=== PATIENT | male | born 1960 | race Caucasian/White ===

== ENCOUNTER → 2018-12-19 06:24 | Outpatient (CLI) | payer BC, SELFPAY ==
--- NOTE | 2018-12-19 12:56 | STRESSREP ---
Stress Test Report Date: 12-19-18 Procedure: Pharmacologic stress nuclear imaging study Indications: Chest pain Consent: Per the patient Procedure: The patient underwent pharmacologic (Regadenoson) evaluation with a peak heart rate of 84 beats per minute (52 %predicted maximal heart rate) and a peak blood pressure of 120/84 mmHg. The baseline ECG demonstrated dermal sinus rhythm. The peak pharmacologic ECG demonstrated no obvious ECG changes. There were no cardiac dysrhythmias pretest, during pharmacologic infusion, or recovery. There was no complaint of chest discomfort during pharmacologic infusion or recovery. The examination was discontinued secondary to completion of protocol. Impression: 1. Pharmacologic (Regadenoson) evaluation 2. Peak pharmacologic ECG with no obvious ECG changes. 3. There were no cardiac dysrhythmias pretest, during pharmacologic infusion, or recovery. 4. Nuclear images pending Myocardial perfusion imaging study: Technique: The patient was injected with 15.0 millicuries of technetium 99m Cardiolite and subsequently rest SPECT Cardiolite nuclear imaging was obtained in the horizontal long, vertical long, and short axis views. The patient underwent pharmacologic (Regadenoson) evaluation with a peak heart rate of 84 beats per minute (52 % percent predicted maximal heart rate) and a peak blood pressure of 120/84 mmHg. The patient was injected with 45 millicuries of technetium 99m Cardiolite and subsequently stress SPECT Cardiolite nuclear imaging was obtained in the horizontal long, vertical long, and short axis views. A gated Cardiolite study at peak stress was obtained. Interpretation: Rest and stress SPECT Cardiolite nuclear imaging status post realignment and normalization (attenuation correction not performed) demonstrate relative uniform tracer uptake and myocardial perfusion appearing within normal limits. There is end systolic thickening and brightening. The gated Cardiolite study demonstrates myocardial thickening and inward wall motion. The reported LVEF is 68 %. Impression: 1. Rest and stress SPECT Cardiolite nuclear imaging demonstrate relative uniform tracer uptake and myocardial perfusion appearing within normal limits. 2. The gated Cardiolite study reports an LVEF of 68 %. This note was generated with [employer] software. It may contain incorrect words, spelling, and punctuation that were not noted in checking the note before signing.
== END ==
PROVIDERS: Family Provider Family Medicine; PCP Family Medicine; Referring Provider Family Medicine; Visit Provider Family Medicine
DX: R07.9 Chest pain, unspecified (principal)
CPT/HCPCS: 78452; 93017; A9500; A4216; J2785

== ENCOUNTER 2019-06-17 15:59 | Emergency (ER) | payer BC, SELFPAY ==
[2019-06-17 16:00] VITALS: BP 130/84; PULSE 83; RESP 16; TEMP 37.2; O2SAT 97; BMI 32.5
--- NOTE | 2019-06-17 17:42 | ED.VISSUMM ---
- ER Visit Summary Date of Service: 06/17/19 Chief Complaint: Nosebleed History of Present Illness: The patient is a 59 M on Coumadin for DVT. Also has a history of hypertension and a prior aortic stent. Said had spontaneous nosebleed since . He was seen at [facility]. They were unable to get the bleeding stopped a sending that [facility]. And is basically been bleeding since that time. He denies feel lightheaded or dizzy. He has had nosebleeds before. He denies any trauma. Physical Examination: Middle-aged male no acute distress vital signs are stable afebrile. H EENT exam blood both sides of his nose. Mild active bleeding. Posterior pharynx there is blood but no active bleeding. Neck nontender. Lungs clear to auscultation. Heart regular rhythm no murmur. Abdomen is soft and nontender. Patient is moving all 4 extremities. No edema. Neurologically is awake and alert. Test Results: PT INR equals 23 and 2.1 CBC equals normal. White count of 6. Hemoglobin 13. Emergency Department Course and Treatment: Patient is on Coumadin so we will check a PT/INR. He is also states his been bleeding for 3 days and want his blood count checked. Afrin-soaked cotton balls are being placed in both sides of his nose to decrease the bleeding and he will be packed. Repeat exam patient is doing well. A rapid Rhino was placed in the right side of his nose. There is no bleeding. Left is not bleeding and does not need to be packed. Leave the packing in for 3 days. He will be on amoxicillin 3 times daily for that period time. No follow-up with ENT as needed. Treatment Plan: Follow-up with ENT. Amoxicillin 3 times daily until the packing is removed. Disposition: Discharge Impression: Right anterior nosebleed Anterior nasal pack by ER Anticoagulated on Coumadin This note was generated with [employer] dictation software. It may contain incorrect words, spelling, and punctuation that were not noted in review of the chart prior to signing ED Disposition - Plan for ED Patient: Referrals: Marco Dunn MD [Primary Care Provider] -
[2019-06-17 18:27] LABS: Hematocrit 42.8 % (40-54); Hemoglobin 13.4 g/dL (13.0-16.5); Mean Corp Hgb Conc 31.3 g/dL (32-36); Mean Corpuscular Hgb 28.8 pg (27.0-32.0); Mean Platelet Vol. 10.6 fl (6.2-12.0); Platelet Count 196 K/mm3 (150-450); RBC Distribution Width CV 13.3 % (11.6-14.6); RBC Distribution Width SD 45.5 fl (35.1-43.9); Red Blood Count 4.65 M/mm3 (4.6-6.2); White Blood Count 6.7 K/mm3 (4.4-11.0)
[2019-06-17 18:37] LABS: International Normalized Ratio 2.1; Prothrombin Time (Protime)PT. 23.7 SECONDS (11.7-14.9)
--- NOTE | 2019-06-17 19:02 | ED.DEP ---
ED Disposition - Plan for ED Patient: Disposition: Home or Assisted Living Instructions: Nosebleed Prescriptions: Amoxicillin 250 mg PO Q8 #9 cap Prescription Printed Referrals: Jd Segura MD [STAFF PHYSICIAN] - As soon as possible Additional Instructions: If rebleeds unable to stop return. If rebleeds hold direct pressure and ice if you are unable to stop return. Continue your current medications. Amoxicillin 1 pill 3 times a day until the packing is removed in 3 days. Packing can be removed either Wednesday or Wednesday. Follow-up with ear nose and throat Dr. Jd Lowery as needed.
[2019-06-17] MEDS: Oxymetazoline 0.05% 1 SPRAY SPRAY.BTL 2 SPRAY NASAL (19:17)
== END 2019-06-17 19:18 | disposition home or self-care (01) ==
PROVIDERS: Emergency Provider Emergency Medicine; PCP Family Medicine
DX: R04.0 Epistaxis (principal); I10 Essential (primary) hypertension; Z79.01 Long term (current) use of anticoagulants; Z86.718 Personal history of other venous thrombosis and embolism; Z72.0 Tobacco use
CPT/HCPCS: 30901; 36415; 85027; 85610; 99282

== ENCOUNTER 2019-06-17 22:51 | Emergency (ER) | payer BC, SELFPAY ==
[2019-06-17 16:00] VITALS: BMI 32.5
[2019-06-17 22:52] VITALS: BP 118/72; PULSE 90; RESP 16; TEMP 36.1; O2SAT 98; BMI 32.5
[2019-06-17] MEDS: Oxymetazoline 0.05% 1 SPRAY SPRAY.BTL 2 SPRAY NASAL (23:27)
--- NOTE | 2019-06-18 00:01 | ED.VISSUMM ---
- ER Visit Summary Date of Service: 06/18/19 Chief Complaint: Return with recurrent nosebleed History of Present Illness: The patient is a 59 M on Coumadin for history of DVT also history of hypertension. Patient was seen several hours ago has had a nosebleed intermittently for 3 days. Earlier tonight we checked a CBC which was normal and his Coumadin level was therapeutic at 2.1. We placed a anterior nasal pack in his right knee was completely stopped bleeding he was doing well. He went home said he was up and around doing things in his house and the bleeding restarted. And now is bleeding out the left side also. Physical Examination: Middle-aged male no acute distress vital signs are stable afebrile. Initial blood pressure is 138/84. H EENT exam pack in the right. There is bleeding mildly on the left in his posterior pharynx. The right packing soaked with blood. Lungs are clear heart regular rhythm. Otherwise exam unremarkable. I removed the pack. Test Results: Reviewed earlier labs. Emergency Department Course and Treatment: Removed the right nasal pack. Had the patient blow his nose clear another clots. Placed cotton ball soaked with nasal spray. After 20 to 30 minutes the bleeding completely resolved. I placed 1 anterior pack in each naris. Inflated both about 3 cc of air. Bleeding is completely resolved. The mid posterior pharynx is clean. He ambulated up and down the hallways and the bleeding did not restart. Treatment Plan: Follow-up with ENT on Wednesday. Return if bleeding recurs and unable to start. Disposition: dc Impression: Bilateral anterior nosebleeds Anticoagulated on Coumadin therapeutic Bilateral anterior rapid Rhino Rocket's placed by ER physician. Please only bill this patient for 1 ER physician rah ardon. This note was generated with [employer] dictation software. It may contain incorrect words, spelling, and punctuation that were not noted in review of the chart prior to signing ED Disposition - Plan for ED Patient: Referrals: Marco Dunn MD [Primary Care Provider] -
--- NOTE | 2019-06-18 00:05 | ED.DEP ---
ED Disposition - Plan for ED Patient: Disposition: Home or Assisted Living Instructions: Nosebleed Referrals: Jd Segura MD [STAFF PHYSICIAN] - 2 Days Additional Instructions: Follow-up with ENT either on Wednesday or Wednesday.
[2019-06-18 00:25] VITALS: RESP 16
== END 2019-06-18 00:26 | disposition home or self-care (01) ==
PROVIDERS: Emergency Provider Emergency Medicine; PCP Family Medicine
DX: R04.0 Epistaxis (principal); Z79.01 Long term (current) use of anticoagulants; Z86.718 Personal history of other venous thrombosis and embolism; I10 Essential (primary) hypertension
CPT/HCPCS: 30901; 36415; 85027; 85610; 99282

== ENCOUNTER 2021-03-15 12:29 | Emergency (ER) | payer OTHER, SELFPAY ==
[2021-03-15 12:30] VITALS: BP 117/79; PULSE 92; RESP 18; TEMP 36.4; O2SAT 100; BMI 35.2
--- NOTE | 2021-03-15 12:59 | EX.ED.GUMALE ---
HPI History of Present Illness Chief Complaint: Corral C/O Informant: patient and spouse/S.O. Pain Onset: Today Maximum Severity: Mild Narrative Narrative: 60-year-old male status post recent robotic prostatectomy on Wednesday at [facility]. Patient has an indwelling 20 [place] Corral catheter. Today it stopped draining. Of note he has a history of DVTs and is currently on Coumadin. He has noticed gross hematuria prior to the catheter stopped draining. Prior similar symptoms: No Recent Illness/Hospitalization: Yes PFSH PFSH Medical History History of abdominal aortic aneurysm History of DVT (deep vein thrombosis) History of prostate cancer HLD (hyperlipidemia) HTN (hypertension) Home Medications aspirin 81 mg PO DAILY@0800 05/11/15 [History Last Taken Unknown] metoprolol tartrate 50 mg PO BID 05/11/15 [History Last Taken Unknown] lisinopril 20 mg PO DAILY 06/17/19 [History Last Taken Unknown] paroxetine HCl 20 mg PO DAILY 06/17/19 [History Last Taken Unknown] warfarin 5 mg PO DAILY 06/17/19 [History Last Taken Unknown] olmesartan 03/15/21 [History Last Taken Unknown] Allergy/AdvReac Type Severity Reaction Status Date / Time ciprofloxacin [From Cipro] Allergy Rash Verified 03/15/21 12:31 ciprofloxacin HCl Allergy Rash Verified 03/15/21 12:31 [From Cipro] Surgical History H/O prostatectomy History of abdominal aortic aneurysm (AAA) repair History of cholecystectomy History of knee surgery Social History Smoking Status: Current every day smoker tobacco type: cigarettes ROS ROS ED ROS Narrative Denies recent illness. Review of Systems ROS Unobtainable: Denies due to encephalopathy Constitutional Constitutional ED: Denies fever(s) Eyes Eyes: Denies change in vision ENT ENT ED: Denies ear pain Cardiovascular Cardiovascular: Denies chest pain Respiratory/Chest Respiratory/Chest: Denies dyspnea Gastrointestinal Gastrointestinal: Denies abdominal pain Genitourinary Genitourinary ED: Denies dysuria Musculoskeletal Musculoskeletal: Denies myalgias Integumentary Denies rash Neurologic Neurologic: Denies headache(s) Psychiatric Psychiatric: Denies depression Endocrine Endocrinology: Denies polyuria Hematologic/Lymphatic Hematologic/Lymphatic: Reports easy bruising Allergic/Immunologic Allergic/Immunologic ED: Denies urticaria EXAM Physical Exam Narrative Exam Narrative: 60-year-old male vital signs stable afebrile. HEENT exam unremarkable. Lungs are clear. Heart regular rate and rhythm. Abdomen soft. He has mildly distended. Tender over the suprapubic region. Is well healed laparoscopic incisions. Is got bruising from being on Lovenox and Coumadin. External exam unremarkable. 20 [place] Citizen Corral catheter in place. Not actively draining. Nurse was able to irrigate with saline but had trouble drawing it back out. And we did it was gross hematuria and often clots. We could never get it open and spontaneously drained. Moving all 4 extremities. No edema. Const Vital Signs: 03/15/21 12:30 Temperature 97.6 F L Temperature Source Temporal Pulse Rate 92 Respiratory Rate 18 Blood Pressure 117/79 Blood Pressure Mean 91 Pulse Ox 100 Oxygen Delivery Method Room Air Positive well nourished and well developed General Appearance ED: well developed and NAD; Negative for pallor HEENT Reports moist mucous membranes normocephalic and atraumatic Eyes PERRL and EOMs intact bilaterally Neck no lymphadenopathy, supple and no JVD General: Negative for tenderness Resp normal respiratory effort and clear to auscultation bilaterally Auscultation: Negative for rales, rhonchi or wheezes Cardio regular rate, regular rhythm, S1 normal heart sound, S2 normal heart sound and no murmurs GI non-distended and no masses GI Narrative: Suprapubic tenderness. Auscultation: normoactive bowel sounds; Negative for hyperactive bowel sounds Palpation: soft Rectal Exam: tenderness Back/Spine no CVA tenderness General Back: Negative for CVA tenderness Extremity normal to inspection General Extremety ED: Negative for edema or tenderness General Extremity: Negative for edema Neuro oriented x3 Sensorium / Orientation: alert, oriented to person, oriented to place and oriented to time; Negative for orientation impaired, confused, lethargic or stuporous Psych mental status grossly normal Skin General Skin Exam: Negative for jaundice or pallor Lesions: no lesions Rashes: no rashes MDM MDM MDM Narrative Medical decision making narrative: Middle-age male obstructed catheter. Vital signs stable afebrile. We attempted to irrigate the catheter got clots but could not get the catheter to flush well at all. I spoke to the urologist carbon coater machine operator for [facility]. They want him to be transferred because they may need to change the Corral catheter and/or admit him for irrigation. They did not want us to attempt to change the catheter due to the recent surgery. [facility] except the patient in transfer. His wants to drive him there and not use an ambulance. They will be discharged and she will take him directly to [facility]. Discharge Plan Triage Chief Complaint: Corral C/O ED Provider: Jonas Avilez Dx/Rx/DC Orders Clinical Impression: Obstructed Corral catheter, Acute urinary retention, History of prostatectomy, Medication induced coagulopathy Prescriptions: No Action metoprolol tartrate 50 MG tablet 50 mg PO BID RF: 0 aspirin 81 MG tablet 81 mg PO DAILY@0800 RF: 0 lisinopril 20 MG tablet 20 mg PO DAILY RF: 0 paroxetine HCl 20 MG tablet 20 mg PO DAILY RF: 0 warfarin 5 MG tablet 5 mg PO DAILY RF: 0 olmesartan 20 mg tablet RF: 0 Primary Care Provider: Marco Dunn Referrals: Marco Dunn MD [Primary Care Provider] - Disposition Disposition: Acute Care Hospital
--- NOTE | 2021-03-15 13:01 | NURSING ---
UROLOGY PAGED THROUGH [facility] DR VILLANUEVA FOR DR DELUCA
--- NOTE | 2021-03-15 13:05 | ED.RN ---
Scanned multiple times and areas with zero results. Physician aware.
--- NOTE | 2021-03-15 14:09 | NURSING ---
[facility] BED [id number] NURSE TO NURSE [phone]
== END 2021-03-15 14:36 | disposition short-term general hospital (02) ==
PROVIDERS: Emergency Provider Emergency Medicine; PCP Family Medicine
DX: R33.9 Retention of urine, unspecified (principal); R31.0 Gross hematuria; T83.091A Other mechanical complication of indwelling urethral catheter, initial encounter; D68.8 Other specified coagulation defects; E78.5 Hyperlipidemia, unspecified; I10 Essential (primary) hypertension; F17.210 Nicotine dependence, cigarettes, uncomplicated; Z79.01 Long term (current) use of anticoagulants; Z79.82 Long term (current) use of aspirin; Z85.46 Personal history of malignant neoplasm of prostate; Z86.718 Personal history of other venous thrombosis and embolism; Z90.79 Acquired absence of other genital organ(s)
CPT/HCPCS: 99281; 99285

== ENCOUNTER 2021-06-10 11:21 | Emergency (ER) | payer OTHER, SELFPAY ==
[2021-06-10 11:22] VITALS: BP 149/106; PULSE 87; RESP 16; TEMP 36.2; O2SAT 100; BMI 35.3
--- NOTE | 2021-06-10 11:35 | CT_ITS ---
STUDY: CT ABDOMEN AND PELVIS WITH CONTRAST REASON FOR EXAM: Male, 60 years old. Right-sided discomfort for 2 weeks. Tender to touch. RADIATION DOSAGE (If Supplied By Facility): CTDIvol = ( 13.79 ) mGy, DLP = ( 1057.84 ) mGycm TECHNIQUE: Transaxial images were obtained from the dome of the diaphragm to the symphysis pubis without oral contrast. IV 100mL Isovue-300 was administered. Sagittal and coronal images were reconstructed. Individualized dose optimization techniques were used for this CT. COMPARISON: Comparison is made with prior study dated 05/11/2015. FINDINGS: Mild increased markings at the lung bases. This is unchanged and most likely represents mild degree of the scarring. Coronary artery calcification There is decreased attenuation of the liver consistent with steatosis. The patient is status post cholecystectomy. Normal spleen. Normal pancreas. Normal bilateral adrenal glands. There is a 2.7 cm cyst in the lower pole of the right kidney. Normal left kidney. There is a small hiatal hernia. Normal small intestine. Normal colon. The appendix is visualized and appears normal. The patient is status post endoluminal stent graft in the abdominal aorta. Normal inferior vena cava. Normal retroperitoneum. Normal urinary bladder. The patient is status post prostatectomy. There is a small umbilical hernia containing fat. There are mild degenerative changes of the visualized lumbar spine. CT/Abdomen/Pelvis W IV Cont ONLY IMPRESSION: 2.7 cm right renal cyst. Status post endoluminal stent grafting of the abdominal aorta. Small hiatal hernia. Electronically Signed: García Kothari MD at 13:11 EST ,
--- NOTE | 2021-06-10 11:36 | EDS_ITS ---
HPI History of Present Illness Chief Complaint: Abd Pain Informant: patient Narrative Narrative: Patient states that he has had discomfort on the right side of his abdomen for about 2 weeks. It never really goes away. He has no injury or lifting or straining. There is nothing that he can think of that really makes it better or worse other than pressing in the right mid quadrant area. He has been eating and drinking normally. He is not having nausea vomiting. He has no diarrhea. No constipation. No blood in the stool. No back pain or flank pain. He has had some dark urine but he has had changes in his urine ever since he had a prostatectomy back in January for prostate cancer. He has had repeat PSAs that are below 1. He has not followed up yet with Dr. Lane who did the surgery at [facility]. Patient also has a history of aortobifem stenting about 6 7 years ago. He has had prior cholecystectomy. He does not know if he has ever had diverticular disease. He has not had appendectomy. [facility] Medical History History of abdominal aortic aneurysm History of DVT (deep vein thrombosis) History of prostate cancer HLD (hyperlipidemia) HTN (hypertension) Home Medications aspirin 81 mg PO DAILY@0800 05/11/15 [History Last Taken Unknown] metoprolol tartrate 50 mg PO BID 05/11/15 [History Last Taken Unknown] lisinopril 20 mg PO DAILY 06/17/19 [History Last Taken Unknown] paroxetine HCl 20 mg PO DAILY 06/17/19 [History Last Taken Unknown] warfarin 5 mg PO DAILY 06/17/19 [History Last Taken Unknown] olmesartan 03/15/21 [History Last Taken Unknown] oxycodone-acetaminophen [Percocet] 1 tab PO Q6H PRN 3 Days #12 tab 06/10/21 [Rx Last Taken Unknown] Allergy/AdvReac Type Severity Reaction Status Date / Time ciprofloxacin [From Cipro] Allergy Rash Verified 06/10/21 11:21 ciprofloxacin HCl Allergy Rash Verified 06/10/21 11:21 [From Cipro] Surgical History H/O prostatectomy History of abdominal aortic aneurysm (AAA) repair History of cholecystectomy History of knee surgery Social History Smoking Status: Current every day smoker tobacco type: cigarettes ROS ROS ED Constitutional Constitutional ED: Denies chills, fever(s) or subjective ENT ENT ED: Denies rhinorrhea or sore throat Cardiovascular Cardiovascular: Denies chest pain or palpitations Respiratory/Chest Respiratory/Chest: Denies cough, dyspnea or dyspnea on exertion Gastrointestinal Gastrointestinal: Reports abdominal pain; Denies constipation, diarrhea, melena, nausea or vomiting Genitourinary Genitourinary ED: Reports other Details: Varied urination. He states he does not control it too well. It tends to be darker than normal. He just had this checked by nurse practitioner in the last week. ; Denies hematuria Musculoskeletal Musculoskeletal: Denies back pain, myalgias or neck pain Integumentary Denies abscess or rash Neurologic Neurologic: Denies headache(s) Endocrine Endocrinology: Denies polydipsia or polyuria Allergic/Immunologic Allergic/Immunologic ED: Denies mouth swelling or urticaria EXAM Physical Exam Const Vital Signs: 06/10/21 11:22 06/10/21 14:35 Temperature 97.2 F L Temperature Source Temporal Pulse Rate 87 93 Respiratory Rate 16 14 Blood Pressure 149/106 H 161/96 H Blood Pressure Mean 120 117 Pulse Ox 100 96 Oxygen Delivery Method Room Air Room Air Positive well nourished and well developed General Appearance ED: well developed and NAD; Negative for cyanotic or diaphoretic HEENT Reports moist mucous membranes Eyes EOMs intact bilaterally Eyes Narrative: I am suspicious there is some mild scleral icterus. Neck supple Chest Wall inspection of chest normal and palpation of chest normal Resp normal respiratory effort and clear to auscultation bilaterally Effort and Inspection: Negative for pain with movement Auscultation: Negative for rales, rhonchi or wheezes Cardio regular rate and regular rhythm GI normal to inspection, nondistended, normoactive bowel sounds GI Narrative: Patient does have some tenderness down the right side of abdomen. Most of it is mid or upper. Although he has some obesity, I am suspicious his liver is a little bit firm and may be enlarged on exam. Palpation: soft Back/Spine no CVA tenderness Neuro oriented x3 Sensorium / Orientation: alert Psych mental status grossly normal Skin no rashes or lesions noted General Skin Exam: Negative for jaundice MDM MDM MDM Narrative Medical decision making narrative: Patient CBC including hemoglobin is normal. Electrolytes and liver function test are normal. Lipase is normal. INR is slightly high at 3.[address] markedly so. CT scan was read as normal. However, I looked at this and was concerned about rectus sheath hematoma. So we contacted the radiologist again. Patient's been having pain for 2 weeks. His hemoglobin is stable. We will have hold Coumadin for about 3 days. He will then start off at half dose and then go back to full dose. He will not work for the next week to let this heal. We discussed multiple reasons that would bring him back to and including pain, lightheadedness, swelling, fevers or any other concerns. Any radiation of the pain is also concerning. Lab Data Attestation: I reviewed the patient's lab results. Labs: Laboratory Results - last 24 hr 06/10/21 06/10/21 06/10/21 11:43 11:43 11:43 WBC 8.0 RBC 5.13 Hgb 14.2 Hct 44.0 MCV 85.8 MCH 27.7 MCHC 32.3 RDW Std Deviation 43.2 RDW Coeff of Nena 13.8 Plt Count 254 MPV 9.8 Immature Gran % (Auto) 1.400 H Neut % (Auto) 66.9 Lymph % (Auto) 17.0 L Lucas % (Auto) 9.8 Eos % (Auto) 4.0 Baso % (Auto) 0.9 Absolute Neuts (auto) 5.4 Absolute Lymphs (auto) 1.37 Nucleated RBC % 0 PT Cancelled INR Cancelled Sodium 137 Potassium 4.0 Chloride 103 Carbon Dioxide 30.0 Anion Gap 4 L BUN 14 Creatinine 1.13 Estim Creat Clear Calc 75.35 Est GFR (MDRD) Af Amer 85 Est GFR (MDRD) Non-Af 70 BUN/Creatinine Ratio 12.4 Glucose 81 Calcium 8.9 Total Bilirubin 0.30 AST 16 ALT 22 Alkaline Phosphatase 91 Total Protein 7.4 Albumin 3.5 Globulin 3.9 Albumin/Globulin Ratio 0.9 Lipase 126 Urine Color Urine Clarity Urine pH Ur Specific [place] Urine Protein Urine Glucose (UA) Urine Ketones Urine Occult Blood Urine Nitrite Urine Bilirubin Urine Urobilinogen Ur Leukocyte Esterase Urine RBC Urine WBC Ur Squamous Epith Cells Urine Bacteria Urine Mucus 06/10/21 06/10/21 11:58 13:30 WBC RBC Hgb Hct MCV MCH MCHC RDW Std Deviation RDW Coeff of Nena Plt Count MPV Immature Gran % (Auto) Neut % (Auto) Lymph % (Auto) Lucas % (Auto) Eos % (Auto) Baso % (Auto) Absolute Neuts (auto) Absolute Lymphs (auto) Nucleated RBC % PT 30.9 H INR 3.1 Sodium Potassium Chloride Carbon Dioxide Anion Gap BUN Creatinine Estim Creat Clear Calc Est GFR (MDRD) Af Amer Est GFR (MDRD) Non-Af BUN/Creatinine Ratio Glucose Calcium Total Bilirubin AST ALT Alkaline Phosphatase Total Protein Albumin Globulin Albumin/Globulin Ratio Lipase Urine Color Yellow Urine Clarity Clear Urine pH 6.5 Ur Specific [place] 1.010 Urine Protein Negative Urine Glucose (UA) Normal Urine Ketones Negative Urine Occult Blood Negative Urine Nitrite Negative Urine Bilirubin Negative Urine Urobilinogen Normal Ur Leukocyte Esterase Negative Urine RBC 0 SEEN Urine WBC 0 SEEN Ur Squamous Epith Cells 0 SEEN Urine Bacteria 0 SEEN Urine Mucus 0 SEEN Radiography Diagnostic Testing: Clinical Impression(s) from Imaging Studies Abdomen/Pelvis CT 06/10/21 11:35 IMPRESSION: 2.7 cm right renal cyst. Status post endoluminal stent grafting of the abdominal aorta. Small hiatal hernia. Electronically Signed: García Kothari MD at 13:11 EST , ADDENDUM: 06/10/21 1405 Discharge Plan Triage Chief Complaint: Abd Pain ED Provider: Shin Atkins Dx/Rx/DC Orders Clinical Impression: Hematoma of rectus sheath, Warfarin-induced coagulopathy Instructions: ED Hematoma Prescriptions: New oxycodone-acetaminophen [Percocet] 5-325 mg tablet 1 tab PO Q6H PRN (Reason: pain) 3 Days Qty: 12 RF: 0 No Action metoprolol tartrate 50 MG tablet 50 mg PO BID RF: 0 aspirin 81 MG tablet 81 mg PO DAILY@0800 RF: 0 lisinopril 20 MG tablet 20 mg PO DAILY RF: 0 paroxetine HCl 20 MG tablet 20 mg PO DAILY RF: 0 warfarin 5 MG tablet 5 mg PO DAILY RF: 0 olmesartan 20 mg tablet RF: 0 Stand Alone Forms: Work Status Form Primary Care Provider: Marco Dunn Referrals: Marco Dunn MD [Primary Care Provider] - Disposition Disposition: Home, Self Care
[2021-06-10 11:55] LABS: Absolute Lymphocyte Count 1.37 X10^3/uL (0.83-4.51); Absolute Neutrophil Count 5.4 X10^3/uL (2.0-7.7); Basophil# 0.07 X10^3/uL; Basophil% 0.9 % (0-1); Eosinophil# 0.32 X10^3/uL; Hemoglobin 14.2 g/dL (13.0-16.5); Lymphocyte # 1.37 X10^3/ul (0.83-4.51); Mean Corp Hgb Conc 32.3 g/dL (32-36); Mean Corpuscular Hgb 27.7 pg (27.0-32.0); Mean Corpuscular Volume 85.8 fL (80-94); Mean Platelet Vol. 9.8 fl (6.2-12.0); Monocyte# 0.79 X10^3/uL; Monocyte% 9.8 % (0-10); NRBC Flagged by Analyzer 0 % (0-5); Neutrophil # 5.38 X10^3/uL (2.7-7.7); Neutrophil % 66.9 % (47-70); Platelet Count 254 K/mm3 (150-450); RBC Distribution Width CV 13.8 % (11.6-14.6); RBC Distribution Width SD 43.2 fl (35.1-43.9); Red Blood Count 5.13 M/mm3 (4.6-6.2)
[2021-06-10 12:10] LABS: ALB/GLOB Ratio 0.9 RATIO (0.9-2.4); AST(SGOT) 16 U/L (15-37); Alanine Aminotransfer ALT/SGPT 22 U/L (16-61); Albumin, Serum 3.5 g/dL (3.2-5.0); Alkaline Phosphatase 91 U/L (45-117); Anion Gap 4 (5-15); BUN 14 mg/dL (7-18); BUN/Creat Ratio 12.4 RATIO (10-20); Calcium,Total 8.9 mg/dL (8.5-10.1); Chloride 103 mmol/L (98-107); Creatinine, Serum 1.13 mg/dL (0.70-1.30); EST Glomerular Filtration Rate 70 mL/min (>60); Est Glom Filt Rate - Afr Amer 85 mL/min (>60); Estimated Creatinine Clearance 75.35 ml/min; Globulin 3.9 g/dL (2.2-4.2); Glucose 81 mg/dL (74-106); Lipase 126 U/L (73-393); Protein, Total 7.4 g/dL (6.4-8.2); Sodium Level 137 mmol/L (136-145)
[2021-06-10 12:18] LABS: International Normalized Ratio 3.1; Prothrombin Time (Protime)PT. 30.9 SECONDS (11.7-14.9)
[2021-06-10] MEDS: Morphine 4 MG/ML Syringe IV (13:14)
[2021-06-10 13:38] LABS: Bacteria 0 SEEN /hpf (None Seen); Mucous, Urine 0 SEEN /hpf (<or=2+); Red Blood Cells-Urine 0 SEEN /hpf (0-5); Squamous Epithelial Cells - UA 0 SEEN /hpf (0-5); White Blood Cells 0 SEEN /hpf (0-5)
[2021-06-10 13:39] LABS: Color, Urine Yellow (Yellow); Glucose, Dipstick Normal (Normal); Ketone-Dipstick Negative (Negative); Leukocyte Esterase-Dipstick Negative /ul (Negative); Nitrite-Dipstick Negative (Negative); Occult Blood-Urine Negative /ul (Negative); Protein-Dipstick Negative (Negative); Urine Bilirubin Dipstick Negative (Negative); Urine Clarity Clear (Clear); Urine Urobilinogen Normal (Normal); Urine pH 6.5 (5.0 - 8.0)
[2021-06-10 14:35] VITALS: BP 161/96; PULSE 93; RESP 14; O2SAT 96
[2021-06-10 15:17] VITALS: BP 162/75; PULSE 81; RESP 18; O2SAT 98
== END 2021-06-10 15:21 | disposition home or self-care (01) ==
PROVIDERS: Emergency Provider Emergency Medicine; PCP Family Medicine; Visit Provider Emergency Medicine
DX: M79.81 Nontraumatic hematoma of soft tissue (principal); I71.4 Abdominal aortic aneurysm, without rupture; D68.32 Hemorrhagic disorder due to extrinsic circulating anticoagulants; Z86.718 Personal history of other venous thrombosis and embolism; Z85.46 Personal history of malignant neoplasm of prostate; E78.5 Hyperlipidemia, unspecified; I10 Essential (primary) hypertension; Z79.82 Long term (current) use of aspirin; Z79.899 Other long term (current) drug therapy; Z79.01 Long term (current) use of anticoagulants; Z90.49 Acquired absence of other specified parts of digestive tract; F17.210 Nicotine dependence, cigarettes, uncomplicated
CPT/HCPCS: 74177; 80053; 81001; 83690; 85025; 85610; 96361; 96374; 99283; J7030; Q9967; A4216

== ENCOUNTER 2021-06-11 17:09 | Emergency (ER) | payer OTHER, SELFPAY ==
[2021-06-11 17:10] VITALS: BP 131/102; PULSE 118; RESP 16; TEMP 36.4; O2SAT 100; BMI 35.2
--- NOTE | 2021-06-11 17:23 | EKG12_ITS ---
Test Reason : ABD PAIN Blood Pressure : / mmHG Vent. Rate : 101 BPM Atrial Rate : 101 BPM P-R Int : 146 ms QRS Dur : 076 ms QT Int : 328 ms P-R-T Axes : 040 026 016 degrees QTc Int : 425 ms Sinus tachycardia with occasional Premature ventricular complexes Otherwise normal ECG Confirmed by JAME MANLEY, ROZ ([id number]), scientific publications editor PATRICIA STRINGER ([id number]) on 06/13/2021 1:09:44 PM Referred By: SANDY Confirmed By:VERONICA KILGORE MD
--- NOTE | 2021-06-11 17:23 | CT_ITS ---
We are attempting to reach an attending provider to discuss findings. An addendum with communication details will be sent when the communication is complete. INDICATION: Generalized peritonitis -- History of prostate cancer, aortic aneurysm with s EXAMINATION: CT Abdomen And Pelvis W/ Contrast Injection TECHNIQUE: Helically acquired images were obtained of the abdomen and pelvis after IV contrast. A radiation dose optimization technique was used for this scan. IV Contrast dosage and agent: IV 100mL Isovue-300 Oral contrast: None. COMPARISON: 06/10/2021. FINDINGS: Visualized lung bases: Unremarkable Liver: Diffusely hypodense consistent with fatty liver. Gallbladder: Unremarkable Spleen: Unremarkable Pancreas: Unremarkable Adrenal Glands: Unremarkable Kidneys: Stable 2.7 cm cyst in the lower pole of the right kidney. Vasculature: Stable abdominal aortic aneurysm status post endoluminal stent graft. GI Tract: Small hiatal hernia. Lymphadenopathy: None Peritoneum: No ascites. Bladder: Unremarkable Reproductive organs: Status post prostatectomy. Bones/Soft tissues: Mild scattered degenerative changes of the visualized spine. Small umbilical fat-containing hernia. Large rectus abdominous/rectus sheath hematoma on the right measuring approximately 23.3 x 5 cm. Hemorrhage crosses the midline and dissects along the transversalis fascial plane. It also involves the prevesical space of Retzius. There are 2 punctate hyperdense foci within the inferior aspect of the hematoma anterior to the right inferior epigastric artery (images 103 and 99, series 2). CT/Abdomen/Pelvis W IV Cont ONLY IMPRESSION: Large 23 cm type III right sided rectus sheath hematoma which crosses the midline, dissects along the transversalis fascia and involves the prevesical space of Retzius. Two punctate hyperdense foci within the inferior aspect of the hematoma anterior to the right inferior epigastric artery could represent active extravasation versus pseudoaneurysms. No other changes. Electronically Signed: Stepan Vann MD at 19:13 EST ,
--- NOTE | 2021-06-11 18:02 | ED.VIS.GI ---
HPI HPI - GI History of Present Illness Chief Complaint: Abd Pain Detail of Chief Complaint: Abdominal pain with nausea started 3 days ago Informant: patient Abdominal Pain/Flank Pain Onset: Days (3 days ago) Context: Sudden Onset Timing: Continuous Quality: Aching Location: - (Worse right side) Current Severity: Mild Maximum Severity: Severe Worsened by: Car ride, Movement and - (Coughing) Relieved by: Nothing Nausea/Vomiting/Emesis GI Symptom: Positive for Nausea; Negative for Vomiting Diarrhea/Melena/Hematochezia GI Symptom: Negative for Diarrhea, Melena and Hematochezia Associated Symptoms Associated Symptoms: Negative for Dysuria, Frequency and Hematuria Narrative Narrative: Patient 60-year-old male with history of prostate cancer, hypertension who apparently is on warfarin based on home meds. We will add a PT/INR. Patient had surgery at [facility] for his prostate cancer by Dr. Ricky Stockton. He denies fever, chills night sweats. He reports weight gain not weight loss. He denies headache, visual, ocular auditory symptoms. He denies any upper respiratory symptoms. He denies intolerance to greasy or fried foods. He states his last bowel movement was yesterday. He is still passing gas. He has nausea without vomiting. He denies prior history of bowel obstruction. He denies change in color of his urine or stool. He denies blood or mucus in his stool. Prior similar symptoms: No Recent Illness/Hospitalization: Yes [facility] Medical History History of abdominal aortic aneurysm History of DVT (deep vein thrombosis) History of prostate cancer HLD (hyperlipidemia) HTN (hypertension) Home Medications aspirin 81 mg PO DAILY@0800 05/11/15 [History Last Taken Unknown] metoprolol tartrate 50 mg PO BID 05/11/15 [History Last Taken Unknown] lisinopril 20 mg PO DAILY 06/17/19 [History Last Taken Unknown] paroxetine HCl 20 mg PO DAILY 06/17/19 [History Last Taken Unknown] warfarin 5 mg PO DAILY 06/17/19 [History Last Taken Unknown] olmesartan 03/15/21 [History Last Taken Unknown] oxycodone-acetaminophen [Percocet] 1 tab PO Q6H PRN 3 Days #12 tab 06/10/21 [Rx Last Taken Unknown] Allergy/AdvReac Type Severity Reaction Status Date / Time ciprofloxacin [From Cipro] Allergy Rash Verified 06/10/21 11:21 ciprofloxacin HCl Allergy Rash Verified 06/10/21 11:21 [From Cipro] Surgical History H/O prostatectomy History of abdominal aortic aneurysm (AAA) repair History of cholecystectomy History of knee surgery Social History (Updated 06/11/21 @ 18:[address] Ochoa Pritchett MD) household members: spouse Smoking Status: Current every day smoker tobacco type: cigarettes substance use type: does not use ROS ROS ED Constitutional Constitutional ED: Denies chills, fever(s), subjective, sweats or weight loss ENT ENT ED: Denies ear pain, rhinorrhea or sore throat Cardiovascular Cardiovascular: Denies chest pain, orthopnea, palpitations or racing heartbeat Respiratory/Chest Respiratory/Chest: Denies cough, dyspnea, dyspnea on exertion or orthopnea Gastrointestinal Gastrointestinal: Denies abdominal pain, diarrhea, nausea or vomiting Genitourinary Genitourinary ED: Denies dysuria, hematuria or urinary frequency Musculoskeletal Musculoskeletal: Denies arthralgias, back pain, myalgias or neck pain Integumentary Denies rash Neurologic Neurologic: Denies headache(s) or weakness Psychiatric Psychiatric: Denies anxiety or depression Endocrine Endocrinology: Denies polydipsia, polyphagia or polyuria Hematologic/Lymphatic Hematologic/Lymphatic: Denies easy bleeding or easy bruising EXAM Physical Exam Const Vital Signs: 06/11/21 17:10 Temperature 97.6 F L Temperature Source Temporal Pulse Rate 118 H Respiratory Rate 16 Blood Pressure 131/102 H Blood Pressure Mean 111 Pulse Ox 100 Oxygen Delivery Method Room Air Positive well nourished, well developed and obese; Negative for cachectic, contractures or unkempt General Appearance ED: well developed; Negative for unkempt, cachectic, contractures, NAD or pallor Nutritional Appearance: obese; Negative for cachectic HEENT Reports TM's clear and dry mucous membranes normocephalic and atraumatic Tympanic Membrane ED: Yes TM's clear Mouth ED: Yes dry mucous membranes Mouth: dry mucous membranes Eyes PERRL and EOMs intact bilaterally General Eye ED: Yes other Other Details: Clear appears muddy possibly slightly icteric. ; Negative for pale conjunctiva or scleral icterus Neck no lymphadenopathy, supple and no JVD Resp normal respiratory effort and clear to auscultation bilaterally Cardio regular rhythm, S1 normal heart sound, S2 normal heart sound and no murmurs Rate: tachycardic GI no masses; Negative for non-tender or non-distended GI Narrative: Well-healed recent surgical scars noted. There is no inguinal lymphadenopathy or mass noted. Inspection: abdominal distention Auscultation: hypoactive bowel sounds; Negative for normoactive bowel sounds Palpation: soft, tender other (Diffuse right greater than left), guarding LLQ, RLQ and RUQ and rebound tenderness present; Negative for hepatomegaly, splenomegaly or mass Back/Spine no CVA tenderness Cervical Spine: Negative for cervical spine tenderness Thoracic Spine / Upper Back: Negative for thoracic spinal tenderness Lumbar Spine / Lower Back: Negative for lumbar spinal tenderness Extremity full ROM General Extremety ED: Negative for edema or tenderness General Extremity: Negative for edema Neuro CN's II-XII intact bilaterally and moves all extremities Sensorium / Orientation: alert, oriented to person, oriented to place and oriented to time Psych mental status grossly normal and thought process normal Appearance: Negative for unkempt Skin no wounds General Skin Exam: Negative for jaundice or pallor Lesions: no lesions Rashes: no rashes MDM MDM MDM Narrative Medical decision making narrative: Patient has generalized peritonitis. Since he has no allergy to penicillin 4.5 g of Zosyn was ordered. His only sirs criteria is a pulse of 118. Appropriate blood work was ordered. Blood cultures were not because they may not be indicated. In my opinion delay of antibiotics may cause more harm. CBC was obtained to assess white count as well as H&H. Comprehensive metabolic panel to assess liver function, total bili, renal function and electrolytes. GFR yesterday was 70. crime scene technician was instructed to perform CAT scan. Lab Data Attestation: I reviewed the patient's lab results. Lab results narrative: There is a 2 g drop in hemoglobin. Lactate is normal. White count is normal. Renal function is normal. Patient has a expanding hematoma. Suspect is tachycardia is due to blood loss from expanding hematoma. PT/INR is pending. He was typed and screened. Spoke with Dr. Shashi Winters on for general surgery. Because of the nationwide blood shortage and patient's complicated history and need for IR recommended transfer. Spoke with Jinny the transfer nurse. She is made aware of patient's history, physical past history. She spoke with Dr. Campoverde who is on for vascular surgery. She recommended ER to ER transfer. Spoke with Dr. Beltrán the ER physician. She was informed that the images will be sent electronically prior to patient's transport. She requested that the PT/INR be called to her. Labs: Laboratory Results - last 24 hr 06/11/21 06/11/21 06/11/21 18:00 18:00 18:00 WBC 9.1 RBC 4.53 L Hgb 12.4 L Hct 40.1 MCV 88.5 MCH 27.4 MCHC 30.9 L RDW Std Deviation 45.2 H RDW Coeff of Nena 14.1 Plt Count 260 MPV 10.1 Immature Gran % (Auto) 0.500 Neut % (Auto) 79.1 H Lymph % (Auto) 8.5 L [place] % (Auto) 10.2 H Eos % (Auto) 1.0 Baso % (Auto) 0.7 Absolute Neuts (auto) 7.2 Absolute Lymphs (auto) 0.78 L Nucleated RBC % 0 Sodium 135 L Potassium 4.1 Chloride 101 Carbon Dioxide 27.0 Anion Gap 7 BUN 14 Creatinine 1.15 Estim Creat Clear Calc 74.04 Est GFR (MDRD) Af Amer 83 Est GFR (MDRD) Non-Af 69 BUN/Creatinine Ratio 12.2 Glucose 89 Lactic Acid 1.5 Calcium 8.4 L Total Bilirubin 0.40 Direct Bilirubin 0.13 AST 22 ALT 21 Alkaline Phosphatase 82 Total Protein 7.2 Albumin 3.6 Globulin 3.6 Lipase 73 Critical Care Time Critical Care Time: Yes Critical care time (excluding procedures): 30-74 minutes (37 minutes), Including time spent: (History, physical, documentation, interpretation laboratory results and CT image to facilitate transfer), Discussing w/Patient &/or Family/Glass Fitter, Discussing w/Consultants (Discussion with nurse [facility] transfer center, emergency physician) and Arranging Admission or Transfer Discharge Plan Triage Chief Complaint: Abd Pain ED Provider: Ochoa Pritchett Dx/Rx/DC Orders Clinical Impression: Nontraumatic rectus hematoma, Anticoagulant long-term use, Sinus tachycardia, Active bleeding Prescriptions: No Action metoprolol tartrate 50 MG tablet 50 mg PO BID RF: 0 aspirin 81 MG tablet 81 mg PO DAILY@0800 RF: 0 lisinopril 20 MG tablet 20 mg PO DAILY RF: 0 paroxetine HCl 20 MG tablet 20 mg PO DAILY RF: 0 warfarin 5 MG tablet 5 mg PO DAILY RF: 0 olmesartan 20 mg tablet RF: 0 oxycodone-acetaminophen [Percocet] 5-325 mg tablet 1 tab PO Q6H PRN (Reason: pain) 3 Days Qty: 12 RF: 0 Primary Care Provider: Marco Dunn Referrals: Marco Dunn MD [Primary Care Provider] - Disposition Disposition: Acute Care Hospital
[2021-06-11 18:11] LABS: Absolute Lymphocyte Count 0.78 X10^3/uL (0.83-4.51); Absolute Neutrophil Count 7.2 X10^3/uL (2.0-7.7); Basophil# 0.06 X10^3/uL; Basophil% 0.7 % (0-1); Eosinophil# 0.09 X10^3/uL; Hematocrit 40.1 % (40-54); Hemoglobin 12.4 g/dL (13.0-16.5); Lymphocyte # 0.78 X10^3/ul (0.83-4.51); Lymphocyte % 8.5 % (19-41); Mean Corp Hgb Conc 30.9 g/dL (32-36); Mean Corpuscular Hgb 27.4 pg (27.0-32.0); Mean Corpuscular Volume 88.5 fL (80-94); Mean Platelet Vol. 10.1 fl (6.2-12.0); Monocyte# 0.93 X10^3/uL; Monocyte% 10.2 % (0-10); NRBC Flagged by Analyzer 0 % (0-5); Neutrophil # 7.23 X10^3/uL (2.7-7.7); Neutrophil % 79.1 % (47-70); Platelet Count 260 K/mm3 (150-450); RBC Distribution Width CV 14.1 % (11.6-14.6); RBC Distribution Width SD 45.2 fl (35.1-43.9); Red Blood Count 4.53 M/mm3 (4.6-6.2); White Blood Count 9.1 K/mm3 (4.4-11.0)
[2021-06-11 18:28] LABS: AST(SGOT) 22 U/L (15-37); Alanine Aminotransfer ALT/SGPT 21 U/L (16-61); Albumin, Serum 3.6 g/dL (3.2-5.0); Alkaline Phosphatase 82 U/L (45-117); Anion Gap 7 (5-15); BUN 14 mg/dL (7-18); BUN/Creat Ratio 12.2 RATIO (10-20); Bilirubin, Direct 0.13 mg/dL (0.00-0.30); Calcium,Total 8.4 mg/dL (8.5-10.1); Chloride 101 mmol/L (98-107); Creatinine, Serum 1.15 mg/dL (0.70-1.30); EST Glomerular Filtration Rate 69 mL/min (>60); Est Glom Filt Rate - Afr Amer 83 mL/min (>60); Estimated Creatinine Clearance 74.04 ml/min; Globulin 3.6 g/dL (2.2-4.2); Glucose 89 mg/dL (74-106); Lipase 73 U/L (73-393); Potassium 4.1 mmol/L (3.5-5.1); Protein, Total 7.2 g/dL (6.4-8.2); Sodium Level 135 mmol/L (136-145)
[2021-06-11 18:33] LABS: Lactic Acid 1.5 mmol/L (0.4-1.9)
[2021-06-11 19:18] LABS: International Normalized Ratio 2.3; Prothrombin Time (Protime)PT. 24.2 SECONDS (11.7-14.9)
[2021-06-11] MEDS: HYDROmorphone 1 MG/ML Syringe IV ×2 (19:19→20:35)
[2021-06-11] MEDS: Ondansetron 4 MG/2 ML Vial IV (19:19)
[2021-06-11 19:21] VITALS: BP 159/104; PULSE 109; RESP 18; TEMP 37.2; O2SAT 96
[2021-06-11] MEDS: 0.9% Normal Saline 1,000 ML 1000 ML IV (19:21)
[2021-06-11 19:22] VITALS: BP 159/104; PULSE 104; RESP 18; TEMP 37.2; O2SAT 100
[2021-06-11 19:45] VITALS: BP 163/107; PULSE 84; RESP 18; O2SAT 95
[2021-06-11 20:03] VITALS: BP 129/88; PULSE 84; RESP 18; O2SAT 95
[2021-06-11] MEDS: HUMAN PROTHROMBIN COMPLX(PCC) 2,500 UNIT in Viaflex Bag 1 BAG 500 UNIT IV (20:14)
[2021-06-11] MEDS: 0.9% Normal Saline 1,000 ML 125 ML IV (20:30)
[2021-06-11] MEDS: Phytonadione (Vit K1) 5 MG TABLET PO (20:54)
[2021-06-11 20:59] VITALS: BP 124/72; PULSE 102; RESP 20; TEMP 37.2; O2SAT 94
== END 2021-06-11 21:06 | disposition short-term general hospital (02) ==
PROVIDERS: Emergency Provider Emergency Medicine; PCP Family Medicine; Visit Provider Emergency Medicine
DX: M79.81 Nontraumatic hematoma of soft tissue (principal); I71.4 Abdominal aortic aneurysm, without rupture; R00.0 Tachycardia, unspecified; R11.2 Nausea with vomiting, unspecified; Z85.46 Personal history of malignant neoplasm of prostate; I10 Essential (primary) hypertension; F17.210 Nicotine dependence, cigarettes, uncomplicated; Z79.01 Long term (current) use of anticoagulants; E78.5 Hyperlipidemia, unspecified; Z86.718 Personal history of other venous thrombosis and embolism; Z79.82 Long term (current) use of aspirin; Z79.899 Other long term (current) drug therapy; E66.9 Obesity, unspecified; Z87.19 Personal history of other diseases of the digestive system; Z68.35 Body mass index [BMI] 35.0-35.9, adult
CPT/HCPCS: 74177; 80048; 80076; 83605; 83690; 85025; 85610; 87426; 93005; 99285; J7030; J7168; Q9967; A4216; J2405; J3490

== ENCOUNTER 2021-08-11 13:55 | Outpatient (CLI) | payer OTHER, SELFPAY ==
[2021-08-11 14:21] LABS: International Normalized Ratio 1.2; Prothrombin Time (Protime)PT. 14.5 SECONDS (11.7-14.9)
== END 2021-08-11 23:59 | disposition home or self-care (01) ==
LOC: LABSPEC 13:57
PROVIDERS: PCP Family Medicine; Visit Provider Family Medicine
DX: D68.51 Activated protein C resistance (principal)
CPT/HCPCS: 85610

== ENCOUNTER → 2021-11-04 | Outpatient (CLI) | payer OTHER, SELFPAY ==
--- NOTE | 2021-11-04 11:06 | VDLE_ITS ---
Reason For Study: Swelling RIGHT GSV is normal. CFV is compressible, spontaneous, phasic, competent and demonstrates normal augmentation. FV is compressible, spontaneous, phasic, competent and demonstrates normal augmentation. POP V is compressible, spontaneous, phasic, competent and demonstrates normal augmentation. T/P Trunk is compressible. PTV is compressible. RT PerV is compressible. Gastroc vein is compressible with rouleaux flow noted. Procedure This is a venous duplex using B-mode, color flow and spectral Doppler. Exam performed in department. A preliminary report was called and/or faxed to [facility]. VL/Venous Duplex US, Unilateral Interpretation Summary Deep veins of the right lower extremity are patent and compressible segmentally . There is no evidence of right lower extremity deep vein thrombosis. Valvular competence jon ears intact within the proximal deep venous system on the right . The right great saphenous vein a ppears patent and compressible segmentally. Rouleaux flow is noted in the right gastrocnemius vei n. Ordering Physician: Joanne Elizondo Referring Physician: Marco Dunn Performed By: Marjorie Pollard RVT
== END | disposition home or self-care (01) ==
LOC: CVS 10:36
PROVIDERS: PCP Family Medicine; Referring Provider Registered Nurse; Visit Provider Registered Nurse
DX: M79.89 Other specified soft tissue disorders (principal)
CPT/HCPCS: 93971

== ENCOUNTER 2022-09-03 08:51 | Emergency (ER) | payer OTHER, SELFPAY ==
[2022-09-03 08:52] VITALS: BP 113/101; PULSE 106; RESP 16; TEMP 37.7; O2SAT 97; BMI 35.2
--- NOTE | 2022-09-03 09:10 | RAD_ITS ---
STUDY: X-RAY CHEST REASON FOR EXAM: Male, 62 years old. Cough fever TECHNIQUE: PA and lateral views of the chest. COMPARISON: Comparison is made with prior study dated June 21, 2014. FINDINGS: Mild degree of increased markings at the lung bases suggest some mild bibasilar atelectasis. There is no demonstrated pleural abnormality. Normal size heart. Normal mediastinum and reji. Normal visualized pulmonary arteries. There is atherosclerotic tortuosity of the aortic arch and descending thoracic aorta. Normal visualized thoracic spine. Normal visualized ribs, clavicles, and shoulders. There is no demonstrated abnormality of the visualized soft tissue structures of the upper abdomen. RAD/Chest PA and Lateral IMPRESSION: Mild degree of increased markings at the lung bases suggests a mild degree of bilateral basilar atelectasis. Electronically Signed: García Kothari MD at 11:25 EDT ,
--- NOTE | 2022-09-03 09:10 | EKG12_ITS ---
Test Reason : FEVER Blood Pressure : / mmHG Vent. Rate : 094 BPM Atrial Rate : 094 BPM P-R Int : 158 ms QRS Dur : 076 ms QT Int : 348 ms P-R-T Axes : 034 004 039 degrees QTc Int : 435 ms Normal sinus rhythm Normal ECG Confirmed by DINA MANLEY, DREA ([id number]), story editor PATRICIA STRINGER ([id number]) on 09/07/2022 11:42:59 AM Referred By: Shin Atkins Confirmed By:DREA ARROYO MD
--- NOTE | 2022-09-03 09:10 | CT_ITS ---
STUDY: CT ABDOMEN AND PELVIS WITH CONTRAST REASON FOR EXAM: Male, 62 years old. Fever, shortness of breath and weakness. History of abdominal aortic aneurysm repair and prostate cancer. RADIATION DOSAGE (If Supplied By Facility): CTDIvol = ( 15.97 ) mGy, DLP = ( 1123.63 ) mGycm TECHNIQUE: Transaxial images were obtained from the dome of the diaphragm to the symphysis pubis without oral contrast. IV 100mL Isovue-300 was administered. Sagittal and coronal images were reconstructed. Individualized dose optimization techniques were used for this CT. COMPARISON: Comparison is made with prior examination dated 02/09/2022. FINDINGS: The visualized lung bases are unremarkable. Coronary artery calcification. Normal liver. The patient is status post cholecystectomy. Normal spleen. Normal pancreas. Normal bilateral adrenal glands. 3.1 cm cyst in the lower pole of the right kidney. Normal left kidney. There is a small hiatal hernia. Normal small intestine. There are multiple colonic diverticula consistent with diverticulosis. The appendix is visualized and appears normal. The patient is status post endoluminal stent grafting of the infrarenal abdominal aorta. There is no evidence of endoluminal graft leak. The distal limbs are seen in the common iliac arteries bilaterally. Normal inferior vena cava. Normal retroperitoneum. Normal urinary bladder. The patient is status post prostatectomy. The patient is status post anterior abdominal ventral hernia repair with a mesh. The previously seen hematoma in the right rectus sheath as result. Normal osseous structures. CT/Abdomen/Pelvis W IV Cont ONLY IMPRESSION: Prior intraluminal stent grafting of the abdominal aortic aneurysm. Stable right renal cyst. The patient is status post cholecystectomy. Electronically Signed: García Kothari MD at 11:24 EDT ,
--- NOTE | 2022-09-03 09:17 | EX.ED.DYSGE1 ---
HPI History of Present Illness Chief Complaint: Fever Informant: patient and spouse/S.O. Narrative Narrative: Patient presents with fever for about a week. He has had some coughing but just clear sputum. He does have a little bit of dyspnea with exertion. He has myalgias all over. Slight headache but only minimal. Very slight nausea but mostly has no interest in food. No vomiting. No diarrhea. He does complain of some mild soreness in his abdomen that is nonspecific. But his primary complaint is cough dyspnea and fever. I asked him about the confusion. He states sometimes he just feels like his energy is low or he is almost lightheaded. But he is not actually confused. He is actually a very good informant. He has no known sick contacts. No new medications. He was seen by Dr. Dunn this morning who sent him over and was sending over information although I do not yet have that. [facility] Medical History History of abdominal aortic aneurysm History of DVT (deep vein thrombosis) History of prostate cancer HLD (hyperlipidemia) HTN (hypertension) Home Medications aspirin 81 mg tablet,delayed release 81 mg PO DAILY@0800 05/11/15 [History Last Taken Unknown] metoprolol tartrate 50 mg tablet 50 mg PO BID 05/11/15 [History Last Taken Unknown] paroxetine HCl 20 mg tablet 20 mg PO DAILY 06/17/19 [History Last Taken Unknown] warfarin 5 mg tablet 5 mg PO DAILY 06/17/19 [History Last Taken Unknown] olmesartan 20 mg tablet 20 mg PO DAILY 03/15/21 [History Last Taken Unknown] amitriptyline 50 mg tablet 50 mg PO QHS 06/11/21 [History Last Taken Unknown] bisacodyl 5 mg tablet 5 mg PO QHS 06/11/21 [History Last Taken Unknown] calcium 600 mg capsule 600 mg PO BID 06/11/21 [History Last Taken Unknown] cyclobenzaprine 10 mg tablet 10 mg PO TID 06/11/21 [History Last Taken Unknown] famotidine 20 mg tablet 20 mg PO DAILY 06/11/21 [History Last Taken Unknown] ferrous sulfate 325 mg (65 mg iron) tablet 325 mg PO BID 06/11/21 [History Last Taken Unknown] folic acid 1 mg tablet 1 mg PO DAILY 01/26/22 [History Last Taken Unknown] omeprazole 40 mg capsule,delayed release 40 mg PO DAILY 06/11/21 [History Last Taken Unknown] sildenafil 50 mg tablet 50 mg PO DAILY PRN Erectile Dysfunction 06/11/21 [History Last Taken Unknown] albuterol sulfate 90 mcg/actuation aerosol inhaler (Ventolin HFA) 2 puff inhalation Q4H PRN PRN Wheezing ##1 09/03/22 [Rx Last Taken Unknown] Allergy/AdvReac Type Severity Reaction Status Date / Time ciprofloxacin [From Cipro] Allergy Rash Verified 09/03/22 08:54 ciprofloxacin HCl Allergy Rash Verified 09/03/22 08:54 [From Cipro] Surgical History H/O prostatectomy History of abdominal aortic aneurysm (AAA) repair History of cholecystectomy History of knee surgery Social History household members: spouse Smoking Status: Current every day smoker tobacco type: cigarettes substance use type: does not use ROS ROS ED Constitutional Constitutional ED: Reports chills and fever(s); Denies sweats Eyes Eyes: Denies change in vision ENT ENT ED: Denies ear pain, rhinorrhea or sore throat Cardiovascular Cardiovascular: Denies chest pain or palpitations Respiratory/Chest Respiratory/Chest: Reports cough, dyspnea, dyspnea on exertion and sputum Gastrointestinal Gastrointestinal: Reports abdominal pain and nausea; Denies constipation, diarrhea, melena or vomiting Genitourinary Genitourinary ED: Reports other Details: Urine has started to get a little bit darker. But no dysuria. ; Denies dysuria, hematuria or urinary frequency Musculoskeletal Musculoskeletal: Reports myalgias; Denies arthralgias or back pain Integumentary Denies rash Neurologic Neurologic: Reports headache(s); Denies paresthesias or weakness Hematologic/Lymphatic Hematologic/Lymphatic: Reports easy bleeding and easy bruising Allergic/Immunologic Allergic/Immunologic ED: Denies urticaria EXAM Physical Exam Narrative Exam Narrative: Patient is awake and alert. He is actually quite a good informant there is no indication of confusion. He is nontoxic and pleasant. HEENT shows no rashes or sinus tenderness. No nasal discharge. Oropharynx is clean. He does have dentures. Mucous membranes are bit dry. Neck is supple with no meningismus no JVD or stridor Lungs do show just a hint of expiratory wheezing. There may be a few rhonchi toward the right base. Saturations are normal while sitting in bed at about 97% on room air. Heart is regular but is mildly tachycardic likely from dehydration. Abdomen is soft. He felt just a little pressure when I pressed toward the right lower quadrant but it was quite minimal. Rest of the abdomen is benign. No rebound or guarding Back shows no tenderness or pain with motion Extremities show good pulses in all extremities. No sign of poor flow. No rashes. Const Vital Signs: 09/03/22 08:52 09/03/22 09:26 09/03/22 10:04 Temperature 99.9 F H Temperature Source Temporal Pulse Rate 106 H 100 Respiratory Rate 16 18 Respiratory Effort Normal Non-Labored Respiratory Pattern Normal Normal Blood Pressure 113/101 H Blood Pressure Mean 105 Pulse Ox 97 Oxygen Delivery Method Room Air MDM MDM MDM Narrative Medical decision making narrative: My independent interpretation the patient's single view chest x-ray shows possible atelectasis but no sign of acute infiltrative process. Final reading is similar. CT reading shows no acute process but does show his prior surgeries. Patient CBC shows normal white count hemoglobin with minimally low platelets. His white count is normal but towards lower end. This in the low platelets could indicate a slight viral pattern but not definitively. Electrolytes show minimally low sodium. No sign of acute kidney injury. Calcium is normal. Lactate is normal. Nonspecific mild elevation of AST ALT but rest of liver function test are normal. INR is slightly low. states that she did hold the Coumadin a day longer than she was supposed to. He had had an INR of 4 just recently. She will go back to his regular dosing as recommended by her doctor. Patient's urine shows no sign of infection. Patient was walked in the department. His saturations were 95% on room air in the room and with walking. Breathing treatments seem to help. His lungs are clear at this time. I think we can get him home. This may be viral. He has had a week of symptoms. There is no sign of any acute process that would require antibiotics at this time. Blood cultures are pending. We will send him home with an albuterol inhaler. He is a smoker but he has no history of COPD and his lungs cleared with 1 treatment so I do not think we need to start steroids at this point. We did discuss reasons that would prompt him to return. Lab Data Attestation: I reviewed the patient's lab results. Labs: Laboratory Results - last 24 hr 09/03/22 09/03/22 09/03/22 09:30 09:30 09:30 WBC 5.0 RBC 5.23 Hgb 15.9 Hct 50.6 MCV 96.7 H MCH 30.4 MCHC 31.4 L RDW Std Deviation 49.8 H RDW Coeff of Nena 14.1 Plt Count 114 L MPV 10.3 Immature Gran % (Auto) 0.200 Neut % (Auto) 63.6 Lymph % (Auto) 15.4 L [place] % (Auto) 19.4 H Eos % (Auto) 0.8 Baso % (Auto) 0.6 Absolute Neuts (auto) 3.2 Absolute Lymphs (auto) 0.77 L Nucleated RBC % 0 PT INR Sodium 133 L Potassium 4.5 Chloride 105 Carbon Dioxide 25.0 Anion Gap 3 L BUN 16 Creatinine 1.16 Estim Creat Clear Calc 71.54 Est GFR (MDRD) Af Amer 82 Est GFR (MDRD) Non-Af 68 BUN/Creatinine Ratio 13.8 Glucose 112 H Lactic Acid 1.1 Calcium 9.2 Total Bilirubin 1.00 AST 66 H ALT 69 H Alkaline Phosphatase 78 Total Protein 7.0 Albumin 3.7 Globulin 3.3 Albumin/Globulin Ratio 1.1 Urine Color Urine Clarity Urine pH Ur Specific [place] Urine Protein Urine Glucose (UA) Urine Ketones Urine Occult Blood Urine Nitrite Urine Bilirubin Urine Urobilinogen Ur Leukocyte Esterase Urine RBC Urine WBC Ur Squamous Epith Cells Urine Bacteria Urine Mucus 09/03/22 09/03/22 09/03/22 09:30 09:57 11:38 WBC RBC Hgb Hct MCV MCH MCHC RDW Std Deviation RDW Coeff of Nena Plt Count MPV Immature Gran % (Auto) Neut % (Auto) Lymph % (Auto) [place] % (Auto) Eos % (Auto) Baso % (Auto) Absolute Neuts (auto) Absolute Lymphs (auto) Nucleated RBC % PT Cancelled 16.0 H INR Cancelled 1.3 Sodium Potassium Chloride Carbon Dioxide Anion Gap BUN Creatinine Estim Creat Clear Calc Est GFR (MDRD) Af Amer Est GFR (MDRD) Non-Af BUN/Creatinine Ratio Glucose Lactic Acid Calcium Total Bilirubin AST ALT Alkaline Phosphatase Total Protein Albumin Globulin Albumin/Globulin Ratio Urine Color Yellow Urine Clarity Clear Urine pH 5.0 Ur Specific [place] 1.010 Urine Protein 15 H Urine Glucose (UA) Normal Urine Ketones Negative Urine Occult Blood 10 H Urine Nitrite Negative Urine Bilirubin Negative Urine Urobilinogen Normal Ur Leukocyte Esterase Negative Urine RBC 0-5 SEEN Urine WBC 0 SEEN Ur Squamous Epith Cells 0-5 SEEN Urine Bacteria RARE Urine Mucus 0 SEEN Radiography Diagnostic Testing: Clinical Impression(s) from Imaging Studies Abdomen/Pelvis CT 09/03/22 09:10 IMPRESSION: Prior intraluminal stent grafting of the abdominal aortic aneurysm. Stable right renal cyst. The patient is status post cholecystectomy. Electronically Signed: García Kothari MD at 11:24 EDT , Chest X-Ray 09/03/22 09:10 IMPRESSION: Mild degree of increased markings at the lung bases suggests a mild degree of bilateral basilar atelectasis. Electronically Signed: García Kothari MD at 11:25 EDT , Discharge Plan Triage Chief Complaint: Fever ED Provider: Shin Atkins Dx/Rx/DC Orders Clinical Impression: URI, acute, Acute bronchospasm, History of fever Instructions: ED URI, Viral W/ Wheezing (Adult) Prescriptions: New albuterol sulfate [Ventolin HFA] 90 mcg/actuation HFA aerosol inhaler 2 puff inhalation Q4H PRN PRN (Reason: Wheezing) Qty: 1 0RF No Action metoprolol tartrate 50 MG tablet 50 mg PO BID aspirin 81 MG tablet 81 mg PO DAILY@0800 paroxetine HCl 20 MG tablet 20 mg PO DAILY warfarin 5 MG tablet 5 mg PO DAILY olmesartan 20 mg tablet 20 mg PO DAILY cyclobenzaprine 10 mg Tablet 10 mg PO TID calcium 600 mg Capsule 600 mg PO BID sildenafil 50 mg Tablet 50 mg PO DAILY PRN (Reason: Erectile Dysfunction) omeprazole 40 mg Capsule,Delayed Release(Dr/Ec) 40 mg PO DAILY amitriptyline 50 mg Tablet 50 mg PO QHS famotidine 20 mg Tablet 20 mg PO DAILY ferrous sulfate 325 mg (65 mg iron) Tablet 325 mg PO BID folic acid 1 mg Tablet 1 mg PO DAILY bisacodyl 5 mg Tablet 5 mg PO QHS Primary Care Provider: Marco Dunn Referrals: Marco Dunn MD [Primary Care Provider] - 3-5 Days Disposition Disposition: Home, Self Care
[2022-09-03 09:26] VITALS: PULSE 100; RESP 18
[2022-09-03] MEDS: Ipratropium/Albuterol Sulfate 3 ML AMPUL.NEB INHALATION (09:26)
[2022-09-03 09:50] LABS: Absolute Lymphocyte Count 0.77 X10^3/uL (0.83-4.51); Absolute Neutrophil Count 3.2 X10^3/uL (2.0-7.7); Basophil# 0.03 X10^3/uL; Basophil% 0.6 % (0-1); Eosinophil# 0.04 X10^3/uL; Eosinophils% 0.8 % (0-5); Hematocrit 50.6 % (40-54); Hemoglobin 15.9 g/dL (13.0-16.5); Lymphocyte # 0.77 X10^3/ul (0.83-4.51); Lymphocyte % 15.4 % (19-41); Mean Corp Hgb Conc 31.4 g/dL (32-36); Mean Corpuscular Hgb 30.4 pg (27.0-32.0); Mean Corpuscular Volume 96.7 fL (80-94); Mean Platelet Vol. 10.3 fl (6.2-12.0); Monocyte# 0.97 X10^3/uL; Monocyte% 19.4 % (0-10); NRBC Flagged by Analyzer 0 % (0-5); Neutrophil # 3.19 X10^3/uL (2.7-7.7); Neutrophil % 63.6 % (47-70); Platelet Count 114 K/mm3 (150-450); RBC Distribution Width CV 14.1 % (11.6-14.6); RBC Distribution Width SD 49.8 fl (35.1-43.9); Red Blood Count 5.23 M/mm3 (4.6-6.2)
[2022-09-03] MEDS: Ondansetron 4 MG/2 ML Vial IV (10:02)
[2022-09-03] MEDS: Acetaminophen 500 MG Tablet 1000 MG PO (10:02)
[2022-09-03 10:07] LABS: ALB/GLOB Ratio 1.1 RATIO (0.9-2.4); AST(SGOT) 66 U/L (15-37); Alanine Aminotransfer ALT/SGPT 69 U/L (16-61); Albumin, Serum 3.7 g/dL (3.2-5.0); Alkaline Phosphatase 78 U/L (45-117); Anion Gap 3 (5-15); BUN 16 mg/dL (7-18); BUN/Creat Ratio 13.8 RATIO (10-20); Calcium,Total 9.2 mg/dL (8.5-10.1); Chloride 105 mmol/L (98-107); Creatinine, Serum 1.16 mg/dL (0.70-1.30); EST Glomerular Filtration Rate 68 mL/min (>60); Est Glom Filt Rate - Afr Amer 82 mL/min (>60); Estimated Creatinine Clearance 71.54 ml/min; Globulin 3.3 g/dL (2.2-4.2); Glucose 112 mg/dL (74-106); Potassium 4.5 mmol/L (3.5-5.1); Sodium Level 133 mmol/L (136-145)
[2022-09-03 10:09] LABS: Lactic Acid 1.1 mmol/L (0.4-1.9)
[2022-09-03 10:10] LABS: International Normalized Ratio 1.3
[2022-09-03 11:41] LABS: Mucous, Urine 0 SEEN /hpf (<or=2+); White Blood Cells 0 SEEN /hpf (0-5)
[2022-09-03 11:54] LABS: Color, Urine Yellow (Yellow); Glucose, Dipstick Normal (Normal); Ketone-Dipstick Negative (Negative); Leukocyte Esterase-Dipstick Negative /ul (Negative); Nitrite-Dipstick Negative (Negative); Occult Blood-Urine 10 /ul (Negative); Protein-Dipstick 15 mg/dl (Negative); Urine Bilirubin Dipstick Negative (Negative); Urine Clarity Clear (Clear); Urine Urobilinogen Normal (Normal)
[2022-09-03 12:07] LABS: Red Blood Cells-Urine 0-5 SEEN /hpf (0-5); Squamous Epithelial Cells - UA 0-5 SEEN /hpf (0-5)
[2022-09-03 12:08] LABS: Bacteria RARE /hpf (None Seen)
[2022-09-03 12:15] VITALS: O2SAT 95
[2022-09-03 13:11] VITALS: BP 111/73; PULSE 84; RESP 16; O2SAT 98
== END 2022-09-03 13:12 | disposition home or self-care (01) ==
PROVIDERS: Emergency Provider Emergency Medicine; PCP Family Medicine; Referring Provider Emergency Medicine; Visit Provider Emergency Medicine
DX: R50.9 Fever, unspecified (principal); J06.9 Acute upper respiratory infection, unspecified; I10 Essential (primary) hypertension; F17.210 Nicotine dependence, cigarettes, uncomplicated; J98.01 Acute bronchospasm; Z79.82 Long term (current) use of aspirin; Z86.718 Personal history of other venous thrombosis and embolism; Z79.01 Long term (current) use of anticoagulants
CPT/HCPCS: 71046; 74177; 80053; 81001; 83605; 85025; 85610; 87040; 87428; 93005; 94640; 99285; J7030; Q9967; A4216; J2405

== ENCOUNTER 2023-02-21 09:19 | Observation (INO) | payer OTHER, SELFPAY ==
[2023-02-21] VITALS (8 sets, daily range): BP systolic 131–170; BP diastolic 88–137; PULSE 72–89; RESP 16–18; TEMP 36.2–36.9; O2SAT 92–99; BMI 34.9
--- NOTE | 2023-02-21 09:55 | CT_ITS ---
EXAM: CT HEAD WITHOUT INTRAVENOUS CONTRAST CLINICAL INDICATION: loss of hearing, dizziness TECHNIQUE: Multiple axial images were obtained of the head without intravenous contrast. This CT exam was performed using one or more of the following dose reduction techniques: automated exposure control, adjustment of the mA and/or kV according to patient size, and/or use of iterative reconstruction technique. This report was created using [employer] report generation technology. RADIATION DOSE: CTDIvol = 44.99 mGy, DLP = 863.60 mGy-cm COMPARISON: None. FINDINGS: BRAIN AND EXTRA-AXIAL SPACES: Unremarkable. No intra- or extra-axial hemorrhage. No evidence of acute infarct. No intracranial mass or mass effect. There is preservation of the garcia/white matter interface. Posterior fossa structures are unremarkable. Ventricles are appropriate for age. No hydrocephalus. Basal cisterns are patent. BONES/JOINTS: Unremarkable. No discrete lytic or blastic abnormalities. SINUSES: Unremarkable as visualized. Clear. MASTOID AIR CELLS: Unremarkable. Clear. ORBITS: Visualized globes, extraocular muscles, optic nerves and retrobulbar fat appear unremarkable. CT/Brain/Head without Contrast IMPRESSION: Negative head/brain CT without intravenous contrast. Electronically Signed: Austyn Raymond MD at 11:35 EDT ,
--- NOTE | 2023-02-21 09:55 | EKG12_ITS ---
Test Reason : Blood Pressure : / mmHG Vent. Rate : 079 BPM Atrial Rate : 079 BPM P-R Int : 182 ms QRS Dur : 080 ms QT Int : 406 ms P-R-T Axes : 047 -03 031 degrees QTc Int : 465 ms Normal sinus rhythm Increased R/S ratio in V1, consider early transition or posterior infarct Abnormal ECG Confirmed by DINA MANLEY, DREA ([id number]), publishing editor CARLOTA ESPINOZA ([id number]) on 02/23/2023 7:38:12 AM Referred By: Confirmed By:DREA ARROYO MD
--- NOTE | 2023-02-21 09:57 | EDS_ITS ---
HPI History of Present Illness Chief Complaint: Dizziness Narrative Narrative: 62-year-old male past medical history of AAA with repair, previous blood clots, on Coumadin, presents with dizziness and loss of hearing out of his left ear that he has had for the last 24 hours or longer. He states that he awoke yesterday morning with loss of hearing out of his left ear that progressively got worse to the point now where he cannot hear anything out of his left ear. He became dizzy and has had multiple episodes of nausea and vomiting without any blood in his emesis. While he does take Coumadin, he has not had it checked recently. He and his significant other states that he does not really go to the doctor, but they were concerned about Coumadin toxicity and his vertiginous type symptoms. They have gone to urgent care and he was sent to the emergency department for further evaluation. He denies any headache, no neck pain or other symptoms. He states that when he stands up, she gets sick. [facility] Medical History History of abdominal aortic aneurysm History of DVT (deep vein thrombosis) History of prostate cancer HLD (hyperlipidemia) HTN (hypertension) Home Medications aspirin 81 mg tablet,delayed release 81 mg PO DAILY@0800 05/11/15 [History Last Taken Unknown] metoprolol tartrate 50 mg tablet 50 mg PO BID 05/11/15 [History Last Taken Unknown] paroxetine HCl 20 mg tablet 20 mg PO DAILY 06/17/19 [History Last Taken Unknown] warfarin 5 mg tablet 5 mg PO .COMPLEX 06/17/19 [History Last Taken Unknown] olmesartan 20 mg tablet 20 mg PO DAILY 03/15/21 [History Last Taken Unknown] amitriptyline 50 mg tablet 50 mg PO QHS PRN sleep 06/11/21 [History Last Taken Unknown] bisacodyl 5 mg tablet 5 mg PO QHS PRN constipation 06/11/21 [History Last Taken Unknown] cyclobenzaprine 10 mg tablet 10 mg PO QHS PRN muscle spasm 06/11/21 [History Last Taken Unknown] famotidine 20 mg tablet 20 mg PO DAILY 06/11/21 [History Last Taken Unknown] ferrous sulfate 325 mg (65 mg iron) tablet 325 mg PO DAILY 06/11/21 [History Last Taken Unknown] folic acid 1 mg tablet 1 mg PO DAILY 06/11/21 [History Last Taken Unknown] omeprazole 40 mg capsule,delayed release 40 mg PO DAILY 06/11/21 [History Last Taken Unknown] sildenafil 50 mg tablet 50 mg PO DAILY PRN Erectile Dysfunction 06/11/21 [History Last Taken Unknown] albuterol sulfate 90 mcg/actuation aerosol inhaler (Ventolin HFA) 2 puff inhalation Q4H PRN PRN Wheezing ##1 09/03/22 [Rx Last Taken Unknown] warfarin 2.5 mg tablet 2.5 mg PO TU 02/21/23 [History Last Taken Unknown] Allergy/AdvReac Type Severity Reaction Status Date / Time ciprofloxacin [From Cipro] Allergy Rash Verified 09/03/22 08:54 ciprofloxacin HCl Allergy Rash Verified 09/03/22 08:54 [From Cipro] Surgical History H/O prostatectomy History of abdominal aortic aneurysm (AAA) repair History of cholecystectomy History of knee surgery Social History household members: spouse Smoking Status: Current every day smoker tobacco type: cigarettes substance use type: does not use ROS ROS ED ROS Narrative Constitutional: No fever, no chills. HEENT: No sore throat. No neck pain. No loss of vision. No rhinorrhea. Cardiovascular: No chest pain. No palpitations. No pedal edema. Respiratory: No cough, no shortness of breath. Abdominal: No abdominal pain. Multiple episodes of nausea and vomiting for the last 24 hours. Genitourinary: No dysuria. No hematuria. Musculoskeletal: No myalgias. No arthralgias. Neurologic: No headaches. Positive dizziness. No lightheadedness. Loss of hearing out of left ear. Questionable tinnitus prior. Skin: No rash. No change in color. Psychiatric: No depression. No anxiety. EXAM Physical Exam Narrative Exam Narrative: Afebrile. Vital signs noted. HEENT: Normocephalic. Atraumatic. PERRL, EOMI. Neck soft and supple. No point tenderness or step off. TMs clear bilaterally. No cerumen impaction. No mastoid tenderness. Cardiovascular: Regular rate and rhythm. No murmurs, rubs, or gallops appreciated. Respiratory: No tachypnea. Lungs clear to auscultation bilaterally. Gastrointestinal: Abdomen soft, nontender, with normoactive bowel sounds. No rebound or guarding. Neurological: Awake. Alert. Nonfocal, nonlateralizing. Decreased to no hearing out of left ear. Cerebellar functioning normal. NIH stroke scale is 0. Skin: No rash. Normal color. No pallor. Musculoskeletal: No pedal edema. Full range of motion extremities. Const Vital Signs: 02/21/23 09:20 02/21/23 11:37 Temperature 97.2 F L Temperature Source Temporal Pulse Rate 79 72 Respiratory Rate 18 18 Blood Pressure 170/110 H 131/88 H Blood Pressure Mean 130 102 Pulse Ox 99 95 Oxygen Delivery Method Room Air Room Air MDM MDM MDM Narrative Medical decision making narrative: In the differential diagnosis is benign positional vertigo versus cerebellar stroke. Given his NIH stroke scale being 0, and the fact that he is on Coumadin, not making him a candidate for tPA. I do not feel stroke team is indicated because his symptoms have been ongoing for greater than 24 hours. In the differential diagnosis for his nausea and vomiting would be pancreatitis versus gastritis versus vertigo as well. Comprehensive work-up was pursued. In order to help rule out any brain mass or acute hemorrhage, CT of the brain will be obtained. I am unsure as to the cause of his reported hearing loss out of his left ear only. His clinical examination shows no evidence of fluid behind his ear drum or cerumen impaction that would be causing this. EKG was obtained to rule out dysrhythmia and ACS. It demonstrates, on my independent interpretation, normal sinus rhythm at 79 bpm without ectopy or acute ST changes. No STEMI. CT of the brain was obtained and reviewed, on my interpretation of his images there is no acute hemorrhage. I reviewed the radiology report which confirms my independent interpretation. I reviewed his laboratory work from today and he has a normal white count of 10.4, hemoglobin normal at 16.1, hematocrit 48.7, platelet count normal at 196. As he is on Coumadin, INR was checked and he does not have any evidence of Coumadin toxicity and he is therapeutic at 2.4. His electrolyte panel is grossly unremarkable, no evidence of dehydration, normal sodium of 138, potassium normal at 3.6. Glucose is appropriately elevated at 109, but he has a normal anion gap of 6. I do not have any concern for diabetic ketoacidosis. Lipase is normal at 31, helping to rule out acute pancreatitis as a cause of his nausea and vomiting. High- sensitivity troponin is normal at 38. He was administered meclizine for his vertigo. However, he has shown no improvement with continued nausea, and additionally when he ambulated to the bathroom, he had to steady himself and hold onto the haynes. Once again, I am unsure as to the cause of his hearing loss, but given his intractable vertigo, concern would be for cerebellar stroke. I will discuss patient with the [facility] for observation. Patient is in stable condition. History & Record Review Discussion w/independent historian: Patient and Family Additional record(s) reviewed:: Prior ED visit Lab Data Attestation: I reviewed the patient's lab results. Labs: Laboratory Results - last 24 hr 02/21/23 09:40 WBC 10.4 RBC 5.28 Hgb 16.1 Hct 48.7 MCV 92.2 MCH 30.5 MCHC 33.1 RDW Std Deviation 46.3 H RDW Coeff of Nena 13.5 Plt Count 196 MPV 10.3 Immature Gran % (Auto) 0.200 Neut % (Auto) 82.0 H Lymph % (Auto) 10.6 L [place] % (Auto) 6.6 Eos % (Auto) 0.3 Baso % (Auto) 0.3 Absolute Neuts (auto) 8.5 H Absolute Lymphs (auto) 1.10 Nucleated RBC % 0 PT 26.0 H INR 2.4 Sodium 138 Potassium 3.6 Chloride 105 Carbon Dioxide 27.0 Anion Gap 6 BUN 17 Creatinine 1.04 Estim Creat Clear Calc 79.80 Est GFR (MDRD) Af Amer 93 Est GFR (MDRD) Non-Af 77 BUN/Creatinine Ratio 16.3 Glucose 109 H Calcium 8.7 Total Bilirubin 0.60 AST 19 ALT 28 Alkaline Phosphatase 82 Troponin I High Sens 38 Total Protein 7.2 Albumin 3.8 Globulin 3.4 Albumin/Globulin Ratio 1.1 Lipase 31 Radiography Diagnostic Testing: Clinical Impression(s) from Imaging Studies Brain CT 02/21/23 09:55 IMPRESSION: Negative head/brain CT without intravenous contrast. Electronically Signed: Austyn Raymond MD at 11:35 EDT , Management Discussion w/another healthcare provider: Hospitalist (Dr. Medina Munoz) Discharge Plan Triage Chief Complaint: Dizziness Other Complaint: Nausea/Vomiting ED Provider: Austyn Cole Dx/Rx/DC Orders Clinical Impression: Hearing loss in left ear, Dizziness, Nausea and vomiting Prescriptions: No Action metoprolol tartrate 50 MG tablet 50 mg PO BID aspirin 81 MG tablet 81 mg PO DAILY@0800 paroxetine HCl 20 MG tablet 20 mg PO DAILY warfarin 5 MG tablet 5 mg PO .COMPLEX Rx Instructions: 5 mg orally; olmesartan 20 mg tablet 20 mg PO DAILY cyclobenzaprine 10 mg Tablet 10 mg PO QHS PRN (Reason: muscle spasm) sildenafil 50 mg Tablet 50 mg PO DAILY PRN (Reason: Erectile Dysfunction) omeprazole 40 mg Capsule,Delayed Release(Dr/Ec) 40 mg PO DAILY amitriptyline 50 mg Tablet 50 mg PO QHS PRN (Reason: sleep) famotidine 20 mg Tablet 20 mg PO DAILY ferrous sulfate 325 mg (65 mg iron) Tablet 325 mg PO DAILY folic acid 1 mg Tablet 1 mg PO DAILY bisacodyl 5 mg Tablet 5 mg PO QHS PRN (Reason: constipation) albuterol sulfate [Ventolin HFA] 90 mcg/actuation HFA aerosol inhaler 2 puff inhalation Q4H PRN PRN (Reason: Wheezing) Qty: 1 0RF warfarin 2.5 mg tablet 2.5 mg PO Primary Care Provider: Marco Dunn Referrals: Marco Dunn MD [Primary Care Provider] -
[2023-02-21] MEDS: 0.9% Normal Saline (1000mL) 1,000 ML 1000 ML IV (10:10)
[2023-02-21 10:15] LABS: Absolute Neutrophil Count 8.5 X10^3/uL (2.0-7.7); Basophil# 0.03 X10^3/uL; Basophil% 0.3 % (0-1); Eosinophil# 0.03 X10^3/uL; Eosinophils% 0.3 % (0-5); Hematocrit 48.7 % (40-54); Hemoglobin 16.1 g/dL (13.0-16.5); Lymphocyte % 10.6 % (19-41); Mean Corp Hgb Conc 33.1 g/dL (32-36); Mean Corpuscular Hgb 30.5 pg (27.0-32.0); Mean Corpuscular Volume 92.2 fL (80-94); Mean Platelet Vol. 10.3 fl (6.2-12.0); Monocyte# 0.68 X10^3/uL; Monocyte% 6.6 % (0-10); NRBC Flagged by Analyzer 0 % (0-5); Neutrophil # 8.51 X10^3/uL (2.7-7.7); Platelet Count 196 K/mm3 (150-450); RBC Distribution Width CV 13.5 % (11.6-14.6); RBC Distribution Width SD 46.3 fl (35.1-43.9); Red Blood Count 5.28 M/mm3 (4.6-6.2); White Blood Count 10.4 K/mm3 (4.4-11.0)
[2023-02-21 10:19] LABS: International Normalized Ratio 2.4
[2023-02-21 10:29] LABS: ALB/GLOB Ratio 1.1 RATIO (0.9-2.4); AST(SGOT) 19 U/L (15-37); Alanine Aminotransfer ALT/SGPT 28 U/L (16-61); Albumin, Serum 3.8 g/dL (3.2-5.0); Alkaline Phosphatase 82 U/L (45-117); Anion Gap 6 (5-15); BUN 17 mg/dL (7-18); BUN/Creat Ratio 16.3 RATIO (10-20); Calcium,Total 8.7 mg/dL (8.5-10.1); Chloride 105 mmol/L (98-107); Creatinine, Serum 1.04 mg/dL (0.70-1.30); EST Glomerular Filtration Rate 77 mL/min (>60); Est Glom Filt Rate - Afr Amer 93 mL/min (>60); Globulin 3.4 g/dL (2.2-4.2); Glucose 109 mg/dL (74-106); Lipase 31 U/L (13-75); Potassium 3.6 mmol/L (3.5-5.1); Protein, Total 7.2 g/dL (6.4-8.2); Sodium Level 138 mmol/L (136-145); Troponin-I HS 38 pg/mL (3.0-78.0)
[2023-02-21] MEDS: Meclizine HCl 25 MG Tablet PO (12:09)
[2023-02-21] MEDS: Ondansetron 4 MG/2 ML Vial IV (13:06)
--- NOTE | 2023-02-21 13:21 | HP.PCM.HOS_ITS ---
HPI - General General Date of Admission: 02/21/23 Date of Service: 02/21/23 Chief Complaint: decreased L ear hearing and vertigo w/ intractable n/v HPI Narrative YANCY TALLEY, is a 62 M with a history of tobacco use, blood clots on coumadin, and abdominal aneurysm status post stent as well as multiple concussions in the past who presented to [facility] 02/21/2023 with 24 hours of decreased hearing in the left ear and nausea and vomiting and vertigo. In the ED stroke call not done given NIH of 0, patient already on Coumadin and not a TNK candidate and symptoms greater than [address] head with no acute abnormalities, patient in order to ambulate had to hold onto wall and has been very sick in the ED anytime he moves and has intractable nausea, hospitalist contacted for admission for intractable nausea and stroke rule out. Patient seen with family member at bedside. They report that Wednesday he was in his usual health and then Wednesday morning gradually he was having ringing in his left ear and then his hearing decreased throughout the day until it was completely gone by evening and throughout the day he began having dizziness associated with nausea and vomiting and jumping of his eyes when he would sit up. Patient with minimal or no symptoms if he is lying still on his back with head slightly to the right but moving his head to the left or sitting up causes significant vertigo and nausea with vomiting and patient has had poor p.o. intake and has been unable to keep anything down. He denies anything like this happening in the past, has had multiple concussions but none recently. Denies headache, aside from the room spinning and certain directions he does not note any other visual changes and denies any numbness or tingling anywhere. Has a chronic cough that he associates with smoking that has been unchanged but no other symptoms of any viral illness denies any other acute complaints. No chest pain or shortness of breath, no change in bowel or bladder. [facility] Medical History (Updated 02/21/23 @ 13:[address] Medina Munoz MD) History of abdominal aortic aneurysm History of DVT (deep vein thrombosis) History of prostate cancer HLD (hyperlipidemia) HTN (hypertension) Home Medications aspirin 81 mg tablet,delayed release 81 mg PO DAILY@0800 05/11/15 [History Last Taken Unknown] metoprolol tartrate 50 mg tablet 50 mg PO BID 05/11/15 [History Last Taken Unknown] paroxetine HCl 20 mg tablet 20 mg PO DAILY 06/17/19 [History Last Taken Unknown] warfarin 5 mg tablet 5 mg PO .COMPLEX 06/17/19 [History Last Taken Unknown] olmesartan 20 mg tablet 20 mg PO DAILY 03/15/21 [History Last Taken Unknown] amitriptyline 50 mg tablet 50 mg PO QHS PRN sleep 06/11/21 [History Last Taken Unknown] bisacodyl 5 mg tablet 5 mg PO QHS PRN constipation 06/11/21 [History Last Taken Unknown] cyclobenzaprine 10 mg tablet 10 mg PO QHS PRN muscle spasm 06/11/21 [History Last Taken Unknown] famotidine 20 mg tablet 20 mg PO DAILY 06/11/21 [History Last Taken Unknown] ferrous sulfate 325 mg (65 mg iron) tablet 325 mg PO DAILY 06/11/21 [History Last Taken Unknown] folic acid 1 mg tablet 1 mg PO DAILY 06/11/21 [History Last Taken Unknown] omeprazole 40 mg capsule,delayed release 40 mg PO DAILY 06/11/21 [History Last Taken Unknown] sildenafil 50 mg tablet 50 mg PO DAILY PRN Erectile Dysfunction 06/11/21 [History Last Taken Unknown] albuterol sulfate 90 mcg/actuation aerosol inhaler (Ventolin HFA) 2 puff inhalation Q4H PRN PRN Wheezing ##1 09/03/22 [Rx Last Taken Unknown] warfarin 2.5 mg tablet 2.5 mg PO TU 02/21/23 [History Last Taken Unknown] Allergy/AdvReac Type Severity Reaction Status Date / Time ciprofloxacin [From Cipro] Allergy Rash Verified 09/03/22 08:54 ciprofloxacin HCl Allergy Rash Verified 09/03/22 08:54 [From Cipro] Surgical History H/O prostatectomy History of abdominal aortic aneurysm (AAA) repair History of cholecystectomy History of knee surgery Social History household members: spouse Smoking Status: Current every day smoker tobacco type: cigarettes substance use type: does not use ROS ROS Narrative General: Denies fever/chills HENT: Denies headache, decreased hearing in left ear EYES: Sees a room spinning when he moves his head certain directions Resp: Chronic cough unchanged, denies shortness of breath Cardiac: Denies chest pain GI: Denies abdominal pain, denies changes in bowel, denies nausea/vomiting : Denies changes in urination Extremity: Denies swelling MSK: Denies weakness Neuro: Denies any numbness/tingling Heme: Denies any bleeding or bruising Skin: Denies rashes Psychiatric: No complaints voiced Vital Signs Vital Signs Vital Signs: 02/21/23 09:20 02/21/23 11:37 02/21/23 13:01 Temperature 97.2 F L 97.2 F L Temperature Source Temporal Pulse Rate 79 72 72 Respiratory Rate 18 18 18 Blood Pressure 170/110 H 131/88 H 131/88 H Blood Pressure Mean 130 102 102 Pulse Ox 99 95 95 Oxygen Delivery Method Room Air Room Air Weight Weight: 116.7 kg Body Mass Index (BMI) 34.9 Physical Exam Narrative General: Alert, oriented, appears unwell HEENT: Atraumatic, normocephalic, both tympanic membranes and ear canals unremarkable Eyes: Anicteric, normal conjunctiva, extraocular movements intact, pupils equal, patient when he turns his head slightly to the left has spontaneous rotational nystagmus and when turned to the right seems to have several extra beats of nystagmus on far left lateral gaze compared to right Neck: Supple Respiratory: Clear to auscultation bilaterally, normal respiratory effort Cardiovascular: Regular rate and rhythm GI: Soft, nontender, nondistended Extremities: No edema Musculoskeletal: Strength 5 out of 5 in right upper extremity, 5 out of 5 left upper extremity, 5 out of 5 right lower extremity, 5 out of 5 left lower extremity Neuro: No overt focal neurological deficits, cranial nerves II through XII intact, [id number] without significant difficulty bilaterally while head turned slightly to the right and patient not experiencing spinning feeling Skin: No rashes appreciated Psych: Cooperative Results Lab / Micro Data 02/21/23 09:40 02/21/23 09:40 Labs: Laboratory Results - last 24 hr 02/21/23 09:40: WBC 10.4, RBC 5.28, Hgb 16.1, Hct 48.7, MCV 92.2, MCH 30.5, MCHC 33.1, RDW Std Deviation 46.3 H, RDW Coeff of Nena 13.5, Plt Count 196, MPV 10.3, Immature Gran % (Auto) 0.200, Neut % (Auto) 82.0 H, Lymph % (Auto) 10.6 L, [place] % (Auto) 6.6, Eos % (Auto) 0.3, Baso % (Auto) 0.3, Absolute Neuts (auto) 8.5 H, Absolute Lymphs (auto) 1.10, Nucleated RBC % 0, PT 26.0 H, INR 2.4, Sodium 138, Potassium 3.6, Chloride 105, Carbon Dioxide 27.0, Anion Gap 6, BUN 17, Creatinine 1.04, Estim Creat Clear Calc 79.80, Est GFR (MDRD) Af Amer 93, Est GFR (MDRD) Non-Af 77, BUN/Creatinine Ratio 16.3, Glucose 109 H, Calcium 8.7, Total Bilirubin 0.60, AST 19, ALT 28, Alkaline Phosphatase 82, Troponin I High Sens 38, Total Protein 7.2, Albumin 3.8, Globulin 3.4, Albumin/Globulin Ratio 1.1, Lipase [address] 02/21/23 09:55 IMPRESSION: Negative head/brain CT without intravenous contrast. Electronically Signed: Austyn Raymond MD at 11:35 EDT , Assessment & Plan Assessment/Plan (1) Dizziness: (2) Hearing loss in left ear: (3) Nausea and vomiting: (4) History of abdominal aortic aneurysm: (5) History of DVT (deep vein thrombosis): (6) History of prostate cancer: PLAN: Plan #Patient with vertigo and intractable nausea and vomiting with hearing loss on left -Patient specifically with symptoms when he sits up or turns head to the left and when he turns head to the left with eyes open he has spontaneous rotational nystagmus, will need to rule out cerebellar stroke, no symptoms of viral illness and tympanic membrane clear -Admit to tele -CT head w/ no acute process in the ED, will get CTA -MRI -NIH q4hr -asa, statin -Echo w/ bubble study -Lipid panel and A1c -PT/OT/Speech eval -Hold BP medications to allow for permissive hypertension for 24 hours unless SBP greater than 220 or DBP greater than 120 or until stroke is ruled out -Once diagnostic studies obtained we will plan to consult neurology #History of DVT -Reports he is on Coumadin specifically due to insurance not covering newer alternatives -INR 2.4, continue Coumadin at this time #Tobacco use -Advise cessation -Patient agreeable to nicotine replacement #History of abdominal aortic aneurysm -Status post stent with Dr. Vargas in 2014 #History of prostate cancer -In remission, did not require chemo or radiation and had local intervention #DVT ppx: Therapeutic on Coumadin Medina Munoz MD Time spent in the patient's overall evaluation,decision-making process, review of diagnostic data, adjustment of management, discussion with other providers, nursing nursing and ancillary staff involved in patient's care documentation, 60 minutes Charges/Coding Visit Charges Inpatient E&M: 68064 Init Hosp L2
--- NOTE | 2023-02-21 13:27 | ECHOCS_ITS ---
Reason For Study: TIA/CVA Procedure This was a 2D Doppler, Color Flow transthoracic echocardiogram. The study was technically difficult. Contrast injection was performed. Exam performed portable in patient room. Left Ventricle Normal LV size. Left ventricular systolic function is normal. The estimated ejection fraction is 65 %. Stage 1 diastolic dysfunction. No regional wall motion abnormalities noted. Right Ventricle Normal RV size. Normal systolic function. Atria Normal left atrium. Normal right atrium. Bubble contrast study negative for right to left interatrial shunt. Mitral Valve Normal mitral valve. Tricuspid Valve Normal tricuspid valve. Aortic Valve Trisinus/trileaflet aortic valve. Pulmonic Valve Normal pulmonic valve. Great Vessels Normal aortic root. The pulmonary artery is normal size. Normal inferior vena cava. Pericardium/Pleural No pericardial effusion. Medication Diluted definity 2.5ml given slow IV push to enhance endocardial definition. Performed a rapid injection of agitated mix of 9 cc saline and 1cc air to assess for atrial septal defect. MMode/2D Measurements & Calculations LVIDd: 5.4 cm IVSd: 1.0 cm Ao root diam: 4.4 cm LVIDs: 4.1 cm LVPWd: 0.89 cm LA dimension: 4.6 cm RVDd: 3.8 cm FS: 24.4 % LAV(MOD-sp4): 59.7 ml LVAd ap4: 38.2 cm2 SV(MOD-sp4): 85.8 ml LVLd ap4: 8.6 cm EDV(MOD-sp4): 133.0 ml EDV(sp4-el): 143.5 ml LVAs ap4: 20.3 cm2 LVLs ap4: 7.1 cm ESV(MOD-sp4): 47.2 ml ESV(sp4-el): 49.3 ml EF(MOD-sp4): 64.5 % EF(sp4-el): 65.7 % SV(sp4-el): 94.2 ml LA A4 area: 19.7 cm2 RA A4 area: 17.0 cm2 TAPSE: 2.4 cm Time Measurements MV dec time: 0.31 sec Doppler Measurements & Calculations MV E max eric: 49.6 cm/sec Lat Peak E' Eric: 8.8 cm/sec Med Peak E' Eric: 7.3 cm/sec MV A max eric: 83.4 cm/sec E/E' lat: 5.7 E/E' med: 6.8 MV E/A: 0.59 MV V2 max: 81.0 cm/sec MV P1/2t max eric: 56.1 cm/sec Ao V2 max: 115.6 cm/sec MV max P.6 mmHg MV P1/2t: 104.2 msec Ao max P.4 mmHg MV V2 mean: 43.2 cm/sec Ao V2 mean: 82.0 cm/sec MV mean P.87 mmHg MV dec slope: 157.7 cm/sec2 Ao mean P.1 mmHg MV V2 VTI: 18.6 cm MVA(P1/2t): 2.1 cm2 Ao V2 VTI: 21.0 cm AV (velocity ratio): 0.99 LV V1 max: 115.0 cm/sec PA V2 max: 75.5 cm/sec LV V1 max P.3 mmHg LV V1 mean P.2 mmHg LV V1 mean: 84.7 cm/sec LV V1 VTI: 20.8 cm ECHO/Echo Complete W/ Contrast Interpretation Summary Normal LV size. Left ventricular systolic function is normal. The estimated ejection fraction is 65 %. Stage 1 diastolic dysfunction. Bubble contrast study negative for right to left interatrial shunt. Contrast injection was performed. Ordering Physician: Medina Munoz Performed By: Michi Vergara RCS
--- NOTE | 2023-02-21 13:27 | CT_ITS ---
INDICATION: Neuro deficit, acute, stroke suspected. DIZZY EXAMINATION: CTA HEAD - CTA Head and Neck W/ Contrast Injection (and W/O Contrast Images if performed) TECHNIQUE: [place]/head CT angiogram protocol was performed following IV contrast. Routine carotid CT angiogram protocol was performed without and with IV contrast. NASCET criteria using the distal ICAs for comparison were used for evaluation of stenoses. 3D reconstructions were reviewed of the CT angiogram head and neck. RADIATION DOSAGE (If Supplied By Facility): CTDIvol = ( 48.83 ) mGy, DLP = ( 812.85 ) mGycm IV Contrast dosage and agent: 100 mL of Isovue-370. COMPARISON: CT head without contrast 02/21/2023. FINDINGS: --Anterior cerebral circulation: ACAs: No significant stenosis at the visualized segments. ACOM: Present. MCAs: No significant stenosis at the visualized segments. --Posterior cerebral circulation: PCOMs: No visible posterior communicating arteries. transfusion aide: No significant stenosis at the visualized segments. BASILAR ARTERY: No significant stenosis. --Carotid and vertebral circulation: AORTIC ARCH AND BRANCHES: Normal anatomy, patent. RIGHT CCA: No occlusion, significant stenosis or dissection. RIGHT ICA: No occlusion, significant stenosis or dissection. LEFT CCA: No occlusion, significant stenosis or dissection. LEFT ICA: No occlusion, significant stenosis or dissection. RIGHT VERTEBRAL ARTERY: No occlusion, significant stenosis or dissection. LEFT VERTEBRAL ARTERY: No occlusion, significant stenosis or dissection. NECK SOFT TISSUES: Unremarkable. LUNG APICES: Paraseptal cysts in the lung apices. Nonspecific groundglass opacities in the upper lobes. BONES: Moderate degenerative disc space height narrowing at C5-C6 disc space level. Normal remaining cervical disc space heights. Normal vertebral body heights. No lytic or blastic lesions. CT/CTA Head AND Neck W/ Contrast IMPRESSION: 1. Negative CTA Head and CTA Neck 2. Nonspecific groundglass opacities in both upper lobes. Whether they are due to hypersensitivity pneumonitis is uncertain. HRCT chest will be helpful for further evaluation if desired. Electronically Signed: Austyn Raymond MD at 14:29 EDT ,
[2023-02-21] MEDS: Contrast Allergy Safety Check IV (14:56)
--- NOTE | 2023-02-21 21:31 | CPS ---
[employer]IE[employer] OR DEPARTMENT placed patient on NC 2L due to saturations dropping while sleeping
[2023-02-21] MEDS: Metoprolol Tartrate 25 MG Tablet 12.5 MG PO (21:55)
[2023-02-21] MEDS: Acetaminophen 325 MG Tablet 650 MG PO (21:56)
[2023-02-21] MEDS: Atorvastatin Calcium 80 MG Tablet PO (21:56)
[2023-02-22] VITALS (8 sets, daily range): BP systolic 131–157; BP diastolic 72–98; PULSE 76–106; RESP 16; TEMP 36.3–36.7; O2SAT 92–97; BMI 34.9
[2023-02-22 05:32] LABS: Absolute Neutrophil Count 4.5 X10^3/uL (2.0-7.7); Basophil# 0.02 X10^3/uL; Basophil% 0.3 % (0-1); Eosinophil# 0.06 X10^3/uL; Hematocrit 47.3 % (40-54); Hemoglobin 15.2 g/dL (13.0-16.5); Lymphocyte % 14.8 % (19-41); Mean Corp Hgb Conc 32.1 g/dL (32-36); Mean Corpuscular Hgb 30.2 pg (27.0-32.0); Mean Corpuscular Volume 93.8 fL (80-94); Mean Platelet Vol. 10.1 fl (6.2-12.0); Monocyte# 0.57 X10^3/uL; Monocyte% 9.4 % (0-10); NRBC Flagged by Analyzer 0 % (0-5); Neutrophil % 74.2 % (47-70); Platelet Count 174 K/mm3 (150-450); RBC Distribution Width CV 13.6 % (11.6-14.6); RBC Distribution Width SD 46.9 fl (35.1-43.9); Red Blood Count 5.04 M/mm3 (4.6-6.2); White Blood Count 6.1 K/mm3 (4.4-11.0)
[2023-02-22 05:42] LABS: International Normalized Ratio 2.2; Prothrombin Time (Protime)PT. 24.8 SECONDS (11.7-14.9)
[2023-02-22 06:10] LABS: ALB/GLOB Ratio 1.1 RATIO (0.9-2.4); AST(SGOT) 21 U/L (15-37); Alanine Aminotransfer ALT/SGPT 27 U/L (16-61); Albumin, Serum 3.5 g/dL (3.2-5.0); Alkaline Phosphatase 77 U/L (45-117); Anion Gap 3 (5-15); BUN 15 mg/dL (7-18); BUN/Creat Ratio 14.3 RATIO (10-20); Calcium,Total 8.5 mg/dL (8.5-10.1); Chloride 107 mmol/L (98-107); Cholesterol 131 mg/dL (200); Creatinine, Serum 1.05 mg/dL (0.70-1.30); EST Glomerular Filtration Rate 76 mL/min (>60); Est Glom Filt Rate - Afr Amer 92 mL/min (>60); Estimated Creatinine Clearance 79.04 ml/min; Globulin 3.1 g/dL (2.2-4.2); Glucose 90 mg/dL (74-106); High Density Lipoprotein 27 mg/dL; Magnesium 2.4 mg/dL (1.6-2.6); Potassium 3.6 mmol/L (3.5-5.1); Protein, Total 6.6 g/dL (6.4-8.2); Sodium Level 140 mmol/L (136-145); Thyroid Stim Hormone (TSH) 2.53 uIU/mL (0.358-3.74); Triglycerides 194 mg/dL; Very Low Density Lipoprotein 39 mg/dL (5-40)
[2023-02-22] MEDS: LORazepam 0.5 MG Tablet PO ×2 (08:10→17:43)
[2023-02-22] MEDS: 0.9% Saline Lock 10 ML Syringe IV (08:10)
[2023-02-22 08:25] LABS: Hemoglobin A1c 5.4 % (3.8-5.6)
--- NOTE | 2023-02-22 09:00 | MRI_ITS ---
HISTORY: rotational nystagmus, vertigo, ?cerebellar stroke. TECHNIQUE: Multiplanar and multisequence MR images of the brain were obtained without contrast. 303 images. COMPARISON: CT prior day. FINDINGS: BRAIN PARENCHYMA: Mild foci of increased T2 FLAIR signal in the bilateral cerebral white matter. No abnormal focus of restricted diffusion. No acute intracranial hemorrhage identified. CSF SPACES: Generalized volume loss. No significant midline shift or other mass effect.No extra-axial fluid collection. VASCULAR SYSTEM: Major intracranial flow voids are maintained. PARANASAL SINUSES AND MASTOID AIR CELLS: No significant air fluid levels. ORBITS: Symmetric contents. MRI/Brain without Contrast IMPRESSION: No evidence for acute infarct. Mild chronic involutional and white matter changes. Electronically Signed: Eleonora Valdez MD at 11:34 EDT ,
[2023-02-22] MEDS: Paroxetine 20 MG Tablet PO (11:05)
[2023-02-22] MEDS: Pantoprazole Sodium 40 MG Tablet PO (11:05)
[2023-02-22] MEDS: Aspirin 81 MG TAB.CHEW PO (11:05)
[2023-02-22] MEDS: Ferrous Sulfate 325 MG Tablet PO (11:05)
--- NOTE | 2023-02-22 11:16 | PN.HOSP_ITS ---
Reason for Visit Reason for Visit: Diagnoses Unspecified hearing loss, left ear (02/21/23) Nausea with vomiting, unspecified (02/21/23) Dizziness and giddiness (02/21/23) Personal history of malignant neoplasm of prostate (02/21/23) Personal history of other venous thrombosis and embolism (02/21/23) Personal history of other diseases of the circulatory system (02/21/23) Subjective Subjective Patient still having dizziness and is afraid to stand up, still mostly positional, does feel slightly better than yesterday though Objective Data Objective Data Vital Signs: Vital Signs Temp Pulse Resp BP Pulse Ox O2 Del Method O2 Flow Rate 97.6 F L 76 16 131/98 H 97 Room Air 2 02/22/23 07:59 02/22/23 07:59 02/22/23 07:59 02/22/23 07:59 02/22/23 07:59 02/22/23 08:06 02/22/23 07:17 Oxygen Flow Rate (L/min) 2 Oxygen Delivery Method Room Air Weight: 116.9 kg Body Mass Index (BMI) 34.9 Intake & Output: Intake and Output for Last 24 Hours 02/20/23 02/21/23 02/22/23 23:59 23:59 23:59 Intake Total 1000 / 1000 Balance 1000 / 1000 Lab / Micro Data 02/22/23 05:00 02/22/23 05:00 Labs: Laboratory Results - last 24 hr 02/22/23 05:00: WBC 6.1, RBC 5.04, Hgb 15.2, Hct 47.3, MCV 93.8, MCH 30.2, MCHC 32.1, RDW Std Deviation 46.9 H, RDW Coeff of Nena 13.6, Plt Count 174, MPV 10.1, Immature Gran % (Auto) 0.300, Neut % (Auto) 74.2 H, Lymph % (Auto) 14.8 L, [place] % (Auto) 9.4, Eos % (Auto) 1.0, Baso % (Auto) 0.3, Absolute Neuts (auto) 4.5, Absolute Lymphs (auto) 0.90, Nucleated RBC % 0, PT 24.8 H, INR 2.2, Sodium 140, Potassium 3.6, Chloride 107, Carbon Dioxide 30.0, Anion Gap 3 L, BUN 15, Creatinine 1.05, Estim Creat Clear Calc 79.04, Est GFR (MDRD) Af Amer 92, Est GFR (MDRD) Non-Af 76, BUN/Creatinine Ratio 14.3, Glucose 90, Hemoglobin A1c 5.4, Calcium 8.5, Magnesium 2.4, Total Bilirubin 0.70, AST 21, ALT 27, Alkaline [place] sphatase 77, Total Protein 6.6, Albumin 3.5, Globulin 3.1, Albumin/Globulin Ratio 1.1, Triglycerides 194, Cholesterol 131, LDL Cholesterol 65, VLDL Cholesterol 39, HDL Cholesterol 27 L, TSH 2.53 Radiography Diagnostic Testing: Radiology Impression Brain CT 02/21/23 09:55 IMPRESSION: Negative head/brain CT without intravenous contrast. Electronically Signed: Austyn Raymond MD at 11:35 EDT , Head/Neck CTA 02/21/23 13:27 IMPRESSION: 1. Negative CTA Head and CTA Neck 2. Nonspecific groundglass opacities in both upper lobes. Whether they are due to hypersensitivity pneumonitis is uncertain. HRCT chest will be helpful for further evaluation if desired. Electronically Signed: Austyn Raymond MD at 14:29 EDT , Physical Exam Narrative General: Alert, oriented, no apparent distress HEENT: Atraumatic, normocephalic Eyes: Anicteric, normal conjunctiva, extraocular movements grossly intact Neck: Supple Respiratory: Clear to auscultation bilaterally, normal respiratory effort Cardiovascular: Regular rate and rhythm GI: Soft, nontender, nondistended Extremities: No edema Musculoskeletal: Moving all extremities Neuro: No overt focal neurological deficits, patient presently not feeling dizzy Skin: No rashes appreciated Psych: Cooperative Assessment & Plan Assessment/Plan (1) Dizziness: (2) Hearing loss in left ear: (3) Nausea and vomiting: (4) History of abdominal aortic aneurysm: (5) History of DVT (deep vein thrombosis): (6) History of prostate cancer: PLAN: Plan #Patient with vertigo and intractable nausea and vomiting with hearing loss on left -Patient specifically with symptoms when he sits up or turns head to the left and when he turns head to the left with eyes open he has spontaneous rotational nystagmus, will need to rule out cerebellar stroke, no symptoms of viral illness and tympanic membrane clear -Admit to tele -CT head w/ no acute process in the ED, will get CTA -MRI -NIH q4hr -asa, statin -Echo w/ bubble study -Lipid panel and A1c -PT/OT/Speech eval -Hold BP medications to allow for permissive hypertension for 24 hours unless SBP greater than 220 or DBP greater than 120 or until stroke is ruled out -Once diagnostic studies obtained we will plan to consult neurology -02/22: MRI and echo pending, patient still feeling dizzy and will need to work with therapies, will plan on consulting neurology later today after results available, continue present management #History of DVT -Reports he is on Coumadin specifically due to insurance not covering newer alternatives -INR 2.4, continue Coumadin at this time -02/22: INR 2.2, continue present management #Tobacco use -Advise cessation -Patient agreeable to nicotine replacement #History of abdominal aortic aneurysm -Status post stent with Dr. Vargas in 2015 #History of prostate cancer -In remission, did not require chemo or radiation and had local intervention #DVT ppx: Therapeutic on Coumadin Medina Munoz MD Time spent in the patient's overall evaluation,decision-making process, review of diagnostic data, adjustment of management, discussion with other providers, nursing nursing and ancillary staff involved in patient's care documentation, 35 minutes Charges/Coding Visit Charges Inpatient E&M: 10908 Subs Hosp L2
[2023-02-22] MEDS: Metoprolol Tartrate 25 MG Tablet 12.5 MG PO ×2 (13:32→20:01)
[2023-02-22] MEDS: Meclizine 12.5 MG Tablet PO (13:33)
[2023-02-22] MEDS: Acetaminophen 325 MG Tablet 650 MG PO (13:33)
--- NOTE | 2023-02-22 14:04 | CASEMGMT ---
SW completed a PHQ9 with patient as he may have had a TIA. Patient scored a 2 which indicates minimal depression. Patient denied any need for counseling resources. Amirah CHAPA
--- NOTE | 2023-02-22 17:07 | MRI_ITS ---
EXAM: MR HEAD WITHOUT AND WITH INTRAVENOUS CONTRAST, INTERNAL AUDITORY CANAL PROTOCOL CLINICAL INDICATION: MRI INT AUDITORY CANALS W/ W/O CONTRAST PER NEURO -- -- L SUDDEN HEARING LOSS TECHNIQUE: Multiplanar and multisequence MR images of the internal auditory canal were obtained without and with intravenous contrast. CONTRAST: IV 23 CC CLARISCAN COMPARISON: MRI brain without contrast on the same date. CT angiogram head, 02/21/2023. FINDINGS: CRANIAL NERVES: No significant abnormality. No mass. No abnormal enhancement. COCHLEA AND SEMICIRCULAR CANALS: No significant abnormality. CEREBELLOPONTINE ANGLES: No significant abnormality. No mass. BRAIN AND EXTRA-AXIAL SPACES: Minimal periventricular T2 hyperintensity is partially visualized. No intra- or extra-axial hemorrhage. No intracranial mass or mass effect. There is preservation of the garcia/white matter interface. Posterior fossa structures are unremarkable. Ventricles are appropriate for age. No hydrocephalus. Basal cisterns are patent. BONES/JOINTS: No significant abnormality. No discrete lytic or blastic abnormalities. SINUSES: Normal as visualized. Clear. MASTOID AIR CELLS: Normal as visualized. Clear. ORBITS: Normal as visualized. Both globes, extraocular muscles, optic nerves and retrobulbar fat appear unremarkable. MRI/Brain W/WO Contrast IMPRESSION: No evidence of retrocochlear pathology or other findings to explain hearing loss. Electronically Signed: Wei Singletary DO at 19:18 EDT ,
[2023-02-22] MEDS: predniSONE 20 MG Tablet 60 MG PO (17:44)
[2023-02-22] MEDS: Atorvastatin Calcium 80 MG Tablet PO (20:01)
[2023-02-23 01:30] VITALS: BMI 34.9
[2023-02-23 06:55] VITALS: O2SAT 92
[2023-02-23 07:04] LABS: International Normalized Ratio 1.9; Prothrombin Time (Protime)PT. 22.1 SECONDS (11.7-14.9)
[2023-02-23 07:30] VITALS: BP 176/103; PULSE 88; RESP 16; TEMP 36.2; O2SAT 94
[2023-02-23] MEDS: Meclizine 12.5 MG Tablet PO (07:35)
[2023-02-23] MEDS: Aspirin 81 MG TAB.CHEW PO (07:35)
[2023-02-23] MEDS: predniSONE 20 MG Tablet 60 MG PO (07:35)
[2023-02-23 07:36] VITALS: PULSE 88
[2023-02-23] MEDS: Metoprolol Tartrate 25 MG Tablet 12.5 MG PO (07:36)
[2023-02-23] MEDS: Paroxetine 20 MG Tablet PO (07:36)
[2023-02-23] MEDS: Pantoprazole Sodium 40 MG Tablet PO (07:36)
[2023-02-23 09:04] VITALS: BP 151/95
[2023-02-23 09:42] VITALS: BMI 34.9
--- NOTE | 2023-02-23 09:54 | DCINST_ITS ---
Discharge Instructions Diet Discharge Diet: No restrictions Activity Discharge Activity: - (Return to work per primary care physician recommendations) Follow Up Care Test Results: Test results from this visit will be discussed in further detail at your follow- up appointment, if applicable. Discharge Plan Admission Admit Date/Time: 02/21/23 13:21 Primary Reason for Your Visit: Dizziness Attending Provider: Medina Munoz Primary Care Provider: Marco Dunn Instructions Patient Instructions: Vertigo Inner Ear Problems, Vertigo Medicine Tx, Vertigo Balance Problems Tests, Vestibular Rehab Therapy, BPPV, Labyrinthitis Additional Instructions / Restrictions: DISCHARGE INSTRUCTIONS PLEASE READ *Please take this with you to your next doctors appointment* -You will be discharged on 60 mg of prednisone daily for 7 days and this will be decreased by 10 mg daily until completion -Please discuss your need for both Coumadin and aspirin with your vascular surgeon -Please follow-up with ENT (ear nose throat) upon discharge. If you are not already established with an ear nose throat doctor you can follow-up with [facility]. Please call [phone] to schedule an appointment. -Please call your primary care provider's office upon discharge to schedule a hospital follow up within 1 week. -For any concerning signs or symptoms please call 911 or proceed to the nearest emergency department Discharge Orders/Prescriptions Prescriptions: New prednisone 20 mg Tablet See Taper PO BREAKFAST Qty: 29 0RF Taper: Prednisone Taper 60 mg WITH BREAKFAST for 7 Days and 0 Hour 50 mg WITH BREAKFAST for 1 Day and 0 Hour 40 mg WITH BREAKFAST for 1 Day and 0 Hour 30 mg WITH BREAKFAST for 3 Days and 0 Hour 20 mg WITH BREAKFAST for 1 Day and 0 Hour 10 mg WITH BREAKFAST for 1 Day and 0 Hour Rx Instructions: 60 mg daily for 7 days then decrease by 10mg daily until completion meclizine 12.5 mg Tablet 12.5 mg PO TID PRN PRN (Reason: Vertigo) 5 Days Qty: 15 0RF Continued metoprolol tartrate 50 MG tablet 50 mg PO BID aspirin 81 MG tablet 81 mg PO DAILY@0800 paroxetine HCl 20 MG tablet 20 mg PO DAILY warfarin 5 MG tablet 5 mg PO .COMPLEX Rx Instructions: 5 mg orally; olmesartan 20 mg tablet 20 mg PO DAILY cyclobenzaprine 10 mg Tablet 10 mg PO QHS PRN (Reason: muscle spasm) sildenafil 50 mg Tablet 50 mg PO DAILY PRN (Reason: Erectile Dysfunction) omeprazole 40 mg Capsule,Delayed Release(Dr/Ec) 40 mg PO DAILY amitriptyline 50 mg Tablet 50 mg PO QHS PRN (Reason: sleep) famotidine 20 mg Tablet 20 mg PO DAILY ferrous sulfate 325 mg (65 mg iron) Tablet 325 mg PO DAILY folic acid 1 mg Tablet 1 mg PO DAILY bisacodyl 5 mg Tablet 5 mg PO QHS PRN (Reason: constipation) albuterol sulfate [Ventolin HFA] 90 mcg/actuation HFA aerosol inhaler 2 puff inhalation Q4H PRN PRN (Reason: Wheezing) Qty: 1 0RF warfarin 2.5 mg tablet 2.5 mg PO Referrals / Follow Up: Stepan Lopes MD [Med Staff - Active Staff] - ( -Please follow-up with ENT (ear nose throat) upon discharge. If you are not already established with an ear nose throat doctor you can follow-up with [facility]. Please call [phone] to schedule an appointment.) Marco Dunn MD [Primary Care Provider] - Within 1 Week Disposition Disposition (needs filled in before D/C Order can be placed): Home, Self Care
--- NOTE | 2023-02-23 09:58 | DS.PCM_ITS ---
Providers Date of Admission: 02/21/23 Date of Discharge: 02/23/23 Primary Care Physician: Dr. Marco Dunn MD Reason For Visit: VERTIGO, CVA R/O Diagnosis Discharge Diagnosis (1) Dizziness: Status: Acute Code(s): R42 - Dizziness and giddiness (2) Hearing loss in left ear: Status: Acute Code(s): H91.92 - Unspecified hearing loss, left ear (3) Nausea and vomiting: Status: Acute Code(s): R11.2 - Nausea with vomiting, unspecified (4) History of abdominal aortic aneurysm: Status: Acute Code(s): Z86.79 - Personal history of other diseases of the circulatory system (5) History of DVT (deep vein thrombosis): Status: Acute Code(s): Z86.718 - Personal history of other venous thrombosis and embolism (6) History of prostate cancer: Status: Acute Code(s): Z85.46 - Personal history of malignant neoplasm of prostate Plan #Patient with vertigo and intractable nausea and vomiting with hearing loss on left- suspect bppv vs vestibular neuritis #History of DVT #Tobacco use #History of abdominal aortic aneurysm #History of prostate cancer Medications at Discharge Home Medications aspirin 81 mg tablet,delayed release 81 mg PO DAILY@0800 05/11/15 metoprolol tartrate 50 mg tablet 50 mg PO BID 05/11/15 paroxetine HCl 20 mg tablet 20 mg PO DAILY 06/17/19 warfarin 5 mg tablet 5 mg PO .COMPLEX 06/17/19 olmesartan 20 mg tablet 20 mg PO DAILY 03/15/21 amitriptyline 50 mg tablet 50 mg PO QHS PRN sleep 06/11/21 bisacodyl 5 mg tablet 5 mg PO QHS PRN constipation 06/11/21 cyclobenzaprine 10 mg tablet 10 mg PO QHS PRN muscle spasm 06/11/21 famotidine 20 mg tablet 20 mg PO DAILY 06/11/21 ferrous sulfate 325 mg (65 mg iron) tablet 325 mg PO DAILY 06/11/21 folic acid 1 mg tablet 1 mg PO DAILY 06/11/21 omeprazole 40 mg capsule,delayed release 40 mg PO DAILY 06/11/21 sildenafil 50 mg tablet 50 mg PO DAILY PRN Erectile Dysfunction 06/11/21 albuterol sulfate 90 mcg/actuation aerosol inhaler (Ventolin HFA) 2 puff inhalation Q4H PRN PRN Wheezing ##1 09/03/22 warfarin 2.5 mg tablet 2.5 mg PO TU 02/21/23 meclizine 12.5 mg tablet 12.5 mg PO TID PRN PRN Vertigo 5 days #15 tabs 02/23/23 prednisone 20 mg tablet See Taper PO BREAKFAST #29 tabs 02/23/23 Hospital Course Summary of Care Provided Minutes Spent on Discharge: 35 Hospital Course: YANCY TALLEY, is a 62 M with a history of tobacco use, blood clots on coumadin, and abdominal aneurysm status post stent as well as multiple concussions in the past who presented to [facility] 02/21/2023 with 24 hours of decreased hearing in the left ear and nausea and vomiting and vertigo. Admitted for stroke work-up and inability to tolerate p.o. and ambulate. Echo unremarkable, MRI with no stroke or internal ear pathology noted. Neurology evaluated and felt this was BPPV versus vestibular neuritis and recommended prednisone and ENT follow-up. Patient placed on prednisone and worked with physical therapy. Overall did improve though some residual symptoms however patient feels safe/stable to go home. Discharge instructions as followed: DISCHARGE INSTRUCTIONS PLEASE READ *Please take this with you to your next doctors appointment* -You will be discharged on 60 mg of prednisone daily for 7 days and this will be decreased by 10 mg daily until completion -Please discuss your need for both Coumadin and aspirin with your vascular surgeon -Please follow-up with ENT (ear nose throat) upon discharge. If you are not already established with an ear nose throat doctor you can follow-up with [facility]. Please call [phone] to schedule an appointment. -Please call your primary care provider's office upon discharge to schedule a hospital follow up within 1 week. -For any concerning signs or symptoms please call 911 or proceed to the nearest emergency department Physical Exam Narrative General: Alert, oriented, no apparent distress HEENT: Atraumatic, normocephalic Eyes: Anicteric, normal conjunctiva, extraocular movements grossly intact Neck: Supple Respiratory: Clear to auscultation bilaterally, normal respiratory effort Cardiovascular: Regular rate and rhythm GI: Soft, nontender, nondistended Extremities: No edema Musculoskeletal: Moving all extremities Neuro: No overt focal neurological deficits, patient presently not feeling dizzy Skin: No rashes appreciated Psych: Cooperative Weight / BMI Weight Weight: 116.9 kg Body Mass Index (BMI) 34.9 ABG / Lab / Microbiology Data 02/22/23 05:00 02/22/23 05:00 Laboratory: Laboratory Results - last 24 hr 02/23/23 05:28: PT 22.1 H, INR 1.9 Radiography Diagnostic Testing: Radiology Impression Echocardiogram 02/21/23 13:27 Interpretation Summary Normal LV size. Left ventricular systolic function is normal. The estimated ejection fraction is 65 %. Stage 1 diastolic dysfunction. Bubble contrast study negative for right to left interatrial shunt. Contrast injection was performed. Ordering Physician: Medina Munoz Performed By: Michi Vergara RCS Brain MRI 02/22/23 09:00 IMPRESSION: No evidence for acute infarct. Mild chronic involutional and white matter changes. Electronically Signed: Eleonora Valdez MD at 11:34 EDT , Brain MRI 02/22/23 17:07 IMPRESSION: No evidence of retrocochlear pathology or other findings to explain hearing loss. Electronically Signed: Wei Singletary DO at 19:18 EDT , D/C Instructions Discharge Diet: No restrictions Meaningful Use Info Meaningful Use Diagnoses (Choose all that apply): None applicable Discharge Plan Admission Admit Date/Time: 02/21/23 13:21 Primary Reason for Your Visit: Dizziness Attending Provider: Medina Munoz Primary Care Provider: Marco Dunn Instructions Patient Instructions: Vertigo Inner Ear Problems, Vertigo Medicine Tx, Vertigo Balance Problems Tests, Vestibular Rehab Therapy, BPPV, Labyrinthitis Additional Instructions / Restrictions: DISCHARGE INSTRUCTIONS PLEASE READ *Please take this with you to your next doctors appointment* -You will be discharged on 60 mg of prednisone daily for 7 days and this will be decreased by 10 mg daily until completion -Please discuss your need for both Coumadin and aspirin with your vascular s urgeon -Please follow-up with ENT (ear nose throat) upon discharge. If you are not already established with an ear nose throat doctor you can follow-up with [facility]. Please call [phone] to schedule an appointment. -Please call your primary care provider's office upon discharge to schedule a hospital follow up within 1 week. -For any concerning signs or symptoms please call 911 or proceed to the nearest emergency department Discharge Orders/Prescriptions Prescriptions: New prednisone 20 mg Tablet See Taper PO BREAKFAST Qty: 29 0RF Taper: Prednisone Taper 60 mg WITH BREAKFAST for 7 Days and 0 Hour 50 mg WITH BREAKFAST for 1 Day and 0 Hour 40 mg WITH BREAKFAST for 1 Day and 0 Hour 30 mg WITH BREAKFAST for 3 Days and 0 Hour 20 mg WITH BREAKFAST for 1 Day and 0 Hour 10 mg WITH BREAKFAST for 1 Day and 0 Hour Rx Instructions: 60 mg daily for 7 days then decrease by 10mg daily until completion meclizine 12.5 mg Tablet 12.5 mg PO TID PRN PRN (Reason: Vertigo) 5 Days Qty: 15 0RF Continued metoprolol tartrate 50 MG tablet 50 mg PO BID aspirin 81 MG tablet 81 mg PO DAILY@0800 paroxetine HCl 20 MG tablet 20 mg PO DAILY warfarin 5 MG tablet 5 mg PO .COMPLEX Rx Instructions: 5 mg orally; olmesartan 20 mg tablet 20 mg PO DAILY cyclobenzaprine 10 mg Tablet 10 mg PO QHS PRN (Reason: muscle spasm) sildenafil 50 mg Tablet 50 mg PO DAILY PRN (Reason: Erectile Dysfunction) omeprazole 40 mg Capsule,Delayed Release(Dr/Ec) 40 mg PO DAILY amitriptyline 50 mg Tablet 50 mg PO QHS PRN (Reason: sleep) famotidine 20 mg Tablet 20 mg PO DAILY ferrous sulfate 325 mg (65 mg iron) Tablet 325 mg PO DAILY folic acid 1 mg Tablet 1 mg PO DAILY bisacodyl 5 mg Tablet 5 mg PO QHS PRN (Reason: constipation) albuterol sulfate [Ventolin HFA] 90 mcg/actuation HFA aerosol inhaler 2 puff inhalation Q4H PRN PRN (Reason: Wheezing) Qty: 1 0RF warfarin 2.5 mg tablet 2.5 mg PO Referrals / Follow Up: Stepan Lopes MD [Med Staff - Active Staff] - ( -Please follow-up with ENT (ear nose throat) upon discharge. If you are not already established with an ear nose throat doctor you can follow-up with [facility]. Please call [phone] to schedule an appointment.) Marco Dunn MD [Primary Care Provider] - Within 1 Week Disposition Disposition (needs filled in before D/C Order can be placed): Home, Self Care Charges/Coding Visit Charges Inpatient E&M: 42752 Disch Hosp >30min
--- NOTE | 2023-02-23 10:10 | CASEMGMT ---
RN ELIEL notified that patient is discharging today. Neuor recommending outpatient vestibular therapy, script received as well as script for walker. OLIVIA CM in to discuss discharge needs with patient and . Patient would like to schedule vestibular therapy on his own. Patient states he has access to walker at home from parents. Scripts provided to patient with [employer] infomation in discharge packet. Patient had no further questions or concerns at this time.
== END 2023-02-23 09:57 | disposition home or self-care (01) ==
LOC: ED 13:11 → PCU 13:29
PROVIDERS: Admitting Provider Internal Medicine; Emergency Provider Emergency Medicine; PCP Family Medicine; Visit Provider Internal Medicine
DX: R42 Dizziness and giddiness (principal); R11.2 Nausea with vomiting, unspecified; H91.92 Unspecified hearing loss, left ear; Z79.82 Long term (current) use of aspirin; E78.5 Hyperlipidemia, unspecified; H93.12 Tinnitus, left ear; F17.210 Nicotine dependence, cigarettes, uncomplicated; I10 Essential (primary) hypertension; Z86.718 Personal history of other venous thrombosis and embolism; Z79.899 Other long term (current) drug therapy; Z79.01 Long term (current) use of anticoagulants
CPT/HCPCS: 36415; 70450; 70496; 70498; 70551; 70553; 80053; 80061; 83036; 83690; 83735; 84443; 84484; 85025; 85610; 93005; 93306; 94762; 96361; 96374; 97162; 97166; 97802; 99221; 99285; A9581; Q9957; Q9967; A4216; C8929; G0378; J2405

== ENCOUNTER 2023-04-01 10:30 | Outpatient (RCR) | payer OTHER, SELFPAY ==
--- NOTE | 2023-03-02 10:51 | HP.PTEVAL_ITS ---
Patient's Visit Information Visit Information Visit Information: YANCY TALLEY is a 62 year old M referred to Physical Therapy by Dr. Medina Munoz MD with a diagnosis of vertigo. Date of Evaluation: 03/02/23 Physical Therapist: Giuliano Rogers, DPT, OCS, CSCS Visit Plan Frequency: 2x /Week Duration: 4-6 Weeks Plan: 2x/week for 4-6 weeks as needed for 1. balance exercises ec and head movements to tolerance 2. HEP progression of VOR/adaptation and habituation as needed. Currently do VOR x1 H and V seated 60 seconds 6x/day as HEP, will see EG weekly and [facility] weekly. Subjective Subjective: Lost hearing in L ear and lost balance about 10 days ago. Lost hearing on Wednesday night then woke up Wednesday morning dizzy nauseous and lightheaded,. Eyes were noving back and forth. Could not sit up or he would throw up. Laid on couch with out moving all day and vomitted if he moves and spinning. Went to hospital with same symptoms Wednesday through ER, admitted and did Catscans and MRI. Found nothing on those. Stayed hospital for two days and started on steroids and dehydration and meds. Positional tests did not help. got medicine for nausea. feeling a bit better now but balance still off. Has to use cane. Feels Ok if lie down but if he truns head can get dizzy, not getting sick but just ran out of nausea meds. Just ran out of meclizine also. Did not need cane prior but needs it now for balance. Sleep is OK once he is out. 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 Basic ADLs are going ok at home, just some difficulty with balance for pants on, bath and shower are OK hanging on. Spun gently this morning. Hobbies: mullen and fish, unable to right now. Enjoys old cars. Saw Dr. Dunn family physician who sent to ENT who put him on antibiotic. Hearing test, f/u again Wednesday Objective Objective: Walks into PT with a cane slow and hesitant but I. Wide YONATHAN without cane but can ambulate. Trasnfers without UE I. Steps require railing. hard to walk with ec OR head moving. cervical and UE AROM WFL. reflexes 2/3 bi and tri Sensation UE WNL to gross light touch. - B hallpike triny today, - roll test. Oculomotor: no nystagmus with gaze or head shake. - skew eye deviation - ocular tilt Head thrust slight + L no symptoms or problems with pursuit or saccades. Symptomatic with H and V 30 sec VOR from 4/10 to 6/10 for 20 seconds. each. Balance/Special Test Scores Functional Gait Assessment Score: 23 % Disability: 23.3400 CATSIB Score (Max score 120 seconds): 65 Dizziness Score: 92 Goals Goal 1:: Symptom free at rest Goal Time Frame: 2 Weeks Goal 2:: FGA to imprvoe safety with mobility Goal Time Frame: 4-6 Weeks Goal 3:: Pt feel 99% back to normal and ready to return to work Goal Time Frame: 4-6 Weeks Goal 4:: I appropriate HEP to manage symptoms Goal Time Frame: 4-6 Weeks Goal 5:: DHI score 8 or less Goal Time Frame: 4-6 Weeks Rehabilitation Potential Physical Therapy Diagnosis: vertgo effecting balance and QOL, likely unilateral vestibular hypofunction Rehabilitation Potential: Good Anticipated Interventions Patient/Client Instruction: Educate patient on: Condition and Plan of Care For the Purpose of:: To improve nutrient delivery to tissue, To improve muscle performance and motor function and To increase tolerance to activity/condition/position Therapeutic Exercise to Include: Balance training Comment: adapatation and habituation For the Purpose of:: To increase tolerance to activity/condition/position, To improve ability of physical actions for home/community/work/leisure and To improve gait and locomotor functions Text: Thank you for the opportunity to evaluate your patient. For Medicare and Medicare HMO plans, please review the plan of care and approve it. It will need to be FAXED BACK to us at [phone] for Medicare purposes. For Medicare only, by signing this I certify the plan of care. Please let me know if there are questions or concerns regarding this plan of care. Physician Signature: Date:
--- NOTE | 2023-04-01 10:44 | HP.PTDCSUM ---
Discharge Summary D/C summary: It has been my pleasure to treat YANCY TALLEY referred by Dr. Marco Dunn MD, with the diagnosis of vertigo for a total of 9 visit(s). Discharge Date: Please see the following information for a summary of their discharge status. Subjective Subjective: not feeling much better than a month ago overall. sees family doctor at end of month. Using cane to get around. Still feels unsteady. Still gets nauseous now and then daily. Dizzy is all the time. Activities: avoids home maintenance, has to be careful on steps and uses cane. No cane needed prior. Dizzyness is not spinning but sometimes with walking is harder after ambulating alot. Has to hold on with movments but does not increase spinning with head movements. Lying at night is Ok. Doing BD exercises at home but not improving. Will f/u ENT oin june Overall Improvement % Improvement: 0 Objective Objective/Function: Pt needing cane to walk safely, overall appears to be getting used to symtpoms but bot feeling better or scoring much better on balance testing Goals Goal 1:: Symptom free at rest Goal Progress: Not Progressing Goal 2:: FGA to imprvoe safety with mobility Goal Progress: Not Progressing Goal 3:: Pt feel 99% back to normal and ready to return to work Goal Progress: Not Progressing Goal 4:: I appropriate HEP to manage symptoms Goal Progress: Not Progressing Goal 5:: DHI score 8 or less Goal Progress: Not Progressing Plan Plan: Not improving , recommend back to doctor for next medical step as he is not coming along as would expect for vestibular or nerve infection even with appropriate ex. D/C Information d/c sentence: If there are questions or concerns regarding this patient's physical therapy, please feel free to call me at [phone]. Thank you for the referral of this patient. Sincerely, Giuliano Rogers, DPT, OCS, CSCS Balance/Gait/Functional tests Balance/Special Test Scores Functional Gait Assessment Score: 24 % Disability: 20.0000 CATSIB Score (Max score 120 seconds): 82 Dizziness Score: 92 Improvement % Improvement: 0
== END 2023-04-01 19:00 | disposition home or self-care (01) ==
LOC: PT 10:30
PROVIDERS: PCP Family Medicine; Referring Provider Internal Medicine; Visit Provider Family Medicine
DX: R42 Dizziness and giddiness (principal)
CPT/HCPCS: 97110; 97161; 97164; 97530

== ENCOUNTER 2023-05-14 12:08 | Emergency (ER) | payer OTHER, SELFPAY ==
[2023-05-14 12:09] VITALS: BP 149/116; PULSE 87; RESP 14; TEMP 36.8; O2SAT 99; BMI 35.1
--- NOTE | 2023-05-14 13:11 | CT_ITS ---
STUDY: CT BRAIN WITHOUT CONTRAST REASON FOR EXAM: Male, 62 years old. Trauma RADIATION DOSAGE (If Supplied By Facility): CTDIvol = ( 44.99 ) mGy, DLP = ( 914.22 ) mGycm TECHNIQUE: Transaxial CT imaging of the brain was performed without administration of intravenous contrast material. Individualized dose optimization techniques were used for this CT. COMPARISON: 02/22/2023 MRI brain FINDINGS: Normal soft tissue structures. Normal calvarium. There is mild cerebral atrophy with widening of the extra-axial spaces and ventricular dilatation. Normal white matter tracts of the cerebral hemispheres. Normal basal ganglia and thalami. Normal brainstem. Normal cerebellum. There is no intracranial hemorrhage. There are no findings of an acute ischemic infarction. Normal visualized paranasal sinuses. CT/Brain/Head without Contrast IMPRESSION: No evidence of acute intracranial bleed, mass or ischemia. Electronically Signed: Jaret Wetzel DO at 13:53 EST ,
--- NOTE | 2023-05-14 13:11 | CT_ITS ---
STUDY: CT CERVICAL SPINE WITHOUT CONTRAST REASON FOR EXAM: Male, 62 years old. Trauma RADIATION DOSAGE (If Supplied By Facility): CTDIvol = ( 26.26 ) mGy, DLP = ( 637.22 ) mGycm TECHNIQUE: High resolution transaxial imaging was performed without contrast material. Sagittal and coronal images were reconstructed. Individualized dose optimization techniques were used for this CT. COMPARISON: None FINDINGS: Normal craniovertebral junction. There are degenerative changes of the anterior atlantoaxial articulation. Normal odontoid process. Normal cervical lordosis. Normal vertebral bodies and posterior osseous elements. C2-3: Normal endplates. Normal disc height and morphology. Normal central canal and intervertebral neuroforamina. C3-4: Normal endplates. Normal disc height and morphology. Normal central canal and intervertebral neuroforamina. Left facet arthropathy is present. C4-5: Right facet arthropathy and minimal uncovertebral joint arthropathy resulting in mild right foraminal narrowing. No significant spinal canal narrowing. C5-6: Uncovertebral joint arthropathy and disc osteophyte complex resulting in mild bilateral foraminal narrowing. Degenerative disc changes in decreased disc space at this level is present. C6-7: Normal endplates. Normal disc height and morphology. Normal central canal and intervertebral neuroforamina. C7-T1: Normal endplates. Normal disc height and morphology. Normal central canal and intervertebral neuroforamina. Normal visualized soft tissue structures. CT/Spine Cervical without Contras IMPRESSION: 1. No evidence of acute cervical spine fracture. Degenerative changes as above. Electronically Signed: Jaret Wetzel DO at 13:57 EST ,
--- NOTE | 2023-05-14 13:12 | EDS_ITS ---
HPI History of Present Illness Chief Complaint: Headache Informant: patient Narrative Narrative: Patient presents with headache after fall injury and being on Coumadin. Patient was walking on wet ground yesterday. He has vestibular problems and always uses a cane. But he did not bring his cane. He slipped on the mud landed and hit his head. He states he does not think he lost consciousness but he is not completely sure. He evidently went inside the house after this. [place] but he has no recollection of driving. He has had a headache since. But he has ate and drank. No nausea and vomiting. No neurologic symptoms. He is on Coumadin for history of blood clots. He last had it checked about a week ago and he thinks it was 3.0. [facility] Medical History Depression History of abdominal aortic aneurysm History of DVT (deep vein thrombosis) History of prostate cancer HLD (hyperlipidemia) HTN (hypertension) Home Medications aspirin 81 mg tablet,delayed release 81 mg PO DAILY@0800 05/11/15 [History Last Taken Unknown] metoprolol tartrate 50 mg tablet 50 mg PO BID blood pressure 05/11/15 [History Last Taken Unknown] paroxetine HCl 20 mg tablet 20 mg PO DAILY mental health 06/17/19 [History Last Taken Unknown] warfarin 5 mg tablet 5 mg PO .COMPLEX blood thinner 06/17/19 [History Last Taken Unknown] olmesartan 20 mg tablet 20 mg PO DAILY blood pressure 03/15/21 [History Last Taken Unknown] amitriptyline 50 mg tablet 50 mg PO QHS PRN sleep 06/11/21 [History Last Taken Unknown] bisacodyl 5 mg tablet 5 mg PO QHS PRN constipation 06/11/21 [History Last Taken Unknown] cyclobenzaprine 10 mg tablet 10 mg PO QHS PRN muscle spasm 06/11/21 [History Last Taken Unknown] famotidine 20 mg tablet 20 mg PO DAILY reflux 06/11/21 [History Last Taken Unknown] ferrous sulfate 325 mg (65 mg iron) tablet 325 mg PO DAILY supplement 06/11/21 [History Last Taken Unknown] folic acid 1 mg tablet 1 mg PO DAILY supplement 06/11/21 [History Last Taken Unknown] omeprazole 40 mg capsule,delayed release 40 mg PO DAILY reflux 06/11/21 [History Last Taken Unknown] sildenafil 50 mg tablet 50 mg PO DAILY PRN Erectile Dysfunction 06/11/21 [History Last Taken Unknown] albuterol sulfate 90 mcg/actuation aerosol inhaler (Ventolin HFA) 2 puff inhalation Q4H PRN PRN Wheezing ##1 09/03/22 [Rx Last Taken Unknown] warfarin 2.5 mg tablet 2.5 mg PO TU blood thinner 02/21/23 [History Last Taken Unknown] meclizine 12.5 mg tablet 12.5 mg PO TID PRN PRN Vertigo 5 days #15 tabs 02/23/23 [Rx Last Taken Unknown] prednisone 20 mg tablet See Taper PO BREAKFAST #29 tabs 02/23/23 [Rx Last Taken Unknown] Allergy/AdvReac Type Severity Reaction Status Date / Time ciprofloxacin [From Cipro] Allergy Rash Verified 05/14/23 12:09 ciprofloxacin HCl Allergy Rash Verified 05/14/23 12:09 [From Cipro] Surgical History H/O prostatectomy History of abdominal aortic aneurysm (AAA) repair History of cholecystectomy History of knee surgery Social History household members: spouse Smoking Status: Current every day smoker tobacco type: cigarettes substance use type: does not use ROS ROS ED Constitutional Constitutional ED: Denies chills or fever(s) Eyes Eyes: Denies blurry vision, change in vision or diplopia ENT ENT ED: Denies ear pain, rhinorrhea or sore throat Cardiovascular Cardiovascular: Denies chest pain or palpitations Respiratory/Chest Respiratory/Chest: Denies cough or dyspnea Gastrointestinal Gastrointestinal: Denies nausea or vomiting Musculoskeletal Musculoskeletal: Reports neck pain; Denies arthralgias, back pain or myalgias Integumentary Denies Abrasions Neurologic Neurologic: Reports headache(s); Denies paresthesias or weakness Hematologic/Lymphatic Hematologic/Lymphatic: Reports easy bleeding and easy bruising Allergic/Immunologic Allergic/Immunologic ED: Denies urticaria EXAM Physical Exam Narrative Exam Narrative: General: Patient is awake alert appropriate. Despite his poor memory of part of the event the rest of his story is very clear and consistent. HEENT: No sign of visible trauma. Eyes show normal range of motion pupillary function Neck does have some mid soreness but no real focal tenderness or step-off. Range of motion was not performed. Lungs are clear bilaterally. Heart is regular. I hear no murmur. Abdomen is soft. It is mildly obese but not distended. There is no tenderness. He has a history of a repaired aneurysm and is having no symptoms there. Extremities show no contusion trauma or tenderness. Const Vital Signs: 05/14/23 12:09 Temperature 98.2 F Temperature Source Temporal Pulse Rate 87 Respiratory Rate 14 Blood Pressure 149/116 H Blood Pressure Mean 127 Pulse Ox 99 Oxygen Delivery Method Room Air MDM MDM MDM Narrative Medical decision making narrative: My independent interpretation of the patient's CT of the head shows no acute process and final is similar. My independent interpretation of the patient's CT of the cervical spine shows a lot of chain just but no acute or. Final reading is similar. Patient's INR is 2.1. He will come back to his provider regarding any dose adjustment. But as long as he is running between 2 and 3 that is reasonable control. I think he can go home at this time. We did discuss reasons to return that would include worsening headache, vomiting or any neurologic deficits. Lab Data Labs: Laboratory Results - last 24 hr 05/14/23 13:20 PT 24.1 H INR 2.1 Radiography Diagnostic Testing: Clinical Impression(s) from Imaging Studies Brain CT 05/14/23 13:11 IMPRESSION: No evidence of acute intracranial bleed, mass or ischemia. Electronically Signed: Jaret DO Rashard at 13:53 EST , Cervical Spine CT 05/14/23 13:11 IMPRESSION: 1. No evidence of acute cervical spine fracture. Degenerative changes as above. Electronically Signed: Jaret DO Rashard at 13:57 EST , Discharge Plan Triage Chief Complaint: Headache ED Provider: Shin Atkins Dx/Rx/DC Orders Clinical Impression: Cervical strain, Head injury, Warfarin-induced coagulopathy Instructions: ED Head Injury (Adult) Prescriptions: No Action metoprolol tartrate 50 MG tablet 50 mg PO BID aspirin 81 MG tablet 81 mg PO DAILY@0800 paroxetine HCl 20 MG tablet 20 mg PO DAILY warfarin 5 MG tablet 5 mg PO .COMPLEX Rx Instructions: 5 mg orally; olmesartan 20 mg tablet 20 mg PO DAILY cyclobenzaprine 10 mg Tablet 10 mg PO QHS PRN (Reason: muscle spasm) sildenafil 50 mg Tablet 50 mg PO DAILY PRN (Reason: Erectile Dysfunction) omeprazole 40 mg Capsule,Delayed Release(Dr/Ec) 40 mg PO DAILY amitriptyline 50 mg Tablet 50 mg PO QHS PRN (Reason: sleep) famotidine 20 mg Tablet 20 mg PO DAILY ferrous sulfate 325 mg (65 mg iron) Tablet 325 mg PO DAILY folic acid 1 mg Tablet 1 mg PO DAILY bisacodyl 5 mg Tablet 5 mg PO QHS PRN (Reason: constipation) albuterol sulfate [Ventolin HFA] 90 mcg/actuation HFA aerosol inhaler 2 puff inhalation Q4H PRN PRN (Reason: Wheezing) Qty: 1 0RF warfarin 2.5 mg tablet 2.5 mg PO TU prednisone 20 mg Tablet See Taper PO BREAKFAST Qty: 29 0RF Taper: Prednisone Taper 60 mg WITH BREAKFAST for 7 Days and 0 Hour 50 mg WITH BREAKFAST for 1 Day and 0 Hour 40 mg WITH BREAKFAST for 1 Day and 0 Hour 30 mg WITH BREAKFAST for 3 Days and 0 Hour 20 mg WITH BREAKFAST for 1 Day and 0 Hour 10 mg WITH BREAKFAST for 1 Day and 0 Hour Rx Instructions: 60 mg daily for 7 days then decrease by 10mg daily until completion meclizine 12.5 mg Tablet 12.5 mg PO TID PRN PRN (Reason: Vertigo) 5 Days Qty: 15 0RF Primary Care Provider: Marco Dunn Referrals: Marco Dunn MD [Primary Care Provider] - 1 Week if not improving Disposition Disposition: Home, Self Care
--- OUTSIDE RECORDS SUMMARY | 2023-05-14 13:19 | XMS RPT_ITS | CCD ---
Author Name Unknown Address [address] [facility] [id number] [place] [address] Organization [facility] Care Team Providers Care Sports Activities Foul Judge Name Role Phone Tyra MANLEY, Marco Siddiqui Primary Care Provider SHASHI ARCE JR Attending UnavailSHASHI Barnes JR Referring Unavaila ble TYRA, MARCO Siddiqui Primary Care Unavailable SHASHI ARCE JR Attending UnavailREJI Matt Referring Unavailable TYRA, MARCO Siddiqui Primary Care Unavailable SHASHI ARCE JR Attending Unavaila ble MARCO MARY Referring Unavailable MARCO MARY Primary Care Unavailable Tyra Marco MANLEY Primary Care Provider SHASHI ARCE JR Referring Unavaila ble TYRA, MARCO Siddiqui Primary Care Unavailable MARCO MARY Primary Care Unavailable MARCO MARY Referring Unavailable MARCO MARY Referring Unavailable MARCO MARY Primary Care Unavailable MARCO MARY Referring Unavailable MARCO MARY Primary Care Unavailable MARCO MARY Referring Unavailable MARCO MARY Primary Care Unavailable MARCO MARY Referring Unavailable MARCO MARY Primary Care Unavailable MARCO MARY Attending Unavailable MARCO MARY Referring Unavailable MARCO MARY Primary Care Unavailable MARCO MARY Referring Unavailable MARCO MARY Primary Care Unavailable MARCO MARY Referring Unavailable MARCO MARY Primary Care Unavailable MARCO MARY Primary Care Unavailable MARCO MARY Referring Unavailable MARCO MARY Primary Care Unavailable SANTOS VELAZQUEZ Attending Unavailable ZAYDA REINA Referring Unavailable MARCO MARY Referring Unavailable MARCO MARY Primary Care Unavailable MARCO MARY Primary Care Unavailable MARCO MARY Attending Unavailable MARCO MARY Referring Unavailable MARCO MARY Primary Care Unavailable MARCO MARY Referring Unavailable MARCO MARY Primary Care Unavailable TYRA, MARCO Siddiqui Primary Care Unavailable TYRA, MARCO Siddiqui Referring Unavailable TYRA, MARCO Siddiqui Primary Care Unavailable TYRA, MARCO Siddiqui Attending Unavailable TYRA, MARCO Siddiqui Primary Care Unavailable TYRA, MARCO Siddiqui Referring Unavailable TYRA, MARCO Siddiqui Primary Care Unavailable TYRA, MARCO Siddiqui Referring Unavailable TYRA, MARCO Siddiqui Primary Care Unavailable TYRA, MARCO Siddiqui Attending Unavailable TYRA, MARCO Siddiqui Primary Care Unavailable TYRA, MARCO Siddiqui Referring Unavailable PERLITA HUNT Attending Unavailable TYRA, MARCO Siddiqui Referring Unavailable TYRA, MARCO Siddiqui Primary Care Unavailable TYRA, MARCO Siddiqui Primary Care Unavailable TYRA, MARCO Siddiqui Referring Unavailable TYRA, MARCO Siddiqui Referring Unavailable TYRA, MARCO Siddiqui Primary Care Unavailable TYRA, MARCO Siddiqui Referring Unavailable TYRA, MARCO Siddiqui Primary Care Unavailable TYRA, MARCO Siddiqui Referring Unavailable TYRA, MARCO Siddiqui Primary Care Unavailable TYRA, MARCO Siddiqui Referring Unavailable TYRA, MARCO Siddiqui Primary Care Unavailable TYRA, MARCO Siddiqui Primary Care Unavailable TYRA, MARCO Siddiqui Attending Unavailable TYRA, MARCO Siddiqui Referring Unavailable TYRA, MARCO Siddiqui Primary Care Unavailable TYRA, MARCO Siddiqui Referring Unavailable TYRA, MARCO Siddiqui Attending Unavailable TYRA, MARCO Siddiqui Primary Care Unavailable TYRA, MARCO Siddiqui Primary Care Unavailable TYRA, MARCO Siddiqui Referring Unavailable TYRA, MARCO Siddiqui Primary Care Unavailable Allergies Allergy Classification Reported Allergen(s) Allergy Type Date of Onset Reaction(s) Facility (20 sources) Ciprofloxacin; Translations: [CIPROFLOXACIN] Drug Allergy 07-09-2009 Rash, Intolerance, Itching [facility] Medications Current Medications Medication Drug Class(es) Dates Sig (Normalized) Sig (Original) doxycycline monohydrate 100 mg oral tablet (8 sources) Tetracycline-clas s Drug Start: 09-07-2022 End: 09-17-2022 take 1 tablet by mouth twice daily doxycycline monohydrate 100 mg tablet Indications: Cough, unspecified type Take 1 tablet by mouth twice daily for 10 days. 20 tablet 0 09/07/2022 09/17/2022 Active Completed/Discontinued Medications Medication Drug Class(es) Dates Sig (Normalized) Sig (Original) acetaminophen 325 mg oral tablet (20 sources) Start: 01-30-2020 take 2 tablets by mouth every six hours as needed acetaminophen (TYLENOL) 325 mg tablet Take 2 tablets by mouth every 6 hours as needed. 0 01/30/2020 Active Problems Active Problems Problem Classification Problem Date Documented Date Episodic/Chronic Abdominal hernia (1 source) Incisional hernia; Translations: [Incisional hernia without obstruction or gangrene] Episodic Anxiety disorders (20 sources) Mixed anxiety and depressive disorder; Translations: [Anxiety disorder, unspecified] Onset: 11-20-2020 11-20-2020 Chronic Aortic; peripheral; and visceral artery aneurysms (20 sources) Abdominal aortic aneurysm; Translations: [Abdominal aortic aneurysm, without rupture] 05-12-2021 Chronic Cancer of prostate (20 sources) Malignant tumor of prostate; Translations: [Malignant neoplasm of prostate] Onset: 03-17-2021 03-17-2021 Chronic Coagulation and hemorrhagic disorders (20 sources) Factor V Leiden mutation; Translations: [Activated protein C resistance] Onset: 11-20-2020 11-20-2020 Chronic Conditions associated with dizziness or vertigo (9 sources) Vertigo; Translations: [Dizziness and giddiness] Onset: 02-24-2023 02-24-2023 Episodic Disorders of lipid metabolism (20 sources) Mixed hyperlipidemia; Translations: [Mixed hyperlipidemia] Onset: 11-02-2005 07-30-2015 Chronic Esophageal disorders (20 sources) Gastroesophageal reflux disease; Translations: [Gastro-esophageal reflux disease without esophagitis] Onset: 06-24-2017 06-24-2017 Chronic Essential hypertension (20 sources) Essential hypertension; Translations: [Essential (primary) hypertension] Onset: 11-19-2007 07-30-2015 Chronic Genitourinary symptoms and ill-defined conditions (2 sources) Male urinary stress incontinence; Translations: [Stress incontinence (female) (male)] Onset: 08-14-2021 Chronic Genitourinary symptoms and ill-defined conditions (7 sources) Urine looks dark; Translations: [Other abnormal findings in urine] Onset: 09-07-2022 Episodic Headache; including migraine (20 sources) Migraine; Translations: [Migraine, unspecified, not intractable, without status migrainosus] Onset: 11-20-2020 11-20-2020 Chronic Nutritional deficiencies (2 sources) Folic acid deficiency; Translations: [Deficiency of other specified B group vitamins] Episodic Osteoarthritis (1 source) Osteoarthrosis of the carpometacarpal joint of the thumb; Translations: [Unilateral primary osteoarthritis of first carpometacarpal joint, left hand] Chronic Other connective tissue disease (1 source) Swelling of lower limb; Translations: [Other specified soft tissue disorders] Episodic Other connective tissue disease (2 sources) Trigger thumb of left hand; Translations: [Trigger thumb, left thumb] Episodic Other ear and sense organ disorders (2 sources) Hearing loss in left ear; Translations: [Unspecified hearing loss, left ear] 04-14-2023 Chronic Other ear and sense organ disorders (1 source) Unspecified hearing loss, left ear; Translations: [Hearing loss of left ear, unspecified hearing loss type] Onset: 04-14-2023 Chronic Other hereditary and degenerative nervous system conditions (20 sources) Restless legs; Translations: [Restless legs syndrome] Onset: 11-20-2020 11-20-2020 Chronic Other hereditary and degenerative nervous system conditions (1 source) Restless legs syndrome; Translations: [Restless legs] Onset: 02-24-2023 Chronic Other injuries and conditions due to external causes (1 source) Knuckle injury; Translations: [Unspecified injury of left wrist, hand and finger(s), initial encounter] Episodic Other liver diseases (2 sources) Elevated liver enzymes level; Translations: [Abnormal levels of other serum enzymes] Episodic Other lower respiratory disease (2 sources) Cough; Translations: [Cough, unspecified type] Episodic Other nervous system disorders (20 sources) Neuropathy; Translations: [Polyneuropathy, unspecified] Onset: 06-28-2015 05-12-2021 Chronic Other nervous system disorders (20 sources) Lesion of left femoral nerve; Translations: [Lesion of femoral nerve, left lower limb] Onset: 07-03-2015 07-03-2015 Chronic Other nervous system disorders (1 source) Other chronic pain; Translations: [Chronic bilateral low back pain without sciatica] Onset: 02-24-2023 Chronic Other non-traumatic joint disorders (1 source) Pain in right knee; Translations: [Pain in joint, lower leg] Episodic Other nutritional; endocrine; and metabolic disorders (8 sources) Obesity; Translations: [Obesity, unspecified] Onset: 11-19-2007 11-19-2007 Chronic Other nutritional; endocrine; and metabolic disorders (20 sources) Obese class I; Translations: [Obesity, unspecified] Onset: 01-30-2020 01-30-2020 Chronic Other nutritional; endocrine; and metabolic disorders (20 sources) Obese class II; Translations: [Obesity, unspecified] Onset: 03-10-2021 03-10-2021 Chronic Residual codes; unclassified (1 source) Tobacco user; Translations: [Tobacco use] Episodic Residual codes; unclassified (1 source) Tobacco use; Translations: [Tobacco abuse] Onset: 05-11-2023 Episodic Substance-related disorders (20 sources) Tobacco user; Translations: [Nicotine dependence, unspecified, uncomplicated] 06-25-2014 Chronic Unclassified (20 sources) Endoleak; Translations: [Endoleak post endovascular aneurysm repair] Onset: 01-29-2020 01-30-2020 Unclassified (20 sources) Endoleak post endovascular aneurysm repair; Translations: [Endoleak post endovascular aneurysm repair] Onset: 01-29-2020 01-30-2020 Unclassified (1 source) Chronic bilateral low back pain without sciatica; Translations: [Chronic bilateral low back pain without sciatica] Onset: 02-24-2023 Unclassified (1 source) Cough, unspecified type; Translations: [Cough, unspecified type] Onset: 09-07-2022 Past or Other Problems Problem Classification Problem Date Documented Da te Episodic/Chronic Abdominal pain (3 sources) Epigastric pain; Translations: [Epigastric pain] Onset: 09-04-2022 Episodic Complication of device; implant or graft (8 sources) Complication of urinary catheter; Translations: [Unspecified complication of genitourinary prosthetic device, implant and graft, initial encounter] Onset: 03-15-2021 03-15-2021 Episodic Deficiency and other anemia (20 sources) Iron deficiency anemia; Translations: [Iron deficiency anemia, unspecified] Onset: 11-20-2020 11-20-2020 Episodic Fever of unknown origin (4 sources) Fever; Translations: [Fever, unspecified] Onset: 09-07-2022 Episodic Gastrointestinal hemorrhage (8 sources) Rectal hemorrhage; Translations: [Hemorrhage of anus and rectum] Onset: 06-24-2017 11-20-2020 Episodic Nonspecific chest pain (8 sources) Chest wall pain; Translations: [Other chest pain] Onset: 04-06-2018 04-06-2018 Episodic Other liver diseases (1 source) Abnormal levels of other serum enzymes; Translations: [Elevated liver enzymes] Onset: 09-07-2022 Episodic Other screening for suspected conditions (not mental disorders or infectious disease) (3 sources) Raised prostate specific antigen; Translations: [Elevated prostate specific antigen [PSA]] Onset: 09-04-2022 Episodic Peritonitis and intestinal abscess (3 sources) Infectious disease of abdomen; Translations: [Peritonitis, unspecified] Onset: 09-04-2022 Episodic Phlebitis; thrombophlebitis and thromboembolism (20 sources) H/O: Deep vein thrombosis; Translations: [Personal history of other venous thrombosis and embolism] Onset: 01-31-2020 01-31-2020 Episodic Residual codes; unclassified (20 sources) Clouded consciousness; Translations: [Disorientation, unspecified] Onset: 06-29-2018 06-29-2018 Episodic Spondylosis; intervertebral disc disorders; other back problems (20 sources) Neck pain; Translations: [Cervicalgia] Onset: 11-19-2007 11-19-2007 Episodic Superficial injury; contusion (20 sources) Hematoma of rectus sheath; Translations: [Contusion of abdominal wall, initial encounter] Onset: 2021 06-13-2021 Episodic Results Test Name Value Interpretation Reference Range Facil it Vital Signs Date Time Vital Sign Value Performing Clinician Facility 04-14-2023 14:16-0500 Body weight 117.94 kg ePrlita Hunt PA-C Work Phone: [facility] 04-14-2023 14:16-0500 Respiratory rate 18 /min Perlita Hunt PA-C Work Phone: [facility] 04-14-2023 12:57-0500 Body height 182.9 cm Marco Mary MD Work Phone: [facility] 04-14-2023 12:57-0500 Body weight 117.94 kg Marco Mary MD Work Phone: [facility] 04-14-2023 12:57-0500 Diastolic blood pressure 110 mm[Hg] Marco Mary MD Work Phone: [facility] 04-14-2023 12:57-0500 Heart rate 75 /min Marco Mary MD Work Phone: [facility] 04-14-2023 12:57-0500 SaO2% (BldA) [Mass fraction] 96 % Marco Mary MD Work Phone: [facility] 04-14-2023 12:57-0500 Systolic blood pressure 150 mm[Hg] Marco Mary MD Work Phone: [facility] 03-12-2023 16:47-0400 Body weight 117.94 kg Marco Mary MD Work Phone: [facility] 03-12-2023 16:47-0400 Diastolic blood pressure 82 mm[Hg] Marco Mary MD Work Phone: [facility] 03-12-2023 16:47-0400 Heart rate 93 /min Marco Mary MD Work Phone: [facility] 03-12-2023 16:47-0400 SaO2% (BldA) [Mass fraction] 96 % Marco Mary MD Work Phone: [facility] 03-12-2023 16:47-0400 Systolic blood pressure 122 mm[Hg] Marco Mary MD Work Phone: [facility] 02-24-2023 11:47-0400 Diastolic blood pressure 88 mm[Hg] Marco Mary MD Work Phone: [facility] 02-24-2023 11:47-0400 Systolic blood pressure 138 mm[Hg] Marco Mary MD Work Phone: [facility] 02-24-2023 11:21-0400 Body weight 117.94 kg Marco Mary MD Work Phone: [facility] 02-24-2023 11:21-0400 Heart rate 73 /min Marco Mary MD Work Phone: [facility] 02-24-2023 11:21-0400 SaO2% (BldA) [Mass fraction] 97 % Marco Mary MD Work Phone: [facility] 09-14-2022 10:54-0400 Body temperature 97.59 [degF] Marco Mary MD Work Phone: [facility] 09-14-2022 10:54-0400 Body weight 117.48 kg Marco Mary MD Work Phone: [facility] 09-14-2022 10:54-0400 Diastolic blood pressure 82 mm[Hg] Marco Mary MD Work Phone: [facility] 09-14-2022 10:54-0400 Heart rate 76 /min Marco Mary MD Work Phone: [facility] 09-14-2022 10:54-0400 SaO2% (BldA) [Mass fraction] 98 % Marco Mary MD Work Phone: [facility] 09-14-2022 10:54-0400 Systolic blood pressure 122 mm[Hg] Marco Mary MD Work Phone: [facility] 09-07-2022 13:30-0400 Body temperature 100.4 [degF] Marco Mary MD Work Phone: [facility] 09-07-2022 13:30-0400 Body weight 117.48 kg Marco Mary MD Work Phone: [facility] 09-07-2022 13:30-0400 Diastolic blood pressure 62 mm[Hg] Marco Mary MD Work Phone: [facility] 09-07-2022 13:30-0400 Heart rate 83 /min Marco Mary MD Work Phone: [facility] 09-07-2022 13:30-0400 Respiratory rate 20 /min Marco Mary MD Work Phone: [facility] 09-07-2022 13:30-0400 SaO2% (BldA) [Mass fraction] 99 % Marco Mary MD Work Phone: [facility] 09-07-2022 13:30-0400 Systolic blood pressure 112 mm[Hg] Marco Mary MD Work Phone: [facility] 09-03-2022 08:06-0400 Body temperature 100.29 [degF] Marco Mary MD Work Phone: [facility] 09-03-2022 08:06-0400 Body weight 117.94 kg Marco Mary MD Work Phone: [facility] 09-03-2022 08:06-0400 Diastolic blood pressure 72 mm[Hg] Marco Mary MD Work Phone: [facility] 09-03-2022 08:06-0400 Heart rate 105 /min Marco Mary MD Work Phone: [facility] 09-03-2022 08:06-0400 SaO2% (BldA) [Mass fraction] 97 % Marco Mary MD Work Phone: [facility] 09-03-2022 08:06-0400 Systolic blood pressure 122 mm[Hg] Marco Mary MD Work Phone: [facility] 06-17-2022 12:58-0500 Body height 182.9 cm Shashi Arce Jr., MD Work Phone: [facility] 06-17-2022 12:58-0500 Body weight 116.57 kg Shashi Arce Jr., MD Work Phone: [facility] 06-17-2022 12:58-0500 Diastolic blood pressure 94 mm[Hg] Shashi Arce Jr., MD Work Phone: [facility] 06-17-2022 12:58-0500 Systolic blood pressure 146 mm[Hg] Shashi Arce Jr., MD Work Phone: [facility] 12-11-2021 14:27-0400 Body height 182.9 cm Shashi Arce Jr., MD Work Phone: [facility] 12-11-2021 14:27-0400 Body weight 115.21 kg Shashi Arce Jr., MD Work Phone: [facility] 12-11-2021 14:27-0400 Diastolic blood pressure 84 mm[Hg] Shashi Arce Jr., MD Work Phone: [facility] 12-11-2021 14:27-0400 Systolic blood pressure 140 mm[Hg] Shashi Arce Jr., MD Work Phone: [facility] 11-04-2021 07:36-0400 Body weight 115.39 kg Joanne Haagen SPECIAL MACHINE OPERATOR.APPRAISAL COORDINATOR Work Phone: [facility] 11-04-2021 07:36-0400 Diastolic blood pressure 82 mm[Hg] Joanne Haagen SPECIAL MACHINE OPERATOR.APPRAISAL COORDINATOR Work Phone: [facility] 11-04-2021 07:36-0400 Heart rate 93 /min Joanne Haagen SPECIAL MACHINE OPERATOR.APPRAISAL COORDINATOR Work Phone: [facility] 11-04-2021 07:36-0400 Respiratory rate 20 /min Joanne Haagen SPECIAL MACHINE OPERATOR.APPRAISAL COORDINATOR Work Phone: [facility] 11-04-2021 07:36-0400 SaO2% (BldA) [Mass fraction] 96 % Joanne Haagen SPECIAL MACHINE OPERATOR.APPRAISAL COORDINATOR Work Phone: [facility] 11-04-2021 07:36-0400 Systolic blood pressure 128 mm[Hg] Joanne Haagen SPECIAL MACHINE OPERATOR.APPRAISAL COORDINATOR Work Phone: [facility] 09-04-2021 10:18-0400 Body temperature 97.7 [degF] Ivan Fowler MD Work Phone: [facility] 09-04-2021 10:18-0400 Body weight 117.48 kg Ivan Fowler MD Work Phone: [facility] 09-04-2021 10:18-0400 Diastolic blood pressure 88 mm[Hg] Ivan Fowler MD Work Phone: [facility] 09-04-2021 10:18-0400 Heart rate 89 /min Ivan Fowler MD Work Phone: [facility] 09-04-2021 10:18-0400 SaO2% (BldA) [Mass fraction] 95 % Ivan Fowler MD Work Phone: [facility] 09-04-2021 10:18-0400 Systolic blood pressure 132 mm[Hg] Ivan Fowler MD Work Phone: [facility] 08-21-2021 08:55-0400 Body weight 116.57 kg Marco Mary MD Work Phone: [facility] 08-21-2021 08:55-0400 Diastolic blood pressure 84 mm[Hg] Marco Mary MD Work Phone: [facility] 08-21-2021 08:55-0400 Heart rate 72 /min Marco Mary MD Work Phone: [facility] 08-21-2021 08:55-0400 Systolic blood pressure 130 mm[Hg] Marco Mary MD Work Phone: [facility] 08-14-2021 14:24-0400 Body height 182.9 cm Shashi Arce Jr., MD Work Phone: [facility] 08-14-2021 14:24-0400 Body weight 115.21 kg Shashi Arce Jr., MD Work Phone: [facility] 08-14-2021 14:24-0400 Diastolic blood pressure 88 mm[Hg] Shashi Arce Jr., MD Work Phone: [facility] 08-14-2021 14:24-0400 Systolic blood pressure 138 mm[Hg] Shashi Arce Jr., MD Work Phone: [facility] Encounters Encounter Date Encounter Type Care Provider Facility Start: 05-11-2023 End: 05-12-2023 ambulatory MARCO MARY Facility:[facility] Start: 05-11-2023 ambulatory MARCO MARY Facility :[facility] Start: 04-26-2023 Telephone encounter Marco Mary MD Work Phone: [facility] Procedures Date Procedure Procedure Detail Performing Clinician Start: 04-16-2023 Lipid 1996 panel - S ernestina or Plasma Marco Mary MD Work Phone: Start: 09-04-2022 Ct abdomen & pelvis w/contrast material Marco Mary MD Work Phone: Start: 06-17-2022 Urnls dip stick/tabl et rgnt auto w/o microscopy Shashi Arce MD Work Phone: Start: 01-21-2022 Ct upper extremity w /o contrast material Bryan White PA-C Work Phone: Start: 12-11-2021 Urnls dip stick/tabl et rgnt auto w/o microscopy Shashi Arce MD Work Phone: Start: 08-14-2021 Urnls dip stick/tabl et rgnt auto w/o microscopy Shashi Acre MD Work Phone: Start: 08-11-2021 PROTHROMBIN TIME/PT [facility] Provider Start: 08-06-2021 Lipid 1996 panel - S ernestina or Plasma Marco Mary MD Work Phone: Start: 11-25-2020 Colonoscopy Shashi he Jr., MD Work Phone: Plan of Treatment Date Care Activity Detail Author Start: 04-16-2028 Lipid 1996 panel - S ernestina or Plasma Lipid Screening [facility] Start: 11-29-2027 PROSTATE CANCER SCRE ENING DISCUSSION PROSTATE CANCER SCREENING DISCUSSION [facility] Start: 05-19-2027 PROSTATE CANCER SCRE ENING DISCUSSION PROSTATE CANCER SCREENING DISCUSSION [facility] Start: 12-09-2026 PROSTATE CANCER SCRE ENING DISCUSSION PROSTATE CANCER SCREENING DISCUSSION [facility] Start: 09-10-2026 PROSTATE CANCER SCRE ENING DISCUSSION PROSTATE CANCER SCREENING DISCUSSION [facility] Start: 08-06-2026 Lipid 1996 panel - S ernestina or Plasma Lipid Screening [facility] Start: 08-06-2026 LIPID SCREEN LIPID SCREEN [facility] Start: 08-06-2026 PROSTATE CANCER SCRE ENING DISCUSSION PROSTATE CANCER SCREENING DISCUSSION [facility] Start: 04-16-2026 Diabetes Screening [facility] Start: 09-07-2025 DIABETES SCREEN DIABETES SCREEN [facility] Start: 09-07-2025 Diabetes Screening Diabetes Screenin g [facility] Start: 07-15-2024 DIABETES SCREEN DIABETES SCREEN [facility] Start: 04-14-2024 Annual PCP Team Lithograph Operator norris Disease Visit Annual PCP Team Chronic Disease Visit [facility] Start: 04-14-2024 Covid-19 Vaccine (#1) Covid-19 Vacci ne (#1) [facility] Immunizations Immunization Date Immunization Notes Care Provider Fa cility 01-19-2018 influenza virus vacc ine, unspecified formulation Marco Mary MD Work Phone: [facility] 06-26-2014 influenza, seasonal, injectable, preservative free Shashi Arce Jr., MD Work Phone: [facility] 06-25-2014 pneumococcal polysaccharide vaccine, 23 valent Shashi Arce Jr., MD Work Phone: [facility] Work Phone: 07-02-2008 tetanus toxoid, redu isauro diphtheria toxoid, and acellular pertussis vaccine, adsorbed Shashi Arce Jr., MD Work Phone: [facility] Work Phone: Payers Date Payer Category Payer Unknown [employer] PPO [id number] 2020-Present [phone] [address] [place] [address] PPO [id number] 2020 Unknown [id number] 2018 Unknown [id number] Social History Date Type Detail Facility Start: 02-21-2021 End: 01-19-2022 Tobacco smoking status KYIS Smokes tobacco daily [facility] History of tobacco use Cigarette Smoker [facility] Start: 08-01-2021 End: 04-14-2023 Alcohol intake Ex-drinker (finding) [facility] Start: 02-21-2021 History SDOH Alcohol Comment rare occassion [facility] Start: 02-21-2021 End: 01-19-2022 Tobacco Comment 1/2 to 1 pack [facility] Start: 1960 Sex Assigned At Male [facility] Start: 07-19-2021 End: 03-05-2022 Exposure to SARS-CoV-2 (event) Not sure [facility] Start: 04-21-2020 End: 02-21-2021 Cigarettes smoked current (pack per day) - Reported 1 [facility] Start: 02-21-2021 End: 01-19-2022 Tobacco use and exposure Smokeless tobacco non-user [facility] Start: 04-21-2020 End: 09-14-2022 Tobacco use panel [facility] Adult Depression Screening Assessment 0 [facility] Start: 04-23-2021 Gender identity Identifies as male gender (finding) [facility] Start: 04-23-2021 Sexual orientation Heterosexual (aide brewster) [facility] Medical Equipment Procedure Code Equipment Code Equipment Origin al Text Equipment Identifier Dates Matrix Clarix Am niotic Membrane Umbilical Cord 6x3cm Tissue Allograft - [id number] Start: 03-10-2021 Graft [place] Exclu donta 14.5mm 10cm Endovascular Contralateral Leg - [id number] Start: 01-29-2020 Mesh Parietene D s [id number] X1 - [id number] Start: 08-27-2021 Clinical Notes 01-27-2018 to 05-11-2023 Telephone Encounter - Gena Nuñez - 04/26/2023 4:54 PM ESTTelephone Encounter - Bryan White PA-C - 04/26/2023 4:50 PM ESTTelephone Encounter - Gena Nuñez - 04/26/2023 4:43 PM EST Note Date & Type Note Facility 05-11-2023 Note HNO ID: [id number] Author: Santos Velazquez APRN.APPRAISAL COORDINATOR Service: ? Author Type: Nurse Practitioner Type: Progress Notes Filed: 05/11/2023 3:58 PM Note Text: LUNG SCREENING VISIT PRIMARY CARE PHYSICIAN: Marco Mary MD PULMONARY PROVIDER: None Results will be communicated via letter or electronic record if applicable. Visit Delivery: In Person Patient Visit Type: New to Screening Current or Ex-smoker? [Current Exam Type: baseline LDCT Number of Pack Years: 48 Current smoker (=0) REQUESTER: The referring provider advised the patient to have screening. HISTORY OF PRESENT ILLNESS: Bart Talley is a 62 year old Active smoker who presents for lung screening. Respiratory symptoms include: SOB: Yes, walking up stairs, pushing vacuum Chest tightness: Yes, sometimes Coughing: Yes: With mucus Clear Hemoptysis: No Wheezing: Yes Fever/Chills: No Recent Respiratory Infection: No Unintentional weight loss: No Last 6 Encounter Wt Readings: Date: Wt: 05/11/2023 120.8 kg (266 lb 6.4 oz) 04/14/2023 117.9 kg (260 lb) 04/14/2023 117.9 kg (260 lb) 03/12/2023 117.9 kg (260 lb) 02/24/2023 117.9 kg (260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 noted in all muscles tested. Inspection - Normal, no fasciculations or tremors noted. Power: MUSCLES Upper Extremity RIGHT LEFT Deltoid 5/5 5/5 Biceps 5/5 5/5 Triceps 5/5 5/5 Wrist Extension 5/5 5/5 Wrist Flexion 5/5 5/5 Finger Flexion 5/5 5/5 Finger Extension 5/5 5/5 Finger Abd 5/5 5/5 Finger Add 5/5 5/5 MUSCLES Lower Extremity RIGHT LEFT Hip Flexion 5/5 5/5 Hip Extension 5/5 5/5 BiFem (Knee Flex) 5/5 5/5 Quads (Knee Ext) 5/5 5/5 Gastroc (Plantflx) 5/5 5/5 TibAnt (Dorsiflx) 5/5 5/5 FlxHLong (Toe Flex) 5/5 5/5 ExtHLong (Toe Ext) 5/5 5/5 Sensory Examination Sensation is intact to light touch throughout. Reflexes Right Left Bicep 2/4 2/4 Tricep 2/4 2/4 BrRad 2/4 2/4 Knee 2/4 2/4 Ankle 2/4 2/4 Coordination: finger-to- nose-finger intact bilaterally and [id number] intact bilaterally. Gait: Patient's gait is normal DATA REVIEWED Actual films/image/tracing reviewed and summarized as follows: MRI brain, CTA head and neck Old records reviewed and summarized as follows: Admission, primary care Assessment/Plan Assessment & Plan: Bart Talley is a 62 year old right-handed male with a history of prostate cancer, restless legs, neuropathy, migraines, hyperlipidemia, hypertension, AAA, factor V Leiden on Coumadin, DVT, anxiety and depression. His examination demonstrates positive hints exam with head impulse bilaterally. Patient with a month and a half of constant dizziness described as feeling drunk, unsteady, room spinning. Was admitted for this and work-up was unremarkable, felt to have vestibular neuritis. Also experiencing hearing loss in the left ear as well as chronic tinnitus since onset of symptoms. Has completed vestibular therapy and steroids without any significant improvement. Is scheduled to have follow-up with ENT in May, has already had 2 appointments with them. Patient also has history of migraines, but without any significant dizziness. Hints exam is positive, concern for vestibular neuritis. However, due to patient's history of migraines, patient would like further testing. We will order vestibular battery testing to confirm inner ear cause of patient's symptoms. We will have patient follow-up with ENT as planned. Otherwise, neurologic exam is otherwise reassuring. Orthostatics were negative in the office, low suspicion for orthostatic hypotension contributing to patient's symptoms. Low suspicion for vestibular migraine, but should patient's symptoms persist, may consider gabapentin, this may treat both vestibular neuritis as well as migraines. No other red flag signs or symptoms that would warrant additional imaging at this time, MRI of the brain and CTA of the head and neck were unremarkable for etiology. Patient agreeable to treatment plan of care at this time, all questions were answered. Patient to follow-up as needed. Bart was seen today for new patient evaluation. Diagnoses and all orders for this visit: Vertigo - CONSULT TO NEUROLOGY Vestibular neuronitis of left ear - CONSULT TO NEUROLOGY Hearing loss of left ear, unspecified hearing loss type - CONSULT TO NEUROLOGY He should return to see me as needed. I spent a total of 35 minutes on the date of the service which included preparing to see the patient, [id number] patient care, completing clinical documentation, obtaining and/or reviewing separately obtained history, performing a medically appropriate examination, counseling and educating the patient/family/caregiver, and ordering medications, tests, or procedures. Perlita Hunt PA-C [facility] This document has been created with the use of voice recognition technology. It may contain inaccuracies: (e.g. misspellings, inaccurate syntax or word sense) that have escaped review. There is no data to display for this encounter documented in this encounter [facility] 04-14-2023 Nurse Note Patient disability paperwork was faxed. Also a copy of scanned into patient chart. 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 documented in this encounter [facility] 04-14-2023 History of Presen t illness Narrative Patient presents with: Follow Up HPI: Patient presents today for office visit for follow up for vestibular neuronitis of left ear. Currently remains off work. Saw ENT twice. Hearing tests performed. Advised he'd be a good candidate for cochlear implant. 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 Completed therapy with no relief. Still unable to hear. Complaints of being dizzy and off balance still. Ambulates with cane. Has fallen twice since last OV. No injuries. Didn't hit his head. Therapy had felt he had done all he could. Sees ENT after the first of the year again. Has had an mri and saw teleneurology. He is wanting to see if there is anything else he can do. The only other thing I can think of would be a second opinion with an in patient neuro eval. 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 Has to lift, walk on cat walks and maximiliano. He is having issues riding in a car let alone driving and doing repetat alex bending and stooping. I cannot see him returning to work. No new headache. No new numbness or weakness. Finishing acyclovir. Had also had steroids. Inr has been stable. Due again this week. See last OV: Vertigo: Still going to therapy and still doing at home what is ordered. Is still unsteady. Using cane to get around. Finished Prednisone from admission. When riding in a car (bounce or quick movement of head) eyes don't want to focus. Therapy told him that should come back. Hearing loss: ENT advised that hearing will probably never come back and hearing aid will be no help to him. Saw [facility] twice. They are planning on seeing him back in three months. ENT extended the acyclovir. Has been on steroids and meclizine. Has seen neuro. His inr had went up on meds. Now better. Did notice some gross hematuria. No current urinary symptoms. Repeat inr is pending. Cannot hear out of his left ear. 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 No falls. MEDICATIONS: Current Outpatient Medications Medication Sig PARoxetine (PAXIL) 20 mg tablet Take 1 tablet by mouth once daily. olmesartan (BENICAR) 20 mg tablet Take 1 tablet by mouth once daily. warfarin (COUMADIN) 5 mg tablet 2.5 mg all days or as directed acyclovir (ZOVIRAX) 400 mg tablet meclizine (ANTIVERT) 12.5 mg tab Take 12.5 mg by mouth three times a day. cyclobenzaprine (FLEXERIL) 10 mg tablet Take 1 tablet by mouth three times a day as needed for muscle spasm. atorvastatin (LIPITOR) 80 mg tablet Take 1 tablet by mouth daily at bedtime. For cholesterol. metoprolol tartrate, short acting, (LOPRESSOR) 50 mg tablet Take 1 tablet by mouth twice daily. famotidine (PEPCID) 20 mg tablet Take 1 tablet by mouth once daily. ferrous sulfate (IRON) 325 mg (65 mg iron) tablet Take 1 tablet by mouth twice daily. (Patient taking differently: Take 325 mg by mouth once daily.) folic acid 1 mg tablet Take 1 tablet by mouth once daily. amitriptyline (ELAVIL) 50 mg tablet Take 1 tablet by mouth daily at bedtime. (Patient taking differently: Take 50 mg by mouth daily at bedtime. Just PRN) omeprazole (PRILOSEC) 40 mg capsule Take 1 capsule by mouth once daily. calcium carbonate (CALCIUM 600 ORAL) Take by mouth twice daily. aspirin, enteric coated (ADULT LOW DOSE ASPIRIN) 81 mg EC tablet Take 1 tablet by mouth once daily. sildenafil (VIAGRA) 50 mg tablet Use as directed once a day No current facility-administered medications for this visit. ALLERGIES: ALLERGIES Allergen Reactions Cipro [Ciprofloxaci* Rash, Intolerance, Itching PAST MEDICAL HISTORY Diagnosis Date Abdominal aortic aneurysm (HCC) 2013 fusiform infrarenal [facility] [place] aortic aneurysm Colon polyps Depression Esophageal reflux Generalized anxiety disorder GERD (gastroesophageal reflux disease) Hematoma 2021 right side abdomen History of DVT (deep vein thrombosis) age 29's post-op knee right, second on left-is on chronic anticoagulation. both blood clots occurred after surgery Hyperlipidemia Hypertension Iron deficiency anemia Prostate cancer (HCC) Restless leg syndrome Snoring has not had cpap testing. Tobacco use disorder PAST SURGICAL HISTORY Procedure Laterality Date ARTHROSCOPY KNEE DIAGNOSTIC W/WO SYNOVIAL BX SPX age 29's Arthroscopy, right knee per Dr. Stover- blood clots after COLONOSCOPY 04/10/2014 hemorrhiods, diverticulosis COLONOSCOPY FLX DX W/COLLJ SPEC WHEN PFRMD 07/16/2017 Three small polyps ,adenomatous and hyperplastic COLONOSCOPY FLX DX W/COLLJ SPEC WHEN PFRMD 11/25/2020 EGD 04/10/2014 esophagitis, gastritis,Non-severe reflux esophagitis ENDVAS REP ABD AOR MOD PROST 06/28/2014 AAA REPAIR and re repair 2019 ESOPHAGOGASTRODUODENOSCOPY TRANSORAL DIAGNOSTIC 07/16/2017 Gastritis,Small hiatal hernia, ESOPHAGOGASTRODUODENOSCOPY TRANSORAL DIAGNOSTIC 11/25/2020 EXCISION PILONIDAL CYST/SINUS SIMPLE HERNIA REPAIR HX LAPAROSCOPY REPAIR INCISIONAL HERNIA REDUCIBLE 08/27/2021 LAPAROSCOPY SURG CHOLECYSTECTOMY 09/2003 Cholecystectomy, lap TOOTH EXTRACTION 05/2014 all teeth extracted-periodontal disease, abd aneurysm FAMILY HISTORY Problem Relation Age of Onset Hypertension Mother Blood Clots Mother Cancer Father mouth No Known Problems Sister Colon Polyps Sister Diabetes Sister Colon Cancer Sister 49 Cancer Maternal Grandfather Heart Attack Maternal Grandfather other (black lung) Paternal Grandfather No Known Problems Daughter No Known Problems Son Cancer Maternal Aunt melonoma Colon Cancer Maternal Uncle several Social History Tobacco Use Smoking status: Every Day Packs/day: 1.00 Years: 40.00 Additional pack years: 0.00 Total pack years: 40.00 Types: Cigarettes Smokeless tobacco: Never Tobacco comments: 1/2 to 1 pack Vaping Use Vaping Use: Never used Substance Use Topics Alcohol use: Not Currently Comment: rare occassion Drug use: No Comment: mod-large amount coffee per day Reviewed current medications, allergies, past medical history, surgical history, family history and social history today. REVIEW OF SYSTEMS Bp is up and down. With past visits. All other reviewed and negative other than HPI. VITALS: BP 150/110 Pulse 75 Ht 182.9 cm (6') Wt 117.9 kg (260 lb) SpO2 96% BMI 35.26 kg/m Last 4 Encounter Wt Readings: Date: Wt: 04/14/2023 117.9 kg (260 lb) 03/12/2023 117.9 kg (260 lb) 02/24/2023 117.9 kg (260 lb) 02/21/2023 117.5 kg (259 lb) PHYSICAL EXAMINATION: General appearance: Well appearing, alert, in no acute distress, well-hydrated, well nourished. Skin: Skin color, texture, turgor normal, no suspicious rashes or lesions Head: Normocephalic, no masses, lesions, tenderness or abnormalities Eyes: Anicteric sclera. Pupils are equally round and reactive to light. Extraocular movements are intact. , several beats of nystagmus with horizontal gaze Lungs: Lungs clear to auscultation. No wheezing, rhonchi, rales Heart: RRR without murmur, gallop, or rubs. No ectopy Abdomen: Normal abdominal exam, Abdomen soft, non-tender. Bowel sounds normal. No masses, organomegaly Extremities: No deformities, edema, skin discoloration, clubbing or cyanosis. Good capillary refill. Musculoskeletal: No joint swelling, deformity, or tenderness Peripheral pulses: Normal Neuro: currently ambulating with cane. ASSESSMENT/PLAN: 1. Vertigo - ICD9: 780.4, ICD10: R42 (primary diagnosis) - continue meds. Use cane. Off work through 06/14/23 - CONSULT TO NEUROLOGY 2. Essential hypertension - ICD9: 401.9, ICD10: I10 - add losartan. Discussed risks and benefits of new medication with the patient. Advised them to call if any side effects or questions. - CBC + DIFF - COMP METABOLIC PANEL - LIPID PANEL BASIC - LOSARTAN 50 MG TABLET 3. Vestibular neuronitis of left ear - ICD9: 386.12, ICD10: H81.22 - CONSULT TO NEUROLOGY - follow with ent 4. Hearing loss of left ear, unspecified hearing loss type - ICD9: 389.9, ICD10: H91.92 - CONSULT TO NEUROLOGY Marco Mary MD RTO in one month documented in this encounter [facility] 04-09-2023 Miscellaneous Notes Patient notified of results, verbalizes understanding of instructions. Tracker updated. Fany Hanna MA Change to 5 mg M, F. 2.5 mg a day rest of the week. Recheck one week. Current INR: 1.4 04/07/23 Current dose of coumadin is: Increase dose to 5 mg on Wednesdays and 2.5 mg other days of the week, recheck INR in 1 week Dominik Hernandez, Previous INR (date and result): 1.7 03/22/23 Additional Clinical Information or narrative: no documented in this encounter [facility] 04-05-2023 Miscellaneous Notes Spoke with patient and explained that therapy didn't recommend anymore sessions so keep follow up on 04/14/23. Advised to check with ENT regarding medications Dr Mary didn't order them. All of this should be addressed by his ent show is treating. Patient calling he completed his Physical Therapy at [facility] on 04/01 and therapist wanted him to ask PCP if he wanted him to continue more sessions? Patient said he is taking the Acyclovir rx and has seen Dr Emelyn Segura and Dr Magnolia Segura. He has no hearing in the left ear, was told may be candidate for cochlear implant. Patient has 4 week follow up appt with PCP on 04/14 asking if he needs seen sooner? Patient asking if he needs to be taking any more steroid taper? Please advise documented in this encounter [facility] 03-23-2023 Miscellaneous Notes TC to patient who verbalized understanding of providers message/instructions below. No questions at this time. EYAD Dent Increase dose to 5 mg on Wednesdays and 2.5 mg other days of the week, recheck INR in 1 week Dominik Hernandez DO Last INR: INR 1.7 03/22/2023 Current dose of coumadin is: 2.5 mg daily. Previous INR (date and result): 2.4 03/12/23 Additional Clinical Information or narrative: no documented in this encounter [facility] 03-22-2023 Miscellaneous Notes Jonas is asking if his cyclobenzaprine can be increased. Pharmacy verified in [facility] Patient has been identified by name and date of : Yes Patient aware RX will be sent to pharmacy. No need to notify patient. Patient phones for refill(s): Requested Prescriptions Pending Prescriptions Disp Refills PARoxetine (PAXIL) 20 mg tablet 90 tablet 2 Sig: Take 1 tablet by mouth once daily. olmesartan (BENICAR) 20 mg tablet 30 tablet 5 Sig: Take 1 tablet by mouth once daily. warfarin (COUMADIN) 5 mg tablet 90 tablet 3 Si.5 mg all days or as directed Date of last office visit : 03/12/2023 Date of next office visit : 04/14/2023 Last 2 Encounter Wt Readings: Date: Wt: 03/12/2023 117.9 kg (260 lb) 02/24/2023 117.9 kg (260 lb) Not applicable Please advise. Jada Lomeli documented in this encounter [facility] 03-16-2023 Miscellaneous Notes Forms faxed. 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 Patient verbalized understanding. Type of form: Short-term Disability claim form and FMLA Form received via walk in When form is completed, Fax [place] form to [email or web address] , FMLA fax to [phone] Patient would also like it returned to him after copied to chart Form has been forwarded to Physician Desk: Dr. Tyra Sanchez LPN documented in this encounter [facility] 03-12-2023 Note HNO ID: [id number] Author: Marco Mary MD Service: ? Author Type: Physician Type: Progress Notes Filed: 03/12/2023 8:16 PM Note Text: Patient presents with: Follow Up HPI: Patient presents today for office visit for follow up. Vertigo: Still going to therapy and still doing at home what is ordered. Is still unsteady. Using cane to get around. Finished Prednisone from admission. When riding in a car (bounce or quick movement of head) eyes don't want to focus. Therapy told him that should come back. Hearing loss: ENT advised that hearing will probably never come back and hearing aid will be no help to him. Saw [facility] twice. They are planning on seeing him back in three months. ENT extended the acyclovir. Has been on steroids and meclizine. Has seen neuro. His inr had went up on meds. Now better. Did notice some gross hematuria. No current urinary symptoms. Repeat inr is pending. Cannot hear out of his left ear. 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 No falls. MEDICATIONS: Current Outpatient Medications Medication Sig meclizine (ANTIVERT) 12.5 mg tab Take 12.5 mg by mouth three times a day. predniSONE (DELTASONE) 20 mg tablet Take 60mg daily for 7 days then by 10mg daily until gone. cyclobenzaprine (FLEXERIL) 10 mg tablet Take 1 tablet by mouth three times a day as needed for muscle spasm. atorvastatin (LIPITOR) 80 mg tablet Take 1 tablet by mouth daily at bedtime. For cholesterol. metoprolol tartrate, short acting, (LOPRESSOR) 50 mg tablet Take 1 tablet by mouth twice daily. olmesartan (BENICAR) 20 mg tablet Take 1 tablet by mouth once daily. famotidine (PEPCID) 20 mg tablet Take 1 tablet by mouth once daily. PARoxetine (PAXIL) 20 mg tablet Take 1 tablet by mouth once daily. ferrous sulfate (IRON) 325 mg (65 mg iron) tablet Take 1 tablet by mouth twice daily. (Patient taking differently: Take 325 mg by mouth once daily.) folic acid 1 mg tablet Take 1 tablet by mouth once daily. warfarin (COUMADIN) 5 mg tablet 2.5 mg MWF, 5 mg all other days or as directed (Patient taking differently: 2.5 mg on Tu, 5 mg all other days or as directed) amitriptyline (ELAVIL) 50 mg tablet Take 1 tablet by mouth daily at bedtime. (Patient taking differently: Take 50 mg by mouth daily at bedtime. Just PRN) omeprazole (PRILOSEC) 40 mg capsule Take 1 capsule by mouth once daily. calcium carbonate (CALCIUM 600 ORAL) Take by mouth twice daily. aspirin, enteric coated (ADULT LOW DOSE ASPIRIN) 81 mg EC tablet Take 1 tablet by mouth once daily. sildenafil (VIAGRA) 50 mg tablet Use as directed once a day No current facility-administered medications for this visit. ALLERGIES: ALLERGIES Allergen Reactions Cipro [Ciprofloxaci* Rash, Intolerance, Itching PAST MEDICAL HISTORY Diagnosis Date Abdominal aortic aneurysm (HCC) 2013 fusiform infrarenal [place] aortic aneurysm Colon polyps Depression Esophageal reflux Generalized anxiety disorder GERD (gastroesophageal reflux disease) Hematoma 2021 right side abdomen History of DVT (deep vein thrombosis) age 29's post-op knee right, second on left-is on chronic anticoagulation. both blood clots occurred after surgery Hyperlipidemia Hypertension Iron deficiency anemia Prostate cancer (HCC) Restless leg syndrome Snoring has not had cpap testing. Tobacco use disorder PAST SURGICAL HISTORY Procedure Laterality Date ARTHROSCOPY KNEE DIAGNOSTIC W/WO SYNOVIAL BX SPX age 29's Arthroscopy, right knee per Dr. Stover- blood clots after COLONOSCOPY 04/10/2014 hemorrhiods, diverticulosis COLONOSCOPY FLX DX W/COLLJ SPEC WHEN PFRMD 07/16/2017 Three small polyps ,adenomatous and hyperplastic COLONOSCOPY FLX DX W/COLLJ SPEC WHEN PFRMD 11/25/2020 EGD 04/10/2014 esophagitis, gastritis,Non-severe reflux esophagitis ENDVAS REP ABD AOR MOD PROST 06/28/2014 AAA REPAIR and re repair 2019 ESOPHAGOGASTRODUODENOSCOPY TRANSORAL DIAGNOSTIC 07/16/2017 Gastritis,Small hiatal hernia, ESOPHAGOGASTRODUODENOSCOPY TRANSORAL DIAGNOSTIC 11/25/2020 EXCISION PILONIDAL CYST/SINUS SIMPLE HERNIA REPAIR HX LAPAROSCOPY REPAIR INCISIONAL HERNIA REDUCIBLE 08/27/2021 LAPAROSCOPY SURG CHOLECYSTECTOMY 09/2003 Cholecystectomy, lap TOOTH EXTRACTION 05/2014 all teeth extracted-periodontal disease, abd aneurysm FAMILY HISTORY Problem Relation Age of Onset Hypertension Mother Blood Clots Mother Cancer Father mouth No Known Problems Sister Colon Polyps Sister Diabetes Sister Colon Cancer Sister 49 Cancer Maternal Grandfather Heart Attack Maternal Grandfather other (black lung) Paternal Grandfather No Known Problems Daughter No Known Problems Son Cancer Maternal Aunt melonoma Colon Cancer Maternal Uncle several Social History Tobacco Use Smoking status: Every Day Packs/day: 1.00 Years: 40.00 Additional pack years: 0.00 Total pack years: 40.00 Types: Cigarettes (more content not included)... [facility] 03-12-2023 History of Presen t illness Narrative Patient presents with: Follow Up HPI: Patient presents today for office visit for follow up. Vertigo: Still going to therapy and still doing at home what is ordered. Is still unsteady. Using cane to get around. Finished Prednisone from admission. When riding in a car (bounce or quick movement of head) eyes don't want to focus. Therapy told him that should come back. Hearing loss: ENT advised that hearing will probably never come back and hearing aid will be no help to him. Saw [facility] twice. They are planning on seeing him back in three months. ENT extended the acyclovir. Has been on steroids and meclizine. Has seen neuro. His inr had went up on meds. Now better. Did notice some gross hematuria. No current urinary symptoms. Repeat inr is pending. Cannot hear out of his left ear. 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 No falls. MEDICATIONS: Current Outpatient Medications Medication Sig meclizine (ANTIVERT) 12.5 mg tab Take 12.5 mg by mouth three times a day. predniSONE (DELTASONE) 20 mg tablet Take 60mg daily for 7 days then by 10mg daily until gone. cyclobenzaprine (FLEXERIL) 10 mg tablet Take 1 tablet by mouth three times a day as needed for muscle spasm. atorvastatin (LIPITOR) 80 mg tablet Take 1 tablet by mouth daily at bedtime. For cholesterol. metoprolol tartrate, short acting, (LOPRESSOR) 50 mg tablet Take 1 tablet by mouth twice daily. olmesartan (BENICAR) 20 mg tablet Take 1 tablet by mouth once daily. famotidine (PEPCID) 20 mg tablet Take 1 tablet by mouth once daily. PARoxetine (PAXIL) 20 mg tablet Take 1 tablet by mouth once daily. ferrous sulfate (IRON) 325 mg (65 mg iron) tablet Take 1 tablet by mouth twice daily. (Patient taking differently: Take 325 mg by mouth once daily.) folic acid 1 mg tablet Take 1 tablet by mouth once daily. warfarin (COUMADIN) 5 mg tablet 2.5 mg MWF, 5 mg all other days or as directed (Patient taking differently: 2.5 mg on Tu, 5 mg all other days or as directed) amitriptyline (ELAVIL) 50 mg tablet Take 1 tablet by mouth daily at bedtime. (Patient taking differently: Take 50 mg by mouth daily at bedtime. Just PRN) omeprazole (PRILOSEC) 40 mg capsule Take 1 capsule by mouth once daily. calcium carbonate (CALCIUM 600 ORAL) Take by mouth twice daily. aspirin, enteric coated (ADULT LOW DOSE ASPIRIN) 81 mg EC tablet Take 1 tablet by mouth once daily. sildenafil (VIAGRA) 50 mg tablet Use as directed once a day No current facility-administered medications for this visit. ALLERGIES: ALLERGIES Allergen Reactions Cipro [Ciprofloxaci* Rash, Intolerance, Itching PAST MEDICAL HISTORY Diagnosis Date Abdominal aortic aneurysm (HCC) 2013 fusiform infrarenal [place] aortic aneurysm Colon polyps Depression Esophageal reflux Generalized anxiety disorder GERD (gastroesophageal reflux disease) Hematoma 2021 right side abdomen History of DVT (deep vein thrombosis) age 29's post-op knee right, second on left-is on chronic anticoagulation. both blood clots occurred after surgery Hyperlipidemia Hypertension Iron deficiency anemia Prostate cancer (HCC) Restless leg syndrome Snoring has not had cpap testing. Tobacco use disorder PAST SURGICAL HISTORY Procedure Laterality Date ARTHROSCOPY KNEE DIAGNOSTIC W/WO SYNOVIAL BX SPX age 29's Arthroscopy, right knee per Dr. Stover- blood clots after COLONOSCOPY 04/10/2014 hemorrhiods, diverticulosis COLONOSCOPY FLX DX W/COLLJ SPEC WHEN PFRMD 07/16/2017 Three small polyps ,adenomatous and hyperplastic COLONOSCOPY FLX DX W/COLLJ SPEC WHEN PFRMD 11/25/2020 EGD 04/10/2014 esophagitis, gastritis,Non-severe reflux esophagitis ENDVAS REP ABD AOR MOD PROST 06/28/2014 AAA REPAIR and re repair 2019 ESOPHAGOGASTRODUODENOSCOPY TRANSORAL DIAGNOSTIC 07/16/2017 Gastritis,Small hiatal hernia, ESOPHAGOGASTRODUODENOSCOPY TRANSORAL DIAGNOSTIC 11/25/2020 EXCISION PILONIDAL CYST/SINUS SIMPLE HERNIA REPAIR HX LAPAROSCOPY REPAIR INCISIONAL HERNIA REDUCIBLE 08/27/2021 LAPAROSCOPY SURG CHOLECYSTECTOMY 09/2003 Cholecystectomy, lap TOOTH EXTRACTION 05/2014 all teeth extracted-periodontal disease, abd aneurysm FAMILY HISTORY Problem Relation Age of Onset Hypertension Mother Blood Clots Mother Cancer Father mouth No Known Problems Sister Colon Polyps Sister Diabetes Sister Colon Cancer Sister 49 Cancer Maternal Grandfather Heart Attack Maternal Grandfather other (black lung) Paternal Grandfather No Known Problems Daughter No Known Problems Son Cancer Maternal Aunt melonoma Colon Cancer Maternal Uncle several Social History Tobacco Use Smoking status: Every Day Packs/day: 1.00 Years: 40.00 Additional pack years: 0.00 Total pack years: 40.00 Types: Cigarettes Smokeless tobacco: Never Tobacco comments: 1/2 to 1 pack Vaping Use Vaping Use: Never used Substance Use Topics Alcohol use: Not Currently Comment: rare occassion Drug use: No Comment: mod-large amount coffee per day Reviewed current medications, allergies, past medical history, surgical history, family history and social history today. REVIEW OF SYSTEMS All other reviewed and negative other than HPI. HEALTH MAINTENANCE: Reviewed health maintenance issues today and recommended the following in detail. Covid-19 Vaccine(1) Never done HIV Screening Never done BP Controlled (<130/80) Never done Shingrix Vaccine(1 of 2) Never done Pneumococcal Vaccine(2 - PCV) due on 06/25/2015 DTaP,Tdap,Td Vaccine(2 - Td or Tdap) due on 07/02/2018 RSV Vaccine(1 - 1-dose 60+ series) Never done Lung Cancer Screening due on 11/05/2021 Influenza Vaccine(1) due on 01/15/2023 VITALS: BP 122/82 Pulse 93 Wt 117.9 kg (260 lb) SpO2 96% BMI 35.26 kg/m Last 4 Encounter Wt Readings: Date: Wt: 02/24/2023 117.9 kg (260 lb) 02/21/2023 117.5 kg (259 lb) 09/14/2022 117.5 kg (259 lb) 09/07/2022 117.5 kg (259 lb) PHYSICAL EXAMINATION: General appearance: Well appearing, alert, in no acute distress, well-hydrated, well nourished. Skin: Skin color, texture, turgor normal, no suspicious rashes or lesions Lungs: Lungs clear to auscultation. No wheezing, rhonchi, rales Heart: RRR without murmur, gallop, or rubs. No ectopy Abdomen: Normal abdominal exam, Abdomen soft, non-tender. Bowel sounds normal. No masses, organomegaly Extremities: No deformities, edema, skin discoloration, clubbing or cyanosis. Good capillary refill. Neuro: no focal deficits. Using cane. ASSESSMENT/PLAN: 1. 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 Off work until end of Mar. Follow up before them. Given his job. Cannot anticipate return to work 2. History of hematuria - ICD9: V13.09, ICD10: Z87.448 - URINALYSIS, WITH MICROSCOPIC - URINE CULTURE 3. Factor V Leiden (HCC) - ICD9: 289.81, ICD10: D68.51 Continue on meds. Marco Mary MD documented in this encounter [facility] 03-05-2023 Miscellaneous Notes Checked in Go Reconcile and looks like ENT gave 10 days acyclovir 400mg. Patient's Azucena called and given provider's message below. states patient was put on a medication about a week ago by ENT, Dr. Segura, to treat pt for possible inner ear infection and that may be contributing to high INR. She does not know name of medication during this call, and thinks it's an antibiotic . Reports pt is to continue the medication/treatment through the weekend. states if Dr. Mary wishes to change orders below, any further, to please contact her, otherwise she will follow as advised below. Liz Nicole RN Detailed message left on spouse's, Azucena VM. Per chart ok to leave coumadin instruction. Advised to call office back to let us know message received. Gena Nuñez Too high. Call if any bleeding issues. Hold x 1 day, then 2.5 mg a day. Recheck on Wednesday Last INR: INR 4.7 03/04/2023 Current dose of coumadin is: 2.5mg on Tuesdays and 5mg all other days. Previous INR (date and result): 1.9 02/23/23 Additional Clinical Information or narrative: no documented in this encounter [facility] 03-04-2023 Miscellaneous Notes Patient is in need of new standing order for INR please. documented in this encounter [facility] 02-24-2023 Note Patient Outreach (THERON MPCHRISTOPHE) BART TALLEY ([id number]) 1960 M NFR Date Time Provider Department 02/24/23 MARCO MARY FAMPWS During your visit today, we recorded the following information about you: Loni Jama LPN 02/24/2023 12:19 PM Signed TRANSITION CARE MANAGEMENT (TCM) INITIAL CONTACT Security Manager Outreach Provider Action/FYI: Discuss referrals needed at apt Initial contact with patient post discharge, spoke to spouse. Patient identified by name and . TRANSITION CARE MANAGEMENT INITIAL OUTREACH DOCUMENTATION: Date of Outreach: 02/24/2023 Outreach Attempt 1: Contact Made Date of Discharge 02/23/2023 Some recent data might be hidden SUMMARY: -Pt discharged from [facility] on 02/23/23. -Admitted for: nausea, vomiting vertigo Do you have a hospital follow up appointment with your PCP? Appointment on 02/24/[address] Mary. Yes. Remind patient of appointment date, time, and location. If not within 14 calendar days of discharge - please reschedule accordingly. MEDICATIONS: Many patients have questions or concerns about their medications once they are home. Were you prescribed any new medications? If yes, what are those medications? Meclizine and step down Steroid Were you told to hold any medications? No Were any of your medications discontinued? No There was a recommendation to stop Amitriptyline due to his age but he only uses it as needed. Do you have any questions about getting or taking your medications? No Your discharge instructions/After visit Summary (AVS) are important in guiding you through the recovery process. Is there anything I might help you understand? No Do you have all the necessary equipment and supplies at home? Yes, pt was given an prescription for a walker but have not gotten this yet. Pt using a cane for now and this is helping. Medical records from recent hospitalization: will need to get records from [facility] Allergies As of Date: 02/24/2023 Noted Allergy Reaction CIPRO (CIPROFLOXACIN) 07/09/2009 2 - Rash 5 - Intolerance 9 - Itching Date Reviewed: 02/21/2023 Reviewed by: Jennifer Horta MA - Fully Assessed Reason for Visit: Transition Of Care [4074] Prescriptions as of 02/24/2023 - amitriptyline (ELAVIL) 50 mg tablet Take 1 tablet by mouth daily at bedtime. - aspirin, enteric coated (ADULT LOW DOSE ASPIRIN) 81 mg EC tablet Take 1 tablet by mouth once daily. - atorvastatin (LIPITOR) 80 mg tablet Take 1 tablet by mouth daily at bedtime. For cholesterol. - calcium carbonate (CALCIUM 600 ORAL) Take by mouth twice daily. - cyclobenzaprine (FLEXERIL) 10 mg tablet Take 1 tablet by mouth three times a day as needed for muscle spasm. - famotidine (PEPCID) 20 mg tablet Take 1 tablet by mouth once daily. - ferrous sulfate (IRON) 325 mg (65 mg iron) tablet Take 1 tablet by mouth twice daily. - folic acid 1 mg tablet Take 1 tablet by mouth once daily. - meclizine (ANTIVERT) 12.5 mg tab Take 12.5 mg by mouth three times a day. - metoprolol tartrate, short acting, (LOPRESSOR) 50 mg tablet Take 1 tablet by mouth twice daily. - olmesartan (BENICAR) 20 mg tablet Take 1 tablet by mouth once daily. - omeprazole (PRILOSEC) 40 mg capsule Take 1 capsule by mouth once daily. - PARoxetine (PAXIL) 20 mg tablet Take 1 tablet by mouth once daily. - predniSONE (DELTASONE) 20 mg tablet Take 60mg daily for 7 days then by 10mg daily until gone. - sildenafil (VIAGRA) 50 mg tablet Use as directed once a day - warfarin (COUMADIN) 5 mg tablet 2.5 mg MWF, 5 mg all other days or as directed Meds Comments as of 06/21/2014: 140/86 Problem List As Of Date 02/24/2023 Noted Resolved Mixed hyperlipidemia [E78.2] 11/02/2005 Essential hypertension [I10] 11/19/2007 Cervicalgia [M54.2] 11/19/2007 08/21/2021 Chronic midline low back pain without sciatica *11/19/2007 Obesity, unspecified [E66.9] 11/19/2007 08/21/2021 Crushing Injury of Hand(s) [S67.20XA] 07/02/2008 08/05/2009 Abdominal aortic aneurysm (HCC) [I71.40] Tobacco use disorder [F17.200] History of DVT (deep vein thrombosis) [Z86.718] Right-sided low back pain with right-sided scia*02/26/2015 10/24/2020 Lumbar disc herniation with radiculopathy [M51.*02/26/2015 06/21/2017 Right lumbar radiculopathy [M54.16] 06/10/2015 06/21/2017 Neuropathy [G62.9] 06/28/2015 Lesion of left femoral nerve [G57.22] 07/03/2015 Connective tissue and disc stenosis of interver*07/03/2015 Tobacco dependence [F17.200] 03/11/2016 06/21/2017 Rectal bleeding [K62.5] 06/24/2017 08/21/2021 GERD (gastroesophageal reflux disease) [K21.9] 06/24/2017 Contusion of right shoulder [S40.011A] 01/27/2018 02/09/2020 Contusion of multiple sites of right arm [S40.0*01/27/2018 10/24/2020 Contusion of lower back [S30.0XXA] 01/27/2018 02/09/2020 Chronic chest wall pain [R07.89, G89.29] 04/06/2018 (more content not included)... [facility] 02-24-2023 Note HNO ID: [id number] Author: Marco Mary MD Service: ? Author Type: Physician Type: Progress Notes Filed: 02/24/2023 11:48 AM Note Text: Patient presents with: Hospital F/U HPI: Patient presents today for office visit for TCM Call made in last 24 hours for tcm follow up. HOSPITAL/ER FOLLOW UP: Reason for visit: dizziness and vomiting-had ringing in ear and then sudden hearing loss Which facility: [facility] Date of visit: 02/21/23 discharge: 02/23/23 Diagnosis: vertigo, CVA R/O Testing done: Echo, MRI, CT. Saw neurology and therapy. Mission to be BPPV vs vestibular neuritis. Treatment given: started on Pred and meclizine Current symptoms: dizzy, unstable, Prednisone 60mg daily for 7 days then decrease by 10mg daily until gone. Meclizine three times daily currently Needs to follow up with ENT has seen [facility] will call for appt Coumadin is 2.5mg on Tu and 5mg all other days. INR was 1.9 upon leaving hospital. Was throwing up so did not keep all his meds down Still having issues hearing No current nausea or vomiting. Still some vertigo. Using a cane. Has mild headache. No focal numbness or weakness. No chest pain or shortness of breath that is new. 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 He cannot return to to work at this time. Will keep him off work for a week. MEDICATIONS: Current Outpatient Medications Medication Sig amitriptyline (ELAVIL) 50 mg tablet Take 1 tablet by mouth daily at bedtime. aspirin, enteric coated (ADULT LOW DOSE ASPIRIN) 81 mg EC tablet Take 1 tablet by mouth once daily. atorvastatin (LIPITOR) 80 mg tablet Take 1 tablet by mouth daily at bedtime. For cholesterol. calcium carbonate (CALCIUM 600 ORAL) Take by mouth twice daily. cyclobenzaprine (FLEXERIL) 10 mg tablet Take 1 tablet by mouth three times daily as needed for muscle spasm. famotidine (PEPCID) 20 mg tablet Take 1 tablet by mouth once daily. ferrous sulfate (IRON) 325 mg (65 mg iron) tablet Take 1 tablet by mouth twice daily. folic acid 1 mg tablet Take 1 tablet by mouth once daily. metoprolol tartrate, short acting, (LOPRESSOR) 50 mg tablet Take 1 tablet by mouth twice daily. olmesartan (BENICAR) 20 mg tablet Take 1 tablet by mouth once daily. omeprazole (PRILOSEC) 40 mg capsule Take 1 capsule by mouth once daily. PARoxetine (PAXIL) 20 mg tablet Take 1 tablet by mouth once daily. sildenafil (VIAGRA) 50 mg tablet Use as directed once a day warfarin (COUMADIN) 5 mg tablet 2.5 mg MWF, 5 mg all other days or as directed No current facility-administered medications for this visit. ALLERGIES: ALLERGIES Allergen Reactions Cipro [Ciprofloxaci* Rash, Intolerance, Itching PAST MEDICAL HISTORY Diagnosis Date Abdominal aortic aneurysm (HCC) 2013 fusiform infrarenal [place] aortic aneurysm Colon polyps Depression Esophageal reflux Generalized anxiety disorder GERD (gastroesophageal reflux disease) Hematoma 2021 right side abdomen History of DVT (deep vein thrombosis) age 29's post-op knee right, second on left-is on chronic anticoagulation. both blood clots occurred after surgery Hyperlipidemia Hypertension Iron deficiency anemia Prostate cancer (HCC) Restless leg syndrome Snoring has not had cpap testing. Tobacco use disorder PAST SURGICAL HISTORY Procedure Laterality Date ARTHROSCOPY KNEE DIAGNOSTIC W/WO SYNOVIAL BX SPX age 29's Arthroscopy, right knee per Dr. Stover- blood clots after COLONOSCOPY 04/10/2014 hemorrhiods, diverticulosis COLONOSCOPY FLX DX W/COLLJ SPEC WHEN PFRMD 07/16/2017 Three small polyps ,adenomatous and hyperplastic COLONOSCOPY FLX DX W/COLLJ SPEC WHEN PFRMD 11/25/2020 EGD 04/10/2014 esophagitis, gastritis,Non-severe reflux esophagitis ENDVAS REP ABD AOR MOD PROST 06/28/2014 AAA REPAIR and re repair 2019 ESOPHAGOGASTRODUODENOSCOPY TRANSORAL DIAGNOSTIC 07/16/2017 Gastritis,Small hiatal hernia, ESOPHAGOGASTRODUODENOSCOPY TRANSORAL DIAGNOSTIC 11/25/2020 EXCISION PILONIDAL CYST/SINUS SIMPLE HERNIA REPAIR HX LAPAROSCOPY REPAIR INCISIONAL HERNIA REDUCIBLE 08/27/2021 LAPAROSCOPY SURG CHOLECYSTECTOMY 09/2003 Cholecystectomy, lap TOOTH EXTRACTION 05/2014 all teeth extracted-periodontal disease, abd aneurysm FAMILY HISTORY Problem Relation Age of Onset Hypertension Mother Blood Clots Mother Cancer Father mouth No Known Problems Sister Colon Polyps Sister Diabetes Sister Colon Cancer Sister 49 Cancer Maternal Grandfather Heart Attack Maternal Grandfather other (black lung) Paternal Grandfather No Known Problems Daughter No Known Problems Son Cancer Maternal Aunt melonoma Colon Cancer Maternal Uncle several Social History Tobacco Use Smoking status: Every Day Packs/day: 1.00 Years: 40.00 Additional pack years: 0.00 Total pack years: 40.00 Types: Cigarettes Smokeless tobacco: Never Tobacco comments: 1/2 to 1 pack (more content not included)... [facility] 02-24-2023 History of Presen t illness Narrative Patient presents with: Hospital F/U HPI: Patient presents today for office visit for TCM Call made in last 24 hours for tcm follow up. HOSPITAL/ER FOLLOW UP: Reason for visit: dizziness and vomiting-had ringing in ear and then sudden hearing loss Which facility: [facility] Date of visit: 02/21/23 discharge: 02/23/23 Diagnosis: vertigo, CVA R/O Testing done: Echo, MRI, CT. Saw neurology and therapy. Mission to be BPPV vs vestibular neuritis. Treatment given: started on Pred and meclizine Current symptoms: dizzy, unstable, Prednisone 60mg daily for 7 days then decrease by 10mg daily until gone. Meclizine three times daily currently Needs to follow up with ENT has seen [facility] will call for appt Coumadin is 2.5mg on Tues and 5mg all other days. INR was 1.9 upon leaving hospital. Was throwing up so did not keep all his meds down Still having issues hearing No current nausea or vomiting. Still some vertigo. Using a cane. Has mild headache. No focal numbness or weakness. No chest pain or shortness of breath that is new. 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 He cannot return to to work at this time. Will keep him off work for a week. MEDICATIONS: Current Outpatient Medications Medication Sig amitriptyline (ELAVIL) 50 mg tablet Take 1 tablet by mouth daily at bedtime. aspirin, enteric coated (ADULT LOW DOSE ASPIRIN) 81 mg EC tablet Take 1 tablet by mouth once daily. atorvastatin (LIPITOR) 80 mg tablet Take 1 tablet by mouth daily at bedtime. For cholesterol. calcium carbonate (CALCIUM 600 ORAL) Take by mouth twice daily. cyclobenzaprine (FLEXERIL) 10 mg tablet Take 1 tablet by mouth three times daily as needed for muscle spasm. famotidine (PEPCID) 20 mg tablet Take 1 tablet by mouth once daily. ferrous sulfate (IRON) 325 mg (65 mg iron) tablet Take 1 tablet by mouth twice daily. folic acid 1 mg tablet Take 1 tablet by mouth once daily. metoprolol tartrate, short acting, (LOPRESSOR) 50 mg tablet Take 1 tablet by mouth twice daily. olmesartan (BENICAR) 20 mg tablet Take 1 tablet by mouth once daily. omeprazole (PRILOSEC) 40 mg capsule Take 1 capsule by mouth once daily. PARoxetine (PAXIL) 20 mg tablet Take 1 tablet by mouth once daily. sildenafil (VIAGRA) 50 mg tablet Use as directed once a day warfarin (COUMADIN) 5 mg tablet 2.5 mg MWF, 5 mg all other days or as directed No current facility-administered medications for this visit. ALLERGIES: ALLERGIES Allergen Reactions Cipro [Ciprofloxaci* Rash, Intolerance, Itching PAST MEDICAL HISTORY Diagnosis Date Abdominal aortic aneurysm (HCC) 2013 fusiform infrarenal [facility] [place] aortic aneurysm Colon polyps Depression Esophageal reflux Generalized anxiety disorder GERD (gastroesophageal reflux disease) Hematoma 2021 right side abdomen History of DVT (deep vein thrombosis) age 29's post-op knee right, second on left-is on chronic anticoagulation. both blood clots occurred after surgery Hyperlipidemia Hypertension Iron deficiency anemia Prostate cancer (HCC) Restless leg syndrome Snoring has not had cpap testing. Tobacco use disorder PAST SURGICAL HISTORY Procedure Laterality Date ARTHROSCOPY KNEE DIAGNOSTIC W/WO SYNOVIAL BX SPX age 29's Arthroscopy, right knee per Dr. Stover- blood clots after COLONOSCOPY 04/10/2014 hemorrhiods, diverticulosis COLONOSCOPY FLX DX W/COLLJ SPEC WHEN PFRMD 07/16/2017 Three small polyps ,adenomatous and hyperplastic COLONOSCOPY FLX DX W/COLLJ SPEC WHEN PFRMD 11/25/2020 EGD 04/10/2014 esophagitis, gastritis,Non-severe reflux esophagitis ENDVAS REP ABD AOR MOD PROST 06/28/2014 AAA REPAIR and re repair 2019 ESOPHAGOGASTRODUODENOSCOPY TRANSORAL DIAGNOSTIC 07/16/2017 Gastritis,Small hiatal hernia, ESOPHAGOGASTRODUODENOSCOPY TRANSORAL DIAGNOSTIC 11/25/2020 EXCISION PILONIDAL CYST/SINUS SIMPLE HERNIA REPAIR HX LAPAROSCOPY REPAIR INCISIONAL HERNIA REDUCIBLE 08/27/2021 LAPAROSCOPY SURG CHOLECYSTECTOMY 09/2003 Cholecystectomy, lap TOOTH EXTRACTION 05/2014 all teeth extracted-periodontal disease, abd aneurysm FAMILY HISTORY Problem Relation Age of Onset Hypertension Mother Blood Clots Mother Cancer Father mouth No Known Problems Sister Colon Polyps Sister Diabetes Sister Colon Cancer Sister 49 Cancer Maternal Grandfather Heart Attack Maternal Grandfather other (black lung) Paternal Grandfather No Known Problems Daughter No Known Problems Son Cancer Maternal Aunt melonoma Colon Cancer Maternal Uncle several Social History Tobacco Use Smoking status: Every Day Packs/day: 1.00 Years: 40.00 Additional pack years: 0.00 Total pack years: 40.00 Types: Cigarettes Smokeless tobacco: Never Tobacco comments: 1/2 to 1 pack Vaping Use Vaping Use: Never used Substance Use Topics Alcohol use: Not Currently Comment: rare occassion Drug use: No Comment: mod-large amount coffee per day Reviewed current medications, allergies, past medical history, surgical history, family history and social history today. REVIEW OF SYSTEMS All other reviewed and negative other than HPI. VITALS: BP 138/88 Pulse 73 Wt 117.9 kg (260 lb) SpO2 97% BMI 35.26 kg/m Last 4 Encounter Wt Readings: Date: Wt: 02/21/2023 117.5 kg (259 lb) 09/14/2022 117.5 kg (259 lb) 09/07/2022 117.5 kg (259 lb) 09/03/2022 117.9 kg (260 lb) PHYSICAL EXAMINATION: General appearance: Well appearing, alert, in no acute distress, well-hydrated, well nourished. Skin: Skin color, texture, turgor normal, no suspicious rashes or lesions Head: Normocephalic, no masses, lesions, tenderness or abnormalities Eyes: slight nystagmus to the left. Ears: External ears normal, canals clear Lungs: Lungs clear to auscultation. No wheezing, rhonchi, rales Heart: RRR without murmur, gallop, or rubs. No ectopy Abdomen: Normal abdominal exam, Abdomen soft, non-tender. Bowel sounds normal. No masses, organomegaly Extremities: No deformities, edema, skin discoloration, clubbing or cyanosis. Good capillary refill. Musculoskeletal: No joint swelling, deformity, or tenderness Peripheral pulses: Normal Neuro: Gait normal. Reflexes normal and symmetric. Sensation grossly intact. ASSESSMENT/PLAN: 1. Vertigo - ICD9: 780.4, ICD10: R42 (primary diagnosis) - coninue meds. Off work slip given. See letters. To see ent. Has script for vestibular therapy. Red flags for re-assessment reviewed with patient in detail. - CONSULT TO ENT 2. Chronic bilateral low back pain without sciatica - ICD9: 724.2, 338.29, ICD10: M54.50, G89.29 - CYCLOBENZAPRINE 10 MG TABLET 3. Restless legs - ICD9: 333.94, ICD10: G25.81 - CYCLOBENZAPRINE 10 MG TABLET 4. 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 documented in this encounter [facility] 02-24-2023 Note HNO ID: [id number] Author: Loni Jama LPN Service: ? Author Type: ? Type: Progress Notes Filed: 02/24/2023 12:19 PM Note Text: TRANSITION CARE MANAGEMENT (TCM) INITIAL CONTACT Security Manager Outreach Provider Action/FYI: Discuss referrals needed at apt Initial contact with patient post discharge, spoke to spouse. Patient identified by name and . TRANSITION CARE MANAGEMENT INITIAL OUTREACH DOCUMENTATION: Date of Outreach: 02/24/2023 Outreach Attempt 1: Contact Made Date of Discharge 02/23/2023 Some recent data might be hidden SUMMARY: -Pt discharged from [facility] on 02/23/23. -Admitted for: nausea, vomiting vertigo Do you have a hospital follow up appointment with your PCP? Appointment on 02/24/[address] Mary. Yes. Remind patient of appointment date, time, and location. If not within 14 calendar days of discharge - please reschedule accordingly. MEDICATIONS: Many patients have questions or concerns about their medications once they are home. Were you prescribed any new medications? If yes, what are those medications? Meclizine and step down Steroid Were you told to hold any medications? No Were any of your medications discontinued? No There was a recommendation to stop Amitriptyline due to his age but he only uses it as needed. Do you have any questions about getting or taking your medications? No Your discharge instructions/After visit Summary (AVS) are important in guiding you through the recovery process. Is there anything I might help you understand? No Do you have all the necessary equipment and supplies at home? Yes, pt was given an prescription for a walker but have not gotten this yet. Pt using a cane for now and this is helping. Medical records from recent hospitalization: will need to get records from [facility] 02-24-2023 History of Presen t illness Narrative TRANSITION CARE MANAGEMENT (TCM) INITIAL CONTACT Security Manager Outreach Provider Action/FYI: Discuss referrals needed at apt Initial contact with patient post discharge, spoke to spouse. Patient identified by name and . TRANSITION CARE MANAGEMENT INITIAL OUTREACH DOCUMENTATION: Date of Outreach: 02/24/2023 Outreach Attempt 1: Contact Made Date of Discharge 02/23/2023 Some recent data might be hidden SUMMARY: -Pt discharged from [facility] on 02/23/23. -Admitted for: nausea, vomiting vertigo Do you have a hospital follow up appointment with your PCP? Appointment on 02/24/[address] Mary. Yes. Remind patient of appointment date, time, and location. If not within 14 calendar days of discharge - please reschedule accordingly. MEDICATIONS: Many patients have questions or concerns about their medications once they are home. Were you prescribed any new medications? If yes, what are those medications? Meclizine and step down Steroid Were you told to hold any medications? No Were any of your medications discontinued? No There was a recommendation to stop Amitriptyline due to his age but he only uses it as needed. Do you have any questions about getting or taking your medications? No Your discharge instructions/After visit Summary (AVS) are important in guiding you through the recovery process. Is there anything I might help you understand? No Do you have all the necessary equipment and supplies at home? Yes, pt was given an prescription for a walker but have not gotten this yet. Pt using a cane for now and this is helping. Medical records from recent hospitalization: will need to get records from [facility] documented in this encounter [facility] 02-21-2023 Note HNO ID: [id number] Author: Maria Esther Odell APRN.APPRAISAL COORDINATOR Service: ? Author Type: Nurse Practitioner Type: Progress Notes Filed: 02/21/2023 9:10 AM Note Text: Patient came in with complaints of dizziness loss of balance ear ringing in left ear numbness. Patient is also vomiting. Patient does not have any actual sick symptoms. Patient is on Coumadin and has not had Coumadin levels checked in a very long time. At this time due to symptoms patient is being sent to the emergency room for full evaluation. Patient was okay with this and they want to take themselves. [facility] 01-29-2023 Miscellaneous Notes Patient has been identified by name and date of : Yes Last office visit in this department: 09/14/2022 RX INSTRUCTIONS: Patient aware RX will be sent to pharmacy. No need to notify patient. Patient phones requesting refills as follows: Requested Prescriptions Pending Prescriptions Disp Refills cyclobenzaprine (FLEXERIL) 10 mg tablet 30 tablet 1 Sig: Take 1 tablet by mouth three times daily as needed for muscle spasm. Please review and advise. Jimena Capps documented in this encounter [facility] 12-03-2022 Miscellaneous Notes Pharmacy verified in Epic Patient has been identified by name and date of : Yes Patient aware RX will be sent to pharmacy. No need to notify patient. Spouse phones for refill(s): Requested Prescriptions Pending Prescriptions Disp Refills cyclobenzaprine (FLEXERIL) 10 mg tablet 30 tablet 1 Sig: Take 1 tablet by mouth three times daily as needed for muscle spasm. atorvastatin (LIPITOR) 80 mg tablet 90 tablet 2 Sig: Take 1 tablet by mouth daily at bedtime. For cholesterol. Date of last office visit : 09/14/2022 Date of next office visit : Visit date not found Last 2 Encounter Wt Readings: Date: Wt: 09/14/2022 117.5 kg (259 lb) 09/07/2022 117.5 kg (259 lb) Please advise. Jada Lomeli documented in this encounter [facility] 11-30-2022 Miscellaneous Notes Patient notified and confirmed dose. Verbalizes understanding. Same. Recheck two weeks. Last INR: INR 2.9 11/28/2022 Current dose of coumadin is: 2.5mg on Tu and 5mg all other days. Last date of dose change: 11/14/22. Previous INR (date and result): 11/14/22 3.6 Additional Clinical Information or narrative: no documented in this encounter [facility] 11-16-2022 Miscellaneous Notes Pt called and is notified of providers results and instructions. Spoke with both pt and his . Both verbalize understanding. Monica Judd RN High. Hold x 1 day, then 2.5 on T, 5 mg a day rest of the week. Recheck one week Last INR: INR 3.6 11/14/2022 Current dose of coumadin is: 5 mg daily. Previous INR (date and result): 2.7 10/10/22 Additional Clinical Information or narrative: no documented in this encounter [facility] 10-29-2022 Miscellaneous Notes Patient has been identified by name and date of : Yes Last office visit in this department: 09/14/2022 RX INSTRUCTIONS: Patient aware RX will be sent to pharmacy. No need to notify patient. Patient phones requesting refills as follows: Requested Prescriptions Pending Prescriptions Disp Refills cyclobenzaprine (FLEXERIL) 10 mg tablet 30 tablet 1 Sig: Take 1 tablet by mouth three times daily as needed for muscle spasm. Please review and advise. Nia Lomeli documented in this encounter [facility] 10-13-2022 Miscellaneous Notes Patient instructed of dosage with teach back method. Verbalizes understanding. Same. Recheck two weeks. Last INR: INR 2.7 10/10/2022 Current dose of coumadin is: 5 mg daily. Previous INR (date and result): 1.9 09/26/22 Additional Clinical Information or narrative: yes: Pt took one additional 2.5 mg tablet with his 5 mg on 09/26/22 documented in this encounter [facility] 09-28-2022 Miscellaneous Notes Pt notified and verbalized understanding. Tracker updated. Jennifer Rome MA Advise patient to take an extra 2.5 mg of coumadin with his typical 5 mg today. Starting tomorrow return to 5 mg a day. Repeat INR in a week. Last INR: INR 1.9 09/26/2022 Current dose of coumadin is: 5 mg. Last date of dose change: 09/04/22. Previous INR (date and result): 2.7 09/12/22 Additional Clinical Information or narrative: no documented in this encounter [facility] 09-14-2022 Note HNO ID: [id number] Author: Marco Mary MD Service: ? Author Type: Physician Type: Progress Notes Filed: 09/14/2022 11:29 AM Note Text: No chief complaint on file. HPI: Patient presents today for office visit for follow Follow up abd pain. Had chills yesterday unknown if he had a fever. No fever this am. Still with some nausea this morning. No vomiting or diarrhea. Right sided abd pain still described as burning comes and goes. Can feel like a knife stabbing at times. If stretches wrong can bring the pain on. Feels the cough is per his usual. Coughing is better. Ua came back. Waiting on culture, his specific gravity was high. Discussed hydration. Had had colonoscopy in 2020 No itching or jaundice. Nausea comes and goes. Appetite is improving. Overall feels as if he is getting better. Component Latest Ref Rng AND Units 09/07/2022 WBC 3.70 - 11.00 k/uL 5.08 RBC 4.20 - 6.00 m/uL 4.76 Hemoglobin 13.0 - 17.0 g/dL 14.5 Hematocrit 39.0 - 51.0 % 43.8 MCV 80.0 - 100.0 fL 92.0 MCH 26.0 - 34.0 pg 30.5 MCHC 30.5 - 36.0 g/dL 33.1 RDW-CV 11.5 - 15.0 % 14.1 Platelet Count 150 - 400 k/uL 162 MPV 9.0 - 12.7 fL 10.9 Neut% % 62.6 Abs Neut (ANC) 1.45 - 7.50 k/uL 3.18 Lymph% % 18.1 Abs Lymph 1.00 - 4.00 k/uL 0.92 (L) [place]% % 15.0 Abs [place] <0.87 k/uL 0.76 Eosin% % 3.3 Abs Eosin <0.46 k/uL 0.17 Baso% % 0.6 Abs Baso <0.11 k/uL 0.03 Immature Gran % % 0.4 IMMATURE GRANS (ABS) <0.10 k/uL <0.03 NRBC /100 WBC 0.0 Absolute nRBC <0.01 k/uL <0.01 DTYPE Auto Glucose 74 - 99 mg/dL 100 (H) BUN 9 - 24 mg/dL 14 Creatinine 0.73 - 1.22 mg/dL 1.13 Sodium 136 - 144 mmol/L 137 Potassium 3.7 - 5.1 mmol/L 4.1 Chloride 97 - 105 mmol/L 99 CO2 22 - 30 mmol/L 26 Anion Gap 9 - 18 mmol/L 12 Calcium 8.5 - 10.2 mg/dL 9.0 eGFR >=60 mL/min/1.73mA? 73 Albumin 3.9 - 4.9 g/dL 4.0 Bilirubin, Total 0.2 - 1.3 mg/dL 0.9 Bilirubin, Conjug <0.2 mg/dL 0.3 (H) Alkaline Phosphatase 38 - 113 U/L 88 AST 14 - 40 U/L 63 (H) ALT 10 - 54 U/L 101 (H) Protein, Total 6.3 - 8.0 g/dL 6.6 EBV VCA IgG, Qual Negative Positive (A) EBV VCA IgM, Qual Negative Negative EBV NA Ab, Qual Negative Positive (A) Interpretation (EBVPNL) Past Infection. EBV panel interpretation is a general guide that is meant to capture most, but not all, of the possible clinical scenarios. Non-specific reactivities are not uncommon especially with equivocal results. Should the overall interpretation not be consistent with the clinical picture, please contact the medical coding technician of the test for assistance. CMV IgG Qualitative Negative Positive (A) CMV Antibody, IgG U/mL >10.00 GGT 10 - 70 U/L 91 (H) CMV IgM, Qual Negative Negative Hep A Ab, IgM Negative Negative Hep B Core Ab, IgM Negative Negative Hep B Surface Ag Negative Negative Hep C Antibody IA Negative Negative MEDICATIONS: Current Outpatient Medications Medication Sig doxycycline monohydrate 100 mg tablet Take 1 tablet by mouth twice daily for 10 days. PARoxetine (PAXIL) 20 mg tablet Take 1 tablet by mouth once daily. cyclobenzaprine (FLEXERIL) 10 mg tablet Take 1 tablet by mouth three times daily as needed for muscle spasm. ferrous sulfate (IRON) 325 mg (65 mg iron) tablet Take 1 tablet by mouth twice daily. folic acid 1 mg tablet Take 1 tablet by mouth once daily. warfarin (COUMADIN) 5 mg tablet 2.5 mg MWF, 5 mg all other days or as directed olmesartan (BENICAR) 20 mg tablet Take 1 tablet by mouth once daily. atorvastatin (LIPITOR) 80 mg tablet Take 1 tablet by mouth daily at bedtime. For cholesterol. famotidine (PEPCID) 20 mg tablet Take 1 tablet by mouth once daily. metoprolol tartrate, short acting, (LOPRESSOR) 50 mg tablet Take 1 tablet by mouth twice daily. amitriptyline (ELAVIL) 50 mg tablet Take 1 tablet by mouth daily at bedtime. omeprazole (PRILOSEC) 40 mg capsule Take 1 capsule by mouth once daily. calcium carbonate (CALCIUM 600 ORAL) Take by mouth twice daily. aspirin, enteric coated (ADULT LOW DOSE ASPIRIN) 81 mg EC tablet Take 1 tablet by mouth once daily. sildenafil (VIAGRA) 50 mg tablet Use as directed once a day No current facility-administered medications for this visit. ALLERGIES: ALLERGIES Allergen Reactions Cipro [Ciprofloxaci* Rash, Intolerance, Itching PAST MEDICAL HISTORY Diagnosis Date Abdominal aortic aneurysm (HCC) 2013 fusiform infrarenal [place] aortic aneurysm Colon polyps Depression Esophageal reflux Generalized anxiety disorder GERD (gastroesophageal reflux disease) Hematoma 2021 right side abdomen History of DVT (deep vein thrombosis) age 29's post-op knee right, second on left-is on chronic anticoagulation. both blood clots occurred after surgery Hyperlipidemia Hypertension Iron deficiency anemia Prostate cancer (HCC) Restless leg syndrome Snoring has not had cpap testing. Tobacco use disorder PAST SURGICAL HISTORY Procedure Laterality Date (more content not included)... [facility] 09-14-2022 Miscellaneous Notes Pharmacy verified in Epic Patient has been identified by name and date of : Yes Patient aware RX will be sent to pharmacy. No need to notify patient. Spouse phones for refill(s): Requested Prescriptions Pending Prescriptions Disp Refills olmesartan (BENICAR) 20 mg tablet 30 tablet 5 Sig: Take 1 tablet by mouth once daily. famotidine (PEPCID) 20 mg tablet 90 tablet 3 Sig: Take 1 tablet by mouth once daily. Date of last office visit : 09/14/2022 Date of next office visit : Visit date not found Last 2 Encounter Wt Readings: Date: Wt: 09/14/2022 117.5 kg (259 lb) 09/07/2022 117.5 kg (259 lb) Please advise. Jada Kenney Pss documented in this encounter [facility] 09-14-2022 History of Presen t illness Narrative No chief complaint on file. HPI: Patient presents today for office visit for follow Follow up abd pain. Had chills yesterday unknown if he had a fever. No fever this am. Still with some nausea this morning. No vomiting or diarrhea. Right sided abd pain still described as burning comes and goes. Can feel like a knife stabbing at times. If stretches wrong can bring the pain on. Feels the cough is per his usual. Coughing is better. Ua came back. Waiting on culture, his specific gravity was high. Discussed hydration. Had had colonoscopy in 2020 No itching or jaundice. Nausea comes and goes. Appetite is improving. Overall feels as if he is getting better. Component Latest Ref Rng & Units 09/07/2022 WBC 3.70 - 11.00 k/uL 5.08 RBC 4.20 - 6.00 m/uL 4.76 Hemoglobin 13.0 - 17.0 g/dL 14.5 Hematocrit 39.0 - 51.0 % 43.8 MCV 80.0 - 100.0 fL 92.0 MCH 26.0 - 34.0 pg 30.5 MCHC 30.5 - 36.0 g/dL 33.1 RDW-CV 11.5 - 15.0 % 14.1 Platelet Count 150 - 400 k/uL 162 MPV 9.0 - 12.7 fL 10.9 Neut% % 62.6 Abs Neut (ANC) 1.45 - 7.50 k/uL 3.18 Lymph% % 18.1 Abs Lymph 1.00 - 4.00 k/uL 0.92 (L) [place]% % 15.0 Abs [place] <0.87 k/uL 0.76 Eosin% % 3.3 Abs Eosin <0.46 k/uL 0.17 Baso% % 0.6 Abs Baso <0.11 k/uL 0.03 Immature Gran % % 0.4 IMMATURE GRANS (ABS) <0.10 k/uL <0.03 NRBC /100 WBC 0.0 Absolute nRBC <0.01 k/uL <0.01 DTYPE Auto Glucose 74 - 99 mg/dL 100 (H) BUN 9 - 24 mg/dL 14 Creatinine 0.73 - 1.22 mg/dL 1.13 Sodium 136 - 144 mmol/L 137 Potassium 3.7 - 5.1 mmol/L 4.1 Chloride 97 - 105 mmol/L 99 CO2 22 - 30 mmol/L 26 Anion Gap 9 - 18 mmol/L 12 Calcium 8.5 - 10.2 mg/dL 9.0 eGFR >=60 mL/min/1.73m 73 Albumin 3.9 - 4.9 g/dL 4.0 Bilirubin, Total 0.2 - 1.3 mg/dL 0.9 Bilirubin, Conjug <0.2 mg/dL 0.3 (H) Alkaline Phosphatase 38 - 113 U/L 88 AST 14 - 40 U/L 63 (H) ALT 10 - 54 U/L 101 (H) Protein, Total 6.3 - 8.0 g/dL 6.6 EBV VCA IgG, Qual Negative Positive (A) EBV VCA IgM, Qual Negative Negative EBV NA Ab, Qual Negative Positive (A) Interpretation (EBVPNL) Past Infection. EBV panel interpretation is a general guide that is meant to capture most, but not all, of the possible clinical scenarios. Non-specific reactivities are not uncommon especially with equivocal results. Should the overall interpretation not be consistent with the clinical picture, please contact the medical coding technician of the test for assistance. CMV IgG Qualitative Negative Positive (A) CMV Antibody, IgG U/mL >10.00 GGT 10 - 70 U/L 91 (H) CMV IgM, Qual Negative Negative Hep A Ab, IgM Negative Negative Hep B Core Ab, IgM Negative Negative Hep B Surface Ag Negative Negative Hep C Antibody IA Negative Negative MEDICATIONS: Current Outpatient Medications Medication Sig doxycycline monohydrate 100 mg tablet Take 1 tablet by mouth twice daily for 10 days. PARoxetine (PAXIL) 20 mg tablet Take 1 tablet by mouth once daily. cyclobenzaprine (FLEXERIL) 10 mg tablet Take 1 tablet by mouth three times daily as needed for muscle spasm. ferrous sulfate (IRON) 325 mg (65 mg iron) tablet Take 1 tablet by mouth twice daily. folic acid 1 mg tablet Take 1 tablet by mouth once daily. warfarin (COUMADIN) 5 mg tablet 2.5 mg MWF, 5 mg all other days or as directed olmesartan (BENICAR) 20 mg tablet Take 1 tablet by mouth once daily. atorvastatin (LIPITOR) 80 mg tablet Take 1 tablet by mouth daily at bedtime. For cholesterol. famotidine (PEPCID) 20 mg tablet Take 1 tablet by mouth once daily. metoprolol tartrate, short acting, (LOPRESSOR) 50 mg tablet Take 1 tablet by mouth twice daily. amitriptyline (ELAVIL) 50 mg tablet Take 1 tablet by mouth daily at bedtime. omeprazole (PRILOSEC) 40 mg capsule Take 1 capsule by mouth once daily. calcium carbonate (CALCIUM 600 ORAL) Take by mouth twice daily. aspirin, enteric coated (ADULT LOW DOSE ASPIRIN) 81 mg EC tablet Take 1 tablet by mouth once daily. sildenafil (VIAGRA) 50 mg tablet Use as directed once a day No current facility-administered medications for this visit. ALLERGIES: ALLERGIES Allergen Reactions Cipro [Ciprofloxaci* Rash, Intolerance, Itching PAST MEDICAL HISTORY Diagnosis Date Abdominal aortic aneurysm (HCC) 2013 fusiform infrarenal [place] aortic aneurysm Colon polyps Depression Esophageal reflux Generalized anxiety disorder GERD (gastroesophageal reflux disease) Hematoma 2021 right side abdomen History of DVT (deep vein thrombosis) age 29's post-op knee right, second on left-is on chronic anticoagulation. both blood clots occurred after surgery Hyperlipidemia Hypertension Iron deficiency anemia Prostate cancer (HCC) Restless leg syndrome Snoring has not had cpap testing. Tobacco use disorder PAST SURGICAL HISTORY Procedure Laterality Date ARTHROSCOPY KNEE DIAGNOSTIC W/WO SYNOVIAL BX SPX age 29's Arthroscopy, right knee per Dr. Stover- blood clots after COLONOSCOPY 04/10/2014 hemorrhiods, diverticulosis COLONOSCOPY FLX DX W/COLLJ SPEC WHEN PFRMD 07/16/2017 Three small polyps ,adenomatous and hyperplastic COLONOSCOPY FLX DX W/COLLJ SPEC WHEN PFRMD 11/25/2020 EGD 04/10/2014 esophagitis, gastritis,Non-severe reflux esophagitis ENDVAS REP ABD AOR MOD PROST 06/28/2014 AAA REPAIR and re repair 2019 ESOPHAGOGASTRODUODENOSCOPY TRANSORAL DIAGNOSTIC 07/16/2017 Gastritis,Small hiatal hernia, ESOPHAGOGASTRODUODENOSCOPY TRANSORAL DIAGNOSTIC 11/25/2020 EXCISION PILONIDAL CYST/SINUS SIMPLE HERNIA REPAIR HX LAPAROSCOPY REPAIR INCISIONAL HERNIA REDUCIBLE 08/27/2021 LAPAROSCOPY SURG CHOLECYSTECTOMY 09/2003 Cholecystectomy, lap TOOTH EXTRACTION 05/2014 all teeth extracted-periodontal disease, abd aneurysm FAMILY HISTORY Problem Relation Age of Onset Hypertension Mother Blood Clots Mother Cancer Father mouth No Known Problems Sister Colon Polyps Sister Diabetes Sister Colon Cancer Sister 49 Cancer Maternal Grandfather Heart Attack Maternal Grandfather other (black lung) Paternal Grandfather No Known Problems Daughter No Known Problems Son Cancer Maternal Aunt melonoma Colon Cancer Maternal Uncle several Social History Tobacco Use Smoking status: Every Day Packs/day: 1.00 Years: 40.00 Pack years: 40.00 Types: Cigarettes Smokeless tobacco: Never Tobacco comments: 1/2 to 1 pack Vaping Use Vaping Use: Never used Substance Use Topics Alcohol use: Not Currently Comment: rare occassion Drug use: No Comment: mod-large amount coffee per day Reviewed current medications, allergies, past medical history, surgical history, family history and social history today. REVIEW OF SYSTEMS No urinary issues. No bowel changes. All other reviewed and negative other than HPI. VITALS: BP 122/82 Pulse 76 Temp 36.4 C (97.6 F) Wt 117.5 kg (259 lb) SpO2 98% BMI 35.13 kg/m Last 4 Encounter Wt Readings: Date: Wt: 09/07/2022 117.5 kg (259 lb) 09/03/2022 117.9 kg (260 lb) 06/17/2022 116.6 kg (257 lb) 01/20/2022 116.6 kg (257 lb) PHYSICAL EXAMINATION: General appearance: Well appearing, alert, in no acute distress, well-hydrated, well nourished. and appears better. Skin: Skin color, texture, turgor normal, no suspicious rashes or lesions Head: Normocephalic, no masses, lesions, tenderness or abnormalities Eyes: Anicteric sclera. Pupils are equally round and reactive to light. Extraocular movements are intact. Lungs: Lungs clear to auscultation. No wheezing, rhonchi, rales Heart: RRR without murmur, gallop, or rubs. No ectopy Abdomen: no current tenderness today. Normal bowel sounds. Is better than last ov. ASSESSMENT/PLAN: 1. Fever, unspecified fever cause - ICD9: 780.60, ICD10: R50.9 (primary diagnosis) - seems to be better. Finish doxycycline. Push fluids. Recheck liver panel in two weeks. Red flags for re-assessment reviewed with patient in detail. 2. Essential hypertension - ICD9: 401.9, ICD10: I10 - good control - Continue current medication(s) - Goal of BP <130/80 - METOPROLOL TARTRATE 50 MG TABLET 3. Chronic bilateral low back pain without sciatica - ICD9: 724.2, 338.29, ICD10: M54.50, G89.29 - CYCLOBENZAPRINE 10 MG TABLET 4. Restless legs - ICD9: 333.94, ICD10: G25.81 - CYCLOBENZAPRINE 10 MG TABLET 5. Elevated liver enzymes - ICD9: 790.5, ICD10: R74.8 - follow labs. Clinically is better. - HEPATIC FUNCTION PNL 6. Cough, unspecified type - ICD9: 786.2, ICD10: R05.9 - as number 1 Marco Mary MD documented in this encounter [facility] 09-14-2022 Miscellaneous Notes Patient informed and verbalized understanding. Gena Nuñez Same. Recheck one week Last INR: INR 2.7 09/12/2022 Current dose of coumadin is: 5 mg daily. Previous INR (date and result): 1.6 Additional Clinical Information or narrative: no documented in this encounter [facility] 09-10-2022 Miscellaneous Notes Patient informed and verbalized understanding. Gena Nuñez Ok. Glad he is doing ok today. Still need him to give a new urine. Keep his follow up next week and we will order repeat liver functions. Call us if any worsening symptoms. Had a fever, cold sweats, and nausea yesterday. Ok so far today. Labs are all stable except liver enzymes are mildly up. Can be due to even a recent viral infection etc. However we need to follow them. Liver looked ok on recent scans. See how feeling. documented in this encounter [facility] 09-09-2022 Note Patient Outreach ([facility]) BART TALLEY ([id number]) 1960 M NFR Date Time Provider Department 09/09/22 ZAYDA REINA During your visit today, we recorded the following information about you: Allergies As of Date: 09/09/2022 Noted Allergy Reaction CIPRO (CIPROFLOXACIN) 07/09/2009 2 - Rash 5 - Intolerance 9 - Itching Date Reviewed: 09/04/2022 Reviewed by: Misa Solis, RT(R) - Fully Assessed Visit Diagnosis:Tobacco abuse [Z72.0] Order(s):[facility] [5800097] Order #: [id number]: 1 FUTURE Prescriptions as of 09/14/2022 - doxycycline monohydrate 100 mg tablet Take 1 tablet by mouth twice daily for 10 days. - PARoxetine (PAXIL) 20 mg tablet Take 1 tablet by mouth once daily. - cyclobenzaprine (FLEXERIL) 10 mg tablet Take 1 tablet by mouth three times daily as needed for muscle spasm. - ferrous sulfate (IRON) 325 mg (65 mg iron) tablet Take 1 tablet by mouth twice daily. - folic acid 1 mg tablet Take 1 tablet by mouth once daily. - warfarin (COUMADIN) 5 mg tablet 2.5 mg MWF, 5 mg all other days or as directed - olmesartan (BENICAR) 20 mg tablet Take 1 tablet by mouth once daily. - atorvastatin (LIPITOR) 80 mg tablet Take 1 tablet by mouth daily at bedtime. For cholesterol. - famotidine (PEPCID) 20 mg tablet Take 1 tablet by mouth once daily. - metoprolol tartrate, short acting, (LOPRESSOR) 50 mg tablet Take 1 tablet by mouth twice daily. - amitriptyline (ELAVIL) 50 mg tablet Take 1 tablet by mouth daily at bedtime. - omeprazole (PRILOSEC) 40 mg capsule Take 1 capsule by mouth once daily. - calcium carbonate (CALCIUM 600 ORAL) Take by mouth twice daily. - aspirin, enteric coated (ADULT LOW DOSE ASPIRIN) 81 mg EC tablet Take 1 tablet by mouth once daily. - sildenafil (VIAGRA) 50 mg tablet Use as directed once a day Meds Comments as of 06/21/2014: 140/86 Problem List As Of Date 09/09/2022 Noted Resolved Mixed hyperlipidemia [E78.2] 11/02/2005 Essential hypertension [I10] 11/19/2007 Cervicalgia [M54.2] 11/19/2007 08/21/2021 Chronic midline low back pain without sciatica *11/19/2007 Obesity, unspecified [E66.9] 11/19/2007 08/21/2021 Crushing Injury of Hand(s) [S67.20XA] 07/02/2008 08/05/2009 Abdominal aortic aneurysm (HCC) [I71.40] Tobacco use disorder [F17.200] History of DVT (deep vein thrombosis) [Z86.718] Right-sided low back pain with right-sided scia*02/26/2015 10/24/2020 Lumbar disc herniation with radiculopathy [M51.*02/26/2015 06/21/2017 Right lumbar radiculopathy [M54.16] 06/10/2015 06/21/2017 Neuropathy [G62.9] 06/28/2015 Lesion of left femoral nerve [G57.22] 07/03/2015 Connective tissue and disc stenosis of interver*07/03/2015 Tobacco dependence [F17.200] 03/11/2016 06/21/2017 Rectal bleeding [K62.5] 06/24/2017 08/21/2021 GERD (gastroesophageal reflux disease) [K21.9] 06/24/2017 Contusion of right shoulder [S40.011A] 01/27/2018 02/09/2020 Contusion of multiple sites of right arm [S40.0*01/27/2018 10/24/2020 Contusion of lower back [S30.0XXA] 01/27/2018 02/09/2020 Chronic chest wall pain [R07.89, G89.29] 04/06/2018 08/21/2021 Confusion with non-focal neuro exam [R41.0] 06/29/2018 Endoleak post endovascular aneurysm repair (HCC*01/29/2020 Obesity, Class I, BMI 30-34.9 [E66.9] 01/30/2020 RLS (restless legs syndrome) [G25.81] 11/20/2020 Migraines [G43.909] 11/20/2020 Anxiety and depression [F41.9, F32.A] 11/20/2020 Factor V Leiden (HCC) [D68.51] 11/20/2020 Iron deficiency anemia [D50.9] 11/20/2020 Obesity, Class II, BMI 35-39.9 [E66.9] 03/10/2021 [place] catheter problem (HCC) [T83.9XXA] 03/15/2021 08/21/2021 Prostate cancer (HCC) [C61] 03/17/2021 Rectus sheath hematoma [S30.1XXA] 2021 Encounter Status:Closed by RELL PRODUSER on 09/14/22 [facility] 09-08-2022 Miscellaneous Notes Patient notified. Verbalized understanding. His labs are not completed yet, however, his urine will need recollected. They had an issue handling the specimen documented in this encounter [facility] 09-07-2022 Note HNO ID: [id number] Author: Marco Mary MD Service: ? Author Type: Physician Type: Progress Notes Filed: 09/07/2022 2:16 PM Note Text: Patient presents with: Follow Up: Abdominal pain HPI: Patient presents today for office visit for follow up of abdominal pain. Has intermittent burning pain on RUQ, rating at 6-7 out of 10. Feels like his stomach is cold on the inside. Running fever last night, TMAX 102.5. Woke up drenched in sweat. Has had ct, chest xray, labs and ua. Given iv fluids last week via ER Still with fever. Covid was negative. Some nausea. No vomiting or diarrhea. Had noted some dark urine. Says it is tea colored. His says there is an odor to it. His liver enzymes were up the other day on recheck. Still coughing quite a bit. Cough is non productive. Has been going on for a week or two. He is still drinking. No dysuria. He has noted some burning in his epigastric and ruq area. Component Latest Ref Rng AND Units 09/04/2022 WBC 3.70 - 11.00 k/uL 5.18 RBC 4.20 - 6.00 m/uL 4.67 Hemoglobin 13.0 - 17.0 g/dL 14.3 Hematocrit 39.0 - 51.0 % 42.5 MCV 80.0 - 100.0 fL 91.0 MCH 26.0 - 34.0 pg 30.6 MCHC 30.5 - 36.0 g/dL 33.6 RDW-CV 11.5 - 15.0 % 14.3 Platelet Count 150 - 400 k/uL 116 (L) MPV 9.0 - 12.7 fL 10.4 Neut% % 66.8 Abs Neut (ANC) 1.45 - 7.50 k/uL 3.46 Lymph% % 13.9 Abs Lymph 1.00 - 4.00 k/uL 0.72 (L) [place]% % 17.2 Abs [place] <0.87 k/uL 0.89 (H) Eosin% % 1.7 Abs Eosin <0.46 k/uL 0.09 Baso% % 0.2 Abs Baso <0.11 k/uL <0.03 Immature Gran % % 0.2 IMMATURE GRANS (ABS) <0.10 k/uL <0.03 NRBC /100 WBC 0.0 Absolute nRBC <0.01 k/uL <0.01 DTYPE Auto Albumin 3.9 - 4.9 g/dL 4.1 Bilirubin, Total 0.2 - 1.3 mg/dL 1.0 Bilirubin, Conjug <0.2 mg/dL 0.3 (H) Alkaline Phosphatase 38 - 113 U/L 79 AST 14 - 40 U/L 66 (H) ALT 10 - 54 U/L 80 (H) Protein, Total 6.3 - 8.0 g/dL 6.6 Creatinine 0.73 - 1.22 mg/dL 1.13 eGFR >=60 mL/min/1.73mA? 73 Lipase 16 - 61 U/L 38 MEDICATIONS: Current Outpatient Medications Medication Sig PARoxetine (PAXIL) 20 mg tablet Take 1 tablet by mouth once daily. cyclobenzaprine (FLEXERIL) 10 mg tablet Take 1 tablet by mouth three times daily as needed for muscle spasm. ferrous sulfate (IRON) 325 mg (65 mg iron) tablet Take 1 tablet by mouth twice daily. folic acid 1 mg tablet Take 1 tablet by mouth once daily. warfarin (COUMADIN) 5 mg tablet 2.5 mg MWF, 5 mg all other days or as directed olmesartan (BENICAR) 20 mg tablet Take 1 tablet by mouth once daily. atorvastatin (LIPITOR) 80 mg tablet Take 1 tablet by mouth daily at bedtime. For cholesterol. famotidine (PEPCID) 20 mg tablet Take 1 tablet by mouth once daily. metoprolol tartrate, short acting, (LOPRESSOR) 50 mg tablet Take 1 tablet by mouth twice daily. amitriptyline (ELAVIL) 50 mg tablet Take 1 tablet by mouth daily at bedtime. omeprazole (PRILOSEC) 40 mg capsule Take 1 capsule by mouth once daily. calcium carbonate (CALCIUM 600 ORAL) Take by mouth twice daily. aspirin, enteric coated (ADULT LOW DOSE ASPIRIN) 81 mg EC tablet Take 1 tablet by mouth once daily. sildenafil (VIAGRA) 50 mg tablet Use as directed once a day No current facility-administered medications for this visit. ALLERGIES: ALLERGIES Allergen Reactions Cipro [Ciprofloxaci* Rash, Intolerance, Itching PAST MEDICAL HISTORY Diagnosis Date Abdominal aortic aneurysm (HCC) 2013 fusiform infrarenal [place] aortic aneurysm Colon polyps Depression Esophageal reflux Generalized anxiety disorder GERD (gastroesophageal reflux disease) Hematoma 2021 right side abdomen History of DVT (deep vein thrombosis) age 29's post-op knee right, second on left-is on chronic anticoagulation. both blood clots occurred after surgery Hyperlipidemia Hypertension Iron deficiency anemia Prostate cancer (HCC) Restless leg syndrome Snoring has not had cpap testing. Tobacco use disorder PAST SURGICAL HISTORY Procedure Laterality Date ARTHROSCOPY KNEE DIAGNOSTIC W/WO SYNOVIAL BX SPX age 29's Arthroscopy, right knee per Dr. Stover- blood clots after COLONOSCOPY 04/10/2014 hemorrhiods, diverticulosis COLONOSCOPY FLX DX W/COLLJ SPEC WHEN PFRMD 07/16/2017 Three small polyps ,adenomatous and hyperplastic COLONOSCOPY FLX DX W/COLLJ SPEC WHEN PFRMD 11/25/2020 EGD 04/10/2014 esophagitis, gastritis,Non-severe reflux esophagitis ENDVAS REP ABD AOR MOD PROST 06/28/2014 AAA REPAIR and re repair 2019 ESOPHAGOGASTRODUODENOSCOPY TRANSORAL DIAGNOSTIC 07/16/2017 Gastritis,Small hiatal hernia, ESOPHAGOGASTRODUODENOSCOPY TRANSORAL DIAGNOSTIC 11/25/2020 EXCISION PILONIDAL CYST/SINUS SIMPLE HERNIA REPAIR HX LAPAROSCOPY REPAIR INCISIONAL HERNIA REDUCIBLE 08/27/2021 LAPAROSCOPY SURG CHOLECYSTECTOMY 09/2003 Cholecystectomy, lap TOOTH EXTRACTION 05/2014 all teeth extracted-periodontal disease, abd aneurysm FAMILY HISTORY Problem Relation Age of Onset Hypertensio (more content not included)... [facility] 09-07-2022 History of Presen t illness Narrative Patient presents with: Follow Up: Abdominal pain HPI: Patient presents today for office visit for follow up of abdominal pain. Has intermittent burning pain on RUQ, rating at 6-7 out of 10. Feels like his stomach is cold on the inside. Running fever last night, TMAX 102.5. Woke up drenched in sweat. Has had ct, chest xray, labs and ua. Given iv fluids last week via ER Still with fever. Covid was negative. Some nausea. No vomiting or diarrhea. Had noted some dark urine. Says it is tea colored. His says there is an odor to it. His liver enzymes were up the other day on recheck. Still coughing quite a bit. Cough is non productive. Has been going on for a week or two. He is still drinking. No dysuria. He has noted some burning in his epigastric and ruq area. Component Latest Ref Rng & Units 09/04/2022 WBC 3.70 - 11.00 k/uL 5.18 RBC 4.20 - 6.00 m/uL 4.67 Hemoglobin 13.0 - 17.0 g/dL 14.3 Hematocrit 39.0 - 51.0 % 42.5 MCV 80.0 - 100.0 fL 91.0 MCH 26.0 - 34.0 pg 30.6 MCHC 30.5 - 36.0 g/dL 33.6 RDW-CV 11.5 - 15.0 % 14.3 Platelet Count 150 - 400 k/uL 116 (L) MPV 9.0 - 12.7 fL 10.4 Neut% % 66.8 Abs Neut (ANC) 1.45 - 7.50 k/uL 3.46 Lymph% % 13.9 Abs Lymph 1.00 - 4.00 k/uL 0.72 (L) [place]% % 17.2 Abs [place] <0.87 k/uL 0.89 (H) Eosin% % 1.7 Abs Eosin <0.46 k/uL 0.09 Baso% % 0.2 Abs Baso <0.11 k/uL <0.03 Immature Gran % % 0.2 IMMATURE GRANS (ABS) <0.10 k/uL <0.03 NRBC /100 WBC 0.0 Absolute nRBC <0.01 k/uL <0.01 DTYPE Auto Albumin 3.9 - 4.9 g/dL 4.1 Bilirubin, Total 0.2 - 1.3 mg/dL 1.0 Bilirubin, Conjug <0.2 mg/dL 0.3 (H) Alkaline Phosphatase 38 - 113 U/L 79 AST 14 - 40 U/L 66 (H) ALT 10 - 54 U/L 80 (H) Protein, Total 6.3 - 8.0 g/dL 6.6 Creatinine 0.73 - 1.22 mg/dL 1.13 eGFR >=60 mL/min/1.73m 73 Lipase 16 - 61 U/L 38 MEDICATIONS: Current Outpatient Medications Medication Sig PARoxetine (PAXIL) 20 mg tablet Take 1 tablet by mouth once daily. cyclobenzaprine (FLEXERIL) 10 mg tablet Take 1 tablet by mouth three times daily as needed for muscle spasm. ferrous sulfate (IRON) 325 mg (65 mg iron) tablet Take 1 tablet by mouth twice daily. folic acid 1 mg tablet Take 1 tablet by mouth once daily. warfarin (COUMADIN) 5 mg tablet 2.5 mg MWF, 5 mg all other days or as directed olmesartan (BENICAR) 20 mg tablet Take 1 tablet by mouth once daily. atorvastatin (LIPITOR) 80 mg tablet Take 1 tablet by mouth daily at bedtime. For cholesterol. famotidine (PEPCID) 20 mg tablet Take 1 tablet by mouth once daily. metoprolol tartrate, short acting, (LOPRESSOR) 50 mg tablet Take 1 tablet by mouth twice daily. amitriptyline (ELAVIL) 50 mg tablet Take 1 tablet by mouth daily at bedtime. omeprazole (PRILOSEC) 40 mg capsule Take 1 capsule by mouth once daily. calcium carbonate (CALCIUM 600 ORAL) Take by mouth twice daily. aspirin, enteric coated (ADULT LOW DOSE ASPIRIN) 81 mg EC tablet Take 1 tablet by mouth once daily. sildenafil (VIAGRA) 50 mg tablet Use as directed once a day No current facility-administered medications for this visit. ALLERGIES: ALLERGIES Allergen Reactions Cipro [Ciprofloxaci* Rash, Intolerance, Itching PAST MEDICAL HISTORY Diagnosis Date Abdominal aortic aneurysm (HCC) 2013 fusiform infrarenal [place] aortic aneurysm Colon polyps Depression Esophageal reflux Generalized anxiety disorder GERD (gastroesophageal reflux disease) Hematoma 2021 right side abdomen History of DVT (deep vein thrombosis) age 29's post-op knee right, second on left-is on chronic anticoagulation. both blood clots occurred after surgery Hyperlipidemia Hypertension Iron deficiency anemia Prostate cancer (HCC) Restless leg syndrome Snoring has not had cpap testing. Tobacco use disorder PAST SURGICAL HISTORY Procedure Laterality Date ARTHROSCOPY KNEE DIAGNOSTIC W/WO SYNOVIAL BX SPX age 29's Arthroscopy, right knee per Dr. Stover- blood clots after COLONOSCOPY 04/10/2014 hemorrhiods, diverticulosis COLONOSCOPY FLX DX W/COLLJ SPEC WHEN PFRMD 07/16/2017 Three small polyps ,adenomatous and hyperplastic COLONOSCOPY FLX DX W/COLLJ SPEC WHEN PFRMD 11/25/2020 EGD 04/10/2014 esophagitis, gastritis,Non-severe reflux esophagitis ENDVAS REP ABD AOR MOD PROST 06/28/2014 AAA REPAIR and re repair 2019 ESOPHAGOGASTRODUODENOSCOPY TRANSORAL DIAGNOSTIC 07/16/2017 Gastritis,Small hiatal hernia, ESOPHAGOGASTRODUODENOSCOPY TRANSORAL DIAGNOSTIC 11/25/2020 EXCISION PILONIDAL CYST/SINUS SIMPLE HERNIA REPAIR HX LAPAROSCOPY REPAIR INCISIONAL HERNIA REDUCIBLE 08/27/2021 LAPAROSCOPY SURG CHOLECYSTECTOMY 09/2003 Cholecystectomy, lap TOOTH EXTRACTION 05/2014 all teeth extracted-periodontal disease, abd aneurysm FAMILY HISTORY Problem Relation Age of Onset Hypertension Mother Blood Clots Mother Cancer Father mouth No Known Problems Sister Colon Polyps Sister Diabetes Sister Colon Cancer Sister 49 Cancer Maternal Grandfather Heart Attack Maternal Grandfather other (black lung) Paternal Grandfather No Known Problems Daughter No Known Problems Son Cancer Maternal Aunt melonoma Colon Cancer Maternal Uncle several Social History Tobacco Use Smoking status: Every Day Packs/day: 1.00 Years: 40.00 Pack years: 40.00 Types: Cigarettes Smokeless tobacco: Never Tobacco comments: 1/2 to 1 pack Vaping Use Vaping Use: Never used Substance Use Topics Alcohol use: Not Currently Comment: rare occassion Drug use: No Comment: mod-large amount coffee per day Reviewed current medications, allergies, past medical history, surgical history, family history and social history today. REVIEW OF SYSTEMS All other reviewed and negative other than HPI. VITALS: BP 112/62 Pulse 83 Temp (!) 38 C (100.4 F) (Left Tympanic) Resp 20 Wt 117.5 kg (259 lb) SpO2 99% BMI 35.13 kg/m Last 4 Encounter Wt Readings: Date: Wt: 09/03/2022 117.9 kg (260 lb) 06/17/2022 116.6 kg (257 lb) 01/20/2022 116.6 kg (257 lb) 01/19/2022 115.7 kg (255 lb) PHYSICAL EXAMINATION: General appearance: Well appearing, alert, in no acute distress, well-hydrated, well nourished. Skin: better hydrated than he was. No definite jaundice or scleral icterus. Head: Normocephalic, no masses, lesions, tenderness or abnormalities Eyes: Anicteric sclera. Pupils are equally round and reactive to light. Extraocular movements are intact. Oropharynx: Lips, mucosa, and tongue normal, teeth and gums normal, oropharynx normal. Much better hydrated. Neck: Negative findings: no adenopathy Lungs: Lungs clear to auscultation. No wheezing, rhonchi, rales Heart: RRR without murmur, gallop, or rubs. No ectopy Abdomen: Normal abdominal exam, liver edge is several finger breadths below right lower costal border. Slightly tender in that area. Bowel sounds normal. No masses, organomegaly Extremities: No deformities, edema, skin discoloration, clubbing or cyanosis. Good capillary refill. Musculoskeletal: No joint swelling, deformity, or tenderness ASSESSMENT/PLAN: 1. Fever, unspecified fever cause - ICD9: 780.60, ICD10: R50.9 (primary diagnosis) - ? Related to his respiratory illness. His liver enzymes are up mildly and he complains of dark urine. Rule out other issues. - CBC + DIFF - BASIC METABOLIC PNL - [place] PANEL - CMV IGM AB - CMV IGG ANTIBODY BL 2. Elevated liver enzymes - ICD9: 790.5, ICD10: R74.8 - check labs. - HEPATIC FUNCTION PNL - GGT BLD - HEP ACUTE PANEL BL - [place] PANEL - CMV IGM AB - CMV IGG ANTIBODY BL 3. Dark urine - ICD9: 791.9, ICD10: R82.998 - recheck urine. - URINALYSIS, WITH MICROSCOPIC - URINE CULTURE 4. Cough, unspecified type - ICD9: 786.2, ICD10: R05.9 - cover for respiratory infection. Chest xray was negative. - DOXYCYCLINE MONOHYDRATE 100 MG TABLET Marco Mary documented in this encounter [facility] 09-04-2022 Note HNO ID: [id number] Author: RT Idris(R) Service: ? Author Type: Chocolate Finisher Type: Progress Notes Filed: 09/04/2022 3:53 PM Note Text: Radiology Service Progress Note DATE OF SERVICE: September 04, 2022 TIME: 3:53 PM PATIENT IDENTITY VERIFICATION COMPLETED USING TWO (2) STANDARD IDENTIFIERS: Name and Date of confirmed by patient verbally. FALL SCREENING: Has the patient had 2 falls in the last year or 1 fall with injury or currently using an Ambulatory Assistive Device (Walker, Cane, Wheelchair, Crutches, etc.)? No PATIENT GENDER DATA: Male PATIENT RELEVANT IMPLANT DATA REVIEWED: Yes ALLERGIES: Reviewed and unchanged CONTRAST ALLERGY: NO. EXAM: CT -CONTRAST INDUCED NEPHROPATHY RISK FACTORS: Patient age > 60 years CREATININE: Creatinine Date Value Ref Range Status 09/04/2022 1.13 0.73 - 1.22 mg/dL Final 06/23/2021 1.10 0.73 - 1.22 mg/dL Final 2021 1.01 0.73 - 1.22 mg/dL Final Estimated Glomerular Filtration Rate Date Value Ref Range Status 09/04/2022 73 >=60 mL/min/1.73m? Final Comment: Estimated Glomerular Filtration Rate (eGFR) is calculated using the 2020 CKD-EPI creatinine equation. This equation utilizes serum creatinine, sex, and age as parameters. The creatinine assay has traceable calibration to isotope dilution-mass spectrometry. Refer to KDIGO guidelines for clinical interpretation. In patients with unstable renal function, e.g. those with acute kidney injury, the eGFR may not accurately reflect actual GFR. eGFR- Date Value Ref Range Status 06/23/2021 >60 Final P.O.C.T. RESULTS: POC done: Yes, See Lab Tab September 04, 2022 TREATMENT: N/A PERIPHERAL IV DATA: Ambulatory: A peripheral IV was started in the Right antecubital site with a Angio cath: 22 gauge. RADIOLOGY DEPARTMENT: CT; Exam(s) Completed: Abdomen/Pelvis SIGNATURE: RT Philippe(R) PATIENT NAME: Bart Talley DATE: September 04, 2022 TIME: 3:53 PM [facility] 09-04-2022 Miscellaneous Notes notified of results Appt scheduled Labs so far are ok but not all done yet. His ct is ok. No signs of infection or abscess or hematoma. His inr is totally normal, we are going to have to bring him back up. 5 mg a day over the weekend. Recheck inr on Wednesday\ Follow up early next week Last INR: INR 1.1 09/04/2022 Current dose of coumadin is: 2.5 mg Tues, Oumou 5 mg all other days. Last date of dose change: held dose on 08/31/22. Previous INR (date and result): 4.1 08/31/22 Additional Clinical Information or narrative: no documented in this encounter [facility] 09-04-2022 History of Presen t illness Narrative Radiology Service Progress Note DATE OF SERVICE: September 04, 2022 TIME: 3:53 PM PATIENT IDENTITY VERIFICATION COMPLETED USING TWO (2) STANDARD IDENTIFIERS: Name and Date of confirmed by patient verbally. FALL SCREENING: Has the patient had 2 falls in the last year or 1 fall with injury or currently using an Ambulatory Assistive Device (Walker, Cane, Wheelchair, Crutches, etc.)? No PATIENT GENDER DATA: Male PATIENT RELEVANT IMPLANT DATA REVIEWED: Yes ALLERGIES: Reviewed and unchanged CONTRAST ALLERGY: NO. EXAM: CT -CONTRAST INDUCED NEPHROPATHY RISK FACTORS: Patient age > 60 years CREATININE: Creatinine Date Value Ref Range Status 09/04/2022 1.13 0.73 - 1.22 mg/dL Final 06/23/2021 1.10 0.73 - 1.22 mg/dL Final 2021 1.01 0.73 - 1.22 mg/dL Final Estimated Glomerular Filtration Rate Date Value Ref Range Status 09/04/2022 73 >=60 mL/min/1.73m Final Comment: Estimated Glomerular Filtration Rate (eGFR) is calculated using the 2020 CKD-EPI creatinine equation. This equation utilizes serum creatinine, sex, and age as parameters. The creatinine assay has traceable calibration to isotope dilution-mass spectrometry. Refer to KDIGO guidelines for clinical interpretation. In patients with unstable renal function, e.g. those with acute kidney injury, the eGFR may not accurately reflect actual GFR. eGFR- Date Value Ref Range Status 06/23/2021 >60 Final P.O.C.T. RESULTS: POC done: Yes, See Lab Tab September 04, 2022 TREATMENT: N/A PERIPHERAL IV DATA: Ambulatory: A peripheral IV was started in the Right antecubital site with a Angio cath: 22 gauge. RADIOLOGY DEPARTMENT: CT; Exam(s) Completed: Abdomen/Pelvis SIGNATURE: RT Philippe(R) PATIENT NAME: Bart Talley DATE: September 04, 2022 TIME: 3:53 PM documented in this encounter [facility] 09-04-2022 Miscellaneous Notes Patient's calls and states that patient is currently at work on [employer] and unable to call. Patient had called her to call back. notified that orders placed for a STAT CT Scan to be done today and that patient needs labs done prior to CT Scan. voices understanding. transferred to scheduling to schedule STAT CT scan for patient. Patient scheduled for CT Scan at 2:20 today Richa Ruffin RN Please do stat today. Labs before. Call me if pain worsens. Patient was notified and stomach pain is same on RUQ than radiates into middle. Spoke to pcp who is going to put in STAT scan patient aware to not eat/drink anything Letty Vang Ma Reviewed er notes. It looks like they did not address his stomach pain at all which was my main concern. Check how is his stomach is doing. documented in this encounter [facility] 09-03-2022 Note HNO ID: [id number] Author: Marco Mary MD Service: ? Author Type: Physician Type: Progress Notes Filed: 09/03/2022 9:00 AM Note Text: Patient presents with: Fever Abdominal Pain HPI: Patient presents today for office visit for follow up. Complains of malaise beginning over the weekend. Started running a fever 101-102 for two days. Has generalized achiness and nausea. Mild epigastric pain and low back pain. No vomiting or bowel changes. Is slightly more sore toward his right shoulder. Has some increased cough and increased shortness of breath. Started last week. No sore throat. No ear pain. Urine is dark but no dysuria or frequency. Did urinate this am. He is not drinking as much. Poor appetite. Did hold coumadin last night without being told to. No bleeding issues or bruising MEDICATIONS: Current Outpatient Medications Medication Sig PARoxetine (PAXIL) 20 mg tablet Take 1 tablet by mouth once daily. cyclobenzaprine (FLEXERIL) 10 mg tablet Take 1 tablet by mouth three times daily as needed for muscle spasm. ferrous sulfate (IRON) 325 mg (65 mg iron) tablet Take 1 tablet by mouth twice daily. folic acid 1 mg tablet Take 1 tablet by mouth once daily. warfarin (COUMADIN) 5 mg tablet 2.5 mg MWF, 5 mg all other days or as directed olmesartan (BENICAR) 20 mg tablet Take 1 tablet by mouth once daily. atorvastatin (LIPITOR) 80 mg tablet Take 1 tablet by mouth daily at bedtime. For cholesterol. famotidine (PEPCID) 20 mg tablet Take 1 tablet by mouth once daily. metoprolol tartrate, short acting, (LOPRESSOR) 50 mg tablet Take 1 tablet by mouth twice daily. amitriptyline (ELAVIL) 50 mg tablet Take 1 tablet by mouth daily at bedtime. omeprazole (PRILOSEC) 40 mg capsule Take 1 capsule by mouth once daily. calcium carbonate (CALCIUM 600 ORAL) Take by mouth twice daily. aspirin, enteric coated (ADULT LOW DOSE ASPIRIN) 81 mg EC tablet Take 1 tablet by mouth once daily. sildenafil (VIAGRA) 50 mg tablet Use as directed once a day No current facility-administered medications for this visit. ALLERGIES: ALLERGIES Allergen Reactions Cipro [Ciprofloxaci* Rash, Intolerance, Itching PAST MEDICAL HISTORY Diagnosis Date Abdominal aortic aneurysm (HCC) 2013 fusiform infrarenal [place] aortic aneurysm Colon polyps Depression Esophageal reflux Generalized anxiety disorder GERD (gastroesophageal reflux disease) Hematoma 2021 right side abdomen History of DVT (deep vein thrombosis) age 29's post-op knee right, second on left-is on chronic anticoagulation. both blood clots occurred after surgery Hyperlipidemia Hypertension Iron deficiency anemia Prostate cancer (HCC) Restless leg syndrome Snoring has not had cpap testing. Tobacco use disorder PAST SURGICAL HISTORY Procedure Laterality Date ARTHROSCOPY KNEE DIAGNOSTIC W/WO SYNOVIAL BX SPX age 29's Arthroscopy, right knee per Dr. Stover- blood clots after COLONOSCOPY 04/10/2014 hemorrhiods, diverticulosis COLONOSCOPY FLX DX W/COLLJ SPEC WHEN PFRMD 07/16/2017 Three small polyps ,adenomatous and hyperplastic COLONOSCOPY FLX DX W/COLLJ SPEC WHEN PFRMD 11/25/2020 EGD 04/10/2014 esophagitis, gastritis,Non-severe reflux esophagitis ENDVAS REP ABD AOR MOD PROST 06/28/2014 AAA REPAIR and re repair 2019 ESOPHAGOGASTRODUODENOSCOPY TRANSORAL DIAGNOSTIC 07/16/2017 Gastritis,Small hiatal hernia, ESOPHAGOGASTRODUODENOSCOPY TRANSORAL DIAGNOSTIC 11/25/2020 EXCISION PILONIDAL CYST/SINUS SIMPLE HERNIA REPAIR HX LAPAROSCOPY REPAIR INCISIONAL HERNIA REDUCIBLE 08/27/2021 LAPAROSCOPY SURG CHOLECYSTECTOMY 09/2003 Cholecystectomy, lap TOOTH EXTRACTION 05/2014 all teeth extracted-periodontal disease, abd aneurysm FAMILY HISTORY Problem Relation Age of Onset Hypertension Mother Blood Clots Mother Cancer Father mouth No Known Problems Sister Colon Polyps Sister Diabetes Sister Colon Cancer Sister 49 Cancer Maternal Grandfather Heart Attack Maternal Grandfather other (black lung) Paternal Grandfather No Known Problems Daughter No Known Problems Son Cancer Maternal Aunt melonoma Colon Cancer Maternal Uncle several Social History Tobacco Use Smoking status: Every Day Packs/day: 1.00 Years: 40.00 Pack years: 40.00 Types: Cigarettes Smokeless tobacco: Never Tobacco comments: 1/2 to 1 pack Vaping Use Vaping Use: Never used Substance Use Topics Alcohol use: Not Currently Comment: rare occassion Drug use: No Comment: mod-large amount coffee per day Reviewed current medications, allergies, past medical history, surgical history, family history and social history today. REVIEW OF SYSTEMS All other reviewed and negative other than HPI. VITALS: BP 122/72 Pulse 105 Temp 37.9 ?C (100.3 ?F) (Tympanic) Wt 117.9 kg (260 lb) SpO2 97% BMI 35.26 kg/m? Last 4 Encounter Wt Readings: Date: Wt: 09/03/2022 117.9 kg (260 lb) 06/17/2022 (more content not included)... [facility] 09-03-2022 History of Presen t illness Narrative Patient presents with: Fever Abdominal Pain HPI: Patient presents today for office visit for follow up. Complains of malaise beginning over the weekend. Started running a fever 101-102 for two days. Has generalized achiness and nausea. Mild epigastric pain and low back pain. No vomiting or bowel changes. Is slightly more sore toward his right shoulder. Has some increased cough and increased shortness of breath. Started last week. No sore throat. No ear pain. Urine is dark but no dysuria or frequency. Did urinate this am. He is not drinking as much. Poor appetite. Did hold coumadin last night without being told to. No bleeding issues or bruising MEDICATIONS: Current Outpatient Medications Medication Sig PARoxetine (PAXIL) 20 mg tablet Take 1 tablet by mouth once daily. cyclobenzaprine (FLEXERIL) 10 mg tablet Take 1 tablet by mouth three times daily as needed for muscle spasm. ferrous sulfate (IRON) 325 mg (65 mg iron) tablet Take 1 tablet by mouth twice daily. folic acid 1 mg tablet Take 1 tablet by mouth once daily. warfarin (COUMADIN) 5 mg tablet 2.5 mg MWF, 5 mg all other days or as directed olmesartan (BENICAR) 20 mg tablet Take 1 tablet by mouth once daily. atorvastatin (LIPITOR) 80 mg tablet Take 1 tablet by mouth daily at bedtime. For cholesterol. famotidine (PEPCID) 20 mg tablet Take 1 tablet by mouth once daily. metoprolol tartrate, short acting, (LOPRESSOR) 50 mg tablet Take 1 tablet by mouth twice daily. amitriptyline (ELAVIL) 50 mg tablet Take 1 tablet by mouth daily at bedtime. omeprazole (PRILOSEC) 40 mg capsule Take 1 capsule by mouth once daily. calcium carbonate (CALCIUM 600 ORAL) Take by mouth twice daily. aspirin, enteric coated (ADULT LOW DOSE ASPIRIN) 81 mg EC tablet Take 1 tablet by mouth once daily. sildenafil (VIAGRA) 50 mg tablet Use as directed once a day No current facility-administered medications for this visit. ALLERGIES: ALLERGIES Allergen Reactions Cipro [Ciprofloxaci* Rash, Intolerance, Itching PAST MEDICAL HISTORY Diagnosis Date Abdominal aortic aneurysm (HCC) 2013 fusiform infrarenal [place] aortic aneurysm Colon polyps Depression Esophageal reflux Generalized anxiety disorder GERD (gastroesophageal reflux disease) Hematoma 2021 right side abdomen History of DVT (deep vein thrombosis) age 29's post-op knee right, second on left-is on chronic anticoagulation. both blood clots occurred after surgery Hyperlipidemia Hypertension Iron deficiency anemia Prostate cancer (HCC) Restless leg syndrome Snoring has not had cpap testing. Tobacco use disorder PAST SURGICAL HISTORY Procedure Laterality Date ARTHROSCOPY KNEE DIAGNOSTIC W/WO SYNOVIAL BX SPX age 29's Arthroscopy, right knee per Dr. Stover- blood clots after COLONOSCOPY 04/10/2014 hemorrhiods, diverticulosis COLONOSCOPY FLX DX W/COLLJ SPEC WHEN PFRMD 07/16/2017 Three small polyps ,adenomatous and hyperplastic COLONOSCOPY FLX DX W/COLLJ SPEC WHEN PFRMD 11/25/2020 EGD 04/10/2014 esophagitis, gastritis,Non-severe reflux esophagitis ENDVAS REP ABD AOR MOD PROST 06/28/2014 AAA REPAIR and re repair 2019 ESOPHAGOGASTRODUODENOSCOPY TRANSORAL DIAGNOSTIC 07/16/2017 Gastritis,Small hiatal hernia, ESOPHAGOGASTRODUODENOSCOPY TRANSORAL DIAGNOSTIC 11/25/2020 EXCISION PILONIDAL CYST/SINUS SIMPLE HERNIA REPAIR HX LAPAROSCOPY REPAIR INCISIONAL HERNIA REDUCIBLE 08/27/2021 LAPAROSCOPY SURG CHOLECYSTECTOMY 09/2003 Cholecystectomy, lap TOOTH EXTRACTION 05/2014 all teeth extracted-periodontal disease, abd aneurysm FAMILY HISTORY Problem Relation Age of Onset Hypertension Mother Blood Clots Mother Cancer Father mouth No Known Problems Sister Colon Polyps Sister Diabetes Sister Colon Cancer Sister 49 Cancer Maternal Grandfather Heart Attack Maternal Grandfather other (black lung) Paternal Grandfather No Known Problems Daughter No Known Problems Son Cancer Maternal Aunt melonoma Colon Cancer Maternal Uncle several Social History Tobacco Use Smoking status: Every Day Packs/day: 1.00 Years: 40.00 Pack years: 40.00 Types: Cigarettes Smokeless tobacco: Never Tobacco comments: 1/2 to 1 pack Vaping Use Vaping Use: Never used Substance Use Topics Alcohol use: Not Currently Comment: rare occassion Drug use: No Comment: mod-large amount coffee per day Reviewed current medications, allergies, past medical history, surgical history, family history and social history today. REVIEW OF SYSTEMS All other reviewed and negative other than HPI. VITALS: BP 122/72 Pulse 105 Temp 37.9 C (100.3 F) (Tympanic) Wt 117.9 kg (260 lb) SpO2 97% BMI 35.26 kg/m Last 4 Encounter Wt Readings: Date: Wt: 09/03/2022 117.9 kg (260 lb) 06/17/2022 116.6 kg (257 lb) 01/20/2022 116.6 kg (257 lb) 01/19/2022 115.7 kg (255 lb) PHYSICAL EXAMINATION: General appearance: Well appearing, alert, in no acute distress, well-hydrated, well nourished. Mucous membranes dry. Skin: Skin color, texture, turgor normal, no suspicious rashes or lesions Head: Normocephalic, no masses, lesions, tenderness or abnormalities Lungs: Lungs clear to auscultation. No wheezing, rhonchi, rales Heart: RRR without murmur, gallop, or rubs. No ectopy Abdomen: soft, tenderness in upper abd. Equivocal rebound and some guarding. Extremities: No deformities, edema, skin discoloration, clubbing or cyanosis. Good capillary refill. Musculoskeletal: No joint swelling, deformity, or tenderness ASSESSMENT/PLAN: 1. Epigastric pain - ICD9: 789.06, ICD10: R10.13 (primary diagnosis) Appears dehydrated. Pain and fever needs more evaluation and he likely requires fluids 2. Abdominal aortic aneurysm (AAA) without rupture, unspecified part (HCC) - ICD9: 441.4, ICD10: I71.40 - as above. 3. Essential hypertension - ICD9: 401.9, ICD10: I10 - as above 4. Factor V Leiden (HCC) - ICD9: 289.81, ICD10: D68.51 5. Hematoma of rectus sheath, initial encounter - ICD9: 922.2, ICD10: S30.1XXA - hx of previos hematoma. 6. Fever, unspecified fever cause - ICD9: 780.60, ICD10: R50.9 - will do ER passpot. Marco Mary documented in this encounter [facility] 08-31-2022 Miscellaneous Notes Instructions given to and read back. It is high. Hold x 1 day, then 2.5 on T, TH, 5 mg a day rest of the week. Recheck one week Last INR: INR 4.1 08/29/2022 Current dose of coumadin is: 2.5mg on Wednesday and 5mg all other days. Last date of dose change: 08/10/22 Previous INR (date and result): 2.5 08/22/22 Additional Clinical Information or narrative: no documented in this encounter [facility] 08-24-2022 Miscellaneous Notes Patient informed and verbalized understanding. Gena Nuñez Same. Recheck one week Last INR: INR 2.5 08/22/2022 Current dose of coumadin is: 2.5 mg on wed, 5 mg all other days. Previous INR (date and result): 1.6 08/15/22 Additional Clinical Information or narrative: no documented in this encounter [facility] 08-17-2022 Miscellaneous Notes Patient notified and repeats back instructions. 5 mg a day except 2.5 on Wed. Recheck one week Last INR: INR 1.6 08/15/2022 Current dose of coumadin is: 2.5 mg on Wed, Fri and 5 mg all other days. Previous INR (date and result): 1.4 on 08/08/22 Additional Clinical Information or narrative: no documented in this encounter [facility] 08-10-2022 Miscellaneous Notes Patient notified of results, verbalizes understanding of instructions. Tracker updated. Fany Hanna MA 5 mg a day. Except 2.5 on WF. Recheck one week Last INR: INR 1.4 08/08/2022 Current dose of coumadin is: 2.5 mg MWF, 5 mg all other days. Previous INR (date and result): 2.0 05/19/22 Additional Clinical Information or narrative: no documented in this encounter [facility] 07-17-2022 Miscellaneous Notes Pharmacy verified in [facility] Patient has been identified by name and date of : Yes Patient aware RX will be sent to pharmacy. No need to notify patient. Spouse phones for refill(s): Requested Prescriptions Pending Prescriptions Disp Refills PARoxetine (PAXIL) 20 mg tablet 90 tablet 2 Sig: Take 1 tablet by mouth once daily. cyclobenzaprine (FLEXERIL) 10 mg tablet 30 tablet 1 Sig: Take 1 tablet by mouth three times daily as needed for muscle spasm. Date of last office visit : 01/20/2022 Date of next office visit : Visit date not found Last 2 Encounter Wt Readings: Date: Wt: 06/17/2022 116.6 kg (257 lb) 01/20/2022 116.6 kg (257 lb) Please advise. Jada Kenney Pss documented in this encounter [facility] 06-17-2022 Note HNO ID: [id number] Author: Shashi Arce Jr., MD Service: ? Author Type: Physician Type: Progress Notes Filed: 06/17/2022 1:43 PM Note Text: ESTABLISHED PATIENT OFFICE VISIT HPI Bart Talley is a 62 year old male who presents diagnosed with Clinical Stage(1c) Radha's score 7 (3+4) adenocarcinoma of the prostate with an associated PSA of 14.24 and an estimated prostatic volume of 34. He had 6 of 12 cores positive with disease identified in the 6 portion(s) of the prostate. He underwent RALP with bilateral pelvic lymphadenectomy 03/10. He was admitted postoperatively after corral wasn't draining. He experienced bladder spasms and constipation. He is here for one week follow up and corral removal. Still with significant spasms and constipation. On lovenox bridge. Following INR with Dr. Tyra Thompson: A. PROSTATE, RADICAL PROSTATECTOMY AND BILATERAL PELVIC LYMPH NODES: Prostatic acinar adenocarcinoma, Radha score 3+4=7 (Grade group 2), (see comment and synoptic report). - Extraprostatic extension is present. - The right anterior and left lateral margins are involved by carcinoma. Five (5) benign lymph nodes (0/5). Pathologic stage: pT3a 08/14/21 - doing well. Minimal voiding complaints. Still with some leakage but improving. Still in diaper but generally 1 a day and not very wet. psa <0.02. 6 months sp ralp. 12/11/21 - 9 months sp ralp. Minimal lacey. No erections. psa <0.02. no uti. Feels well otherwise. 06/17/22 - doing well since last seen. Psa <0.02. no lacey. No erections. Does co urgency at times. Discussed behavioral modifications. No fever. No uti. LAB: Creatinine Date Value Ref Range Status 06/23/2021 1.10 0.73 - 1.22 mg/dL Final PSA (ng/mL) Date Value 05/19/2022 <0.02 12/09/2021 <0.02 09/10/2021 <0.02 08/06/2021 <0.02 05/31/2021 <0.02 10/29/2020 14.24 PSA Screening (ng/mL) Date Value 10/24/2020 16.00 Glucose, Urine (mg/dL) Date Value 04/05/2018 neg Bilirubin, Urine (no units) Date Value 04/05/2018 neg Ketones, Urine (no units) Date Value 04/05/2018 neg Specific [place], Ur (no units) Date Value 04/05/2018 1.015 Hemoglobin/Blood,Ur (no units) Date Value 04/05/2018 neg pH, Urine (no units) Date Value 04/05/2018 5.0 Protein, Urine (mg/dL) Date Value 04/05/2018 neg Urobilinogen, Urine (EU) Date Value 04/05/2018 0.2 Nitrites (no units) Date Value 04/05/2018 neg Leukocytes (no units) Date Value 04/05/2018 neg Color/Appearance (comment:) Date Value 04/05/2018 dark yellow MEDICATIONS: ferrous sulfate (IRON) 325 mg (65 mg iron) tablet Take 1 tablet by mouth twice daily. folic acid 1 mg tablet Take 1 tablet by mouth once daily. cyclobenzaprine (FLEXERIL) 10 mg tablet Take 1 tablet by mouth three times daily as needed for muscle spasm. warfarin (COUMADIN) 5 mg tablet 2.5 mg MWF, 5 mg all other days or as directed olmesartan (BENICAR) 20 mg tablet Take 1 tablet by mouth once daily. atorvastatin (LIPITOR) 80 mg tablet Take 1 tablet by mouth daily at bedtime. For cholesterol. PARoxetine (PAXIL) 20 mg tablet Take 1 tablet by mouth once daily. famotidine (PEPCID) 20 mg tablet Take 1 tablet by mouth once daily. metoprolol tartrate, short acting, (LOPRESSOR) 50 mg tablet Take 1 tablet by mouth twice daily. omeprazole (PRILOSEC) 40 mg capsule Take 1 capsule by mouth once daily. calcium carbonate (CALCIUM 600 ORAL) Take by mouth twice daily. aspirin, enteric coated (ADULT LOW DOSE ASPIRIN) 81 mg EC tablet Take 1 tablet by mouth once daily. sildenafil (VIAGRA) 50 mg tablet Use as directed once a day amitriptyline (ELAVIL) 50 mg tablet Take 1 tablet by mouth daily at bedtime. REVIEW OF SYSTEMS Review of Systems Constitutional: Negative. Respiratory: Negative. Cardiovascular: Negative. Gastrointestinal: Negative. Genitourinary: Negative. Skin: Negative. Neurological: Negative. Psychiatric/Behavioral: Negative. HISTORIES PAST MEDICAL HISTORY Diagnosis Date Abdominal aortic aneurysm 2013 fusiform infrarenal [place] aortic aneurysm Colon polyps Depression Esophageal reflux Generalized anxiety disorder GERD (gastroesophageal reflux disease) Hematoma 2021 right side abdomen History of DVT (deep vein thrombosis) age 29's post-op knee right, second on left-is on chronic anticoagulation. both blood clots occurred after surgery Hyperlipidemia Hypertension Iron deficiency anemia Prostate cancer (HCC) Restless leg syndrome Snoring has not had cpap testing. Tobacco use disorder FAMILY HISTORY Problem Relation Age of Onset Hypertension Mother Blood Clots Mother Cancer Father mouth No Known Problems Sister Colon Polyps Sister Diabetes Sister Colon Cancer Sister 49 Cancer Maternal Grandfather Heart Attack Maternal Grandfather other (black lung) Paternal Grandfather No Known Problems Daughter No Known Problems Son Cancer Maternal Au (more content not included)... [facility] 06-17-2022 History of Presen t illness Narrative ESTABLISHED PATIENT OFFICE VISIT HPI Bart Talley is a 62 year old male who presents diagnosed with Clinical Stage(1c) Radha's score 7 (3+4) adenocarcinoma of the prostate with an associated PSA of 14.24 and an estimated prostatic volume of 34. He had 6 of 12 cores positive with disease identified in the 6 portion(s) of the prostate. He underwent RALP with bilateral pelvic lymphadenectomy 03/10. He was admitted postoperatively after corral wasn't draining. He experienced bladder spasms and constipation. He is here for one week follow up and corral removal. Still with significant spasms and constipation. On lovenox bridge. Following INR with Dr. Mary Path: A. PROSTATE, RADICAL PROSTATECTOMY AND BILATERAL PELVIC LYMPH NODES: Prostatic acinar adenocarcinoma, Radha score 3+4=7 (Grade group 2), (see comment and synoptic report). - Extraprostatic extension is present. - The right anterior and left lateral margins are involved by carcinoma. Five (5) benign lymph nodes (0/5). Pathologic stage: pT3a 08/14/21 - doing well. Minimal voiding complaints. Still with some leakage but improving. Still in diaper but generally 1 a day and not very wet. psa <0.02. 6 months sp ralp. 12/11/21 - 9 months sp ralp. Minimal lacey. No erections. psa <0.02. no uti. Feels well otherwise. 06/17/22 - doing well since last seen. Psa <0.02. no lacey. No erections. Does co urgency at times. Discussed behavioral modifications. No fever. No uti. LAB: Creatinine Date Value Ref Range Status 06/23/2021 1.10 0.73 - 1.22 mg/dL Final PSA (ng/mL) Date Value 05/19/2022 <0.02 12/09/2021 <0.02 09/10/2021 <0.02 08/06/2021 <0.02 05/31/2021 <0.02 10/29/2020 14.24 PSA Screening (ng/mL) Date Value 10/24/2020 16.00 Glucose, Urine (mg/dL) Date Value 04/05/2018 neg Bilirubin, Urine (no units) Date Value 04/05/2018 neg Ketones, Urine (no units) Date Value 04/05/2018 neg Specific [place], Ur (no units) Date Value 04/05/2018 1.015 Hemoglobin/Blood,Ur (no units) Date Value 04/05/2018 neg pH, Urine (no units) Date Value 04/05/2018 5.0 Protein, Urine (mg/dL) Date Value 04/05/2018 neg Urobilinogen, Urine (EU) Date Value 04/05/2018 0.2 Nitrites (no units) Date Value 04/05/2018 neg Leukocytes (no units) Date Value 04/05/2018 neg Color/Appearance (comment:) Date Value 04/05/2018 dark yellow MEDICATIONS: ferrous sulfate (IRON) 325 mg (65 mg iron) tablet Take 1 tablet by mouth twice daily. folic acid 1 mg tablet Take 1 tablet by mouth once daily. cyclobenzaprine (FLEXERIL) 10 mg tablet Take 1 tablet by mouth three times daily as needed for muscle spasm. warfarin (COUMADIN) 5 mg tablet 2.5 mg MWF, 5 mg all other days or as directed olmesartan (BENICAR) 20 mg tablet Take 1 tablet by mouth once daily. atorvastatin (LIPITOR) 80 mg tablet Take 1 tablet by mouth daily at bedtime. For cholesterol. PARoxetine (PAXIL) 20 mg tablet Take 1 tablet by mouth once daily. famotidine (PEPCID) 20 mg tablet Take 1 tablet by mouth once daily. metoprolol tartrate, short acting, (LOPRESSOR) 50 mg tablet Take 1 tablet by mouth twice daily. omeprazole (PRILOSEC) 40 mg capsule Take 1 capsule by mouth once daily. calcium carbonate (CALCIUM 600 ORAL) Take by mouth twice daily. aspirin, enteric coated (ADULT LOW DOSE ASPIRIN) 81 mg EC tablet Take 1 tablet by mouth once daily. sildenafil (VIAGRA) 50 mg tablet Use as directed once a day amitriptyline (ELAVIL) 50 mg tablet Take 1 tablet by mouth daily at bedtime. REVIEW OF SYSTEMS Review of Systems Constitutional: Negative. Respiratory: Negative. Cardiovascular: Negative. Gastrointestinal: Negative. Genitourinary: Negative. Skin: Negative. Neurological: Negative. Psychiatric/Behavioral: Negative. HISTORIES PAST MEDICAL HISTORY Diagnosis Date Abdominal aortic aneurysm 2013 fusiform infrarenal [place] aortic aneurysm Colon polyps Depression Esophageal reflux Generalized anxiety disorder GERD (gastroesophageal reflux disease) Hematoma 2021 right side abdomen History of DVT (deep vein thrombosis) age 29's post-op knee right, second on left-is on chronic anticoagulation. both blood clots occurred after surgery Hyperlipidemia Hypertension Iron deficiency anemia Prostate cancer (HCC) Restless leg syndrome Snoring has not had cpap testing. Tobacco use disorder FAMILY HISTORY Problem Relation Age of Onset Hypertension Mother Blood Clots Mother Cancer Father mouth No Known Problems Sister Colon Polyps Sister Diabetes Sister Colon Cancer Sister 49 Cancer Maternal Grandfather Heart Attack Maternal Grandfather other (black lung) Paternal Grandfather No Known Problems Daughter No Known Problems Son Cancer Maternal Aunt melonoma Colon Cancer Maternal Uncle several SOCIAL HISTORY Social History Tobacco Use Smoking status: Every Day Packs/day: 1.00 Years: 40.00 Pack years: 40.00 Types: Cigarettes Smokeless tobacco: Never Tobacco comments: 1/2 to 1 pack Vaping Use Vaping Use: Never used Substance Use Topics Alcohol use: Not Currently Comment: rare occassion Drug use: No Comment: mod-large amount coffee per day PHYSICAL EXAMINATION General appearance: Well appearing, alert, in no acute distress, and well-hydrated, well nourished Skin: Skin color, texture, turgor normal, no suspicious rashes or lesions Respiratory:+ effort Cardiovascular: Not examined GI: Normal abdominal exam, Abdomen soft, non-tender. No masses, organomegaly Musculoskeletal: Negative Neuro: Negative Genitourinary: not examined Impression: (C61) Prostate cancer (HCC) (primary encounter diagnosis) Plan: 1 year Psa in 6 months Shashi Arce Jr, MD 06/17/2022 documented in this encounter [facility] 05-21-2022 Miscellaneous Notes Pt notified. He verbalized understanding. Catalino Marin LPN VM left for pt to call PCP office as soon as possible for provider's orders below. Liz Nicole RN Same. Recheck one month Last INR: INR 2.0 05/19/2022 Current dose of coumadin is: 2.5 mg MWF, 5 mg all other days. Previous INR (date and result): 2.5 on 02/21/22 Additional Clinical Information or narrative: no documented in this encounter [facility] 04-16-2022 Miscellaneous Notes Patient has been identified by name and date of : Yes Last office visit in this department: 01/20/2022 RX INSTRUCTIONS: Patient aware RX will be sent to pharmacy. No need to notify patient. Patient phones requesting refills as follows: Requested Prescriptions Pending Prescriptions Disp Refills ferrous sulfate (IRON) 325 mg (65 mg iron) tablet 100 tablet 1 Sig: Take 1 tablet by mouth twice daily. folic acid 1 mg tablet 30 tablet 5 Sig: Take 1 tablet by mouth once daily. cyclobenzaprine (FLEXERIL) 10 mg tablet 30 tablet 1 Sig: Take 1 tablet by mouth three times daily as needed for muscle spasm. Please review and advise. Lisa Burch documented in this encounter [facility] 03-05-2022 History of Presen t illness Narrative PT ASSESSMENT - CASTING ROOM Bart presents for Application of brace. Applied large Actimove Rhizo Forte brace to left hand. Patient has been instructed in Care and proper application of brace.. Marya Marino RN Yovani Munoz MD Department of Orthopaedics Orthopaedics [address] [facility] [address] Dept: [phone] Dept March 05, 2022 Consultation requested by NANCY Gaytan for an opinion regarding Left thumb pain. My final recommendations will be communicated back to the requesting physician by way of shared Medical record or letter to requesting physician via US mail. CHIEF COMPLAINT: New and Pain of the Left Hand HPI Patient here today for left thumb pain x 1 month. He did have an injury when he was working in his barn with a drill and his thumb was pulled back. 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 He did have an x-ray on 01/20/[address] scan on 01/21/2022. ASSESSMENT: M18.12 Primary osteoarthritis of first carpometacarpal joint of left hand (primary encounter diagnosis) M65.312 Trigger finger of left thumb PLAN: I think he simply has an exacerbation of the baseline CMC joint arthritis. We will try a bit of a brace some topical anti-inflammatory. May consider cortisone injection. Natural course and treatment options of the arthritic joint were reviewed. FOLLOW UP INSTRUCTIONS: As needed Mr. Bart Talley was advised as to contrast therapies and/or to take analgesics/anti-inflammatories as needed and all contraindications were reviewed. OBJECTIVE: Mr. Bart Talley is a pleasant 61 year old in no apparent distress. Gen:There were no vitals taken for this visit. nl development, obese, no deformities ENT: Normocephalic, normal hearing, moist mucosa CV: Pulses:Radial= 2+ and symmetric, capillary refill < 2 secs, no peripheral edema/varicosities Skin: no rash, bruising or lesions. Good turgor. Psych: cooperative and appropriate, alert and oriented x 3, good mood and affect. Musculoskeletal: No obvious or significant swelling of the hand or thumb. He does have some mild tenderness at the MCP joint but more prominently at the CMC joint. Pain on grind testing with some minor mechanical symptoms but no frankly crepitance. Tender at the dorsal joint capsule. Some limited motion. Median, radial ulnar nerves intact. Mild tenderness at the A1 drake site of the thumb as well. IMAGING: IMPRESSION: SEVERE OSTEOARTHRITIS OF THE FIRST CMC JOINT. OTHER MILD DEGENERATIVE CHANGES DESCRIBED. 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 Additional history provided by the performing technologist (if any): Pt with Lt hadn injury ,states feels DISLOCATED AT THUMB AREA, swollen ,very painful TECHNIQUE: CT HAND WO IVCON LT COMPARISON: Radiographs 01/20/2022 RESULT: Severe osteoarthritis of the first CMC joint with [id number] contact and prominent osteophytes. Mild osteoarthritis of the thumb MCP joint and the IP joint of the thumb. No other significant abnormality. Supporting Subjective Information Below: Past Medical History: PAST MEDICAL HISTORY Diagnosis Date Abdominal aortic aneurysm 2013 fusiform infrarenal [place] aortic aneurysm Colon polyps Depression Esophageal reflux Generalized anxiety disorder GERD (gastroesophageal reflux disease) Hematoma 2021 right side abdomen History of DVT (deep vein thrombosis) age 29's post-op knee right, second on left-is on chronic anticoagulation. both blood clots occurred after surgery Hyperlipidemia Hypertension Iron deficiency anemia Prostate cancer (HCC) Restless leg syndrome Snoring has not had cpap testing. Tobacco use disorder Past Surgical History: PAST SURGICAL HISTORY Procedure Laterality Date ARTHROSCOPY KNEE DIAGNOSTIC W/WO SYNOVIAL BX SPX age 29's Arthroscopy, right knee per Dr. Stover- blood clots after COLONOSCOPY 04/10/2014 hemorrhiods, diverticulosis COLONOSCOPY FLX DX W/COLLJ SPEC WHEN PFRMD 07/16/2017 Three small polyps ,adenomatous and hyperplastic COLONOSCOPY FLX DX W/COLLJ SPEC WHEN PFRMD 11/25/2020 EGD 04/10/2014 esophagitis, gastritis,Non-severe reflux esophagitis ENDVAS REP ABD AOR MOD PROST 06/28/2014 AAA REPAIR and re repair 2019 ESOPHAGOGASTRODUODENOSCOPY TRANSORAL DIAGNOSTIC 07/16/2017 Gastritis,Small hiatal hernia, ESOPHAGOGASTRODUODENOSCOPY TRANSORAL DIAGNOSTIC 11/25/2020 EXCISION PILONIDAL CYST/SINUS SIMPLE HERNIA REPAIR HX LAPAROSCOPY REPAIR INCISIONAL HERNIA REDUCIBLE 08/27/2021 LAPAROSCOPY SURG CHOLECYSTECTOMY 09/2003 Cholecystectomy, lap TOOTH EXTRACTION 05/2014 all teeth extracted-periodontal disease, abd aneurysm Family History: FAMILY HISTORY Problem Relation Age of Onset Hypertension Mother Blood Clots Mother Cancer Father mouth No Known Problems Sister Colon Polyps Sister Diabetes Sister Colon Cancer Sister 49 Cancer Maternal Grandfather Heart Attack Maternal Grandfather other (black lung) Paternal Grandfather No Known Problems Daughter No Known Problems Son Cancer Maternal Aunt melonoma Colon Cancer Maternal Uncle several Social History: Social History Tobacco Use Smoking status: Every Day Packs/day: 1.00 Years: 40.00 Pack years: 40.00 Types: Cigarettes Smokeless tobacco: Never Tobacco comments: 1/2 to 1 pack Vaping Use Vaping Use: Never used Substance Use Topics Alcohol use: Not Currently Comment: rare occassion Drug use: No Comment: mod-large amount coffee per day Medications: Current Outpatient Medications Medication Sig warfarin (COUMADIN) 5 mg tablet 2.5 mg MWF, 5 mg all other days or as directed cyclobenzaprine (FLEXERIL) 10 mg tablet Take 1 tablet by mouth three times daily as needed for muscle spasm. olmesartan (BENICAR) 20 mg tablet Take 1 tablet by mouth once daily. atorvastatin (LIPITOR) 80 mg tablet Take 1 tablet by mouth daily at bedtime. For cholesterol. folic acid 1 mg tablet Take 1 tablet by mouth once daily. PARoxetine (PAXIL) 20 mg tablet Take 1 tablet by mouth once daily. famotidine (PEPCID) 20 mg tablet Take 1 tablet by mouth once daily. metoprolol tartrate, short acting, (LOPRESSOR) 50 mg tablet Take 1 tablet by mouth twice daily. ferrous sulfate (IRON) 325 mg (65 mg iron) tablet Take 1 tablet by mouth twice daily. amitriptyline (ELAVIL) 50 mg tablet Take 1 tablet by mouth daily at bedtime. omeprazole (PRILOSEC) 40 mg capsule Take 1 capsule by mouth once daily. calcium carbonate (CALCIUM 600 ORAL) Take by mouth twice daily. aspirin, enteric coated (ADULT LOW DOSE ASPIRIN) 81 mg EC tablet Take 1 tablet by mouth once daily. sildenafil (VIAGRA) 50 mg tablet Use as directed once a day No current facility-administered medications for this visit. Allergies: Cipro [Ciprofloxacin] ROS: General (negative for fatigue, malaise, weight loss/gain) HEENT (negative for headache, earache, recent vision changes, sinus pain, sore throat) Respiratory (no recent shortness of breath, hemoptysis) CV (negative for chest tightness, palpitations) Musculoskeletal (see HPI) Psych (no depression, anxiety) REFERRING PHYSICIAN: Mr. Bart Talley was referred to me for consultation by the following physician. This consultation note will be sent to the following physician by either mail or electronic medical record. Bryan White [address] [facility] [address] Marco Mary MD [address] [facility] [address] Yovani Munoz MD documented in this encounter [facility] 02-23-2022 Miscellaneous Notes Spouse notified & verbalized understanding of instructions. Tracker updated. Fany Hanna MA Same dose. Recheck one month Last INR: INR 2.5 02/21/2022 Current dose of coumadin is: 2.5mg MWF and 5mg all other days. Last date of dose change: 01/20/22 held for 1 day. Previous INR (date and result): 01/20/22 4.1 Additional Clinical Information or narrative: no documented in this encounter [facility] 02-12-2022 Miscellaneous Notes Patient notified and he will call in to get set up with ortho. Addended by: Bryan WHITE on: 02/12/2022 04:58 PM Modules accepted: Orders Patient calling and said his left thumb pops when he moves it and very sore to touch. Patient is not wearing anything on thumb, said brace did not help. Patient is using ice and taking ibuprofen 6 tablets daily. Patient said he can not use his hand much, to open doors or anything has to use right hand. Patient asking what should he do next? Please advise documented in this encounter [facility] 01-21-2022 History of Presen t illness Narrative Radiology Service Progress Note PATIENT NAME: aBrt Talley DATE OF SERVICE: January 21, 2022 TIME: 1:34 PM PATIENT IDENTITY VERIFICATION COMPLETED USING TWO (2) IDENTIFIERS: Name and Date of confirmed by patient verbally. FALL SCREENING: Has the patient had 2 falls in the last year or 1 fall with injury or currently using an Ambulatory Assistive Device (Walker, Cane, Wheelchair, Crutches, etc.)? No PATIENT GENDER DATA: Male PATIENT RELEVANT IMPLANT DATA REVIEWED: Yes RADIOLOGY DEPARTMENT: CT; Exam(s) Completed: lt hand w/o PERIPHERAL IV DATA: Not applicable SIGNED BY: RT Philippe(R) January 21, 2022 1:34 PM documented in this encounter [facility] 01-20-2022 Miscellaneous Notes Pt notified. Tracker and med list updated. Erika Vega Ma Hold x 1 day, then 2.5 on MWF, 5 mg a day rest of the week. Recheck one week Last INR: INR 4.1 01/20/2022 Current dose of coumadin is: 2.5 mg Tues, Fri and 5 mg all other days. Last date of dose change: . Previous INR (date and result): 2.7 on 12/09/21 Additional Clinical Information or narrative: no Monika Diaz Ma documented in this encounter [facility] 01-20-2022 Miscellaneous Notes I spoke with patient, reviewed xray result. He is following up with his PCP today. RESULT: 3 views of the left wrist and 3 views of the left hand are obtained. No acute fracture or dislocation. There is narrowing of the left first carpometacarpal joint with subchondral sclerosis and marginal osteophytes. There is mild narrowing of the interphalangeal joint of the left thumb. IMPRESSION IMPRESSION: No acute fracture or dislocation Iron Installer: DARLENE Transcribe Date/Time: Jan 20 2022 8:54A Dictated by : MD May SHANKS APRN.APPRAISAL COORDINATOR documented in this encounter [facility] 01-09-2022 Miscellaneous Notes Patient has been identified by name and date of : Yes Requested Prescriptions Pending Prescriptions Disp Refills atorvastatin (LIPITOR) 80 mg tablet 90 tablet 2 Sig: Take 1 tablet by mouth daily at bedtime. For cholesterol. cyclobenzaprine (FLEXERIL) 10 mg tablet 30 tablet 1 Sig: Take 1 tablet by mouth three times daily as needed for muscle spasm. RX INSTRUCTIONS: Patient aware RX will be sent to pharmacy. No need to notify patient. Reshma Jama Pss documented in this encounter [facility] 12-12-2021 Note HNO ID: [id number] Author: Shashi Arce Jr., MD Service: ? Author Type: Physician Type: Progress Notes Filed: 12/12/2021 9:35 AM Note Text: ESTABLISHED PATIENT OFFICE VISIT HPI Bart Talley is a 61 year old male who presents diagnosed with Clinical Stage(1c) Radha's score?7?(3+4) adenocarcinoma of the prostate with an associated PSA of?14.24?and an estimated prostatic volume of 34. He had?6?of 12 cores positive with disease identified in the 6?portion(s) of the prostate.? ? He underwent RALP with bilateral pelvic lymphadenectomy 03/10. ? He was admitted postoperatively after corral wasn't draining. He experienced bladder spasms and constipation. ? He is here for one week follow up and corral removal. Still with significant spasms and constipation. On lovenox bridge. Following INR with Dr. Mary ? Path: A. PROSTATE, RADICAL PROSTATECTOMY AND BILATERAL PELVIC LYMPH NODES: Prostatic acinar adenocarcinoma, Austin score 3+4=7 (Grade group 2), (see comment and synoptic report). - Extraprostatic extension is present. - The right anterior and left lateral margins are involved by carcinoma. Five (5) benign lymph nodes (0/5). Pathologic stage: pT3a ? 08/14/21 - doing well. Minimal voiding complaints. Still with some leakage but improving. Still in diaper but generally 1 a day and not very wet. psa <0.02. 6 months sp ralp. 12/11/21 - 9 months sp ralp. Minimal lacey. No erections. psa <0.02. no uti. Feels well otherwise. LAB: Creatinine Date Value Ref Range Status 06/23/2021 1.10 0.73 - 1.22 mg/dL Final PSA (ng/mL) Date Value 12/09/2021 <0.02 09/10/2021 <0.02 08/06/2021 <0.02 05/31/2021 <0.02 10/29/2020 14.24 PSA Screening (ng/mL) Date Value 10/24/2020 16.00 Glucose, Urine (mg/dL) Date Value 04/05/2018 neg Bilirubin, Urine (no units) Date Value 04/05/2018 neg Ketones, Urine (no units) Date Value 04/05/2018 neg Specific [place], Ur (no units) Date Value 04/05/2018 1.015 Hemoglobin/Blood,Ur (no units) Date Value 04/05/2018 neg pH, Urine (no units) Date Value 04/05/2018 5.0 Protein, Urine (mg/dL) Date Value 04/05/2018 neg Urobilinogen, Urine (EU) Date Value 04/05/2018 0.2 Nitrites (no units) Date Value 04/05/2018 neg Leukocytes (no units) Date Value 04/05/2018 neg Color/Appearance (comment:) Date Value 04/05/2018 dark yellow MEDICATIONS: cyclobenzaprine (FLEXERIL) 10 mg tablet Take 1 tablet by mouth three times daily as needed for muscle spasm. folic acid 1 mg tablet Take 1 tablet by mouth once daily. HYDROcodone-acetaminophen (NORCO) 5-325 mg per tablet Take 1 tablet by mouth every 6 hours as needed for pain. PARoxetine (PAXIL) 20 mg tablet Take 1 tablet by mouth once daily. warfarin (COUMADIN) 5 mg tablet Take 1 tablet by mouth daily as directed. famotidine (PEPCID) 20 mg tablet Take 1 tablet by mouth once daily. metoprolol tartrate, short acting, (LOPRESSOR) 50 mg tablet Take 1 tablet by mouth twice daily. olmesartan (BENICAR) 20 mg tablet Take 1 tablet by mouth once daily. ferrous sulfate (IRON) 325 mg (65 mg iron) tablet Take 1 tablet by mouth twice daily. atorvastatin (LIPITOR) 80 mg tablet Take 1 tablet by mouth daily at bedtime. For cholesterol. omeprazole (PRILOSEC) 40 mg capsule Take 1 capsule by mouth once daily. acetaminophen (TYLENOL) 325 mg tablet Take 2 tablets by mouth every 6 hours as needed. calcium carbonate (CALCIUM 600 ORAL) Take by mouth twice daily. aspirin, enteric coated (ADULT LOW DOSE ASPIRIN) 81 mg EC tablet Take 1 tablet by mouth once daily. sildenafil (VIAGRA) 50 mg tablet Use as directed once a day amitriptyline (ELAVIL) 50 mg tablet Take 1 tablet by mouth daily at bedtime. REVIEW OF SYSTEMS Review of Systems Constitutional: Negative. Respiratory: Negative. Cardiovascular: Negative. Gastrointestinal: Negative. Genitourinary: Negative. Skin: Negative. Neurological: Negative. Psychiatric/Behavioral: Negative. HISTORIES PAST MEDICAL HISTORY Diagnosis Date - Abdominal aortic aneurysm (HCC) 2013 fusiform infrarenal [place] aortic aneurysm - Colon polyps - Depression - Esophageal reflux - Generalized anxiety disorder - GERD (gastroesophageal reflux disease) - Hematoma 2021 right side abdomen - History of DVT (deep vein thrombosis) age 29's post-op knee right, second on left-is on chronic anticoagulation. both blood clots occurred after surgery - Hyperlipidemia - Hypertension - Iron deficiency anemia - Prostate cancer (HCC) - Restless leg syndrome - Snoring has not had cpap testing. - Tobacco use disorder FAMILY HISTORY Problem Relation Age of Onset - Hypertension Mother - Blood Clots Mother - Cancer Father mouth - No Known Problems Sister - Colon Polyps Sister - Diabetes Sister - Colon Cancer Sister 49 - Cancer Maternal Grandfather - Heart Attack Maternal Grandfather - other (bl (more content not included)... [facility] 12-12-2021 History of Presen t illness Narrative ESTABLISHED PATIENT OFFICE VISIT HPI Bart Talley is a 61 year old male who presents diagnosed with Clinical Stage(1c) Radha's score 7 (3+4) adenocarcinoma of the prostate with an associated PSA of 14.24 and an estimated prostatic volume of 34. He had 6 of 12 cores positive with disease identified in the 6 portion(s) of the prostate. He underwent RALP with bilateral pelvic lymphadenectomy 03/10. He was admitted postoperatively after corral wasn't draining. He experienced bladder spasms and constipation. He is here for one week follow up and corral removal. Still with significant spasms and constipation. On lovenox bridge. Following INR with Dr. Mary Path: A. PROSTATE, RADICAL PROSTATECTOMY AND BILATERAL PELVIC LYMPH NODES: Prostatic acinar adenocarcinoma, Austin score 3+4=7 (Grade group 2), (see comment and synoptic report). - Extraprostatic extension is present. - The right anterior and left lateral margins are involved by carcinoma. Five (5) benign lymph nodes (0/5). Pathologic stage: pT3a 08/14/21 - doing well. Minimal voiding complaints. Still with some leakage but improving. Still in diaper but generally 1 a day and not very wet. psa <0.02. 6 months sp ralp. 12/11/21 - 9 months sp ralp. Minimal lacey. No erections. psa <0.02. no uti. Feels well otherwise. LAB: Creatinine Date Value Ref Range Status 06/23/2021 1.10 0.73 - 1.22 mg/dL Final PSA (ng/mL) Date Value 12/09/2021 <0.02 09/10/2021 <0.02 08/06/2021 <0.02 05/31/2021 <0.02 10/29/2020 14.24 PSA Screening (ng/mL) Date Value 10/24/2020 16.00 Glucose, Urine (mg/dL) Date Value 04/05/2018 neg Bilirubin, Urine (no units) Date Value 04/05/2018 neg Ketones, Urine (no units) Date Value 04/05/2018 neg Specific [place], Ur (no units) Date Value 04/05/2018 1.015 Hemoglobin/Blood,Ur (no units) Date Value 04/05/2018 neg pH, Urine (no units) Date Value 04/05/2018 5.0 Protein, Urine (mg/dL) Date Value 04/05/2018 neg Urobilinogen, Urine (EU) Date Value 04/05/2018 0.2 Nitrites (no units) Date Value 04/05/2018 neg Leukocytes (no units) Date Value 04/05/2018 neg Color/Appearance (comment:) Date Value 04/05/2018 dark yellow MEDICATIONS: cyclobenzaprine (FLEXERIL) 10 mg tablet Take 1 tablet by mouth three times daily as needed for muscle spasm. folic acid 1 mg tablet Take 1 tablet by mouth once daily. HYDROcodone-acetaminophen (NORCO) 5-325 mg per tablet Take 1 tablet by mouth every 6 hours as needed for pain. PARoxetine (PAXIL) 20 mg tablet Take 1 tablet by mouth once daily. warfarin (COUMADIN) 5 mg tablet Take 1 tablet by mouth daily as directed. famotidine (PEPCID) 20 mg tablet Take 1 tablet by mouth once daily. metoprolol tartrate, short acting, (LOPRESSOR) 50 mg tablet Take 1 tablet by mouth twice daily. olmesartan (BENICAR) 20 mg tablet Take 1 tablet by mouth once daily. ferrous sulfate (IRON) 325 mg (65 mg iron) tablet Take 1 tablet by mouth twice daily. atorvastatin (LIPITOR) 80 mg tablet Take 1 tablet by mouth daily at bedtime. For cholesterol. omeprazole (PRILOSEC) 40 mg capsule Take 1 capsule by mouth once daily. acetaminophen (TYLENOL) 325 mg tablet Take 2 tablets by mouth every 6 hours as needed. calcium carbonate (CALCIUM 600 ORAL) Take by mouth twice daily. aspirin, enteric coated (ADULT LOW DOSE ASPIRIN) 81 mg EC tablet Take 1 tablet by mouth once daily. sildenafil (VIAGRA) 50 mg tablet Use as directed once a day amitriptyline (ELAVIL) 50 mg tablet Take 1 tablet by mouth daily at bedtime. REVIEW OF SYSTEMS Review of Systems Constitutional: Negative. Respiratory: Negative. Cardiovascular: Negative. Gastrointestinal: Negative. Genitourinary: Negative. Skin: Negative. Neurological: Negative. Psychiatric/Behavioral: Negative. HISTORIES PAST MEDICAL HISTORY Diagnosis Date Abdominal aortic aneurysm (HCC) 2013 fusiform infrarenal [place] aortic aneurysm Colon polyps Depression Esophageal reflux Generalized anxiety disorder GERD (gastroesophageal reflux disease) Hematoma 2021 right side abdomen History of DVT (deep vein thrombosis) age 29's post-op knee right, second on left-is on chronic anticoagulation. both blood clots occurred after surgery Hyperlipidemia Hypertension Iron deficiency anemia Prostate cancer (HCC) Restless leg syndrome Snoring has not had cpap testing. Tobacco use disorder FAMILY HISTORY Problem Relation Age of Onset Hypertension Mother Blood Clots Mother Cancer Father mouth No Known Problems Sister Colon Polyps Sister Diabetes Sister Colon Cancer Sister 49 Cancer Maternal Grandfather Heart Attack Maternal Grandfather other (black lung) Paternal Grandfather No Known Problems Daughter No Known Problems Son Cancer Maternal Aunt melonoma Colon Cancer Maternal Uncle several SOCIAL HISTORY Social History Tobacco Use Smoking status: Current Every Day Smoker Packs/day: 1.00 Years: 40.00 Pack years: 40.00 Types: Cigarettes Smokeless tobacco: Never Used Tobacco comment: 1/2 to 1 pack Vaping Use Vaping Use: Never used Substance Use Topics Alcohol use: Not Currently Comment: rare occassion Drug use: No Comment: mod-large amount coffee per day PHYSICAL EXAMINATION General appearance: Well appearing, alert, in no acute distress and well-hydrated, well nourished Skin: Skin color, texture, turgor normal, no suspicious rashes or lesions Respiratory:+ effort Cardiovascular: Not examined GI: Normal abdominal exam, Abdomen soft, non-tender. No masses, organomegaly Musculoskeletal: Negative Neuro: Negative Genitourinary: not examined Impression: (C61) Prostate cancer (HCC) (primary encounter diagnosis) Plan: 6 months psa prior Shashi Arce Jr, MD 12/12/2021 documented in this encounter [facility] 12-09-2021 Miscellaneous Notes Patient was notified and tracker updated Letty Vang Ma Same. Recheck one month Last INR: INR 2.7 12/09/2021 Current dose of coumadin is: 2.5 mg Tues, Fri and 5 mg all other days. Previous INR (date and result): 2.3 on 11/03/21 Additional Clinical Information or narrative: no documented in this encounter [facility] 12-05-2021 Miscellaneous Notes Patient has been identified by name and date of : Yes Patient phones for refill(s): Pending Prescriptions Disp Refills CYCLOBENZAPRINE 10 MG TABLET 30 tablet 1 Sig: Take 1 tablet by mouth three times daily as needed for muscle spasm. STEFANO: No FOLIC ACID 1 MG TABLET 30 tablet 5 Sig: Take 1 tablet by mouth once daily. STEFANO: No Date of last office visit in primary care: 11/04/21 Last 2 Encounter Wt Readings: Date: Wt: 11/04/2021 115.4 kg (254 lb 6.4 oz) 09/04/2021 117.5 kg (259 lb) Previous labs/tests for medication: Not applicable Please advise. Thank you. Nhung Barrera LPN documented in this encounter [facility] 12-04-2021 Miscellaneous Notes PSA pended for 12/11/21 appt. Ramana Umana Ma documented in this encounter [facility] 11-05-2021 Miscellaneous Notes Pt notified via mychart. Joanne Elizondo APRN.APPRAISAL COORDINATOR Copy received and given to provider for further review. Catalino Marin LPN Can we try to get a copy of this? Patient calls and notified of results and providers instructions below. Patient verbalizes understanding. Patient reports that he did have the US of right leg completed at [facility] and was told it was negative for DVT. Ni Bains, OLIVIA Left a message for pt to call the office and ask to speak to a nurse. Loni Jama LPN I would continue w/ our current plan. This may improve itself. Continue to rest, ice, and prop. If it is not improving or worsening, let us know. Did he get his ultrasound done? returned call, given below results/recommendation. Agreed to take appt w/ortho 11/24/2021. Asking if there is anything else that he can do at this time. Tamera Sotelo LPN Spoke /c scheduling, pt can be seen in [facility] on 11/24 at 3pm. Appt scheduled. Please let pt know when he returns call to office. TC to pt, left message to return call to office. (Checking with scheduling to see if can get a sooner appt with Ortho) Can please let patient know that I received his xray results. It does show some degenerative changes. It also is suspicious for chondrocalcinosis. This is something that is similar to gout and can cause acute flare-ups of joint pain -- most commonly the knee. Can we please see if ortho has any availability before his scheduled appt in December, as he may need an injection to help calm it down. Joanne Elizondo APRN.AJITH documented in this encounter [facility] 11-04-2021 Instructions Joanne Elizondo APRN.AJITH - 11/04/2021 8:07 AM EDT 1. Get the xray. 2. Schedule the ultrasound today. 3. Prop the knee. 4. Ice the knee. 5. Continue the compression. 6. Schedule w/ ortho. documented in this encounter [facility] 11-04-2021 History of Presen t illness Narrative This is a 61 year old male who presents today with: Patient presents with: Right Knee Pain: with swelling x 5 days HISTORY OF PRESENT ILLNESS: Bart Talley is a 61 year old male. Patient presents with: Right Knee Pain: with swelling x 5 days Pain in the left leg for the last 4-5 days. Refers that he could hardly walk yesterday. 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 Doesn't recall any injuries. Painful, could hardly walk. Was using crutches. Pain around the knee - primarily the medial aspect. No redness. + swelling. Pain in the the posterior thigh. Hx of right knee surgery and being told its bone on bone. Not popping. No giving out. Painful to ambulate. He is anticoagulated. He has factor V Hx of DVT. INR therapeutic. No back pain. No n/t. No loss of bowel/bladder. PAST MEDICAL HISTORY: PAST MEDICAL HISTORY Diagnosis Date Abdominal aortic aneurysm (HCC) 2013 fusiform infrarenal [place] aortic aneurysm Colon polyps Depression Esophageal reflux Generalized anxiety disorder GERD (gastroesophageal reflux disease) Hematoma 2021 right side abdomen History of DVT (deep vein thrombosis) age 29's post-op knee right, second on left-is on chronic anticoagulation. both blood clots occurred after surgery Hyperlipidemia Hypertension Iron deficiency anemia Prostate cancer (HCC) Restless leg syndrome Snoring has not had cpap testing. Tobacco use disorder PAST SURGICAL HISTORY Procedure Laterality Date ARTHROSCOPY KNEE DIAGNOSTIC W/WO SYNOVIAL BX SPX age 29's Arthroscopy, right knee per Dr. Stover- blood clots after COLONOSCOPY 04/10/2014 hemorrhiods, diverticulosis COLONOSCOPY FLX DX W/COLLJ SPEC WHEN PFRMD 07/16/2017 Three small polyps ,adenomatous and hyperplastic COLONOSCOPY FLX DX W/COLLJ SPEC WHEN PFRMD 11/25/2020 EGD 04/10/2014 esophagitis, gastritis,Non-severe reflux esophagitis ENDVAS REP ABD AOR MOD PROST 06/28/2014 AAA REPAIR and re repair 2019 ESOPHAGOGASTRODUODENOSCOPY TRANSORAL DIAGNOSTIC 07/16/2017 Gastritis,Small hiatal hernia, ESOPHAGOGASTRODUODENOSCOPY TRANSORAL DIAGNOSTIC 11/25/2020 EXCISION PILONIDAL CYST/SINUS SIMPLE HERNIA REPAIR HX LAPAROSCOPY REPAIR INCISIONAL HERNIA REDUCIBLE 08/27/2021 LAPAROSCOPY SURG CHOLECYSTECTOMY 09/2003 Cholecystectomy, lap TOOTH EXTRACTION 05/2014 all teeth extracted-periodontal disease, abd aneurysm ALLERGIES Cipro [Ciprofloxacin] MEDICATIONS Current Outpatient Medications Medication Sig cyclobenzaprine (FLEXERIL) 10 mg tablet Take 1 tablet by mouth three times daily as needed for muscle spasm. PARoxetine (PAXIL) 20 mg tablet Take 1 tablet by mouth once daily. warfarin (COUMADIN) 5 mg tablet Take 1 tablet by mouth daily as directed. famotidine (PEPCID) 20 mg tablet Take 1 tablet by mouth once daily. metoprolol tartrate, short acting, (LOPRESSOR) 50 mg tablet Take 1 tablet by mouth twice daily. olmesartan (BENICAR) 20 mg tablet Take 1 tablet by mouth once daily. ferrous sulfate (IRON) 325 mg (65 mg iron) tablet Take 1 tablet by mouth twice daily. atorvastatin (LIPITOR) 80 mg tablet Take 1 tablet by mouth daily at bedtime. For cholesterol. amitriptyline (ELAVIL) 50 mg tablet Take 1 tablet by mouth daily at bedtime. folic acid 1 mg tablet Take 1 tablet by mouth once daily. omeprazole (PRILOSEC) 40 mg capsule Take 1 capsule by mouth once daily. acetaminophen (TYLENOL) 325 mg tablet Take 2 tablets by mouth every 6 hours as needed. calcium carbonate (CALCIUM 600 ORAL) Take by mouth twice daily. aspirin, enteric coated (ADULT LOW DOSE ASPIRIN) 81 mg EC tablet Take 1 tablet by mouth once daily. sildenafil (VIAGRA) 50 mg tablet Use as directed once a day oxyCODONE-acetaminophen (PERCOCET) 5-325 mg tablet Take 1 tablet by mouth four times daily as needed for pain. FOR PAIN. (Patient not taking: Reported on 11/04/2021) HYDROcodone-Acetaminophen (NORCO) 7.5-325 mg per tablet Take 1 tablet by mouth every 6 hours as needed for pain. (Patient not taking: Reported on 11/04/2021) No current facility-administered medications for this visit. FAMILY HISTORY Problem Relation Age of Onset Hypertension Mother Blood Clots Mother Cancer Father mouth No Known Problems Sister Colon Polyps Sister Diabetes Sister Colon Cancer Sister 49 Cancer Maternal Grandfather Heart Attack Maternal Grandfather other (black lung) Paternal Grandfather No Known Problems Daughter No Known Problems Son Cancer Maternal Aunt melonoma Colon Cancer Maternal Uncle several Social History Tobacco Use Smoking status: Current Every Day Smoker Packs/day: 1.00 Years: 40.00 Pack years: 40.00 Types: Cigarettes Smokeless tobacco: Never Used Tobacco comment: 1/2 to 1 pack Vaping Use Vaping Use: Never used Substance Use Topics Alcohol use: Not Currently Comment: rare occassion Drug use: No Comment: mod-large amount coffee per day EXAM: BP 128/82 Pulse 93 Resp 20 Wt 115.4 kg (254 lb 6.4 oz) SpO2 96% BMI 34.50 kg/m PHYSICAL EXAM: General Appearance: Well appearing, alert, in no acute distress, well-hydrated, well nourished.. Skin: Skin color, texture, turgor normal, no suspicious rashes or lesions. Head: Normocephalic, no masses, lesions, tenderness or abnormalities. Eyes: Anicteric sclera. Extraocular movements are intact. . Lungs: Lungs clear to auscultation. No wheezing, rhonchi, rales.. Heart: RRR without murmur, gallop, or rubs. No ectopy. Lower extremities equal or nearly equal in bulk and tone. Mild increase warmth of the right anterior knee. No redness. + swelling of the right knee. ROM limited d/t pain. No pain or laxity with varus or valgus stress. Assessment limited d/t pain. ASSESSMENT/PLAN: 1. Leg swelling - ICD9: 729.81, ICD10: M79.89 (primary diagnosis) Pt w/ hx of DVT. Will go ahead and get ultrasound d/t posterior leg pain. + swelling of the right knee. Will get xray. Continue compression. Ice the knee. Prop the knee. Medication choices for pain limited d/t chronic anticoagulation. Will start vicodin. - US LEG VEIN DVT UNL VAS LAB - XR KNEE GENERAL 4V AP BOTH/PA BOTH/LAT/MERC RIGHT - HYDROCODONE 5 MG-ACETAMINOPHEN 325 MG TABLET - CONSULT TO ORTHOPAEDICS 2. Acute pain of right knee - ICD9: 719.46, ICD10: M25.561 As above. - HYDROCODONE 5 MG-ACETAMINOPHEN 325 MG TABLET - CONSULT TO ORTHOPAEDICS Discussed treatment plan and patient voices understanding. Patient's questions answered appropriately. Medications and potential side effects were discussed and patient voices understanding. Return to the office as scheduled or as needed for worsening/no improvement. documented in this encounter [facility] 11-03-2021 Miscellaneous Notes Spoke /c pt , notified of provider instructions. She verbalized understanding. Catalino Marin LPN Same dose. Recheck one month INR 2.3 Current dose is 2.5 mg Tues Fri and 5 mg all other days. documented in this encounter [facility] 10-31-2021 Miscellaneous Notes Patient has been identified by name and date of : Yes Pending Prescriptions Disp Refills CYCLOBENZAPRINE 10 MG TABLET 30 tablet 1 Sig: Take 1 tablet by mouth three times daily as needed for muscle spasm. STEFANO: No RX INSTRUCTIONS: Patient aware RX will be sent to pharmacy. No need to notify patient. Ruby Beasley Ma documented in this encounter [facility] 10-24-2021 Miscellaneous Notes Bart benson requesting a letter releasing him back to work/full duty be faxed to his employer at [phone]. He will be returning on 10/27/2021. Letter faxed. Fax confirmation sheet received. Yazmin Marcos RN documented in this encounter [facility] 10-21-2021 Miscellaneous Notes Pt notified. He verbalized understanding. Catalino Marin LPN Change to 2.5mg Wednesday and Wed, all other days 5mg Recheck in 2 weeks ThanksGuillermo PA-C Last INR: INR 3.7 10/21/2021 Current dose of coumadin is: 2.5 mg on , 5 mg all other days. Last date of dose change: 09/11/21. Previous INR (date and result): 2.5 on 09/29/21 Additional Clinical Information or narrative: no documented in this encounter [facility] 10-21-2021 Miscellaneous Notes Pt called and stated that he needs a note for work so that he can return on the 10/27/2021. Please upload to [employer]. documented in this encounter [facility] 09-29-2021 Miscellaneous Notes Detailed message left with dosage instructions on voicemail Same. Recheck in two weeks. Last INR: INR 2.5 09/29/2021 Current dose of coumadin is: 2.5 mg on , 5 mg all other days. Last date of dose change: 09/11/21. Previous INR (date and result): 3.1 on 09/10/21 Additional Clinical Information or narrative: no documented in this encounter [facility] 09-26-2021 Miscellaneous Notes Patient has been identified by name and date of : Yes Pending Prescriptions Disp Refills PAROXETINE 20 MG TABLET 30 tablet 5 Sig: Take 1 tablet by mouth once daily. STEFANO: No CYCLOBENZAPRINE 10 MG TABLET 30 tablet 1 Sig: Take 1 tablet by mouth three times daily as needed for muscle spasm. STEFANO: No WARFARIN 5 MG TABLET 90 tablet 2 Sig: Take 1 tablet by mouth daily as directed. STEFANO: No RX INSTRUCTIONS: Patient aware RX will be sent to pharmacy. No need to notify patient. Jennifer Powell Pss documented in this encounter [facility] 09-11-2021 Miscellaneous Notes Phoned patient and given provider's instructions below with verbalized understanding. 2.5 on TH, 5 mg a day rest of the week. Recheck one week Last INR: INR 3.1 09/10/2021 Current dose of coumadin is: 5 mg daily. Previous INR (date and result): 1.3 08/12/21 Additional Clinical Information or narrative: yes: Pt did not bridge after surgery documented in this encounter [facility] 09-04-2021 History of Presen t illness Narrative FOLLOW UP VISIT - HERNIA NAME: Bart Monsalve [facility] NO.: [id number] DATE OF SERVICE: 09/04/2021 : 1960 REFERRING PHYSICIAN: Marco Mary MD Bart is a patient I am following for a incisional and an umbilical hernia. Bart is a 61 year old male with a complaint of a bulge and discomfort in his prior supraumbilical incision. The patient notes discomfort in this area with lifting, straining and coughing. The symptoms have increased, over the past few months. The patient has a history of prostate cancer. Underwent a robotic radical prostatectomy with bilateral pelvic lymphadenectomy on March 10, 2021. The patient presented to the emergency department at [facility] and was transferred to [facility] due to a right rectus sheath hematoma. The patient noted abdominal pain in the area and was found to have a 4.1 x 8.2 cm rectus sheath hematoma with concern for possible extravasation. The patient had a previous history of DVTs and had been on Coumadin. His INR at that time was 2.3. He Jean Pierre was judged to be stable and no intervention was performed. The patient notes no symptoms of bowel obstruction and denies nausea or vomiting. The patient was seen by his primary care physician who felt the patient has a hernia. Bart was referred for evaluation and treatment. A CT scan of the abdomen pelvis was done in July 28, 2021. This demonstrated an incisional hernia at the expected site of the robotic camera/docking site just in the midline approximately 6 cm superior to the umbilicus with a smaller umbilical hernia. The patient's rectus sheath hematoma when compared to previous CT scan had pretty much resolved such that this was not noted in the CT scan report. The patient's aortobifem and endograft were both noted to be in place The patient is being seen by me at the request of Bryan White PA-C my opinion and advice regarding incisional hernia. I performed a laparoscopic incisional hernia repair with mesh on August 27, 2021. The patient was found to have a smaller umbilical hernia and then approximately 1 to 2 cm defect in the upper midline where he had his previous docking for his robotic prostatectomy. The difference between the 2 sites from the umbilicus. Aspect of the incision he was approximately 6 cm. I placed a 15 x 10 cm mesh. The patient currently notes no significant complaints. his appetite has been good. he denies fever, chills or abdominal pain. he does note some minimal incisional discomfort. he notes no bulges at the operative site VITALS: Blood pressure 132/88, pulse 89, temperature 36.5 C (97.7 F), weight 117.5 kg (259 lb), SpO2 95 %. On examination, the abdomen is benign. The incisions are healing well without signs of infection or inflammation. There are no signs of recurrent hernia formation. Assessment IMPRESSION: status post laparoscopic incisional hernia repair with mesh PLAN: If the patient notes any problems, he should contact me immediately. he may return to his regular activities as tolerated, with the exception of no lifting greater than 20 pounds for the next 7 weeks. Diagnoses: (K43.2) Incisional hernia, without obstruction or gangrene (primary encounter diagnosis) (S30.1XXA) Hematoma of rectus sheath, initial encounter Return to Clinic: The patient is instructed to follow-up with me as needed. 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 Staffing SUSTAINABILITY MANAGER: Zuleyka Rivas APRN.SUSTAINABILITY MANAGER Performed by: SUSTAINABILITY MANAGER Indications and Patient Condition Preoxygenated: yes Patient position: sniffing Indications for airway management: anesthesia anesthesia circuit Method: asleep Final Airway Details Final airway type: endotracheal airway Final Endotracheal Airway: ETT Cuffed: yes Successful intubation technique: direct laryngoscopy Devices used: intubating stylet Endotracheal tube insertion site: oral Blade: Aleah ETT size (mm): 8.0 Measured from: lips Measurement (cm): 23 Placement verified by: chest auscultation Cormack-Lehane Classification: grade I - full view of glottis Number of attempts at approach: 1 SIGNATURE: Zuleyka Rivas APRN.SUSTAINABILITY MANAGER PATIENT NAME: Bart Talley DATE: August 27, 2021 TIME: 7:47 AM CSN: [id number] [facility] 08-21-2021 Instructions Marco Mary MD - 08/21/2021 9:18 AM EDT Hold coumadin starting tomorrow. Resume the day after surgery or when ok with surgery. Recheck inr a week after restarting. documented in this encounter [facility] 08-21-2021 History of Presen t illness Narrative Patient presents with: 6 Month Exam HPI: Patient presents today for office visit for follow up. Having hernia surgery soon. Discussed coumadin. Instructed:Hold coumadin starting tomorrow. Resume the day after surgery or when ok with surgery. Recheck inr a week after restarting. Hematoma has significantly improved. No major issues currently HTN: Patient is compliant with meds Yes Denies side effects: Yes. Chest pain:had some epigastric pain the other day.wondered it is was gi. Had not eaten. Once he ate, it improved. [place] like his stomach was full. No chest pain with exertion. Has been fine since Dyspnea: Yes. Edema: No. Palpitations: No. Syncope: No. Headache: No. Dizziness: No. HYPERLIPIDEMIA: Patient is taking medications: Yes. Patient denies myalgias: Nothing new. . PSYCH:emtionally is doing well. No depression or anxiety. Has had a large amount of stress. GASTROENTEROLOGY:as above. Still taking pepcid and omeprazole. VASCULAR:still following with vascular. No back pain No further bruising or unusual bleeding. Last cbc was back to normal. Last renal function was normal in Jun. Still seeing urology. Component Latest Ref Rng & Units 07/15/2021 08/06/2021 Cholesterol, Total <200 mg/dL 234 (H) 138 Triglyceride <150 mg/dL 164 (H) 123 HDL Cholesterol >39 mg/dL 27 (L) 26 (L) Non HDL Cholesterol <130 mg/dL 207 (H) 112 Fasting Time hrs 12 12 VLDL Cholesterol <30 mg/dL 33 (H) 25 TC:HDL Ratio <5.10 8.67 (H) 5.31 (H) LDL Cholesterol <100 mg/dL 174 (H) 87 LDL:HDL Ratio <2.54 6.44 (H) 3.35 (H) Hemoglobin A1C 4.3 - 5.6 % 5.3 Estimated Average Glucose mg/dL 105 AST 14 - 40 U/L 23 CK 51 - 298 U/L 259 MEDICATIONS: Current Outpatient Medications Medication Sig olmesartan (BENICAR) 20 mg tablet Take 1 tablet by mouth once daily. famotidine (PEPCID) 20 mg tablet Take 1 tablet by mouth once daily. ferrous sulfate (IRON) 325 mg (65 mg iron) tablet Take 1 tablet by mouth twice daily. atorvastatin (LIPITOR) 80 mg tablet Take 1 tablet by mouth daily at bedtime. For cholesterol. cyclobenzaprine (FLEXERIL) 10 mg tablet Take 1 tablet by mouth three times daily as needed for muscle spasm. amitriptyline (ELAVIL) 50 mg tablet Take 1 tablet by mouth daily at bedtime. HYDROcodone-Acetaminophen (NORCO) 7.5-325 mg per tablet Take 1 tablet by mouth every 6 hours as needed for pain. (Patient not taking: Reported on 07/29/2021) folic acid 1 mg tablet Take 1 tablet by mouth once daily. PARoxetine (PAXIL) 20 mg tablet Take 1 tablet by mouth once daily. gentamicin 40 mg/mL injection Inject 80 mg intramuscularly as directed. prior to HOPS procedure. (Patient not taking: Reported on 08/14/2021 ) polyethylene glycol 3350 (MIRALAX, GLYCOLAX) 17 gram/dose powder Use as directed for Miralax / Gatorade Bowel Prep Kit (Patient not taking: Reported on 07/29/2021 ) Bisacodyl (DULCOLAX) 5 mg tab Use as directed for Miralax / Gatorade Bowel Prep Kit (Patient not taking: Reported on 07/29/2021 ) metoprolol tartrate, short acting, (LOPRESSOR) 50 mg tablet Take 1 tablet by mouth twice daily. omeprazole (PRILOSEC) 40 mg capsule Take 1 capsule by mouth once daily. acetaminophen (TYLENOL) 325 mg tablet Take 2 tablets by mouth every 6 hours as needed. calcium carbonate (CALCIUM 600 ORAL) Take by mouth twice daily. aspirin, enteric coated (ADULT LOW DOSE ASPIRIN) 81 mg EC tablet Take 1 tablet by mouth once daily. sildenafil (VIAGRA) 50 mg tablet Use as directed once a day No current facility-administered medications for this visit. ALLERGIES: ALLERGIES Allergen Reactions Cipro [Ciprofloxaci* Rash, Intolerance, Itching PAST MEDICAL HISTORY Diagnosis Date Abdominal aortic aneurysm (HCC) 2013 fusiform infrarenal [place] aortic aneurysm Colon polyps Depression Esophageal reflux Generalized anxiety disorder GERD (gastroesophageal reflux disease) Hematoma 2021 right side abdomen History of DVT (deep vein thrombosis) age 29's post-op knee right, second on left-is on chronic anticoagulation. both blood clots occurred after surgery Hyperlipidemia Hypertension Iron deficiency anemia Prostate cancer (HCC) Restless leg syndrome Snoring has not had cpap testing. Tobacco use disorder PAST SURGICAL HISTORY Procedure Laterality Date ARTHROSCOPY KNEE DIAGNOSTIC W/WO SYNOVIAL BX SPX age 29's Arthroscopy, right knee per Dr. Stover- blood clots after COLONOSCOPY 04/10/2014 hemorrhiods, diverticulosis COLONOSCOPY FLX DX W/COLLJ SPEC WHEN PFRMD 07/16/2017 Three small polyps ,adenomatous and hyperplastic COLONOSCOPY FLX DX W/COLLJ SPEC WHEN PFRMD 11/25/2020 EGD 04/10/2014 esophagitis, gastritis,Non-severe reflux esophagitis ENDVAS REP ABD AOR MOD PROST 06/28/2014 AAA REPAIR and re repair 2019 ESOPHAGOGASTRODUODENOSCOPY TRANSORAL DIAGNOSTIC 07/16/2017 Gastritis,Small hiatal hernia, ESOPHAGOGASTRODUODENOSCOPY TRANSORAL DIAGNOSTIC 11/25/2020 EXCISION PILONIDAL CYST/SINUS SIMPLE HERNIA REPAIR HX LAPAROSCOPY SURG CHOLECYSTECTOMY 09/2003 Cholecystectomy, lap TOOTH EXTRACTION 05/2014 all teeth extracted-periodontal disease, abd aneurysm FAMILY HISTORY Problem Relation Age of Onset Hypertension Mother Blood Clots Mother Cancer Father mouth No Known Problems Sister Colon Polyps Sister Diabetes Sister Colon Cancer Sister 49 Cancer Maternal Grandfather Heart Attack Maternal Grandfather other (black lung) Paternal Grandfather No Known Problems Daughter No Known Problems Son Cancer Maternal Aunt melonoma Colon Cancer Maternal Uncle several Social History Tobacco Use Smoking status: Current Every Day Smoker Packs/day: 1.00 Years: 40.00 Pack years: 40.00 Types: Cigarettes Smokeless tobacco: Never Used Tobacco comment: 1/2 to 1 pack Vaping Use Vaping Use: Never used Substance Use Topics Alcohol use: Not Currently Comment: rare occassion Drug use: No Comment: mod-large amount coffee per day Reviewed current medications, allergies, past medical history, surgical history, family history and social history today. REVIEW OF SYSTEMS All other reviewed and negative other than HPI. HEALTH MAINTENANCE: Reviewed health maintenance issues today VITALS: BP 130/84 Pulse 72 Wt 116.6 kg (257 lb) BMI 34.86 kg/m Last 4 Encounter Wt Readings: Date: Wt: 08/21/2021 116.6 kg (257 lb) 08/14/2021 115.2 kg (254 lb) 07/29/2021 115.2 kg (254 lb) 07/17/2021 116.1 kg (256 lb) PHYSICAL EXAMINATION: General appearance: Well appearing, alert, in no acute distress, well-hydrated, well nourished. Skin: Skin color, texture, turgor normal, no suspicious rashes or lesions Head: Normocephalic, no masses, lesions, tenderness or abnormalities Lungs: Lungs clear to auscultation. No wheezing, rhonchi, rales Heart: RRR without murmur, gallop, or rubs. No ectopy Abdomen: Normal abdominal exam, Abdomen soft, non-tender. Bowel sounds normal. No masses, organomegaly Extremities: No deformities, edema, skin discoloration, clubbing or cyanosis. Good capillary refill. Musculoskeletal: No joint swelling, deformity, or tenderness Peripheral pulses: Normal Neuro: Negative. ASSESSMENT/PLAN: 1. Essential hypertension - ICD9: 401.9, ICD10: I10 (primary diagnosis) - good control - Continue current medication(s) - Goal of BP <130/80 - METOPROLOL TARTRATE 50 MG TABLET 2. Chronic bilateral low back pain without sciatica - ICD9: 724.2, 338.29, ICD10: M54.50, G89.29 - CYCLOBENZAPRINE 10 MG TABLET 3. Restless legs - ICD9: 333.94, ICD10: G25.81 - stable. - CYCLOBENZAPRINE 10 MG TABLET 4. Abdominal aortic aneurysm (AAA) without rupture (HCC) - ICD9: 441.4, ICD10: I71.4 - per vascular 5. Mixed hyperlipidemia - ICD9: 272.2, ICD10: E78.2 - good control - Continue current dose of meds 6. Intractable migraine with status migrainosus, unspecified migraine type - ICD9: 346.93, ICD10: G43.911 - stable. 7. RLS (restless legs syndrome) - ICD9: 333.94, ICD10: G25.81 8. Prostate cancer (HCC) - ICD9: 185, ICD10: C61 - per urology. 9. Factor V Leiden (HCC) - ICD9: 289.81, ICD10: D68.51 - see above regarding meds. 10. Iron deficiency anemia, unspecified iron deficiency anemia type - ICD9: 280.9, ICD10: D50.9 - has resolved on last check. 11. Anxiety and depression - ICD9: 300.00, 311, ICD10: F41.9, F32.A - continue meds. - 12. History of DVT (deep vein thrombosis) - ICD9: V12.51, ICD10: Z86.718 as above. Marco Mary RTO in six months and prn. documented in this encounter [facility] 08-18-2021 Miscellaneous Notes Patient aware to hold blood thinner for 5 days Catalino Alexandra Images from the original note were not included. MD Catalino Best Had been on hold for hematoma previously so I think is ok to hold for five days before and resume day after. [facility] Previous Messages ----- Message ----- From: Catalino Alexandra Sent: 08/12/2021 11:26 AM EDT To: Marco Mary MD Subject: Blood thinner Good morning, Patient Mr. Talley is scheduled to have Hernia surgery 08-27-2021. Can you please confirm this patient is optimally cleared to have this surgery compete? Also please provide how many days in advance this patient may stop his blood thinner prior to his surgery. Thank you, CatalinoLenin 08-27-2021 Incisional hernia W Mesh documented in this encounter [facility] 08-15-2021 Note HNO ID: [id number] Author: Shashi Arce Jr., MD Service: ? Author Type: Physician Type: Progress Notes Filed: 08/15/2021 8:52 AM Note Text: ESTABLISHED PATIENT OFFICE VISIT HPI Bart Talley is a 61 year old male who presents diagnosed with Clinical Stage(1c) Austin's score?7?(3+4) adenocarcinoma of the prostate with an associated PSA of?14.24?and an estimated prostatic volume of 34. He had?6?of 12 cores positive with disease identified in the 6?portion(s) of the prostate. ? He underwent RALP with bilateral pelvic lymphadenectomy 03/10. ? He was admitted postoperatively after corral wasn't draining. He experienced bladder spasms and constipation. ? He is here for one week follow up and corral removal. Still with significant spasms and constipation. On lovenox bridge. Following INR with Dr. Mary ? Path: A. PROSTATE, RADICAL PROSTATECTOMY AND BILATERAL PELVIC LYMPH NODES: Prostatic acinar adenocarcinoma, Radha score 3+4=7 (Grade group 2), (see comment and synoptic report). - Extraprostatic extension is present. - The right anterior and left lateral margins are involved by carcinoma. Five (5) benign lymph nodes (0/5). Pathologic stage: pT3a 08/14/21 - doing well. Minimal voiding complaints. Still with some leakage but improving. Still in diaper but generally 1 a day and not very wet. psa <0.02. 6 months sp ralp. LAB: Creatinine Date Value Ref Range Status 06/23/2021 1.10 0.73 - 1.22 mg/dL Final PSA (ng/mL) Date Value 08/06/2021 <0.02 05/31/2021 <0.02 10/29/2020 14.24 PSA Screening (ng/mL) Date Value 10/24/2020 16.00 Glucose, Urine (mg/dL) Date Value 04/05/2018 neg Bilirubin, Urine (no units) Date Value 04/05/2018 neg Ketones, Urine (no units) Date Value 04/05/2018 neg Specific [place], Ur (no units) Date Value 04/05/2018 1.015 Hemoglobin/Blood,Ur (no units) Date Value 04/05/2018 neg pH, Urine (no units) Date Value 04/05/2018 5.0 Protein, Urine (mg/dL) Date Value 04/05/2018 neg Urobilinogen, Urine (EU) Date Value 04/05/2018 0.2 Nitrites (no units) Date Value 04/05/2018 neg Leukocytes (no units) Date Value 04/05/2018 neg Color/Appearance (comment:) Date Value 04/05/2018 dark yellow MEDICATIONS: olmesartan (BENICAR) 20 mg tablet Take 1 tablet by mouth once daily. famotidine (PEPCID) 20 mg tablet Take 1 tablet by mouth once daily. ferrous sulfate (IRON) 325 mg (65 mg iron) tablet Take 1 tablet by mouth twice daily. atorvastatin (LIPITOR) 80 mg tablet Take 1 tablet by mouth daily at bedtime. For cholesterol. cyclobenzaprine (FLEXERIL) 10 mg tablet Take 1 tablet by mouth three times daily as needed for muscle spasm. folic acid 1 mg tablet Take 1 tablet by mouth once daily. PARoxetine (PAXIL) 20 mg tablet Take 1 tablet by mouth once daily. metoprolol tartrate, short acting, (LOPRESSOR) 50 mg tablet Take 1 tablet by mouth twice daily. omeprazole (PRILOSEC) 40 mg capsule Take 1 capsule by mouth once daily. acetaminophen (TYLENOL) 325 mg tablet Take 2 tablets by mouth every 6 hours as needed. calcium carbonate (CALCIUM 600 ORAL) Take by mouth twice daily. aspirin, enteric coated (ADULT LOW DOSE ASPIRIN) 81 mg EC tablet Take 1 tablet by mouth once daily. sildenafil (VIAGRA) 50 mg tablet Use as directed once a day amitriptyline (ELAVIL) 50 mg tablet Take 1 tablet by mouth daily at bedtime. HYDROcodone-Acetaminophen (NORCO) 7.5-325 mg per tablet Take 1 tablet by mouth every 6 hours as needed for pain. gentamicin 40 mg/mL injection Inject 80 mg intramuscularly as directed. prior to HOPS procedure. polyethylene glycol 3350 (MIRALAX, GLYCOLAX) 17 gram/dose powder Use as directed for Miralax / Gatorade Bowel Prep Kit Bisacodyl (DULCOLAX) 5 mg tab Use as directed for Miralax / Gatorade Bowel Prep Kit REVIEW OF SYSTEMS Review of Systems Constitutional: Negative. Respiratory: Negative. Cardiovascular: Negative. Gastrointestinal: Negative. Genitourinary: Negative. Skin: Negative. Neurological: Negative. Psychiatric/Behavioral: Negative. HISTORIES PAST MEDICAL HISTORY Diagnosis Date - Abdominal aortic aneurysm (HCC) 2013 fusiform infrarenal [place] aortic aneurysm - Colon polyps - Depression - Esophageal reflux - Generalized anxiety disorder - GERD (gastroesophageal reflux disease) - Hematoma 2021 right side abdomen - History of DVT (deep vein thrombosis) age 29's post-op knee right, second on left-is on chronic anticoagulation. both blood clots occurred after surgery - Hyperlipidemia - Hypertension - Iron deficiency anemia - Prostate cancer (HCC) - Restless leg syndrome - Snoring has not had cpap testing. - Tobacco use disorder FAMILY HISTORY Problem Relation Age of Onset - Hypertension Mother - Blood Clots Mother - Cancer Father mouth - No Known Problems Sister - Colon Polyps Sister - Diabetes Sister - Colon Cancer (more content not included)... [facility] 08-15-2021 Miscellaneous Notes Signed form sent to [facility] recs. Form completed and returned to nursing. They are asking for all records, will need copies of my notes from 06/20/2021- probably goes to [facility] . Thanks, Guillermo White PA-C Type of form: Short-term Disability Form received via fax When form is completed, Fax form to [email or web address] Insurance Form has been forwarded to Guillermo Beasley Ma documented in this encounter [facility] 08-15-2021 History of Presen t illness Narrative ESTABLISHED PATIENT OFFICE VISIT HPI Bart Talley is a 61 year old male who presents diagnosed with Clinical Stage(1c) Austin's score 7 (3+4) adenocarcinoma of the prostate with an associated PSA of 14.24 and an estimated prostatic volume of 34. He had 6 of 12 cores positive with disease identified in the 6 portion(s) of the prostate. He underwent RALP with bilateral pelvic lymphadenectomy 03/10. He was admitted postoperatively after corral wasn't draining. He experienced bladder spasms and constipation. He is here for one week follow up and corral removal. Still with significant spasms and constipation. On lovenox bridge. Following INR with Dr. Mary Path: A. PROSTATE, RADICAL PROSTATECTOMY AND BILATERAL PELVIC LYMPH NODES: Prostatic acinar adenocarcinoma, Austin score 3+4=7 (Grade group 2), (see comment and synoptic report). - Extraprostatic extension is present. - The right anterior and left lateral margins are involved by carcinoma. Five (5) benign lymph nodes (0/5). Pathologic stage: pT3a 08/14/21 - doing well. Minimal voiding complaints. Still with some leakage but improving. Still in diaper but generally 1 a day and not very wet. psa <0.02. 6 months sp ralp. LAB: Creatinine Date Value Ref Range Status 06/23/2021 1.10 0.73 - 1.22 mg/dL Final PSA (ng/mL) Date Value 08/06/2021 <0.02 05/31/2021 <0.02 10/29/2020 14.24 PSA Screening (ng/mL) Date Value 10/24/2020 16.00 Glucose, Urine (mg/dL) Date Value 04/05/2018 neg Bilirubin, Urine (no units) Date Value 04/05/2018 neg Ketones, Urine (no units) Date Value 04/05/2018 neg Specific [place], Ur (no units) Date Value 04/05/2018 1.015 Hemoglobin/Blood,Ur (no units) Date Value 04/05/2018 neg pH, Urine (no units) Date Value 04/05/2018 5.0 Protein, Urine (mg/dL) Date Value 04/05/2018 neg Urobilinogen, Urine (EU) Date Value 04/05/2018 0.2 Nitrites (no units) Date Value 04/05/2018 neg Leukocytes (no units) Date Value 04/05/2018 neg Color/Appearance (comment:) Date Value 04/05/2018 dark yellow MEDICATIONS: olmesartan (BENICAR) 20 mg tablet Take 1 tablet by mouth once daily. famotidine (PEPCID) 20 mg tablet Take 1 tablet by mouth once daily. ferrous sulfate (IRON) 325 mg (65 mg iron) tablet Take 1 tablet by mouth twice daily. atorvastatin (LIPITOR) 80 mg tablet Take 1 tablet by mouth daily at bedtime. For cholesterol. cyclobenzaprine (FLEXERIL) 10 mg tablet Take 1 tablet by mouth three times daily as needed for muscle spasm. folic acid 1 mg tablet Take 1 tablet by mouth once daily. PARoxetine (PAXIL) 20 mg tablet Take 1 tablet by mouth once daily. metoprolol tartrate, short acting, (LOPRESSOR) 50 mg tablet Take 1 tablet by mouth twice daily. omeprazole (PRILOSEC) 40 mg capsule Take 1 capsule by mouth once daily. acetaminophen (TYLENOL) 325 mg tablet Take 2 tablets by mouth every 6 hours as needed. calcium carbonate (CALCIUM 600 ORAL) Take by mouth twice daily. aspirin, enteric coated (ADULT LOW DOSE ASPIRIN) 81 mg EC tablet Take 1 tablet by mouth once daily. sildenafil (VIAGRA) 50 mg tablet Use as directed once a day amitriptyline (ELAVIL) 50 mg tablet Take 1 tablet by mouth daily at bedtime. HYDROcodone-Acetaminophen (NORCO) 7.5-325 mg per tablet Take 1 tablet by mouth every 6 hours as needed for pain. gentamicin 40 mg/mL injection Inject 80 mg intramuscularly as directed. prior to HOPS procedure. polyethylene glycol 3350 (MIRALAX, GLYCOLAX) 17 gram/dose powder Use as directed for Miralax / Gatorade Bowel Prep Kit Bisacodyl (DULCOLAX) 5 mg tab Use as directed for Miralax / Gatorade Bowel Prep Kit REVIEW OF SYSTEMS Review of Systems Constitutional: Negative. Respiratory: Negative. Cardiovascular: Negative. Gastrointestinal: Negative. Genitourinary: Negative. Skin: Negative. Neurological: Negative. Psychiatric/Behavioral: Negative. HISTORIES PAST MEDICAL HISTORY Diagnosis Date Abdominal aortic aneurysm (HCC) 2013 fusiform infrarenal [place] aortic aneurysm Colon polyps Depression Esophageal reflux Generalized anxiety disorder GERD (gastroesophageal reflux disease) Hematoma 2021 right side abdomen History of DVT (deep vein thrombosis) age 29's post-op knee right, second on left-is on chronic anticoagulation. both blood clots occurred after surgery Hyperlipidemia Hypertension Iron deficiency anemia Prostate cancer (HCC) Restless leg syndrome Snoring has not had cpap testing. Tobacco use disorder FAMILY HISTORY Problem Relation Age of Onset Hypertension Mother Blood Clots Mother Cancer Father mouth No Known Problems Sister Colon Polyps Sister Diabetes Sister Colon Cancer Sister 49 Cancer Maternal Grandfather Heart Attack Maternal Grandfather other (black lung) Paternal Grandfather No Known Problems Daughter No Known Problems Son Cancer Maternal Aunt melonoma Colon Cancer Maternal Uncle several SOCIAL HISTORY Social History Tobacco Use Smoking status: Current Every Day Smoker Packs/day: 1.00 Years: 40.00 Pack years: 40.00 Types: Cigarettes Smokeless tobacco: Never Used Tobacco comment: 1/2 to 1 pack Vaping Use Vaping Use: Never used Substance Use Topics Alcohol use: Not Currently Comment: rare occassion Drug use: No Comment: mod-large amount coffee per day PHYSICAL EXAMINATION General appearance: Well appearing, alert, in no acute distress and well-hydrated, well nourished Skin: Skin color, texture, turgor normal, no suspicious rashes or lesions Respiratory:+ effort Cardiovascular: Not examined GI: Normal abdominal exam, Abdomen soft, non-tender. No masses, organomegaly Musculoskeletal: Negative Neuro: Negative Genitourinary: not examined Impression: (N39.3) Stress incontinence, male (primary encounter diagnosis) (C61) Prostate cancer (HCC) Plan: 3 months psa prior PFT Shashi Arce Jr, MD 08/15/2021 documented in this encounter [facility] 08-13-2021 Miscellaneous Notes Spoke with patient regarding lovenox and he is going to think about it. Will discuss with spouse and talk to surgeon. We can do one if he would like. I know he has been off of coumadin due to the hematoma. I was going to bring him up gradually right now given that we are just now resuming the coumadin. We can do a lovenox bridge if he is willing around surgery. Let me know if he is willing to try. I can send it in. Pt called and is notified of providers message and instructions. Pt voices understanding. Pt asking if he needs to do a Lovenox bridge. Zayda Cosme RN We will hold coumadin 5 days before surgery. For now. 5 mg a da of coumadin. Recheck wednesday He did take 10mg on 08/11/21 and 5mg on 08/12/21. Has upcoming surgery on 08/27/21. He was supposed to take 10 mg and then recheck yesterday. 10 mg today, then 5 mg tomorrow. Recheck in am. Last INR: INR 1.3 08/12/2021 Current dose of coumadin is: Currently hold coumadin. Last date of dose change: . Previous INR (date and result): 08/11/21 INR: 1.2 Additional Clinical Information or narrative: no documented in this encounter [facility] 08-12-2021 Miscellaneous Notes Images from the original note were not included. MD Catalino Best Had been on hold for hematoma previously so I think is ok to hold for five days before and resume day after. [facility] Previous Messages ----- Message ----- From: Catalino Alexandra Sent: 08/12/2021 11:26 AM EDT To: Marco Mary MD Subject: Blood thinner Good morning, Patient Mr. Talley is scheduled to have Hernia surgery 08-27-2021. Can you please confirm this patient is optimally cleared to have this surgery compete? Also please provide how many days in advance this patient may stop his blood thinner prior to his surgery. Thank you, Tessa medical clearance sent, waiting for a response from Dr Mary. Patient called and stated put me back on Coumadin, When should I stop it before I have surgery . Informed Patient our [employer]er will Reach out to for Guidelines for Holding Medication prior to surgery. Will Contact patient with updates. documented in this encounter [facility] 08-11-2021 Miscellaneous Notes Pt called and is notified of providers results and instructions. Pt voices understanding. Zayda Cosme RN 10 mg today. Recheck inr in am. Last INR: INR 1.2 08/11/2021 Current dose of coumadin is: on 07/30/2021 patient took 10 mg x 2 days and then 5 mg daily. reports that she did not give patient coumadin this weekend. documented in this encounter [facility] 08-11-2021 Miscellaneous Notes [place] [employer] paperwork Faxed, Confirmation received. documented in this encounter [facility] 08-11-2021 Miscellaneous Notes INR was completed today. Agree inr done stat. Please let them know in the future to call within 24 hours if they do not know what to do with a coumadin dose, even if over the weekend. Patient's calls asking guidance on patient's coumadin dose. Patient had labs done on 08/06/2021 and PT/INR was not done. reports that starting on 07/30/2021 patient took 10 mg x 2 days and then 5 mg daily. reports that she did not give patient coumadin this weekend due to not hearing back from doctor's office about INR. Advised patient's that patient needs to come into lab today to get INR done since it was missed last week. voiced understanding. Please review and advise, Richa Ruffin RN documented in this encounter [facility] 08-07-2021 Miscellaneous Notes Called patient to advise of PSA results. Lanny Horta Cma ----- Message from Shashi Arce Jr., MD sent at 08/07/2021 8:24 AM EDT ----- Let pt know that psa is <0.02 documented in this encounter [facility] documented as of this encounter (statuses as of 08/21/2021) [facility] History of Past illness Narrative* Problem Noted Date Resolved Date Corral catheter problem 03/15/2021 2 Chronic chest wall pain 04/06/2018 08/22/19 22 Contusion of right shoulder 01/27/201801/16 Contusion of multiple sites of right arm 018 10/24/2020 Contusion of lower back 01/27/2018 02/09/20 20 Rectal bleeding 06/24/2017 08/21/2021 Overview: Added automatically from request for surgery [id number] Tobacco dependence 03/11/2016 06/21/2017 Right lumbar radiculopathy 06/10/201506/21 Right-sided low back pain with right-sided sciat ica 02/26/2015 10/24/2020 Lumbar disc herniation with radiculopathy 201406/21/2017 Crushing injury of hand(s) 07/02/200808/05 Cervicalgia 11/19/2007 08/21/2021 Obesity, unspecified 11/19/2007 08/21/2021 documented as of this encounter (statuses as of 08/28/2021) [facility] History of Past illness Narrative* Problem Noted Date Resolved Date Corral catheter problem 03/15/2021 2 Chronic chest wall pain 04/06/2018 08/22/19 22 Contusion of right shoulder 01/27/201801/16 Contusion of multiple sites of right arm 018 10/24/2020 Contusion of lower back 01/27/2018 02/09/20 20 Rectal bleeding 06/24/2017 08/21/2021 Overview: Added automatically from request for surgery [id number] Tobacco dependence 03/11/2016 06/21/2017 Right lumbar radiculopathy 06/10/201506/21 Right-sided low back pain with right-sided sciat ica 02/26/2015 10/24/2020 Lumbar disc herniation with radiculopathy 201406/21/2017 Crushing injury of hand(s) 07/02/200808/05 Cervicalgia 11/19/2007 08/21/2021 Obesity, unspecified 11/19/2007 08/21/2021 documented as of this encounter (statuses as of 09/04/2021) [facility] History of Past illness Narrative* Problem Noted Date Resolved Date Corral catheter problem 03/15/2021 Chronic chest wall pain 04/06/2018 08/22/19 22 Contusion of right shoulder 01/27/201801/16 Contusion of multiple sites of right arm 018 10/24/2020 Contusion of lower back 01/27/2018 02/09/20 20 Rectal bleeding 06/24/2017 08/21/2021 Overview: Added automatically from request for surgery [id number] Tobacco dependence 03/11/2016 06/21/2017 Right lumbar radiculopathy 06/10/201506/21 Right-sided low back pain with right-sided sciat ica 02/26/2015 10/24/2020 Lumbar disc herniation with radiculopathy 201406/21/2017 Crushing injury of hand(s) 07/02/200808/05 Cervicalgia 11/19/2007 08/21/2021 Obesity, unspecified 11/19/2007 08/21/2021 documented as of this encounter (statuses as of 09/11/2021) [facility] History of Past illness Narrative* Problem Noted Date Resolved Date Corral catheter problem 03/15/2021 2 Chronic chest wall pain 04/06/2018 08/22/19 22 Contusion of right shoulder 01/27/201801/16 Contusion of multiple sites of right arm 018 10/24/2020 Contusion of lower back 01/27/2018 02/09/20 20 Rectal bleeding 06/24/2017 08/21/2021 Overview: Added automatically from request for surgery [id number] Tobacco dependence 03/11/2016 06/21/2017 Right lumbar radiculopathy 06/10/201506/21 Right-sided low back pain with right-sided sciat ica 02/26/2015 10/24/2020 Lumbar disc herniation with radiculopathy 201406/21/2017 Crushing injury of hand(s) 07/02/200808/05 Cervicalgia 11/19/2007 08/21/2021 Obesity, unspecified 11/19/2007 08/21/2021 documented as of this encounter (statuses as of 09/26/2021) [facility] History of Past illness Narrative* Problem Noted Date Resolved Date Corral catheter problem 03/15/2021 2 Chronic chest wall pain 04/06/2018 08/22/19 22 Contusion of right shoulder 01/27/201801/16 Contusion of multiple sites of right arm 018 10/24/2020 Contusion of lower back 01/27/2018 02/09/20 20 Rectal bleeding 06/24/2017 08/21/2021 Overview: Added automatically from request for surgery [id number] Tobacco dependence 03/11/2016 06/21/2017 Right lumbar radiculopathy 06/10/201506/21 Right-sided low back pain with right-sided sciat ica 02/26/2015 10/24/2020 Lumbar disc herniation with radiculopathy 201406/21/2017 Crushing injury of hand(s) 07/02/200808/05 Cervicalgia 11/19/2007 08/21/2021 Obesity, unspecified 11/19/2007 08/21/2021 documented as of this encounter (statuses as of 09/29/2021) [facility] History of Past illness Narrative* Problem Noted Date Resolved Date Corral catheter problem 03/15/2021 2 Chronic chest wall pain 04/06/2018 08/22/19 22 Contusion of right shoulder 01/27/201801/16 Contusion of multiple sites of right arm 018 10/24/2020 Contusion of lower back 01/27/2018 02/09/20 20 Rectal bleeding 06/24/2017 08/21/2021 Overview: Added automatically from request for surgery [id number] Tobacco dependence 03/11/2016 06/21/2017 Right lumbar radiculopathy 06/10/201506/21 Right-sided low back pain with right-sided sciat ica 02/26/2015 10/24/2020 Lumbar disc herniation with radiculopathy 201406/21/2017 Crushing injury of hand(s) 07/02/200808/05 Cervicalgia 11/19/2007 08/21/2021 Obesity, unspecified 11/19/2007 08/21/2021 documented as of this encounter (statuses as of 10/21/2021) [facility] History of Past illness Narrative* Problem Noted Date Resolved Date Corral catheter problem 03/15/2021 2 Chronic chest wall pain 04/06/2018 08/22/19 22 Contusion of right shoulder 01/27/201801/16 Contusion of multiple sites of right arm 018 10/24/2020 Contusion of lower back 01/27/2018 02/09/20 20 Rectal bleeding 06/24/2017 08/21/2021 Overview: Added automatically from request for surgery [id number] Tobacco dependence 03/11/2016 06/21/2017 Right lumbar radiculopathy 06/10/201506/21 Right-sided low back pain with right-sided sciat ica 02/26/2015 10/24/2020 Lumbar disc herniation with radiculopathy 201406/21/2017 Crushing injury of hand(s) 07/02/200808/05 Cervicalgia 11/19/2007 08/21/2021 Obesity, unspecified 11/19/2007 08/21/2021 documented as of this encounter (statuses as of 10/24/2021) [facility] History of Past illness Narrative* Problem Noted Date Resolved Date Corral catheter problem 03/15/2021 Chronic chest wall pain 04/06/2018 08/22/19 22 Contusion of right shoulder 01/27/201801/16 Contusion of multiple sites of right arm 018 10/24/2020 Contusion of lower back 01/27/2018 02/09/20 20 Rectal bleeding 06/24/2017 08/21/2021 Overview: Added automatically from request for surgery [id number] Tobacco dependence 03/11/2016 06/21/2017 Right lumbar radiculopathy 06/10/201506/21 Right-sided low back pain with right-sided sciat ica 02/26/2015 10/24/2020 Lumbar disc herniation with radiculopathy 201406/21/2017 Crushing injury of hand(s) 07/02/200808/05 Cervicalgia 11/19/2007 08/21/2021 Obesity, unspecified 11/19/2007 08/21/2021 documented as of this encounter (statuses as of 10/31/2021) [facility] History of Past illness Narrative* Problem Noted Date Resolved Date Corral catheter problem 03/15/2021 2 Chronic chest wall pain 04/06/2018 08/22/19 22 Contusion of right shoulder 01/27/201801/16 Contusion of multiple sites of right arm 018 10/24/2020 Contusion of lower back 01/27/2018 02/09/20 20 Rectal bleeding 06/24/2017 08/21/2021 Overview: Added automatically from request for surgery [id number] Tobacco dependence 03/11/2016 06/21/2017 Right lumbar radiculopathy 06/10/201506/21 Right-sided low back pain with right-sided sciat ica 02/26/2015 10/24/2020 Lumbar disc herniation with radiculopathy 201406/21/2017 Crushing injury of hand(s) 07/02/200808/05 Cervicalgia 11/19/2007 08/21/2021 Obesity, unspecified 11/19/2007 08/21/2021 documented as of this encounter (statuses as of 11/03/2021) [facility] History of Past illness Narrative* Problem Noted Date Resolved Date Corral catheter problem 03/15/2021 Chronic chest wall pain 04/06/2018 08/22/19 22 Contusion of right shoulder 01/27/201801/16 Contusion of multiple sites of right arm 018 10/24/2020 Contusion of lower back 01/27/2018 02/09/20 20 Rectal bleeding 06/24/2017 08/21/2021 Overview: Added automatically from request for surgery [id number] Tobacco dependence 03/11/2016 06/21/2017 Right lumbar radiculopathy 06/10/201506/21 Right-sided low back pain with right-sided sciat ica 02/26/2015 10/24/2020 Lumbar disc herniation with radiculopathy 201406/21/2017 Crushing injury of hand(s) 07/02/200808/05 Cervicalgia 11/19/2007 08/21/2021 Obesity, unspecified 11/19/2007 08/21/2021 documented as of this encounter (statuses as of 11/04/2021) [facility] History of Past illness Narrative* Problem Noted Date Resolved Date Corral catheter problem 03/15/2021 2 Chronic chest wall pain 04/06/2018 08/22/19 22 Contusion of right shoulder 01/27/201801/16 Contusion of multiple sites of right arm 018 10/24/2020 Contusion of lower back 01/27/2018 02/09/20 20 Rectal bleeding 06/24/2017 08/21/2021 Overview: Added automatically from request for surgery [id number] Tobacco dependence 03/11/2016 06/21/2017 Right lumbar radiculopathy 06/10/201506/21 Right-sided low back pain with right-sided sciat ica 02/26/2015 10/24/2020 Lumbar disc herniation with radiculopathy 201406/21/2017 Crushing injury of hand(s) 07/02/200808/05 Cervicalgia 11/19/2007 08/21/2021 Obesity, unspecified 11/19/2007 08/21/2021 documented as of this encounter (statuses as of 11/05/2021) [facility] History of Past illness Narrative* Problem Noted Date Resolved Date Corral catheter problem 03/15/2021 Chronic chest wall pain 04/06/2018 08/22/19 22 Contusion of right shoulder 01/27/201801/16 Contusion of multiple sites of right arm 018 10/24/2020 Contusion of lower back 01/27/2018 02/09/20 20 Rectal bleeding 06/24/2017 08/21/2021 Overview: Added automatically from request for surgery [id number] Tobacco dependence 03/11/2016 06/21/2017 Right lumbar radiculopathy 06/10/201506/21 Right-sided low back pain with right-sided sciat ica 02/26/2015 10/24/2020 Lumbar disc herniation with radiculopathy 201406/21/2017 Crushing injury of hand(s) 07/02/200808/05 Cervicalgia 11/19/2007 08/21/2021 Obesity, unspecified 11/19/2007 08/21/2021 documented as of this encounter (statuses as of 11/14/2021) [facility] History of Past illness Narrative* Problem Noted Date Resolved Date Corral catheter problem 03/15/2021 2 Chronic chest wall pain 04/06/2018 08/22/19 22 Contusion of right shoulder 01/27/201801/16 Contusion of multiple sites of right arm 018 10/24/2020 Contusion of lower back 01/27/2018 02/09/20 20 Rectal bleeding 06/24/2017 08/21/2021 Overview: Added automatically from request for surgery [id number] Tobacco dependence 03/11/2016 06/21/2017 Right lumbar radiculopathy 06/10/201506/21 Right-sided low back pain with right-sided sciat ica 02/26/2015 10/24/2020 Lumbar disc herniation with radiculopathy 201406/21/2017 Crushing injury of hand(s) 07/02/200808/05 Cervicalgia 11/19/2007 08/21/2021 Obesity, unspecified 11/19/2007 08/21/2021 documented as of this encounter (statuses as of 12/05/2021) [facility] History of Past illness Narrative* Problem Noted Date Resolved Date Corral catheter problem 03/15/2021 2 Chronic chest wall pain 04/06/2018 08/22/19 22 Contusion of right shoulder 01/27/201801/16 Contusion of multiple sites of right arm 018 10/24/2020 Contusion of lower back 01/27/2018 02/09/20 20 Rectal bleeding 06/24/2017 08/21/2021 Overview: Added automatically from request for surgery [id number] Tobacco dependence 03/11/2016 06/21/2017 Right lumbar radiculopathy 06/10/201506/21 Right-sided low back pain with right-sided sciat ica 02/26/2015 10/24/2020 Lumbar disc herniation with radiculopathy 201406/21/2017 Crushing injury of hand(s) 07/02/200808/05 Cervicalgia 11/19/2007 08/21/2021 Obesity, unspecified 11/19/2007 08/21/2021 documented as of this encounter (statuses as of 12/05/2021) [facility] History of Past illness Narrative* Problem Noted Date Resolved Date Corral catheter problem 03/15/2021 2 Chronic chest wall pain 04/06/2018 08/22/19 22 Contusion of right shoulder 01/27/201801/16 Contusion of multiple sites of right arm 018 10/24/2020 Contusion of lower back 01/27/2018 02/09/20 20 Rectal bleeding 06/24/2017 08/21/2021 Overview: Added automatically from request for surgery [id number] Tobacco dependence 03/11/2016 06/21/2017 Right lumbar radiculopathy 06/10/201506/21 Right-sided low back pain with right-sided sciat ica 02/26/2015 10/24/2020 Lumbar disc herniation with radiculopathy 201406/21/2017 Crushing injury of hand(s) 07/02/200808/05 Cervicalgia 11/19/2007 08/21/2021 Obesity, unspecified 11/19/2007 08/21/2021 documented as of this encounter (statuses as of 12/09/2021) [facility] History of Past illness Narrative* Problem Noted Date Resolved Date Corral catheter problem 03/15/2021 2 Chronic chest wall pain 04/06/2018 08/22/19 22 Contusion of right shoulder 01/27/201801/16 Contusion of multiple sites of right arm 018 10/24/2020 Contusion of lower back 01/27/2018 02/09/20 20 Rectal bleeding 06/24/2017 08/21/2021 Overview: Added automatically from request for surgery [id number] Tobacco dependence 03/11/2016 06/21/2017 Right lumbar radiculopathy 06/10/201506/21 Right-sided low back pain with right-sided sciat ica 02/26/2015 10/24/2020 Lumbar disc herniation with radiculopathy 201406/21/2017 Crushing injury of hand(s) 07/02/200808/05 Cervicalgia 11/19/2007 08/21/2021 Obesity, unspecified 11/19/2007 08/21/2021 documented as of this encounter (statuses as of 12/12/2021) [facility] History of Past illness Narrative* Problem Noted Date Resolved Date Corral catheter problem 03/15/2021 Chronic chest wall pain 04/06/2018 08/22/19 22 Contusion of right shoulder 01/27/201801/16 Contusion of multiple sites of right arm 018 10/24/2020 Contusion of lower back 01/27/2018 02/09/20 20 Rectal bleeding 06/24/2017 08/21/2021 Overview: Added automatically from request for surgery [id number] Tobacco dependence 03/11/2016 06/21/2017 Right lumbar radiculopathy 06/10/201506/21 Right-sided low back pain with right-sided sciat ica 02/26/2015 10/24/2020 Lumbar disc herniation with radiculopathy 201406/21/2017 Crushing injury of hand(s) 07/02/200808/05 Cervicalgia 11/19/2007 08/21/2021 Obesity, unspecified 11/19/2007 08/21/2021 documented as of this encounter (statuses as of 01/09/2022) [facility] History of Past illness Narrative* Problem Noted Date Resolved Date Corral catheter problem 03/15/2021 2 Chronic chest wall pain 04/06/2018 08/22/19 22 Contusion of right shoulder 01/27/201801/16 Contusion of multiple sites of right arm 018 10/24/2020 Contusion of lower back 01/27/2018 02/09/20 20 Rectal bleeding 06/24/2017 08/21/2021 Overview: Added automatically from request for surgery [id number] Tobacco dependence 03/11/2016 06/21/2017 Right lumbar radiculopathy 06/10/201506/21 Right-sided low back pain with right-sided sciat ica 02/26/2015 10/24/2020 Lumbar disc herniation with radiculopathy 201406/21/2017 Crushing injury of hand(s) 07/02/200808/05 Cervicalgia 11/19/2007 08/21/2021 Obesity, unspecified 11/19/2007 08/21/2021 documented as of this encounter (statuses as of 01/20/2022) [facility] History of Past illness Narrative* Problem Noted Date Resolved Date Corral catheter problem 03/15/2021 Chronic chest wall pain 04/06/2018 08/22/19 22 Contusion of right shoulder 01/27/201801/16 Contusion of multiple sites of right arm 018 10/24/2020 Contusion of lower back 01/27/2018 02/09/20 20 Rectal bleeding 06/24/2017 08/21/2021 Overview: Added automatically from request for surgery [id number] Tobacco dependence 03/11/2016 06/21/2017 Right lumbar radiculopathy 06/10/201506/21 Right-sided low back pain with right-sided sciat ica 02/26/2015 10/24/2020 Lumbar disc herniation with radiculopathy 201406/21/2017 Crushing injury of hand(s) 07/02/200808/05 Cervicalgia 11/19/2007 08/21/2021 Obesity, unspecified 11/19/2007 08/21/2021 documented as of this encounter (statuses as of 01/20/2022) [facility] History of Past illness Narrative* Problem Noted Date Resolved Date Corral catheter problem 03/15/2021 2 Chronic chest wall pain 04/06/2018 08/22/19 22 Contusion of right shoulder 01/27/201801/16 Contusion of multiple sites of right arm 018 10/24/2020 Contusion of lower back 01/27/2018 02/09/20 20 Rectal bleeding 06/24/2017 08/21/2021 Overview: Added automatically from request for surgery [id number] Tobacco dependence 03/11/2016 06/21/2017 Right lumbar radiculopathy 06/10/201506/21 Right-sided low back pain with right-sided sciat ica 02/26/2015 10/24/2020 Lumbar disc herniation with radiculopathy 201406/21/2017 Crushing injury of hand(s) 07/02/200808/05 Cervicalgia 11/19/2007 08/21/2021 Obesity, unspecified 11/19/2007 08/21/2021 documented as of this encounter (statuses as of 01/22/2022) [facility] History of Past illness Narrative* Problem Noted Date Resolved Date Corral catheter problem 03/15/2021 2 Chronic chest wall pain 04/06/2018 08/22/19 22 Contusion of right shoulder 01/27/201801/16 Contusion of multiple sites of right arm 018 10/24/2020 Contusion of lower back 01/27/2018 02/09/20 20 Rectal bleeding 06/24/2017 08/21/2021 Overview: Added automatically from request for surgery [id number] Tobacco dependence 03/11/2016 06/21/2017 Right lumbar radiculopathy 06/10/201506/21 Right-sided low back pain with right-sided sciat ica 02/26/2015 10/24/2020 Lumbar disc herniation with radiculopathy 201406/21/2017 Crushing injury of hand(s) 07/02/200808/05 Cervicalgia 11/19/2007 08/21/2021 Obesity, unspecified 11/19/2007 08/21/2021 documented as of this encounter (statuses as of 02/12/2022) [facility] History of Past illness Narrative* Problem Noted Date Resolved Date Corral catheter problem 03/15/2021 2 Chronic chest wall pain 04/06/2018 08/22/19 22 Contusion of right shoulder 01/27/201801/16 Contusion of multiple sites of right arm 018 10/24/2020 Contusion of lower back 01/27/2018 02/09/20 20 Rectal bleeding 06/24/2017 08/21/2021 Overview: Added automatically from request for surgery [id number] Tobacco dependence 03/11/2016 06/21/2017 Right lumbar radiculopathy 06/10/201506/21 Right-sided low back pain with right-sided sciat ica 02/26/2015 10/24/2020 Lumbar disc herniation with radiculopathy 201406/21/2017 Crushing injury of hand(s) 07/02/200808/05 Cervicalgia 11/19/2007 08/21/2021 Obesity, unspecified 11/19/2007 08/21/2021 documented as of this encounter (statuses as of 02/21/2022) [facility] History of Past illness Narrative* Problem Noted Date Resolved Date Corral catheter problem 03/15/2021 Chronic chest wall pain 04/06/2018 08/22/19 22 Contusion of right shoulder 01/27/201801/16 Contusion of multiple sites of right arm 018 10/24/2020 Contusion of lower back 01/27/2018 02/09/20 20 Rectal bleeding 06/24/2017 08/21/2021 Overview: Added automatically from request for surgery [id number] Tobacco dependence 03/11/2016 06/21/2017 Right lumbar radiculopathy 06/10/201506/21 Right-sided low back pain with right-sided sciat ica 02/26/2015 10/24/2020 Lumbar disc herniation with radiculopathy 201406/21/2017 Crushing injury of hand(s) 07/02/200808/05 Cervicalgia 11/19/2007 08/21/2021 Obesity, unspecified 11/19/2007 08/21/2021 documented as of this encounter (statuses as of 02/23/2022) [facility] History of Past illness Narrative* Problem Noted Date Resolved Date Corral catheter problem 03/15/2021 2 Chronic chest wall pain 04/06/2018 08/22/19 22 Contusion of right shoulder 01/27/201801/16 Contusion of multiple sites of right arm 018 10/24/2020 Contusion of lower back 01/27/2018 02/09/20 20 Rectal bleeding 06/24/2017 08/21/2021 Overview: Added automatically from request for surgery [id number] Tobacco dependence 03/11/2016 06/21/2017 Right lumbar radiculopathy 06/10/201506/21 Right-sided low back pain with right-sided sciat ica 02/26/2015 10/24/2020 Lumbar disc herniation with radiculopathy 201406/21/2017 Crushing injury of hand(s) 07/02/200808/05 Cervicalgia 11/19/2007 08/21/2021 Obesity, unspecified 11/19/2007 08/21/2021 documented as of this encounter (statuses as of 03/19/2022) [facility] History of Past illness Narrative* Problem Noted Date Resolved Date Corral catheter problem 03/15/2021 2 Chronic chest wall pain 04/06/2018 08/22/19 22 Contusion of right shoulder 01/27/201801/16 Contusion of multiple sites of right arm 018 10/24/2020 Contusion of lower back 01/27/2018 02/09/20 20 Rectal bleeding 06/24/2017 08/21/2021 Overview: Added automatically from request for surgery [id number] Tobacco dependence 03/11/2016 06/21/2017 Right lumbar radiculopathy 06/10/201506/21 Right-sided low back pain with right-sided sciat ica 02/26/2015 10/24/2020 Lumbar disc herniation with radiculopathy 201406/21/2017 Crushing injury of hand(s) 07/02/200808/05 Cervicalgia 11/19/2007 08/21/2021 Obesity, unspecified 11/19/2007 08/21/2021 documented as of this encounter (statuses as of 04/16/2022) [facility] History of Past illness Narrative* Problem Noted Date Resolved Date Corral catheter problem 03/15/2021 2 Chronic chest wall pain 04/06/2018 08/22/19 22 Contusion of right shoulder 01/27/201801/16 Contusion of multiple sites of right arm 018 10/24/2020 Contusion of lower back 01/27/2018 02/09/20 20 Rectal bleeding 06/24/2017 08/21/2021 Overview: Added automatically from request for surgery [id number] Tobacco dependence 03/11/2016 06/21/2017 Right lumbar radiculopathy 06/10/201506/21 Right-sided low back pain with right-sided sciat ica 02/26/2015 10/24/2020 Lumbar disc herniation with radiculopathy 201406/21/2017 Crushing injury of hand(s) 07/02/200808/05 Cervicalgia 11/19/2007 08/21/2021 Obesity, unspecified 11/19/2007 08/21/2021 documented as of this encounter (statuses as of 05/22/2022) [facility] History of Past illness Narrative* Problem Noted Date Resolved Date Corral catheter problem 03/15/2021 2 Chronic chest wall pain 04/06/2018 08/22/19 22 Contusion of right shoulder 01/27/201801/16 Contusion of multiple sites of right arm 018 10/24/2020 Contusion of lower back 01/27/2018 02/09/20 20 Rectal bleeding 06/24/2017 08/21/2021 Overview: Added automatically from request for surgery [id number] Tobacco dependence 03/11/2016 06/21/2017 Right lumbar radiculopathy 06/10/201506/21 Right-sided low back pain with right-sided sciat ica 02/26/2015 10/24/2020 Lumbar disc herniation with radiculopathy 201406/21/2017 Crushing injury of hand(s) 07/02/200808/05 Cervicalgia 11/19/2007 08/21/2021 Obesity, unspecified 11/19/2007 08/21/2021 documented as of this encounter (statuses as of 06/17/2022) [facility] History of Past illness Narrative* Problem Noted Date Resolved Date Corral catheter problem 03/15/2021 Chronic chest wall pain 04/06/2018 08/22/19 22 Contusion of right shoulder 01/27/201801/16 Contusion of multiple sites of right arm 018 10/24/2020 Contusion of lower back 01/27/2018 02/09/20 20 Rectal bleeding 06/24/2017 08/21/2021 Overview: Added automatically from request for surgery [id number] Tobacco dependence 03/11/2016 06/21/2017 Right lumbar radiculopathy 06/10/201506/21 Right-sided low back pain with right-sided sciat ica 02/26/2015 10/24/2020 Lumbar disc herniation with radiculopathy 201406/21/2017 Crushing injury of hand(s) 07/02/200808/05 Cervicalgia 11/19/2007 08/21/2021 Obesity, unspecified 11/19/2007 08/21/2021 documented as of this encounter (statuses as of 07/17/2022) [facility] History of Past illness Narrative* Problem Noted Date Resolved Date Corral catheter problem 03/15/2021 2 Chronic chest wall pain 04/06/2018 08/22/19 22 Contusion of right shoulder 01/27/201801/16 Contusion of multiple sites of right arm 018 10/24/2020 Contusion of lower back 01/27/2018 02/09/20 20 Rectal bleeding 06/24/2017 08/21/2021 Overview: Added automatically from request for surgery [id number] Tobacco dependence 03/11/2016 06/21/2017 Right lumbar radiculopathy 06/10/201506/21 Right-sided low back pain with right-sided sciat ica 02/26/2015 10/24/2020 Lumbar disc herniation with radiculopathy 201406/21/2017 Crushing injury of hand(s) 07/02/200808/05 Cervicalgia 11/19/2007 08/21/2021 Obesity, unspecified 11/19/2007 08/21/2021 documented as of this encounter (statuses as of 08/10/2022) [facility] History of Past illness Narrative* Problem Noted Date Resolved Date Corral catheter problem 03/15/2021 Chronic chest wall pain 04/06/2018 08/22/19 22 Contusion of right shoulder 01/27/201801/16 Contusion of multiple sites of right arm 018 10/24/2020 Contusion of lower back 01/27/2018 02/09/20 20 Rectal bleeding 06/24/2017 08/21/2021 Overview: Added automatically from request for surgery [id number] Tobacco dependence 03/11/2016 06/21/2017 Right lumbar radiculopathy 06/10/201506/21 Right-sided low back pain with right-sided sciat ica 02/26/2015 10/24/2020 Lumbar disc herniation with radiculopathy 201406/21/2017 Crushing injury of hand(s) 07/02/200808/05 Cervicalgia 11/19/2007 08/21/2021 Obesity, unspecified 11/19/2007 08/21/2021 documented as of this encounter (statuses as of 08/17/2022) [facility] History of Past illness Narrative* Problem Noted Date Resolved Date Corral catheter problem 03/15/2021 2 Chronic chest wall pain 04/06/2018 08/22/19 22 Contusion of right shoulder 01/27/201801/16 Contusion of multiple sites of right arm 018 10/24/2020 Contusion of lower back 01/27/2018 02/09/20 20 Rectal bleeding 06/24/2017 08/21/2021 Overview: Added automatically from request for surgery [id number] Tobacco dependence 03/11/2016 06/21/2017 Right lumbar radiculopathy 06/10/201506/21 Right-sided low back pain with right-sided sciat ica 02/26/2015 10/24/2020 Lumbar disc herniation with radiculopathy 201406/21/2017 Crushing injury of hand(s) 07/02/200808/05 Cervicalgia 11/19/2007 08/21/2021 Obesity, unspecified 11/19/2007 08/21/2021 documented as of this encounter (statuses as of 08/24/2022) [facility] History of Past illness Narrative* Problem Noted Date Resolved Date Corral catheter problem 03/15/2021 Chronic chest wall pain 04/06/2018 08/22/19 22 Contusion of right shoulder 01/27/201801/16 Contusion of multiple sites of right arm 018 10/24/2020 Contusion of lower back 01/27/2018 02/09/20 20 Rectal bleeding 06/24/2017 08/21/2021 Overview: Added automatically from request for surgery [id number] Tobacco dependence 03/11/2016 06/21/2017 Right lumbar radiculopathy 06/10/201506/21 Right-sided low back pain with right-sided sciat ica 02/26/2015 10/24/2020 Lumbar disc herniation with radiculopathy 201406/21/2017 Crushing injury of hand(s) 07/02/200808/05 Cervicalgia 11/19/2007 08/21/2021 Obesity, unspecified 11/19/2007 08/21/2021 documented as of this encounter (statuses as of 08/31/2022) [facility] History of Past illness Narrative* Problem Noted Date Resolved Date Corral catheter problem 03/15/2021 2 Chronic chest wall pain 04/06/2018 08/22/19 22 Contusion of right shoulder 01/27/201801/16 Contusion of multiple sites of right arm 018 10/24/2020 Contusion of lower back 01/27/2018 02/09/20 20 Rectal bleeding 06/24/2017 08/21/2021 Overview: Added automatically from request for surgery [id number] Tobacco dependence 03/11/2016 06/21/2017 Right lumbar radiculopathy 06/10/201506/21 Right-sided low back pain with right-sided sciat ica 02/26/2015 10/24/2020 Lumbar disc herniation with radiculopathy 201406/21/2017 Crushing injury of hand(s) 07/02/200808/05 Cervicalgia 11/19/2007 08/21/2021 Obesity, unspecified 11/19/2007 08/21/2021 documented as of this encounter (statuses as of 09/03/2022) [facility] History of Past illness Narrative* Problem Noted Date Resolved Date Corral catheter problem 03/15/2021 2 Chronic chest wall pain 04/06/2018 08/22/19 22 Contusion of right shoulder 01/27/201801/16 Contusion of multiple sites of right arm 018 10/24/2020 Contusion of lower back 01/27/2018 02/09/20 20 Rectal bleeding 06/24/2017 08/21/2021 Overview: Added automatically from request for surgery [id number] Tobacco dependence 03/11/2016 06/21/2017 Right lumbar radiculopathy 06/10/201506/21 Right-sided low back pain with right-sided sciat ica 02/26/2015 10/24/2020 Lumbar disc herniation with radiculopathy 201406/21/2017 Crushing injury of hand(s) 07/02/200808/05 Cervicalgia 11/19/2007 08/21/2021 Obesity, unspecified 11/19/2007 08/21/2021 documented as of this encounter (statuses as of 09/05/2022) [facility] History of Past illness Narrative* Problem Noted Date Resolved Date Corral catheter problem 03/15/2021 2 Chronic chest wall pain 04/06/2018 08/22/19 22 Contusion of right shoulder 01/27/201801/16 Contusion of multiple sites of right arm 018 10/24/2020 Contusion of lower back 01/27/2018 02/09/20 20 Rectal bleeding 06/24/2017 08/21/2021 Overview: Added automatically from request for surgery [id number] Tobacco dependence 03/11/2016 06/21/2017 Right lumbar radiculopathy 06/10/201506/21 Right-sided low back pain with right-sided sciat ica 02/26/2015 10/24/2020 Lumbar disc herniation with radiculopathy 201406/21/2017 Crushing injury of hand(s) 07/02/200808/05 Cervicalgia 11/19/2007 08/21/2021 Obesity, unspecified 11/19/2007 08/21/2021 documented as of this encounter (statuses as of 09/07/2022) [facility] History of Past illness Narrative* Problem Noted Date Resolved Date Corral catheter problem 03/15/2021 2 Chronic chest wall pain 04/06/2018 08/22/19 22 Contusion of right shoulder 01/27/201801/16 Contusion of multiple sites of right arm 018 10/24/2020 Contusion of lower back 01/27/2018 02/09/20 20 Rectal bleeding 06/24/2017 08/21/2021 Overview: Added automatically from request for surgery [id number] Tobacco dependence 03/11/2016 06/21/2017 Right lumbar radiculopathy 06/10/201506/21 Right-sided low back pain with right-sided sciat ica 02/26/2015 10/24/2020 Lumbar disc herniation with radiculopathy 201406/21/2017 Crushing injury of hand(s) 07/02/200808/05 Cervicalgia 11/19/2007 08/21/2021 Obesity, unspecified 11/19/2007 08/21/2021 documented as of this encounter (statuses as of 09/08/2022) [facility] History of Past illness Narrative* Problem Noted Date Resolved Date Corral catheter problem 03/15/2021 Chronic chest wall pain 04/06/2018 08/22/19 22 Contusion of right shoulder 01/27/201801/16 Contusion of multiple sites of right arm 018 10/24/2020 Contusion of lower back 01/27/2018 02/09/20 20 Rectal bleeding 06/24/2017 08/21/2021 Overview: Added automatically from request for surgery [id number] Tobacco dependence 03/11/2016 06/21/2017 Right lumbar radiculopathy 06/10/201506/21 Right-sided low back pain with right-sided sciat ica 02/26/2015 10/24/2020 Lumbar disc herniation with radiculopathy 201406/21/2017 Crushing injury of hand(s) 07/02/200808/05 Cervicalgia 11/19/2007 08/21/2021 Obesity, unspecified 11/19/2007 08/21/2021 documented as of this encounter (statuses as of 09/08/2022) [facility] History of Past illness Narrative* Problem Noted Date Resolved Date Corral catheter problem 03/15/2021 2 Chronic chest wall pain 04/06/2018 08/22/19 22 Contusion of right shoulder 01/27/201801/16 Contusion of multiple sites of right arm 018 10/24/2020 Contusion of lower back 01/27/2018 02/09/20 20 Rectal bleeding 06/24/2017 08/21/2021 Overview: Added automatically from request for surgery [id number] Tobacco dependence 03/11/2016 06/21/2017 Right lumbar radiculopathy 06/10/201506/21 Right-sided low back pain with right-sided sciat ica 02/26/2015 10/24/2020 Lumbar disc herniation with radiculopathy 201406/21/2017 Crushing injury of hand(s) 07/02/200808/05 Cervicalgia 11/19/2007 08/21/2021 Obesity, unspecified 11/19/2007 08/21/2021 documented as of this encounter (statuses as of 09/09/2022) [facility] History of Past illness Narrative* Problem Noted Date Resolved Date Corral catheter problem 03/15/2021 Chronic chest wall pain 04/06/2018 08/22/19 22 Contusion of right shoulder 01/27/201801/16 Contusion of multiple sites of right arm 018 10/24/2020 Contusion of lower back 01/27/2018 02/09/20 20 Rectal bleeding 06/24/2017 08/21/2021 Overview: Added automatically from request for surgery [id number] Tobacco dependence 03/11/2016 06/21/2017 Right lumbar radiculopathy 06/10/201506/21 Right-sided low back pain with right-sided sciat ica 02/26/2015 10/24/2020 Lumbar disc herniation with radiculopathy 201406/21/2017 Crushing injury of hand(s) 07/02/200808/05 Cervicalgia 11/19/2007 08/21/2021 Obesity, unspecified 11/19/2007 08/21/2021 documented as of this encounter (statuses as of 09/10/2022) [facility] History of Past illness Narrative* Problem Noted Date Resolved Date Corral catheter problem 03/15/2021 2 Chronic chest wall pain 04/06/2018 08/22/19 22 Contusion of right shoulder 01/27/201801/16 Contusion of multiple sites of right arm 018 10/24/2020 Contusion of lower back 01/27/2018 02/09/20 20 Rectal bleeding 06/24/2017 08/21/2021 Overview: Added automatically from request for surgery [id number] Tobacco dependence 03/11/2016 06/21/2017 Right lumbar radiculopathy 06/10/201506/21 Right-sided low back pain with right-sided sciat ica 02/26/2015 10/24/2020 Lumbar disc herniation with radiculopathy 201406/21/2017 Crushing injury of hand(s) 07/02/200808/05 Cervicalgia 11/19/2007 08/21/2021 Obesity, unspecified 11/19/2007 08/21/2021 documented as of this encounter (statuses as of 09/14/2022) [facility] History of Past illness Narrative* Problem Noted Date Resolved Date Corral catheter problem 03/15/2021 2 Chronic chest wall pain 04/06/2018 08/22/19 22 Contusion of right shoulder 01/27/201801/16 Contusion of multiple sites of right arm 018 10/24/2020 Contusion of lower back 01/27/2018 02/09/20 20 Rectal bleeding 06/24/2017 08/21/2021 Overview: Added automatically from request for surgery [id number] Tobacco dependence 03/11/2016 06/21/2017 Right lumbar radiculopathy 06/10/201506/21 Right-sided low back pain with right-sided sciat ica 02/26/2015 10/24/2020 Lumbar disc herniation with radiculopathy 201406/21/2017 Crushing injury of hand(s) 07/02/200808/05 Cervicalgia 11/19/2007 08/21/2021 Obesity, unspecified 11/19/2007 08/21/2021 documented as of this encounter (statuses as of 09/14/2022) [facility] History of Past illness Narrative* Problem Noted Date Resolved Date Corral catheter problem 03/15/2021 2 Chronic chest wall pain 04/06/2018 08/22/19 22 Contusion of right shoulder 01/27/201801/16 Contusion of multiple sites of right arm 018 10/24/2020 Contusion of lower back 01/27/2018 02/09/20 20 Rectal bleeding 06/24/2017 08/21/2021 Overview: Added automatically from request for surgery [id number] Tobacco dependence 03/11/2016 06/21/2017 Right lumbar radiculopathy 06/10/201506/21 Right-sided low back pain with right-sided sciat ica 02/26/2015 10/24/2020 Lumbar disc herniation with radiculopathy 201406/21/2017 Crushing injury of hand(s) 07/02/200808/05 Cervicalgia 11/19/2007 08/21/2021 Obesity, unspecified 11/19/2007 08/21/2021 documented as of this encounter (statuses as of 09/14/2022) [facility] History of Past illness Narrative* Problem Noted Date Resolved Date Corral catheter problem 03/15/2021 Chronic chest wall pain 04/06/2018 08/22/19 22 Contusion of right shoulder 01/27/201801/16 Contusion of multiple sites of right arm 018 10/24/2020 Contusion of lower back 01/27/2018 02/09/20 20 Rectal bleeding 06/24/2017 08/21/2021 Overview: Added automatically from request for surgery [id number] Tobacco dependence 03/11/2016 06/21/2017 Right lumbar radiculopathy 06/10/201506/21 Right-sided low back pain with right-sided sciat ica 02/26/2015 10/24/2020 Lumbar disc herniation with radiculopathy 201406/21/2017 Crushing injury of hand(s) 07/02/200808/05 Cervicalgia 11/19/2007 08/21/2021 Obesity, unspecified 11/19/2007 08/21/2021 documented as of this encounter (statuses as of 09/15/2022) [facility] History of Past illness Narrative* Problem Noted Date Resolved Date Corral catheter problem 03/15/2021 2 Chronic chest wall pain 04/06/2018 08/22/19 22 Contusion of right shoulder 01/27/201801/16 Contusion of multiple sites of right arm 018 10/24/2020 Contusion of lower back 01/27/2018 02/09/20 20 Rectal bleeding 06/24/2017 08/21/2021 Overview: Added automatically from request for surgery [id number] Tobacco dependence 03/11/2016 06/21/2017 Right lumbar radiculopathy 06/10/201506/21 Right-sided low back pain with right-sided sciat ica 02/26/2015 10/24/2020 Lumbar disc herniation with radiculopathy 201406/21/2017 Crushing injury of hand(s) 07/02/200808/05 Cervicalgia 11/19/2007 08/21/2021 Obesity, unspecified 11/19/2007 08/21/2021 documented as of this encounter (statuses as of 09/28/2022) [facility] History of Past illness Narrative* Problem Noted Date Resolved Date Corral catheter problem 03/15/2021 2 Chronic chest wall pain 04/06/2018 08/22/19 22 Contusion of right shoulder 01/27/201801/16 Contusion of multiple sites of right arm 018 10/24/2020 Contusion of lower back 01/27/2018 02/09/20 20 Rectal bleeding 06/24/2017 08/21/2021 Overview: Added automatically from request for surgery [id number] Tobacco dependence 03/11/2016 06/21/2017 Right lumbar radiculopathy 06/10/201506/21 Right-sided low back pain with right-sided sciat ica 02/26/2015 10/24/2020 Lumbar disc herniation with radiculopathy 201406/21/2017 Crushing injury of hand(s) 07/02/200808/05 Cervicalgia 11/19/2007 08/21/2021 Obesity, unspecified 11/19/2007 08/21/2021 documented as of this encounter (statuses as of 10/13/2022) [facility] History of Past illness Narrative* Problem Noted Date Resolved Date Corral catheter problem 03/15/2021 2 Chronic chest wall pain 04/06/2018 08/22/19 22 Contusion of right shoulder 01/27/201801/16 Contusion of multiple sites of right arm 018 10/24/2020 Contusion of lower back 01/27/2018 02/09/20 20 Rectal bleeding 06/24/2017 08/21/2021 Overview: Added automatically from request for surgery [id number] Tobacco dependence 03/11/2016 06/21/2017 Right lumbar radiculopathy 06/10/201506/21 Right-sided low back pain with right-sided sciat ica 02/26/2015 10/24/2020 Lumbar disc herniation with radiculopathy 201406/21/2017 Crushing injury of hand(s) 07/02/200808/05 Cervicalgia 11/19/2007 08/21/2021 Obesity, unspecified 11/19/2007 08/21/2021 documented as of this encounter (statuses as of 10/29/2022) [facility] History of Past illness Narrative* Problem Noted Date Resolved Date Corral catheter problem 03/15/2021 2 Chronic chest wall pain 04/06/2018 08/22/19 22 Contusion of right shoulder 01/27/201801/16 Contusion of multiple sites of right arm 018 10/24/2020 Contusion of lower back 01/27/2018 02/09/20 20 Rectal bleeding 06/24/2017 08/21/2021 Overview: Added automatically from request for surgery [id number] Tobacco dependence 03/11/2016 06/21/2017 Right lumbar radiculopathy 06/10/201506/21 Right-sided low back pain with right-sided sciat ica 02/26/2015 10/24/2020 Lumbar disc herniation with radiculopathy 201406/21/2017 Crushing injury of hand(s) 07/02/200808/05 Cervicalgia 11/19/2007 08/21/2021 Obesity, unspecified 11/19/2007 08/21/2021 documented as of this encounter (statuses as of 11/16/2022) [facility] History of Past illness Narrative* Problem Noted Date Diagnosed Date Resolved Date Corral catheter problem 03/15/202108/21 Chronic chest wall pain 04/06/2018 04/0 11/2021 Contusion of right shoulder 01/27/2018 02/09/2020 Contusion of multiple sites of right arm 01/27/2018 10/24/2020 Contusion of lower back 01/27/201801/16 Rectal bleeding 06/24/2017 08/21/2021 Overview: Added automatically from request for surgery [id number] Tobacco dependence 03/11/2016 8 Right lumbar radiculopathy 06/10/2015 0 06/21/2017 Right-sided low back pain wi th right-sided sciatica 02/26/2015 10/24/2020 Lumbar disc herniation with radiculopathy 02/26/2015 06/21/2017 Crushing injury of hand(s) 07/02/2008 0 08/05/2009 Cervicalgia 11/19/2007 08/21/2021 Obesity, unspecified 11/19/2007 022 documented as of this encounter (statuses as of 11/30/2022) [facility] History of Past illness Narrative* Problem Noted Date Diagnosed Date Resolved Date Corral catheter problem 03/15/202108/21 Chronic chest wall pain 04/06/2018 04/0 11/2021 Contusion of right shoulder 01/27/2018 02/09/2020 Contusion of multiple sites of right arm 01/27/2018 10/24/2020 Contusion of lower back 01/27/201801/16 Rectal bleeding 06/24/2017 08/21/2021 Overview: Added automatically from request for surgery [id number] Tobacco dependence 03/11/2016 8 Right lumbar radiculopathy 06/10/2015 0 06/21/2017 Right-sided low back pain wi th right-sided sciatica 02/26/2015 10/24/2020 Lumbar disc herniation with radiculopathy 02/26/2015 06/21/2017 Crushing injury of hand(s) 07/02/2008 0 08/05/2009 Cervicalgia 11/19/2007 08/21/2021 Obesity, unspecified 11/19/2007 022 documented as of this encounter (statuses as of 12/03/2022) [facility] History of Past illness Narrative* Problem Noted Date Diagnosed Date Resolved Date Corral catheter problem 03/15/202108/21 Chronic chest wall pain 04/06/2018 04/0 11/2021 Contusion of right shoulder 01/27/2018 02/09/2020 Contusion of multiple sites of right arm 01/27/2018 10/24/2020 Contusion of lower back 01/27/201801/16 Rectal bleeding 06/24/2017 08/21/2021 Overview: Added automatically from request for surgery [id number] Tobacco dependence 03/11/2016 8 Right lumbar radiculopathy 06/10/2015 0 06/21/2017 Right-sided low back pain wi th right-sided sciatica 02/26/2015 10/24/2020 Lumbar disc herniation with radiculopathy 02/26/2015 06/21/2017 Crushing injury of hand(s) 07/02/2008 0 08/05/2009 Cervicalgia 11/19/2007 08/21/2021 Obesity, unspecified 11/19/2007 022 documented as of this encounter (statuses as of 01/30/2023) [facility] History of Past illness Narrative* Problem Noted Date Diagnosed Date Resolved Date Corral catheter problem 03/15/202108/21 Chronic chest wall pain 04/06/2018 04/0 11/2021 Contusion of right shoulder 01/27/2018 02/09/2020 Contusion of multiple sites of right arm 01/27/2018 10/24/2020 Contusion of lower back 01/27/201801/16 Rectal bleeding 06/24/2017 08/21/2021 Overview: Added automatically from request for surgery [id number] Tobacco dependence 03/11/2016 8 Right lumbar radiculopathy 06/10/2015 0 06/21/2017 Right-sided low back pain wi th right-sided sciatica 02/26/2015 10/24/2020 Lumbar disc herniation with radiculopathy 02/26/2015 06/21/2017 Crushing injury of hand(s) 07/02/2008 0 08/05/2009 Cervicalgia 11/19/2007 08/21/2021 Obesity, unspecified 11/19/2007 022 documented as of this encounter (statuses as of 02/24/2023) [facility] History of Past illness Narrative* Problem Noted Date Diagnosed Date Resolved Date Corral catheter problem 03/15/202108/21 Chronic chest wall pain 04/06/2018 04/0 11/2021 Contusion of right shoulder 01/27/2018 02/09/2020 Contusion of multiple sites of right arm 01/27/2018 10/24/2020 Contusion of lower back 01/27/201801/16 Rectal bleeding 06/24/2017 08/21/2021 Overview: Added automatically from request for surgery [id number] Tobacco dependence 03/11/2016 8 Right lumbar radiculopathy 06/10/2015 0 06/21/2017 Right-sided low back pain wi th right-sided sciatica 02/26/2015 10/24/2020 Lumbar disc herniation with radiculopathy 02/26/2015 06/21/2017 Crushing injury of hand(s) 07/02/2008 0 08/05/2009 Cervicalgia 11/19/2007 08/21/2021 Obesity, unspecified 11/19/2007 022 documented as of this encounter (statuses as of 02/24/2023) [facility] History of Past illness Narrative* Problem Noted Date Diagnosed Date Resolved Date Corral catheter problem 03/15/202108/21 Chronic chest wall pain 04/06/2018 04/0 11/2021 Contusion of right shoulder 01/27/2018 02/09/2020 Contusion of multiple sites of right arm 01/27/2018 10/24/2020 Contusion of lower back 01/27/201801/16 Rectal bleeding 06/24/2017 08/21/2021 Overview: Added automatically from request for surgery [id number] Tobacco dependence 03/11/2016 8 Right lumbar radiculopathy 06/10/2015 0 06/21/2017 Right-sided low back pain wi th right-sided sciatica 02/26/2015 10/24/2020 Lumbar disc herniation with radiculopathy 02/26/2015 06/21/2017 Crushing injury of hand(s) 07/02/2008 0 08/05/2009 Cervicalgia 11/19/2007 08/21/2021 Obesity, unspecified 11/19/2007 022 documented as of this encounter (statuses as of 02/24/2023) [facility] History of Past illness Narrative* Problem Noted Date Diagnosed Date Resolved Date Corral catheter problem 03/15/202108/21 Chronic chest wall pain 04/06/2018 04/0 11/2021 Contusion of right shoulder 01/27/2018 02/09/2020 Contusion of multiple sites of right arm 01/27/2018 10/24/2020 Contusion of lower back 01/27/201801/16 Rectal bleeding 06/24/2017 08/21/2021 Overview: Added automatically from request for surgery [id number] Tobacco dependence 03/11/2016 8 Right lumbar radiculopathy 06/10/2015 0 06/21/2017 Right-sided low back pain wi th right-sided sciatica 02/26/2015 10/24/2020 Lumbar disc herniation with radiculopathy 02/26/2015 06/21/2017 Crushing injury of hand(s) 07/02/2008 0 08/05/2009 Cervicalgia 11/19/2007 08/21/2021 Obesity, unspecified 11/19/2007 022 documented as of this encounter (statuses as of 03/04/2023) [facility] History of Past illness Narrative* Problem Noted Date Diagnosed Date Resolved Date Corral catheter problem 03/15/202108/21 Chronic chest wall pain 04/06/2018 04/0 11/2021 Contusion of right shoulder 01/27/2018 02/09/2020 Contusion of multiple sites of right arm 01/27/2018 10/24/2020 Contusion of lower back 01/27/201801/16 Rectal bleeding 06/24/2017 08/21/2021 Overview: Added automatically from request for surgery [id number] Tobacco dependence 03/11/2016 8 Right lumbar radiculopathy 06/10/2015 0 06/21/2017 Right-sided low back pain wi th right-sided sciatica 02/26/2015 10/24/2020 Lumbar disc herniation with radiculopathy 02/26/2015 06/21/2017 Crushing injury of hand(s) 07/02/2008 0 08/05/2009 Cervicalgia 11/19/2007 08/21/2021 Obesity, unspecified 11/19/2007 022 documented as of this encounter (statuses as of 03/08/2023) [facility] History of Past illness Narrative* Problem Noted Date Diagnosed Date Resolved Date Corral catheter problem 03/15/202108/21 Chronic chest wall pain 04/06/2018 04/0 11/2021 Contusion of right shoulder 01/27/2018 02/09/2020 Contusion of multiple sites of right arm 01/27/2018 10/24/2020 Contusion of lower back 01/27/201801/16 Rectal bleeding 06/24/2017 08/21/2021 Overview: Added automatically from request for surgery [id number] Tobacco dependence 03/11/2016 8 Right lumbar radiculopathy 06/10/2015 0 06/21/2017 Right-sided low back pain wi th right-sided sciatica 02/26/2015 10/24/2020 Lumbar disc herniation with radiculopathy 02/26/2015 06/21/2017 Crushing injury of hand(s) 07/02/2008 0 08/05/2009 Cervicalgia 11/19/2007 08/21/2021 Obesity, unspecified 11/19/2007 022 documented as of this encounter (statuses as of 03/13/2023) [facility] History of Past illness Narrative* Problem Noted Date Diagnosed Date Resolved Date Corral catheter problem 03/15/202108/21 Chronic chest wall pain 04/06/2018 04/0 11/2021 Contusion of right shoulder 01/27/2018 02/09/2020 Contusion of multiple sites of right arm 01/27/2018 10/24/2020 Contusion of lower back 01/27/201801/16 Rectal bleeding 06/24/2017 08/21/2021 Overview: Added automatically from request for surgery [id number] Tobacco dependence 03/11/2016 8 Right lumbar radiculopathy 06/10/2015 0 06/21/2017 Right-sided low back pain wi th right-sided sciatica 02/26/2015 10/24/2020 Lumbar disc herniation with radiculopathy 02/26/2015 06/21/2017 Crushing injury of hand(s) 07/02/2008 0 08/05/2009 Cervicalgia 11/19/2007 08/21/2021 Obesity, unspecified 11/19/2007 022 documented as of this encounter (statuses as of 03/16/2023) [facility] History of Past illness Narrative* Problem Noted Date Diagnosed Date Resolved Date Corral catheter problem 03/15/202108/21 Chronic chest wall pain 04/06/2018 04/0 11/2021 Contusion of right shoulder 01/27/2018 02/09/2020 Contusion of multiple sites of right arm 01/27/2018 10/24/2020 Contusion of lower back 01/27/201801/16 Rectal bleeding 06/24/2017 08/21/2021 Overview: Added automatically from request for surgery [id number] Tobacco dependence 03/11/2016 8 Right lumbar radiculopathy 06/10/2015 0 06/21/2017 Right-sided low back pain wi th right-sided sciatica 02/26/2015 10/24/2020 Lumbar disc herniation with radiculopathy 02/26/2015 06/21/2017 Crushing injury of hand(s) 07/02/2008 0 08/05/2009 Cervicalgia 11/19/2007 08/21/2021 Obesity, unspecified 11/19/2007 022 documented as of this encounter (statuses as of 03/21/2023) [facility] History of Past illness Narrative* Problem Noted Date Diagnosed Date Resolved Date Corral catheter problem 03/15/202108/21 Chronic chest wall pain 04/06/2018 04/0 11/2021 Contusion of right shoulder 01/27/2018 02/09/2020 Contusion of multiple sites of right arm 01/27/2018 10/24/2020 Contusion of lower back 01/27/201801/16 Rectal bleeding 06/24/2017 08/21/2021 Overview: Added automatically from request for surgery [id number] Tobacco dependence 03/11/2016 8 Right lumbar radiculopathy 06/10/2015 0 06/21/2017 Right-sided low back pain wi th right-sided sciatica 02/26/2015 10/24/2020 Lumbar disc herniation with radiculopathy 02/26/2015 06/21/2017 Crushing injury of hand(s) 07/02/2008 0 08/05/2009 Cervicalgia 11/19/2007 08/21/2021 Obesity, unspecified 11/19/2007 022 documented as of this encounter (statuses as of 03/21/2023) [facility] History of Past illness Narrative* Problem Noted Date Diagnosed Date Resolved Date Corral catheter problem 03/15/202108/21 Chronic chest wall pain 04/06/2018 04/0 11/2021 Contusion of right shoulder 01/27/2018 02/09/2020 Contusion of multiple sites of right arm 01/27/2018 10/24/2020 Contusion of lower back 01/27/201801/16 Rectal bleeding 06/24/2017 08/21/2021 Overview: Added automatically from request for surgery [id number] Tobacco dependence 03/11/2016 8 Right lumbar radiculopathy 06/10/2015 0 06/21/2017 Right-sided low back pain wi th right-sided sciatica 02/26/2015 10/24/2020 Lumbar disc herniation with radiculopathy 02/26/2015 06/21/2017 Crushing injury of hand(s) 07/02/2008 0 08/05/2009 Cervicalgia 11/19/2007 08/21/2021 Obesity, unspecified 11/19/2007 022 documented as of this encounter (statuses as of 03/23/2023) [facility] History of Past illness Narrative* Problem Noted Date Diagnosed Date Resolved Date Corral catheter problem 03/15/202108/21 Chronic chest wall pain 04/06/2018 04/0 11/2021 Contusion of right shoulder 01/27/2018 02/09/2020 Contusion of multiple sites of right arm 01/27/2018 10/24/2020 Contusion of lower back 01/27/201801/16 Rectal bleeding 06/24/2017 08/21/2021 Overview: Added automatically from request for surgery [id number] Tobacco dependence 03/11/2016 8 Right lumbar radiculopathy 06/10/2015 0 06/21/2017 Right-sided low back pain wi th right-sided sciatica 02/26/2015 10/24/2020 Lumbar disc herniation with radiculopathy 02/26/2015 06/21/2017 Crushing injury of hand(s) 07/02/2008 0 08/05/2009 Cervicalgia 11/19/2007 08/21/2021 Obesity, unspecified 11/19/2007 022 documented as of this encounter (statuses as of 03/24/2023) [facility] History of Past illness Narrative* Problem Noted Date Diagnosed Date Resolved Date Corral catheter problem 03/15/202108/21 Chronic chest wall pain 04/06/2018 04/0 11/2021 Contusion of right shoulder 01/27/2018 02/09/2020 Contusion of multiple sites of right arm 01/27/2018 10/24/2020 Contusion of lower back 01/27/201801/16 Rectal bleeding 06/24/2017 08/21/2021 Overview: Added automatically from request for surgery [id number] Tobacco dependence 03/11/2016 8 Right lumbar radiculopathy 06/10/2015 0 06/21/2017 Right-sided low back pain wi th right-sided sciatica 02/26/2015 10/24/2020 Lumbar disc herniation with radiculopathy 02/26/2015 06/21/2017 Crushing injury of hand(s) 07/02/2008 0 08/05/2009 Cervicalgia 11/19/2007 08/21/2021 Obesity, unspecified 11/19/2007 022 documented as of this encounter (statuses as of 04/05/2023) [facility] History of Past illness Narrative* Problem Noted Date Diagnosed Date Resolved Date Corral catheter problem 03/15/202108/21 Chronic chest wall pain 04/06/2018 04/0 11/2021 Contusion of right shoulder 01/27/2018 02/09/2020 Contusion of multiple sites of right arm 01/27/2018 10/24/2020 Contusion of lower back 01/27/201801/16 Rectal bleeding 06/24/2017 08/21/2021 Overview: Added automatically from request for surgery [id number] Tobacco dependence 03/11/2016 8 Right lumbar radiculopathy 06/10/2015 0 06/21/2017 Right-sided low back pain wi th right-sided sciatica 02/26/2015 10/24/2020 Lumbar disc herniation with radiculopathy 02/26/2015 06/21/2017 Crushing injury of hand(s) 07/02/2008 0 08/05/2009 Cervicalgia 11/19/2007 08/21/2021 Obesity, unspecified 11/19/2007 022 documented as of this encounter (statuses as of 04/09/2023) [facility] History of Past illness Narrative* Problem Noted Date Diagnosed Date Resolved Date Corral catheter problem 03/15/202108/21 Chronic chest wall pain 04/06/2018 04/0 11/2021 Contusion of right shoulder 01/27/2018 02/09/2020 Contusion of multiple sites of right arm 01/27/2018 10/24/2020 Contusion of lower back 01/27/201801/16 Rectal bleeding 06/24/2017 08/21/2021 Overview: Added automatically from request for surgery [id number] Tobacco dependence 03/11/2016 8 Right lumbar radiculopathy 06/10/2015 0 06/21/2017 Right-sided low back pain wi th right-sided sciatica 02/26/2015 10/24/2020 Lumbar disc herniation with radiculopathy 02/26/2015 06/21/2017 Crushing injury of hand(s) 07/02/2008 0 08/05/2009 Cervicalgia 11/19/2007 08/21/2021 Obesity, unspecified 11/19/2007 022 documented as of this encounter (statuses as of 04/14/2023) [facility] History of Past illness Narrative* Problem Noted Date Diagnosed Date Resolved Date Corral catheter problem 03/15/202108/21 Chronic chest wall pain 04/06/2018 04/0 11/2021 Contusion of right shoulder 01/27/2018 02/09/2020 Contusion of multiple sites of right arm 01/27/2018 10/24/2020 Contusion of lower back 01/27/201801/16 Rectal bleeding 06/24/2017 08/21/2021 Overview: Added automatically from request for surgery [id number] Tobacco dependence 03/11/2016 8 Right lumbar radiculopathy 06/10/2015 0 06/21/2017 Right-sided low back pain wi th right-sided sciatica 02/26/2015 10/24/2020 Lumbar disc herniation with radiculopathy 02/26/2015 06/21/2017 Crushing injury of hand(s) 07/02/2008 0 08/05/2009 Cervicalgia 11/19/2007 08/21/2021 Obesity, unspecified 11/19/2007 022 documented as of this encounter (statuses as of 04/15/2023) [facility] History of Past illness Narrative* Problem Noted Date Diagnosed Date Resolved Date Corral catheter problem 03/15/202108/21 Chronic chest wall pain 04/06/2018 04/0 11/2021 Contusion of right shoulder 01/27/2018 02/09/2020 Contusion of multiple sites of right arm 01/27/2018 10/24/2020 Contusion of lower back 01/27/201801/16 Rectal bleeding 06/24/2017 08/21/2021 Overview: Added automatically from request for surgery [id number] Tobacco dependence 03/11/2016 8 Right lumbar radiculopathy 06/10/2015 0 06/21/2017 Right-sided low back pain wi th right-sided sciatica 02/26/2015 10/24/2020 Lumbar disc herniation with radiculopathy 02/26/2015 06/21/2017 Crushing injury of hand(s) 07/02/2008 0 08/05/2009 Cervicalgia 11/19/2007 08/21/2021 Obesity, unspecified 11/19/2007 022 documented as of this encounter (statuses as of 04/16/2023) [facility] History of Past illness Narrative* Problem Noted Date Diagnosed Date Resolved Date Corral catheter problem 03/15/202108/21 Chronic chest wall pain 04/06/2018 04/0 11/2021 Contusion of right shoulder 01/27/2018 02/09/2020 Contusion of multiple sites of right arm 01/27/2018 10/24/2020 Contusion of lower back 01/27/201801/16 Rectal bleeding 06/24/2017 08/21/2021 Overview: Added automatically from request for surgery [id number] Tobacco dependence 03/11/2016 8 Right lumbar radiculopathy 06/10/2015 0 06/21/2017 Right-sided low back pain wi th right-sided sciatica 02/26/2015 10/24/2020 Lumbar disc herniation with radiculopathy 02/26/2015 06/21/2017 Crushing injury of hand(s) 07/02/2008 0 08/05/2009 Cervicalgia 11/19/2007 08/21/2021 Obesity, unspecified 11/19/2007 022 documented as of this encounter (statuses as of 04/27/2023) [facility] History of Past illness Narrative* Problem Noted Date Resolved Date Contusion of right shoulder 01/27/201801/16 Contusion of multiple sites of right arm 018 10/24/2020 Contusion of lower back 01/27/2018 02/09/20 20 Tobacco dependence 03/11/2016 06/21/2017 Right lumbar radiculopathy 06/10/201506/21 Right-sided low back pain with right-sided sciat ica 02/26/2015 10/24/2020 Lumbar disc herniation with radiculopathy 201406/21/2017 Crushing injury of hand(s) 07/02/200808/05 documented as of this encounter (statuses as of 08/07/2021) [facility] History of Past illness Narrative* Problem Noted Date Resolved Date Contusion of right shoulder 01/27/201801/16 Contusion of multiple sites of right arm 018 10/24/2020 Contusion of lower back 01/27/2018 02/09/20 20 Tobacco dependence 03/11/2016 06/21/2017 Right lumbar radiculopathy 06/10/201506/21 Right-sided low back pain with right-sided sciat ica 02/26/2015 10/24/2020 Lumbar disc herniation with radiculopathy 201406/21/2017 Crushing injury of hand(s) 07/02/200808/05 documented as of this encounter (statuses as of 08/11/2021) [facility] History of Past illness Narrative* Problem Noted Date Resolved Date Contusion of right shoulder 01/27/201801/16 Contusion of multiple sites of right arm 018 10/24/2020 Contusion of lower back 01/27/2018 02/09/20 Tobacco dependence 03/11/2016 06/21/2017 Right lumbar radiculopathy 06/10/201506/21 Right-sided low back pain with right-sided sciat ica 02/26/2015 10/24/2020 Lumbar disc herniation with radiculopathy 201406/21/2017 Crushing injury of hand(s) 07/02/200808/05 documented as of this encounter (statuses as of 08/11/2021) [facility] History of Past illness Narrative* Problem Noted Date Resolved Date Contusion of right shoulder 01/27/201801/16 Contusion of multiple sites of right arm 018 10/24/2020 Contusion of lower back 01/27/2018 02/09/20 20 Tobacco dependence 03/11/2016 06/21/2017 Right lumbar radiculopathy 06/10/201506/21 Right-sided low back pain with right-sided sciat ica 02/26/2015 10/24/2020 Lumbar disc herniation with radiculopathy 201406/21/2017 Crushing injury of hand(s) 07/02/200808/05 documented as of this encounter (statuses as of 08/13/2021) [facility] History of Past illness Narrative* Problem Noted Date Resolved Date Contusion of right shoulder 01/27/201801/16 Contusion of multiple sites of right arm 018 10/24/2020 Contusion of lower back 01/27/2018 02/09/20 20 Tobacco dependence 03/11/2016 06/21/2017 Right lumbar radiculopathy 06/10/201506/21 Right-sided low back pain with right-sided sciat ica 02/26/2015 10/24/2020 Lumbar disc herniation with radiculopathy 201406/21/2017 Crushing injury of hand(s) 07/02/200808/05 documented as of this encounter (statuses as of 08/15/2021) [facility] History of Past illness Narrative* Problem Noted Date Resolved Date Contusion of right shoulder 01/27/201801/16 Contusion of multiple sites of right arm 018 10/24/2020 Contusion of lower back 01/27/2018 02/09/20 20 Tobacco dependence 03/11/2016 06/21/2017 Right lumbar radiculopathy 06/10/201506/21 Right-sided low back pain with right-sided sciat ica 02/26/2015 10/24/2020 Lumbar disc herniation with radiculopathy 201406/21/2017 Crushing injury of hand(s) 07/02/200808/05 documented as of this encounter (statuses as of 08/15/2021) [facility] History of Past illness Narrative* Problem Noted Date Resolved Date Contusion of right shoulder 01/27/201801/16 Contusion of multiple sites of right arm 018 10/24/2020 Contusion of lower back 01/27/2018 02/09/20 20 Tobacco dependence 03/11/2016 06/21/2017 Right lumbar radiculopathy 06/10/201506/21 Right-sided low back pain with right-sided sciat ica 02/26/2015 10/24/2020 Lumbar disc herniation with radiculopathy 201406/21/2017 Crushing injury of hand(s) 07/02/200808/05 documented as of this encounter (statuses as of 08/20/2021) [facility] Factor V Leiden (HCC)- Primary Primary hypercoagulable state Incisional hernia, without obstruction or gangrene Incisional hernia without mention of obstruction or gangrene [facility] Diagnosis Stress incontinence, male- Primary Prostate cancer (HCC) Malignant neoplasm of prostate Incisional hernia, without obstruction or gangrene Incisional hernia without mention of obstruction or gangrene [facility] Essential hypertension- Primary Unspecified essential hypertension Chronic bilateral low back pain without sciatica Restless legs Restless legs syndrome (RLS) Abdominal aortic aneurysm (AAA) without rupture (HCC) Mixed hyperlipidemia Intractable migraine with status migrainosus, unspecified migraine type RLS (restless legs syndrome) Restless legs syndrome (RLS) Prostate cancer (HCC) Malignant neoplasm of prostate Factor V Leiden (HCC) Primary hypercoagulable state Iron deficiency anemia, unspecified iron deficiency anemia type Anxiety and depression Dysthymic disorder History of DVT (deep vein thrombosis) Personal history of venous thrombosis and embolism Incisional hernia, without obstruction or gangrene Incisional hernia without mention of obstruction or gangrene [facility] Incisional hernia, without obstruction or gangrene- Primary Incisional hernia without mention of obstruction or gangrene Hematoma of rectus sheath, initial encounter [facility] Chronic bilateral low back pain without sciatica Restless legs Restless legs syndrome (RLS) [facility] Chronic bilateral low back pain without sciatica Restless legs Restless legs syndrome (RLS) [facility] Leg swelling- Primary Swelling of limb Acute pain of right knee [facility] Elevated PSA- Primary Elevated prostate specific antigen (PSA) [facility] Diagnosis Chronic bilateral low back pain without sciatica Restless legs Restless legs syndrome (RLS) Folate deficiency Other B-complex deficiencies [facility] Diagnosis Prostate cancer (HCC)- Primary Malignant neoplasm of prostate [facility] Diagnosis Mixed hyperlipidemia Chronic bilateral low back pain without sciatica Restless legs Restless legs syndrome (RLS) [facility] Diagnosis Injury of joint of finger of left hand, initial encounter [facility] Diagnosis Trigger finger of left thumb- Primary [facility] Diagnosis History of DVT (deep vein thrombosis)- Primary Personal history of venous thrombosis and embolism [facility] Primary osteoarthritis of first carpometacarpal joint of left hand- Primary Primary localized osteoarthrosis, hand Trigger finger of left thumb [facility] Diagnosis Folate deficiency Other B-complex deficiencies Chronic bilateral low back pain without sciatica Restless legs Restless legs syndrome (RLS) [facility] Diagnosis Prostate cancer (HCC)- Primary Malignant neoplasm of prostate [facility] Diagnosis Chronic bilateral low back pain without sciatica Restless legs Restless legs syndrome (RLS) [facility] Diagnosis Epigastric pain- Primary Abdominal pain, epigastric Abdominal aortic aneurysm (AAA) without rupture, unspecified part (HCC) Essential hypertension Unspecified essential hypertension Factor V Leiden (HCC) Primary hypercoagulable state Hematoma of rectus sheath, initial encounter Fever, unspecified fever cause [facility] Diagnosis Fever, unspecified fever cause- Primary Elevated liver enzymes Other nonspecific abnormal serum enzyme levels Dark urine Other nonspecific finding on examination of urine Cough, unspecified type [facility] Diagnosis Infection in abdomen (HCC)- Primary Unspecified peritonitis Abdominal pain, unspecified abdominal location Coagulopathy (HCC) Other and unspecified coagulation defects Screening for nephropathy [facility] Diagnosis Dark urine- Primary Other nonspecific finding on examination of urine [facility] Diagnosis Dark urine- Primary Other nonspecific finding on examination of urine [facility] Diagnosis Tobacco abuse Tobacco use disorder [facility] Diagnosis Fever, unspecified fever cause- Primary Essential hypertension Unspecified essential hypertension Chronic bilateral low back pain without sciatica Restless legs Restless legs syndrome (RLS) Elevated liver enzymes Other nonspecific abnormal serum enzyme levels Cough, unspecified type [facility] Diagnosis Essential hypertension Unspecified essential hypertension [facility] Diagnosis Chronic bilateral low back pain without sciatica Restless legs Restless legs syndrome (RLS) [facility] Diagnosis Chronic bilateral low back pain without sciatica Restless legs Restless legs syndrome (RLS) Mixed hyperlipidemia [facility] Diagnosis Chronic bilateral low back pain without sciatica Restless legs Restless legs syndrome (RLS) [facility]* Diagnosis Vertigo- Primary Dizziness and giddiness Chronic bilateral low back pain without sciatica Restless legs Restless legs syndrome (RLS) Vestibular neuronitis of left ear Vestibular neuronitis documented in this encounter [facility] note* Diagnosis Coagulopathy (HCC)- Primary Other and unspecified coagulation defects Factor V Leiden ([facility]) Primary hypercoagulable state documented in this encounter [facility] note* Diagnosis Vestibular neuronitis of left ear- Primary Vestibular neuronitis History of hematuria Personal history of other disorder of urinary system Factor V Leiden ([facility]) Primary hypercoagulable state documented in this encounter [facility] note* Diagnosis Infection in abdomen ([facility]) Unspecified peritonitis documented in this encounter [facility] note* Diagnosis Chronic bilateral low back pain without sciatica Restless legs Restless legs syndrome (RLS) documented in this encounter [facility] note* Diagnosis Vertigo- Primary Dizziness and giddiness Essential hypertension Unspecified essential hypertension Vestibular neuronitis of left ear Vestibular neuronitis Hearing loss of left ear, unspecified hearing loss type documented in this encounter [facility] note* Diagnosis Vertigo Dizziness and giddiness Vestibular neuronitis of left ear Vestibular neuronitis Hearing loss of left ear, unspecified hearing loss type documented in this encounter [facility] Summary Purpose Family History No Family History Records FoundNo Family History Records FoundNo Family History Records FoundNo Family History Records Found Advance Directives No Advanced Directives Records FoundDocuments on File Type Date 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 Advance Directive(s) 06/11/2021 10:24 PM Advance Directive(s) 03/16/2021 8:12 AM Advance Directive(s) 03/10/2021 9:40 AM Advance Directive(s) 11/25/2020 10:25 AM Advance Directive(s) 01/11/2020 3:32 PM Advance Directive(s) 06/16/2019 5:20 AM Advance Directive(s) 06/16/2019 9:10 AM Advance Directive(s) 06/29/2018 11:49 AM Advance Directive(s) 07/16/2017 8:32 AM Advance Directive(s) 09/23/2015 11:21 AM Advance Directive(s) 07/29/2015 7:28 AM Advance Directive(s) 07/16/2015 2:15 PM Documents on File Type Date 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 Advance Directive(s) 06/11/2021 10:24 PM Advance Directive(s) 03/16/2021 8:12 AM Advance Directive(s) 03/10/2021 9:40 AM Advance Directive(s) 11/25/2020 10:25 AM Advance Directive(s) 01/11/2020 3:32 PM Advance Directive(s) 06/16/2019 5:20 AM Advance Directive(s) 06/16/2019 9:10 AM Advance Directive(s) 06/29/2018 11:49 AM Advance Directive(s) 07/16/2017 8:32 AM Advance Directive(s) 09/23/2015 11:21 AM Advance Directive(s) 07/29/2015 7:28 AM Advance Directive(s) 07/16/2015 2:15 PM Documents on File Type Date 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 Advance Directive(s) 08/27/2021 7:30 AM Advance Directive(s) 06/11/2021 10:24 PM Advance Directive(s) 03/16/2021 8:12 AM Advance Directive(s) 03/10/2021 9:40 AM Advance Directive(s) 11/25/2020 10:25 AM Advance Directive(s) 01/11/2020 3:32 PM Advance Directive(s) 06/16/2019 5:20 AM Advance Directive(s) 06/16/2019 9:10 AM Advance Directive(s) 06/29/2018 11:49 AM Advance Directive(s) 07/16/2017 8:32 AM Advance Directive(s) 09/23/2015 11:21 AM Advance Directive(s) 07/29/2015 7:28 AM Advance Directive(s) 07/16/2015 2:15 PM Documents on File Type Date 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 Advance Directive(s) 08/27/2021 7:30 AM Advance Directive(s) 06/11/2021 10:24 PM Advance Directive(s) 03/16/2021 8:12 AM Advance Directive(s) 03/10/2021 9:40 AM Advance Directive(s) 11/25/2020 10:25 AM Advance Directive(s) 01/11/2020 3:32 PM Advance Directive(s) 06/16/2019 5:20 AM Advance Directive(s) 06/16/2019 9:10 AM Advance Directive(s) 06/29/2018 11:49 AM Advance Directive(s) 07/16/2017 8:32 AM Advance Directive(s) 09/23/2015 11:21 AM Advance Directive(s) 07/29/2015 7:28 AM Advance Directive(s) 07/16/2015 2:15 PM Reason for Referral Specialty Diagnoses / Procedures Referred By Contac t Referred To Contact [facility] Diagnoses Stress incontinence, male Procedures CONSULT TO PHYSICAL THERAPY PHYSICAL THERAPY EVALUATION HIGH COMPLEX 45 MINS Shashi Arce Jr., MD [address] [place] [address] [facility] [place] [address] [place] [address] Referral ID Status Reason Start Date Expiration Date Visits Requested Visits Authorized [id number] Pending Review Auto-Generat ed Referral 08/14/2021 08/14/2022 1 1 Specialty Diagnoses / Procedures Referred By Contac t Referred To Contact Orthopedics Diagnoses Leg swelling Acute pain of right knee Procedures CONSULT TO ORTHOPAEDICS OFFICE/OUTPATIENT [facility] MDM 60-74 MINUTES Joanne Elizondo APRN.APPRAISAL COORDINATOR [address] [place] [address] Referral ID Status Reason Start Date Expiration Date Visits Requested Visits Authorized [id number] Pending Review PCP Requested Referral 11/04/2021 11/04/2022 1 1 Specialty Diagnoses / Procedures Referred By Contac t Referred To Contact XR IMAGING Diagnoses Leg swelling Procedures XR KNEE GENERAL 4V AP BOTH/PA BOTH/LAT/MERC RIGHT RADIOLOGIC EXAM KNEE COMPLETE 4/MORE VIEWS Joanne Elizondo APRN.APPRAISAL COORDINATOR [address] [place] [address] Xr Imaging Referral ID Status Reason Start Date Expiration Date V isits Requested Visits Authorized [id number] Closed Auto-Generate d Referral 11/04/2021 12/04/2022 1 1 Specialty Diagnoses / Procedures Referred By Contac t Referred To Contact [facility] Diagnoses Leg swelling Procedures US LEG VEIN DVT UNL VAS LAB DUP-SCAN XTR VEINS UNILATERAL/LIMITED STUDY Joanne Elizondo, EVELIO.APPRAISAL COORDINATOR [address] [place] [address] [facility] [place] [address] [place] [address] Referral ID Status Reason Start Date Expiration Date Visits Requested Visits Authorized [id number] Pending Review Auto-Generat ed Referral 11/04/2021 11/04/2022 1 1 Specialty Diagnoses / Procedures Referred By Contac t Referred To Contact CT IMAGING Diagnoses Injury of joint of finger of left hand, initial encounter Procedures CT HAND WO IVCON LT CT UPPER EXTREMITY W/O CONTRAST MATERIAL Bryan White PA-C [address] [place] [address] Ct Imaging Referral ID Status Reason Start Date Expiration Date V isits Requested Visits Authorized [id number] Closed Auto-Generate d Referral 01/20/2022 02/19/2023 1 1 Specialty Diagnoses / Procedures Referred By Contac t Referred To Contact Orthopedics Diagnoses Trigger finger of left thumb Procedures CONSULT TO ORTHOPAEDICS OFFICE/OUTPATIENT [facility] 60-74 MINUTES Bryan White PA-C [address] [place] [address] Referral ID Status Reason Start Date Expiration Date Visits Requested Visits Authorized [id number] Pending Review PCP Requested Referral 02/12/2022 02/12/2023 1 1 Specialty Diagnoses / Procedures Referred By Contac t Referred To Contact CT IMAGING Diagnoses Infection in abdomen (HCC) Procedures CT ABD/PEL W IVCON CT ABD & PELVIS W/CONTRAST Marco Mary MD [address] [place] [address] Ct Imaging Referral ID Status Reason Start Date Expiration Date Visits Requested Visits Authorized [id number] Pending Review Auto-Genera malik Referral Patient Cleared - Admin/Chair man/Directo r advise to proceed 09/04/2022 10/04/2023 2 2 Specialty Diagnoses / Procedures Referred By Contac t Referred To Contact Ent - Otolaryngology Diagnoses Vertigo Vestibular neuronitis of left ear Procedures CONSULT TO ENT OFFICE/OUTPATIENT [facility] 60-74 MINUTES Marco Mary MD [address] [place] [address] Referral ID Status Reason Start Date Expiration Date Visits Requested Visits Authorized [id number] Pending Review PCP Requested Referral 3 02/24/2024 1 1 Specialty Diagnoses / Procedures Referred By Contac t Referred To Contact CT IMAGING Diagnoses Infection in abdomen (HCC) Procedures CT ABD/PEL W IVCON CT ABD & PELVIS W/CONTRAST Marco Mary MD [address] [place] [address] [id number] [place] [address] Referral ID Status Reason Start Date Expiration Date V isits Requested Visits Authorized [id number] Closed Auto-Generat ed Referral Patient Cleared - Admin/Chairm an/Director advise to proceed or did not respond 09/08/2022 03/07/2023 2 2 Specialty Diagnoses / Procedures Referred By Mandie gardner Referred To Contact Neurology Diagnoses Vertigo Vestibular neuronitis of left ear Hearing loss of left ear, unspecified hearing loss type Procedures CONSULT TO NEUROLOGY OFFICE/OUTPATIENT [facility] 60-74 MINUTES Marco Mary MD [facility] [place] [address] Referral ID Status Reason Start Date Expiration Date Visits Requested Visits Authorized [id number] Pending Review PCP Requested Referral 3 04/13/2024 1 1 Additional Source Comments (unrecognized sect ion and content) No Status Records FoundNo Status Records FoundNo Status Records FoundNo Status Records Found INFORMATION SOURCE (unrecogn ized section and content) DATE CREATED AUTHOR AUTHOR'S ORGANIZ ATION 08/30/2021 [facility] DATE CREATED AUTHOR AUTHOR'S ORGANIZ ATION 06/18/2022 [facility] DATE CREATED AUTHOR AUTHOR'S ORGANIZ ATION 05/13/2023 [facility] Source Comments (unrecognize d section and content) In the event this informatio n is protected by the Federal Confidentiality of Alcohol and Drug Abuse Patient Records regulations: The Federal rules restrict any use of the information to criminally investigate or prosecute any alcohol or drug abuse patient.[facility] the event this information is protected by the Federal Confidentiality of Alcohol and Drug Abuse Patient Records regulations: The Federal rules restrict any use of the information to criminally investigate or prosecute any alcohol or drug abuse patient.[facility]In the event this information is protected by the Federal Confidentiality of Alcohol and Drug Abuse Patient Records regulations: The Federal rules restrict any use of the information to criminally investigate or prosecute any alcohol or drug abuse patient.[facility] the event this information is protected by the Federal Confidentiality of Alcohol and Drug Abuse Patient Records regulations: The Federal rules restrict any use of the information to criminally investigate or prosecute any alcohol or drug abuse patient.[facility] the event this information is protected by the Federal Confidentiality of Alcohol and Drug Abuse Patient Records regulations: The Federal rules restrict any use of the information to criminally investigate or prosecute any alcohol or drug abuse patient.[facility]In the event this information is protected by the Federal Confidentiality of Alcohol and Drug Abuse Patient Records regulations: The Federal rules restrict any use of the information to criminally investigate or prosecute any alcohol or drug abuse patient.[facility]In the event this information is protected by the Federal Confidentiality of Alcohol and Drug Abuse Patient Records regulations: The Federal rules restrict any use of the information to criminally investigate or prosecute any alcohol or drug abuse patient.[facility] the event this information is protected by the Federal Confidentiality of Alcohol and Drug Abuse Patient Records regulations: The Federal rules restrict any use of the information to criminally investigate or prosecute any alcohol or drug abuse patient.[facility] the event this information is protected by the Federal Confidentiality of Alcohol and Drug Abuse Patient Records regulations: The Federal rules restrict any use of the information to criminally investigate or prosecute any alcohol or drug abuse patient.[facility] the event this information is protected by the Federal Confidentiality of Alcohol and Drug Abuse Patient Records regulations: The Federal rules restrict any use of the information to criminally investigate or prosecute any alcohol or drug abuse patient.[facility]In the event this information is protected by the Federal Confidentiality of Alcohol and Drug Abuse Patient Records regulations: The Federal rules restrict any use of the information to criminally investigate or prosecute any alcohol or drug abuse patient.[facility]In the event this information is protected by the Federal Confidentiality of Alcohol and Drug Abuse Patient Records regulations: The Federal rules restrict any use of the information to criminally investigate or prosecute any alcohol or drug abuse patient.[facility]In the event this information is protected by the Federal Confidentiality of Alcohol and Drug Abuse Patient Records regulations: The Federal rules restrict any use of the information to criminally investigate or prosecute any alcohol or drug abuse patient.[facility]In the event this information is protected by the Federal Confidentiality of Alcohol and Drug Abuse Patient Records regulations: The Federal rules restrict any use of the information to criminally investigate or prosecute any alcohol or drug abuse patient.[facility]In the event this information is protected by the Federal Confidentiality of Alcohol and Drug Abuse Patient Records regulations: The Federal rules restrict any use of the information to criminally investigate or prosecute any alcohol or drug abuse patient.[facility] the event this information is protected by the Federal Confidentiality of Alcohol and Drug Abuse Patient Records regulations: The Federal rules restrict any use of the information to criminally investigate or prosecute any alcohol or drug abuse patient.[facility] the event this information is protected by the Federal Confidentiality of Alcohol and Drug Abuse Patient Records regulations: The Federal rules restrict any use of the information to criminally investigate or prosecute any alcohol or drug abuse patient.[facility]In the event this information is protected by the Federal Confidentiality of Alcohol and Drug Abuse Patient Records regulations: The Federal rules restrict any use of the information to criminally investigate or prosecute any alcohol or drug abuse patient.[facility]In the event this information is protected by the Federal Confidentiality of Alcohol and Drug Abuse Patient Records regulations: The Federal rules restrict any use of the information to criminally investigate or prosecute any alcohol or drug abuse patient.[facility]In the event this information is protected by the Federal Confidentiality of Alcohol and Drug Abuse Patient Records regulations: The Federal rules restrict any use of the information to criminally investigate or prosecute any alcohol or drug abuse patient.[facility] the event this information is protected by the Federal Confidentiality of Alcohol and Drug Abuse Patient Records regulations: The Federal rules restrict any use of the information to criminally investigate or prosecute any alcohol or drug abuse patient.[facility]In the event this information is protected by the Federal Confidentiality of Alcohol and Drug Abuse Patient Records regulations: The Federal rules restrict any use of the information to criminally investigate or prosecute any alcohol or drug abuse patient.[facility]In the event this information is protected by the Federal Confidentiality of Alcohol and Drug Abuse Patient Records regulations: The Federal rules restrict any use of the information to criminally investigate or prosecute any alcohol or drug abuse patient.[facility]In the event this information is protected by the Federal Confidentiality of Alcohol and Drug Abuse Patient Records regulations: The Federal rules restrict any use of the information to criminally investigate or prosecute any alcohol or drug abuse patient.[facility] the event this information is protected by the Federal Confidentiality of Alcohol and Drug Abuse Patient Records regulations: The Federal rules restrict any use of the information to criminally investigate or prosecute any alcohol or drug abuse patient.[facility]In the event this information is protected by the Federal Confidentiality of Alcohol and Drug Abuse Patient Records regulations: The Federal rules restrict any use of the information to criminally investigate or prosecute any alcohol or drug abuse patient.[facility] the event this information is protected by the Federal Confidentiality of Alcohol and Drug Abuse Patient Records regulations: The Federal rules restrict any use of the information to criminally investigate or prosecute any alcohol or drug abuse patient.[facility]In the event this information is protected by the Federal Confidentiality of Alcohol and Drug Abuse Patient Records regulations: The Federal rules restrict any use of the information to criminally investigate or prosecute any alcohol or drug abuse patient.[facility]In the event this information is protected by the Federal Confidentiality of Alcohol and Drug Abuse Patient Records regulations: The Federal rules restrict any use of the information to criminally investigate or prosecute any alcohol or drug abuse patient.[facility] the event this information is protected by the Federal Confidentiality of Alcohol and Drug Abuse Patient Records regulations: The Federal rules restrict any use of the information to criminally investigate or prosecute any alcohol or drug abuse patient.[facility]In the event this information is protected by the Federal Confidentiality of Alcohol and Drug Abuse Patient Records regulations: The Federal rules restrict any use of the information to criminally investigate or prosecute any alcohol or drug abuse patient.[facility] the event this information is protected by the Federal Confidentiality of Alcohol and Drug Abuse Patient Records regulations: The Federal rules restrict any use of the information to criminally investigate or prosecute any alcohol or drug abuse patient.[facility] the event this information is protected by the Federal Confidentiality of Alcohol and Drug Abuse Patient Records regulations: The Federal rules restrict any use of the information to criminally investigate or prosecute any alcohol or drug abuse patient.[facility]In the event this information is protected by the Federal Confidentiality of Alcohol and Drug Abuse Patient Records regulations: The Federal rules restrict any use of the information to criminally investigate or prosecute any alcohol or drug abuse patient.[facility]In the event this information is protected by the Federal Confidentiality of Alcohol and Drug Abuse Patient Records regulations: The Federal rules restrict any use of the information to criminally investigate or prosecute any alcohol or drug abuse patient.[facility]In the event this information is protected by the Federal Confidentiality of Alcohol and Drug Abuse Patient Records regulations: The Federal rules restrict any use of the information to criminally investigate or prosecute any alcohol or drug abuse patient.[facility]In the event this information is protected by the Federal Confidentiality of Alcohol and Drug Abuse Patient Records regulations: The Federal rules restrict any use of the information to criminally investigate or prosecute any alcohol or drug abuse patient.[facility]In the event this information is protected by the Federal Confidentiality of Alcohol and Drug Abuse Patient Records regulations: The Federal rules restrict any use of the information to criminally investigate or prosecute any alcohol or drug abuse patient.[facility]In the event this information is protected by the Federal Confidentiality of Alcohol and Drug Abuse Patient Records regulations: The Federal rules restrict any use of the information to criminally investigate or prosecute any alcohol or drug abuse patient.[facility]In the event this information is protected by the Federal Confidentiality of Alcohol and Drug Abuse Patient Records regulations: The Federal rules restrict any use of the information to criminally investigate or prosecute any alcohol or drug abuse patient.[facility]In the event this information is protected by the Federal Confidentiality of Alcohol and Drug Abuse Patient Records regulations: The Federal rules restrict any use of the information to criminally investigate or prosecute any alcohol or drug abuse patient.[facility]In the event this information is protected by the Federal Confidentiality of Alcohol and Drug Abuse Patient Records regulations: The Federal rules restrict any use of the information to criminally investigate or prosecute any alcohol or drug abuse patient.[facility]In the event this information is protected by the Federal Confidentiality of Alcohol and Drug Abuse Patient Records regulations: The Federal rules restrict any use of the information to criminally investigate or prosecute any alcohol or drug abuse patient.[facility]In the event this information is protected by the Federal Confidentiality of Alcohol and Drug Abuse Patient Records regulations: The Federal rules restrict any use of the information to criminally investigate or prosecute any alcohol or drug abuse patient.[facility]In the event this information is protected by the Federal Confidentiality of Alcohol and Drug Abuse Patient Records regulations: The Federal rules restrict any use of the information to criminally investigate or prosecute any alcohol or drug abuse patient.[facility] HealthIn the event this information is protected by the Federal Confidentiality of Alcohol and Drug Abuse Patient Records regulations: The Federal rules restrict any use of the information to criminally investigate or prosecute any alcohol or drug abuse patient.[facility] HealthIn the event this information is protected by the Federal Confidentiality of Alcohol and Drug Abuse Patient Records regulations: The Federal rules restrict any use of the information to criminally investigate or prosecute any alcohol or drug abuse patient.[facility] HealthIn the event this information is protected by the Federal Confidentiality of Alcohol and Drug Abuse Patient Records regulations: The Federal rules restrict any use of the information to criminally investigate or prosecute any alcohol or drug abuse patient.[facility] HealthIn the event this information is protected by the Federal Confidentiality of Alcohol and Drug Abuse Patient Records regulations: The Federal rules restrict any use of the information to criminally investigate or prosecute any alcohol or drug abuse patient.[facility] HealthIn the event this information is protected by the Federal Confidentiality of Alcohol and Drug Abuse Patient Records regulations: The Federal rules restrict any use of the information to criminally investigate or prosecute any alcohol or drug abuse patient.[facility] HealthIn the event this information is protected by the Federal Confidentiality of Alcohol and Drug Abuse Patient Records regulations: The Federal rules restrict any use of the information to criminally investigate or prosecute any alcohol or drug abuse patient.[facility] HealthIn the event this information is protected by the Federal Confidentiality of Alcohol and Drug Abuse Patient Records regulations: The Federal rules restrict any use of the information to criminally investigate or prosecute any alcohol or drug abuse patient.[facility] HealthIn the event this information is protected by the Federal Confidentiality of Alcohol and Drug Abuse Patient Records regulations: The Federal rules restrict any use of the information to criminally investigate or prosecute any alcohol or drug abuse patient.[facility] HealthIn the event this information is protected by the Federal Confidentiality of Alcohol and Drug Abuse Patient Records regulations: The Federal rules restrict any use of the information to criminally investigate or prosecute any alcohol or drug abuse patient.[facility] HealthIn the event this information is protected by the Federal Confidentiality of Alcohol and Drug Abuse Patient Records regulations: The Federal rules restrict any use of the information to criminally investigate or prosecute any alcohol or drug abuse patient.[facility] HealthIn the event this information is protected by the Federal Confidentiality of Alcohol and Drug Abuse Patient Records regulations: The Federal rules restrict any use of the information to criminally investigate or prosecute any alcohol or drug abuse patient.[facility] HealthIn the event this information is protected by the Federal Confidentiality of Alcohol and Drug Abuse Patient Records regulations: The Federal rules restrict any use of the information to criminally investigate or prosecute any alcohol or drug abuse patient.[facility] HealthIn the event this information is protected by the Federal Confidentiality of Alcohol and Drug Abuse Patient Records regulations: The Federal rules restrict any use of the information to criminally investigate or prosecute any alcohol or drug abuse patient.[facility] HealthIn the event this information is protected by the Federal Confidentiality of Alcohol and Drug Abuse Patient Records regulations: The Federal rules restrict any use of the information to criminally investigate or prosecute any alcohol or drug abuse patient.[facility] HealthIn the event this information is protected by the Federal Confidentiality of Alcohol and Drug Abuse Patient Records regulations: The Federal rules restrict any use of the information to criminally investigate or prosecute any alcohol or drug abuse patient.[facility] HealthIn the event this information is protected by the Federal Confidentiality of Alcohol and Drug Abuse Patient Records regulations: The Federal rules restrict any use of the information to criminally investigate or prosecute any alcohol or drug abuse patient.[facility] HealthIn the event this information is protected by the Federal Confidentiality of Alcohol and Drug Abuse Patient Records regulations: The Federal rules restrict any use of the information to criminally investigate or prosecute any alcohol or drug abuse patient.[facility] HealthIn the event this information is protected by the Federal Confidentiality of Alcohol and Drug Abuse Patient Records regulations: The Federal rules restrict any use of the information to criminally investigate or prosecute any alcohol or drug abuse patient.[facility] HealthIn the event this information is protected by the Federal Confidentiality of Alcohol and Drug Abuse Patient Records regulations: The Federal rules restrict any use of the information to criminally investigate or prosecute any alcohol or drug abuse patient.[facility] HealthIn the event this information is protected by the Federal Confidentiality of Alcohol and Drug Abuse Patient Records regulations: The Federal rules restrict any use of the information to criminally investigate or prosecute any alcohol or drug abuse patient.[facility] HealthIn the event this information is protected by the Federal Confidentiality of Alcohol and Drug Abuse Patient Records regulations: The Federal rules restrict any use of the information to criminally investigate or prosecute any alcohol or drug abuse patient.[facility] HealthIn the event this information is protected by the Federal Confidentiality of Alcohol and Drug Abuse Patient Records regulations: The Federal rules restrict any use of the information to criminally investigate or prosecute any alcohol or drug abuse patient.[facility] HealthIn the event this information is protected by the Federal Confidentiality of Alcohol and Drug Abuse Patient Records regulations: The Federal rules restrict any use of the information to criminally investigate or prosecute any alcohol or drug abuse patient.[facility] HealthIn the event this information is protected by the Federal Confidentiality of Alcohol and Drug Abuse Patient Records regulations: The Federal rules restrict any use of the information to criminally investigate or prosecute any alcohol or drug abuse patient.[facility] HealthIn the event this information is protected by the Federal Confidentiality of Alcohol and Drug Abuse Patient Records regulations: The Federal rules restrict any use of the information to criminally investigate or prosecute any alcohol or drug abuse patient.[facility] HealthIn the event this information is protected by the Federal Confidentiality of Alcohol and Drug Abuse Patient Records regulations: The Federal rules restrict any use of the information to criminally investigate or prosecute any alcohol or drug abuse patient.[facility] HealthIn the event this information is protected by the Federal Confidentiality of Alcohol and Drug Abuse Patient Records regulations: The Federal rules restrict any use of the information to criminally investigate or prosecute any alcohol or drug abuse patient.[facility] HealthIn the event this information is protected by the Federal Confidentiality of Alcohol and Drug Abuse Patient Records regulations: The Federal rules restrict any use of the information to criminally investigate or prosecute any alcohol or drug abuse patient.[facility] HealthIn the event this information is protected by the Federal Confidentiality of Alcohol and Drug Abuse Patient Records regulations: The Federal rules restrict any use of the information to criminally investigate or prosecute any alcohol or drug abuse patient.[facility] HealthIn the event this information is protected by the Federal Confidentiality of Alcohol and Drug Abuse Patient Records regulations: The Federal rules restrict any use of the information to criminally investigate or prosecute any alcohol or drug abuse patient.[facility] HealthIn the event this information is protected by the Federal Confidentiality of Alcohol and Drug Abuse Patient Records regulations: The Federal rules restrict any use of the information to criminally investigate or prosecute any alcohol or drug abuse patient.[facility] Reason for Visit (unrecogniz ed section and content) Reason Comments Patient Update Reason Comments Disability Paperwork Reason Comments Anticoagulation Reason Comments Prostate Cancer Specialty Diagnoses / Procedures Referred By Contac t Referred To Contact Urology / UROLOGY Diagnoses Elevated prostate specific antigen (PSA) 2 week follow up Procedures EST PATIENT VISIT LEVEL 5 EST UROL Reji Pacheco DO [address] [place] [address] Reji Pacheco DO [address] [place] [address] Referral ID Status Reason Start Date Expiration Date V isits Requested Visits Authorized [id number] Authorized 01/03/2021 01/03/2022 4 4 Reason Comments Forms [place] Reason Comments 6 Month Exam Specialty Diagnoses / Procedures Referred By Contac t Referred To Contact Laboratory Medicine / LAB [facility] Diagnoses lab Procedures VENIPUNCTURE LAB Marco Mary MD [address] [place] [address] Lab [facility] [address] [place] [address] Referral ID Status Reason Start Date Expiration Date V isits Requested Visits Authorized [id number] Authorized 10/19/2020 10/19/2021 99 99 Reason Comments 08-27-2021 Incisional hernia W Mesh Reason Comments Post Op Follow Up hernia repair 08/27 Specialty Diagnoses / Procedures Referred By Mandie t Referred To Contact General Surgery / GENERAL SURGERY Diagnoses 08/27/21 VLAD REESE HERNIA FOLLOW UP Procedures POST OP DDI Marco Mary MD [address] [place] [phone] Ivan Fowler MD [address] [place] [phone] Referral ID Status Reason Start Date Expiration Date V isits Requested Visits Authorized [id number] Closed OON/Self Pay Override 09/04/2021 05/16/2022 1 1 Reason Onset Date Comments Refill Request 09/26/2021 Reason Comments Return To Work Letter Reason Onset Date Comments Refill Request 10/31/2021 Reason Comments Anticoagulation Results Reason Comments Right Knee Pain with swelling x 5 da ys Specialty Diagnoses / Procedures Referred By Contac t Referred To Contact Family Practice / FAMILY MEDICINE Diagnoses Right knee pain right knee pain/swollen Procedures OFFICE/OUTPATIENT ESTABLISHED MOD MDM 30-39 MIN 4C EST Joanne Elizondo, EVELIO.APPRAISAL COORDINATOR [address] [place] [address] Joanne Elizondo APRN.APPRAISAL COORDINATOR [address] [place] [address] Referral ID Status Reason Start Date Expiration Date Visits Re quested Visits Authorized [id number] Closed 11/04/2021 05/16/2022 2 2 Reason Comments PSA Reason Onset Date Comments Refill Request 12/05/2021 Reason Comments Stress incontinence, male Specialty Diagnoses / Procedures Referred By Contac t Referred To Contact Urology / UROLOGY Diagnoses Elevated prostate specific antigen (PSA) 2 week follow up Procedures EST PATIENT VISIT LEVEL 5 EST UROL Reji Pacheco, [address] [place] [address] Reji Pacheco DO [address] [place] [address] Referral ID Status Reason Start Date Expiration Date Visits Re quested Visits Authorized [id number] Closed 01/03/2021 01/03/2022 4 4 Reason Comments Refill Request Reason Comments Radiology CT Specialty Diagnoses / Procedures Referred By Contac t Referred To Contact CT IMAGING Diagnoses Injury of joint of finger of left hand, initial encounter Procedures CT HAND WO IVCON LT CT UPPER EXTREMITY W/O CONTRAST MATERIAL Bryan White PA-C [address] [place] [address] Ct Imaging Referral ID Status Reason Start Date Expiration Date V isits Requested Visits Authorized [id number] Closed Auto-Generate d Referral 01/20/2022 02/19/2023 1 1 Reason Comments Patient Question Reason Comments Orders Reason Comments New Pain Specialty Diagnoses / Procedures Referred By Contac t Referred To Contact Orthopedics / FAMILY MEDICINE Diagnoses Trigger finger of left thumb Procedures CONSULT TO ORTHOPAEDICS OFFICE/OUTPATIENT NEW HIGH MDM 60-74 MINUTES Bryan White PA-C [address] [place] [address] [facility] [address] [place] [address] Referral ID Status Reason Start Date Expiration Date V isits Requested Visits Authorized [id number] Closed PCP Requested Referral 03/05/2022 05/16/2022 1 1 Reason Onset Date Comments Refill Request 04/16/2022 Reason Comments Prostate Cancer Specialty Diagnoses / Procedures Referred By Contac t Referred To Contact UROLOGY Diagnoses 6 month follow up, psa prior Procedures REFERRAL TO [facility] FINANCIAL COUNSELOR OFFICE/OUTPATIENT ESTABLISHED MOD [facility] 30-39 MIN EST Shashi Snow Jr., MD [address] [place] [address] [place] [address] Referral ID Status Reason Start Date Expiration Date Visits Requested Visits Authorized [id number] Authorized Financial Clearance Required - OON Payor 06/04/2022 05/16/2023 2 2 Reason Onset Date Comments Refill Request 07/17/2022 Reason Comments Fever Abdominal Pain Specialty Diagnoses / Procedures Referred By Contac t Referred To Contact Family Medicine / FAMILY MEDICINE Diagnoses Encounter for follow-up examination after completed treatment for conditions other than malignant neoplasm LOW GRADE FEVER/ LOSS OF APPIETE Procedures OFFICE/OUTPATIENT ESTABLISHED MOD [facility] 30-39 MIN 4C EST Self Marco Mary MD [address] [place] [address] Referral ID Status Reason Start Date Expiration Date Visits Re quested Visits Authorized [id number] Closed 09/03/2022 05/16/2023 1 1 Reason Comments Follow Up Abdominal pain Specialty Diagnoses / Procedures Referred By Contac t Referred To Contact Family Medicine / FAMILY MEDICINE Diagnoses Encounter for follow-up examination after completed treatment for conditions other than malignant neoplasm Recheck Procedures OFFICE/OUTPATIENT ESTABLISHED MOD [facility] 30-39 MIN 4C EST Marco Mary MD [address] [place] [address] Marco Mary MD [address] [place] [address] Referral ID Status Reason Start Date Expiration Date Visits Re quested Visits Authorized [id number] Closed 09/07/2022 05/16/2023 1 1 Reason Comments Patient Update Specialty Diagnoses / Procedures Referred By Contac t Referred To Contact Family Medicine / FAMILY MEDICINE Diagnoses Follow-up exam 1 week follow up Procedures OFFICE/OUTPATIENT ESTABLISHED MOD MDM 30-39 MIN 4C EST Marco Mary MD [address] [place] [address] Marco Mary MD [address] [place] [address] Referral ID Status Reason Start Date Expiration Date Visits Re quested Visits Authorized [id number] Closed 09/14/2022 05/16/2023 1 1 Reason Onset Date Comments Refill Request 09/14/2022 Reason Onset Date Comments Refill Request 10/29/2022 Reason Onset Date Comments Refill Request 12/03/2022 Reason Comments Opened In Error Reason Comments Hospital F/U Reason Onset Date Comments Transition Of Care 02/24/2023 Reason Comments Follow Up Reason Comments FMLA Paperwork Specialty Diagnoses / Procedures Referred By Contac t Referred To Contact CT IMAGING Diagnoses Infection in abdomen (HCC) Procedures CT ABD/PEL W IVCON CT ABD & PELVIS W/CONTRAST Marco Mary MD [address] [place] [address] [place] [address] Referral ID Status Reason Start Date Expiration Date V isits Requested Visits Authorized [id number] Closed Auto-Generat ed Referral Patient Cleared - Admin/Chairm an/Director advise to proceed or did not respond 09/08/2022 03/07/2023 2 2 Reason Onset Date Comments Refill Request 03/22/2023 Reason Comments Patient Question Reason Comments Follow Up Reason Comments New Patient Evaluation Specialty Diagnoses / Procedures Referred By Contac t Referred To Contact Neurology Diagnoses Vertigo Vestibular neuronitis of left ear Hearing loss of left ear, unspecified hearing loss type Procedures CONSULT TO NEUROLOGY OFFICE/OUTPATIENT NEW HIGH MDM 60-74 MINUTES Marco Mary MD [address] [place] [address] Referral ID Status Reason Start Date Expiration Date Visits Requested Visits Authorized [id number] Pending Review PCP Requested Referral 3 04/13/2024 1 1 Reason Comments Medication Problem Care Teams (unrecognized sec tion and content) Sports Activities Foul Judge Relationship Specialty Start Date End Date Marco Mary MD [address] [facility] [place] [address] PCP - General Family Practice 05/28/16 Sports Activities Foul Judge Relationship Specialty Start Date End Date Marco Mary MD [address] [facility] [place] [address] PCP - General Family Practice 05/28/16 Sports Activities Foul Judge Relationship Specialty Start Date End Date Marco Mary MD [address] [facility] [place] [address] PCP - General Family Practice 05/28/16 Sports Activities Foul Judge Relationship Specialty Start Date End Date Marco Mary MD [address] [facility] [place] [address] PCP - General Family Practice 05/28/16 Sports Activities Foul Judge Relationship Specialty Start Date End Date Marco Mary MD [address] [facility] [place] [address] PCP - General Family Practice 05/28/16 Sports Activities Foul Judge Relationship Specialty Start Date End Date Marco Mary MD [address] [facility] [place] [address] PCP - General Family Practice 05/28/16 Sports Activities Foul Judge Relationship Specialty Start Date End Date Marco Mary MD [address] [facility] [place] [address] PCP - General Family Practice 05/28/16 Sports Activities Foul Judge Relationship Specialty Start Date End Date Marco Mary MD [address] [facility] [place] [address] PCP - General Family Practice 05/28/16 Sports Activities Foul Judge Relationship Specialty Start Date End Date Marco Mary MD [address] [facility] [place] [address] PCP - General Family Practice 05/28/16 Sports Activities Foul Judge Relationship Specialty Start Date End Date Marco Mary MD [address] [facility] [place] [address] PCP - General Family Practice 05/28/16 Sports Activities Foul Judge Relationship Specialty Start Date End Date Marco Mary MD [address] [facility] [place] [address] PCP - General Family Practice 05/28/16 Sports Activities Foul Judge Relationship Specialty Start Date End Date Marco Mary MD [address] [facility] [place] [address] PCP - General Family Practice 05/28/16 Sports Activities Foul Judge Relationship Specialty Start Date End Date Marco Mary MD [address] [facility] [place] [address] PCP - General Family Practice 05/28/16 Sports Activities Foul Judge Relationship Specialty Start Date End Date Marco Mary MD [address] [facility] [place] [address] PCP - General Family Practice 05/28/16 Sports Activities Foul Judge Relationship Specialty Start Date End Date Marco Mary MD [address] [facility] [place] [address] PCP - General Family Practice 05/28/16 Sports Activities Foul Judge Relationship Specialty Start Date End Date Marco Mary MD [address] [facility] [place] [address] PCP - General Family Practice 05/28/16 Sports Activities Foul Judge Relationship Specialty Start Date End Date Marco Mary MD [address] [facility] [place] [address] PCP - General Family Practice 05/28/16 Sports Activities Foul Judge Relationship Specialty Start Date End Date Marco Mary MD [address] [facility] [place] [address] PCP - General Family Practice 05/28/16 Sports Activities Foul Judge Relationship Specialty Start Date End Date Marco Mary MD [address] [facility] [place] [address] PCP - General Family Medicine 05/28/16 Sports Activities Foul Judge Relationship Specialty Start Date End Date Marco Mary MD [address] [facility] [place] [address] PCP - General Family Medicine 05/28/16 Sports Activities Foul Judge Relationship Specialty Start Date End Date Marco Mary MD [address] [facility] [place] [address] PCP - General Family Medicine 05/28/16 Sports Activities Foul Judge Relationship Specialty Start Date End Date Marco Mary MD [address] [facility] [place] [address] PCP - General Family Medicine 05/28/16 Sports Activities Foul Judge Relationship Specialty Start Date End Date Marco Mary MD [address] [facility] [place] [address] PCP - General Family Medicine 05/28/16 Sports Activities Foul Judge Relationship Specialty Start Date End Date Marco Mary MD [address] [facility] [place] [address] PCP - General Family Medicine 05/28/16 Sports Activities Foul Judge Relationship Specialty Start Date End Date Marco Mary MD [address] [facility] [place] [address] PCP - General Family Medicine 05/28/16 Sports Activities Foul Judge Relationship Specialty Start Date End Date Marco Mary MD [address] [facility] [place] [address] PCP - General Family Medicine 05/28/16 Sports Activities Foul Judge Relationship Specialty Start Date End Date Marco Mary MD [address] [facility] [place] [address] PCP - General Family Medicine 05/28/16 Sports Activities Foul Judge Relationship Specialty Start Date End Date Marco Mary MD [address] [facility] [place] [address] PCP - General Family Medicine 05/28/16 Sports Activities Foul Judge Relationship Specialty Start Date End Date Marco Mary MD [address] [facility] [place] [address] PCP - General Family Medicine 05/28/16 Sports Activities Foul Judge Relationship Specialty Start Date End Date Marco Mary MD [address] [facility] [place] [address] PCP - General Family Medicine 05/28/16 Sports Activities Foul Judge Relationship Specialty Start Date End Date Marco Mary MD [address] [facility] [place] [address] PCP - General Family Medicine 05/28/16 Sports Activities Foul Judge Relationship Specialty Start Date End Date Marco Mary MD [address] [facility] [place] [address] PCP - General Family Medicine 05/28/16 Sports Activities Foul Judge Relationship Specialty Start Date End Date Marco Mary MD [address] [facility] [place] [address] PCP - General Family Medicine 05/28/16 Sports Activities Foul Judge Relationship Specialty Start Date End Date Marco Mary MD [address] [facility] [place] [address] PCP - General Family Medicine 05/28/16 Sports Activities Foul Judge Relationship Specialty Start Date End Date Marco Mary MD [address] [facility] [place] [address] PCP - General Family Medicine 05/28/16 Sports Activities Foul Judge Relationship Specialty Start Date End Date Marco Mary MD [address] [place] [address] PCP - General Family Medicine 05/28/16 Sports Activities Foul Judge Relationship Specialty Start Date End Date Marco Mary MD [address] [place] [address] PCP - General Family Medicine 05/28/16 Sports Activities Foul Judge Relationship Specialty Start Date End Date Macro Mary MD [address] [place] [address] PCP - General Family Medicine 05/28/16 Sports Activities Foul Judge Relationship Specialty Start Date End Date Marco Mary MD [address] [place] [address] PCP - General Family Medicine 05/28/16 Sports Activities Foul Judge Relationship Specialty Start Date End Date Marco Mary MD [address] [place] [address] PCP - General Family Medicine 05/28/16 Sports Activities Foul Judge Relationship Specialty Start Date End Date Marco Mary MD [address] [place] [address] PCP - General Family Medicine 05/28/16 Sports Activities Foul Judge Relationship Specialty Start Date End Date Marco Mary MD [address] [facility] [place], [place] [phone] PCP - General Family Medicine 05/28/16 Sports Activities Foul Judge Relationship Specialty Start Date End Date Marco Mary MD [address] [place] [address] PCP - General Family Medicine 05/28/16 [employer] Relationship Specialty Start Date End Date Marco Mary MD [address] [place] [address] PCP - General Family Medicine 05/28/16 FOR RECORDS PERTAINING TO PATIENTS WHO ARE OR HAVE BEEN ENROLLED IN A CHEMICAL DEPENDENCY/SUBSTANCEABUSE PROGRAM, SOME INFORMATION MAY BE OMITTED. This clinical summary was aggregated from multiple sources. Caution should be exercised in using it in the provision of clinical care. This summary normalizes information from multiple sources, and as a consequence, information in this document may materially change the coding, format and clinical context of patient data. In addition, data may be omitted in some cases. CLINICAL DECISIONS SHOULD BE BASED ON THE PRIMARY CLINICAL RECORDS. [employer] provides no warranty or guarantee of the accuracy or completeness of information in this document.
[2023-05-14 13:37] LABS: International Normalized Ratio 2.1; Prothrombin Time (Protime)PT. 24.1 SECONDS (11.7-14.9)
== END 2023-05-14 14:27 | disposition home or self-care (01) ==
PROVIDERS: Emergency Provider Emergency Medicine; PCP Family Medicine; Visit Provider Emergency Medicine
DX: S09.90XA Unspecified injury of head, initial encounter (principal); D68.8 Other specified coagulation defects; S16.1XXA Strain of muscle, fascia and tendon at neck level, initial encounter; F17.210 Nicotine dependence, cigarettes, uncomplicated; W01.10XA Fall on same level from slipping, tripping and stumbling with subsequent striking against unspecified object, initial encounter; Y93.01 Activity, walking, marching and hiking; Z86.718 Personal history of other venous thrombosis and embolism; Z79.01 Long term (current) use of anticoagulants; Z79.82 Long term (current) use of aspirin; I10 Essential (primary) hypertension; E78.5 Hyperlipidemia, unspecified; Z79.899 Other long term (current) drug therapy; F32.A Depression, unspecified; Z85.46 Personal history of malignant neoplasm of prostate; Z90.79 Acquired absence of other genital organ(s); Z90.49 Acquired absence of other specified parts of digestive tract
CPT/HCPCS: 70450; 72125; 85610; 99282

== ENCOUNTER 2024-10-20 11:03 | Emergency (ER) | payer MEDICARE, SELFPAY ==
[2024-10-20 11:03] VITALS: BP 146/93; PULSE 86; RESP 14; TEMP 36.1; O2SAT 98; BMI 34.5
--- NOTE | 2024-10-20 11:40 | EDS_ITS ---
<Statement entered by Hao Moore DO - 10/20/24 16:46> Patient was seen and examined with physician ssn/ssbn assistant navigator Meggan All components of the history and physical confirmed and agreed. History of present illness and physical exam: Patient is a 64-year-old male past medical history of DVT on warfarin, hypertension, hyperlipidemia, AAA status post stent, vestibular neuritis, depression who presents to the emergency department with a chief complaint of fall on Wednesday with left rib pain as well as hitting his head. According the patient he states that he lost his balance he has chronic vestibular neuritis and balance issues from this. He states that he is following up with the primary care physician and they were concerned that he could have broken ribs from hitting his ribs and then see he is on blood thinning medications requesting getting a CAT scan of his head. Review of systems: Agree with above Physical exam: Agree with above MDM Patient is a 64-year-old male who presented to the emergency department the chief complaint of fall that occurred on Wednesday with left rib pain hitting his head while on warfarin. On the differential diagnose includes Melamin to intracranial hemorrhage, concussion, rib fracture. Once workup is obtained reviewed he will be reevaluated. Patient CBC reviewed showed no evidence leukocytosis white blood count normal at 6.8, hemoglobin 14.9, platelet count was noted to be 187. Patient sodium is 138, potassium normal 4.4, creatinine was 1.09. Patient's CT head and brain showed no evidence of acute intracranial pathology mild cerebral atrophy noted. Patient CT cervical spine showed no acute fracture or listhesis he has severe degenerative disc disease between C5 and C6 spondylosis noted. Areas of mild foraminal narrowing at C4-C5 and C5-C6. 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 There are endoluminal stents in the infrarenal abdominal aorta and both common iliac arteries. No evidence of leakage. Mild splenomegaly large hiatal hernia status post parent prostatectomy and vesiculecomy. I reevaluated the patient he is feeling well he would like to go home at this point in time. He was vies follow-up with his primary care physician outpatient setting. He was given prescription for Poll[place] and is advised to rotate Tylenol and ibuprofen [id number]. He is encouraged return with worsening symptoms or concerns. He is agreeable to plan all questions earns answered is discharged home in stable condition. Final impression: Left rib pain Fall Atrial fibrillation on warfarin History of vestibular neuritis Disposition: Patient will be discharged home in stable condition Supervising attending attestation: Hao SHARP History of Present Illness Chief Complaint: Headache Narrative Narrative: Patient presenting today with pain to his head, left upper quadrant/epigastrium, and left lateral ribs after a mechanical fall that occurred on Wednesday. He reports that he was walking in his barn and lost his balance, he fell forward, hitting the left side of his forehead against an object in the barn and his left rib/abdomen against a metal air compressor. He saw his PCP in the office today, they had concerns that he could have a broken rib and recommended he come into the ED for CT scans. 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 He has not had his INR checked since April. He denies shortness of breath, chest pain, nausea, and vomiting. [facility] Medical History Depression History of DVT (deep vein thrombosis) HLD (hyperlipidemia) HTN (hypertension) History of abdominal aortic aneurysm History of prostate cancer Home Medications ?Medication ?Instructions ?Recorded ?Last Taken ?Type aspirin 81 mg tablet,delayed 81 mg PO DAILY@0800 05/11 Unknown History release
--- NOTE | 2024-10-20 11:40 | EX.ED.DYSGE1 ---
HPI History of Present Illness Chief Complaint: Headache Narrative Narrative: Patient presenting today with pain to his head, left upper quadrant/epigastrium, and left lateral ribs after a mechanical fall that occurred on Wednesday. He reports that he was walking in his barn and lost his balance, he fell forward, hitting the left side of his forehead against an object in the barn and his left rib/abdomen against a metal air compressor. He saw his PCP in the office today, they had concerns that he could have a broken rib and recommended he come into the ED for CT scans. 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 He has not had his INR checked since April. He denies shortness of breath, chest pain, nausea, and vomiting. [facility] Medical History Depression History of DVT (deep vein thrombosis) HLD (hyperlipidemia) HTN (hypertension) History of abdominal aortic aneurysm History of prostate cancer Home Medications ?Medication ?Instructions ?Recorded ?Last Taken ?Type aspirin 81 mg tablet,delayed 81 mg PO DAILY@0800 05/11/15 Unknown History release metoprolol tartrate 50 mg tablet 50 mg PO BID blood pressure 05/11/15 Unknown History paroxetine HCl 20 mg tablet 20 mg PO DAILY mental health 06/17/19 Unknown History warfarin 5 mg tablet 5 mg PO .COMPLEX blood thinner 06/17/19 Unknown History olmesartan 20 mg tablet 20 mg PO DAILY blood pressure 03/15/21 Unknown History amitriptyline 50 mg tablet 50 mg PO QHS PRN sleep 06/11/21 Unknown History bisacodyl 5 mg tablet 5 mg PO QHS PRN constipation 06/11/21 Unknown History cyclobenzaprine 10 mg tablet 10 mg PO QHS PRN muscle spasm 06/11/21 Unknown History famotidine 20 mg tablet 20 mg PO DAILY reflux 06/11/21 Unknown History ferrous sulfate 325 mg (65 mg 325 mg PO DAILY supplement 06/11/21 Unknown History iron) tablet folic acid 1 mg tablet 1 mg PO DAILY supplement 06/11/21 Unknown History omeprazole 40 mg capsule,delayed 40 mg PO DAILY reflux 06/11/21 Unknown History release sildenafil 50 mg tablet 50 mg PO DAILY PRN Erectile 06/11/21 Unknown History Dysfunction albuterol sulfate 90 mcg/actuation 2 puff inhalation Q4H PRN PRN 09/03/22 Unknown Rx aerosol inhaler (Ventolin HFA) Wheezing ##1 warfarin 2.5 mg tablet 2.5 mg PO TU blood thinner 02/21/23 Unknown History meclizine 12.5 mg tablet 12.5 mg PO TID PRN PRN Vertigo 5 02/23/23 Unknown Rx days #15 tabs prednisone 20 mg tablet See Taper PO BREAKFAST #29 tabs 02/23/23 Unknown Rx hydrocodone-acetaminophen 5-325mg 1 tab PO Q4H PRN PRN Pain 2 days 10/20/24 Unknown Rx 5mg-325mg #7 TABLETS Allergy/AdvReac Type Severity Reaction Status Date / Time ciprofloxacin (From Cipro) Allergy Rash Verified 10/20/24 11:04 ciprofloxacin HCl (From Allergy Rash Verified 10/20/24 11:04 Cipro) Surgical History History of knee surgery History of cholecystectomy History of abdominal aortic aneurysm (AAA) repair H/O prostatectomy Social History household members: spouse Smoking Status: Current every day smoker tobacco type: cigarettes substance use type: does not use ROS ROS ED Constitutional Constitutional ED: Denies chills or fever(s) Eyes Eyes: Denies change in vision Cardiovascular Cardiovascular: Denies chest pain Respiratory/Chest Respiratory/Chest: Reports other Details: Left lateral rib pain ; Denies dyspnea Gastrointestinal Gastrointestinal: Reports abdominal pain; Denies diarrhea, nausea or vomiting Genitourinary Genitourinary ED: Denies dysuria, hematuria or urinary urgency Musculoskeletal Musculoskeletal: Denies back pain or neck pain Integumentary Denies Abrasions Neurologic Neurologic: Reports headache(s); Denies paresthesias EXAM Physical Exam Const Vital Signs: 10/20/24 11:03 10/20/24 13:03 10/20/24 14:32 Temperature 96.9 F L 97.6 F L Temperature Source Temporal Pulse Rate 86 74 74 Respiratory Rate 14 16 16 Blood Pressure 146/93 H 132/99 H 132/99 H Blood Pressure Mean 110 110 110 Pulse Ox 98 96 96 Oxygen Delivery Method Room Air Positive well nourished, well developed and no apparent distress General Appearance ED: well developed HEENT Reports normocephalic and head/scalp atraumatic Mouth ED: Yes moist mucous membranes normal Eyes PERRL and EOMs intact bilaterally Neck full ROM and supple Chest Wall inspection of chest normal Chest Narrative: Tenderness to palpation to the left lateral rib cage, no crepitus, no overlying bruising or abrasions Resp normal respiratory effort and clear to auscultation bilaterally Cardio regular rate and regular rhythm GI soft to palpation, non-distended and no masses GI Narrative: Tenderness to the left upper quadrant and epigastrium, no rigidity or guarding Back/Spine normal ROM and normal to inspection Extremity normal to inspection and full ROM Neuro oriented x3, CN's II-XII intact bilaterally, moves all extremities, no focal motor deficits and no sensory deficits noted Sensorium / Orientation: awake and alert Psych mental status grossly normal and thought process normal Skin no rashes or lesions noted and no wounds MDM MDM MDM Narrative Medical decision making narrative: Patient presenting today due to mechanical fall that occurred on Wednesday resulting in a head injury and injury of his left lateral ribs and upper/left side of his abdomen. He saw his PCP, Dr. Dunn in the office who recommended he come in for CT scans to rule out injury. Given he drove here, he will be given Tylenol for pain. CT scan of the head, neck, chest, abdomen, pelvis will be obtained to rule out intracranial bleed, cervical fracture, rib fracture, intra-abdominal injury. 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 INR is 2.1. He is doing well on reexamination, he ambulated without difficulty. His vitals have remained stable. I will give him a few [place] for pain as needed, recommended he continue following up with his PCP. He will be discharged home in stable condition. Lab Data Attestation: I reviewed the patient's lab results. Labs: Laboratory Results - last 24 hr 10/20/24 11:30 WBC 6.8 RBC 4.92 Hgb 14.9 Hct 44.3 MCV 90.0 MCH 30.3 MCHC 33.6 RDW Std Deviation 46.0 H RDW Coeff of Nena 13.8 Plt Count 187 MPV 10.8 Immature Gran % (Auto) 0.100 Neut % (Auto) 62.0 Lymph % (Auto) 22.6 Mercer % (Auto) 12.0 H Eos % (Auto) 2.7 Baso % (Auto) 0.6 Absolute Neuts (auto) 4.2 Absolute Lymphs (auto) 1.53 Nucleated RBC % 0 PT 24.1 H INR 2.1 Sodium 138 Potassium 4.4 Chloride 103 Carbon Dioxide 23.1 Anion Gap 12 BUN 20 H Creatinine 1.09 Estim Creat Clear Calc 88.71 Est GFR (MDRD) Non-Af 75 BUN/Creatinine Ratio 18.0 Glucose 99 Calcium 9.3 Radiography Diagnostic Testing: Clinical Impression(s) from Imaging Studies Brain CT 10/20/24 11:55 IMPRESSION: 1. No evidence of acute intracranial pathology. 2. Mild cerebral atrophy. 3. Other findings as noted. Reading Location: [facility] Cervical Spine CT 10/20/24 11:55 IMPRESSION: No acute traumatic findings involving the cervical spine. Severe degenerative disc disease at C5-6. Spondylosis as detailed above. Areas of mild foraminal narrowing at C4-5 and C5-6. Reading Location: [facility] Chest/Abdomen/Pelvis CT 10/20/24 11:55 IMPRESSION: 1. There is calcific vascular disease of the thoracoabdominal aorta and coronary arteries. 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 There are endoluminal stents in the infrarenal abdominal aorta and both common iliac arteries. There is no evidence of stent leakage. 2. Mild splenomegaly. 3. Large hiatal hernia. 4. Status post apparent prostatectomy and vesiculectomy. 5. Other findings as noted. Reading Location: [facility] Discharge Plan Triage Chief Complaint: Headache ED Midlevel Provider: Anna Brothers ED Provider: Hao Moore Dx/Rx/DC Orders Clinical Impression: Fall, Head injury, Chronic anticoagulation, Contusion of rib, Abdominal contusion Instructions: ED Head Injury (Adult), ED Bruise, Rib Prescriptions: New hydrocodone-acetaminophen 5-325 mg tablet 1 tab PO Q4H PRN PRN (Reason: Pain) 2 Days Qty: 7 0RF No Action metoprolol tartrate 50 MG tablet 50 mg PO BID aspirin 81 MG tablet 81 mg PO DAILY@0800 paroxetine HCl 20 MG tablet 20 mg PO DAILY warfarin 5 MG tablet 5 mg PO .COMPLEX Rx Instructions: 5 mg orally; olmesartan 20 mg tablet 20 mg PO DAILY cyclobenzaprine 10 mg Tablet 10 mg PO QHS PRN (Reason: muscle spasm) sildenafil 50 mg Tablet 50 mg PO DAILY PRN (Reason: Erectile Dysfunction) omeprazole 40 mg Capsule,Delayed Release(Dr/Ec) 40 mg PO DAILY amitriptyline 50 mg Tablet 50 mg PO QHS PRN (Reason: sleep) famotidine 20 mg Tablet 20 mg PO DAILY ferrous sulfate 325 mg (65 mg iron) Tablet 325 mg PO DAILY folic acid 1 mg Tablet 1 mg PO DAILY bisacodyl 5 mg Tablet 5 mg PO QHS PRN (Reason: constipation) albuterol sulfate [Ventolin HFA] 90 mcg/actuation HFA aerosol inhaler 2 puff inhalation Q4H PRN PRN (Reason: Wheezing) Qty: 1 0RF warfarin 2.5 mg tablet 2.5 mg PO TU prednisone 20 mg Tablet See Taper PO BREAKFAST Qty: 29 0RF Taper: Prednisone Taper 60 mg WITH BREAKFAST for 7 Days and 0 Hour 50 mg WITH BREAKFAST for 1 Day and 0 Hour 40 mg WITH BREAKFAST for 1 Day and 0 Hour 30 mg WITH BREAKFAST for 3 Days and 0 Hour 20 mg WITH BREAKFAST for 1 Day and 0 Hour 10 mg WITH BREAKFAST for 1 Day and 0 Hour Rx Instructions: 60 mg daily for 7 days then decrease by 10mg daily until completion meclizine 12.5 mg Tablet 12.5 mg PO TID PRN PRN (Reason: Vertigo) 5 Days Qty: 15 0RF Primary Care Provider: Marco Dunn Referrals: Marco Dunn MD [Primary Care Provider] - 5-7 Days Activity Restrictions/Additional Instructions: Follow-up with your PCP return for any other concerns. Print Language: Russian Disposition Disposition: Home, Self Care Discharge Date/Time: 10/20/24 14:32
[2024-10-20 11:46] LABS: Absolute Lymphocyte Count 1.53 X10^3/uL (0.83-4.51); Absolute Neutrophil Count 4.2 X10^3/uL (2.0-7.7); Basophil# 0.04 X10^3/uL; Basophil% 0.6 % (0-1); Eosinophil# 0.18 X10^3/uL; Eosinophils% 2.7 % (0-5); Hematocrit 44.3 % (40-54); Hemoglobin 14.9 g/dL (13.0-16.5); Lymphocyte # 1.53 X10^3/ul (0.83-4.51); Lymphocyte % 22.6 % (19-41); Mean Corp Hgb Conc 33.6 g/dL (32-36); Mean Corpuscular Hgb 30.3 pg (27.0-32.0); Mean Platelet Vol. 10.8 fl (6.2-12.0); Monocyte# 0.81 X10^3/uL; NRBC Flagged by Analyzer 0 % (0-5); Platelet Count 187 K/mm3 (150-450); RBC Distribution Width CV 13.8 % (11.6-14.6); Red Blood Count 4.92 M/mm3 (4.6-6.2); White Blood Count 6.8 K/mm3 (4.4-11.0)
--- NOTE | 2024-10-20 11:55 | CT_ITS ---
PROCEDURE: SPINE CERVICAL WITHOUT CONTRAS 10/20/2024 REASON FOR EXAM: HEAD INJURY, PAIN PATIENT FELL ON WEDNESDAY. LEFT RIB PAIN. TECHNIQUE: Contiguous axial scans of 1.25 mm slice thicknesses without intravenous contrast. Sagittal and coronal reconstruction images were also obtained. One or more dose reduction techniques were used (e.g., Automated exposure control, adjustment of the mA and/or kV according to patient size, use of iterative reconstruction technique). RADIATION DOSE SUMMARY: DLP: 3795.92 mGycm COMPARISON: CT cervical dated 05/14/2023. FINDINGS: Vertebra: Normal in height. Mild spondylosis at C5-6. severe uncovertebral joint arthropathy at C5-6. C1-C2: Mild degenerative arthritic change. Alignment: No scoliosis. No spondylolisthesis. Discs: Severe narrowing of the C5-C6 interspace. Mild degenerative cystic changes are noted, multilevel. Foramens: Mild bilateral foraminal narrowing is again noted at C5-6. Mild right foraminal narrowing at C4-C5. Facets: Multilevel bilateral facet arthropathy Soft tissues: Prevertebral soft tissues are normal. CT/Spine Cervical without Contras IMPRESSION: No acute traumatic findings involving the cervical spine. Severe degenerative disc disease at C5-6. Spondylosis as detailed above. Areas of mild foraminal narrowing at C4-5 and C5-6. Reading Location: [place] [address]
--- NOTE | 2024-10-20 11:55 | CT_ITS ---
PROCEDURE: BRAIN/HEAD WITHOUT CONTRAST 10/20/2024 REASON FOR EXAM: HEADACHE, HEAD INJURY ON ANTICOAGULANT TECHNIQUE: Head CT without intravenous contrast. Coronal and Sagittal reconstruction series were provided. One or more dose reduction techniques were used (e.g., Automated exposure control, adjustment of the mA and/or kV according to patient size, use of iterative reconstruction technique. RADIATION DOSE SUMMARY: CTDlvol: 150.00 mGy DLP: 3795.92 mGycm COMPARISON: CT head without contrast, 05/14/2023. FINDINGS: There is mild diffuse cerebral atrophy with concomitant ventriculomegaly. There is no evidence of acute intracranial hemorrhage or infarction. There are no abnormal intracranial masses or mass effects. The basilar cisterns are unremarkable. There is calcific vascular disease of the intracranial portion of both internal carotid arteries in the right vertebral artery. The skull base and calvarium are normal. There is right mikal bullosa with S shaped nasal septal deviation. There is a right-sided nasal spur. There is mild mucosal thickening of both sphenoid sinuses. The remaining paranasal sinuses and mastoid air cells are unremarkable. The intraorbital contents are normal. The visualized extracranial soft tissues are normal. CT/Brain/Head without Contrast IMPRESSION: 1. No evidence of acute intracranial pathology. 2. Mild cerebral atrophy. 3. Other findings as noted. Reading Location: [id number]
--- NOTE | 2024-10-20 11:55 | CT_ITS ---
PROCEDURE: CT CHEST, ABD, PEL W/CONTRAST 10/20/2024 REASON FOR EXAM: L RIB PAIN, LUQ PAIN, FALL TECHNIQUE: Chest, abdomen and pelvis CT with intravenous contrast. Coronal and Sagittal reconstruction series were provided. One or more dose reduction techniques were used (e.g., Automated exposure control, adjustment of the mA and/or kV according to patient size, use of iterative reconstruction technique. PATIENT PREPARATION: Per protocol ORAL CONTRAST TYPE: None. AMOUNT: mL CONTRAST: Isovue-300 VOLUME: 93mL RADIATION DOSE SUMMARY: CTDlvol: 150.00 mGy DLP: 3795.92 mGycm COMPARISON: CT abdomen and pelvis with IV contrast, 09/03/2022. FINDINGS: CT CHEST: Lymph nodes: There is no significant mediastinal or hilar lymphadenopathy. Heart and Vasculature: The heart size is normal. There is lipomatous hypertrophy of the interatrial septum. There is no pericardial effusion. There is calcific vascular disease of the thoracic aorta and coronary arteries. There is a saccular aneurysm of the mid aortic arch on its inferior/left lateral aspect measuring 2.1 cm in length and 7 mm in depth. Lungs and Airways: Pleura: There are no pleural effusions. Chest wall: The soft tissues of the chest wall are unremarkable. There is no axillary lymphadenopathy. There are Schmorl's nodes at multiple thoracic vertebral endplates. CT ABDOMEN/PELVIS: Liver: Normal. Gallbladder: Surgically absent. Spleen: There is mild splenomegaly with the spleen measuring 13.7 cm in axial dimension. Pancreas: Normal. Adrenals: Normal. Kidneys: There is a cortical cyst in the lower pole of the right kidney measuring 3.6 cm (was 3.2 cm) in diameter. There is a cortical cyst in the interpolar cortex of the left kidney measuring 1.9 cm in diameter (was 1.9 cm). Bladder: Normal unenhanced appearance. Reproductive Organs: The prostate gland and seminal vesicles are apparently surgically absent. There is no free fluid in the pelvis. There is no pelvic or inguinal lymphadenopathy. Bowel: There is a large hiatal hernia. There are scattered colonic diverticuli without evidence of acute inflammation. Appendix: Normal. Lymph nodes: There is no intra or retroperitoneal lymphadenopathy. Vasculature: There are endoluminal stents in the infrarenal abdominal aorta and both common iliac arteries. There is no evidence of stent leakage. The inferior vena cava and portal venous system are unremarkable. Abdominal wall: Status post ventral hernia repair. Bones: There is multilevel degenerative disc disease of the lumbar spine. There is mild dextroscoliosis of the lumbar spine. CT/CT Chest, Abd, Pel w/Contrast IMPRESSION: 1. There is calcific vascular disease of the thoracoabdominal aorta and guzman ry arteries. 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 There are endoluminal stents in the infrarenal abdominal a jesus and both common iliac arteries. There is no evidence of stent leakage. 2. Mild splenomegaly. 3. Large hiatal hernia. 4. Status post apparent prostatectomy and vesiculectomy. 5. Other findings as noted. Reading Location: [id number]
[2024-10-20 12:04] LABS: International Normalized Ratio 2.1; Prothrombin Time (Protime)PT. 24.1 SECONDS (11.7-14.9)
[2024-10-20] MEDS: Acetaminophen 325 MG Tablet 650 MG PO (12:20)
[2024-10-20 12:52] LABS: Anion Gap 12 (5-15); BUN 20 mg/dL (4-19); Calcium,Total 9.3 mg/dL (7.6-11.0); Carbon Dioxide 23.1 mmol/L (21.0-32.0); Chloride 103 mmol/L (98-108); Creatinine, Serum 1.09 mg/dL (0.70-1.20); EST Glomerular Filtration Rate 75 (>60); Estimated Creatinine Clearance 88.71 ml/min (50-250); Glucose 99 mg/dL (70-99); Potassium 4.4 mmol/L (3.3-5.1); Sodium Level 138 mmol/L (133-145)
[2024-10-20 13:03] VITALS: BP 132/99; PULSE 74; RESP 16; O2SAT 96
[2024-10-20 14:32] VITALS: BP 132/99; PULSE 74; RESP 16; TEMP 36.4; O2SAT 96
== END 2024-10-20 14:32 | disposition home or self-care (01) ==
PROVIDERS: Physician Assistant; Emergency Provider Emergency Medicine; PCP Family Medicine; Visit Provider Emergency Medicine
DX: S09.90XA Unspecified injury of head, initial encounter (principal); I48.91 Unspecified atrial fibrillation; S30.1XXA Contusion of abdominal wall, initial encounter; S20.219A Contusion of unspecified front wall of thorax, initial encounter; M48.02 Spinal stenosis, cervical region; F17.210 Nicotine dependence, cigarettes, uncomplicated; E78.5 Hyperlipidemia, unspecified; S22.39XA Fracture of one rib, unspecified side, initial encounter for closed fracture; K44.9 Diaphragmatic hernia without obstruction or gangrene; Z79.01 Long term (current) use of anticoagulants; I10 Essential (primary) hypertension; I71.22 Aneurysm of the aortic arch, without rupture; Z86.718 Personal history of other venous thrombosis and embolism; Z90.49 Acquired absence of other specified parts of digestive tract; Z85.46 Personal history of malignant neoplasm of prostate
CPT/HCPCS: 70450; 71260; 72125; 74177; 80048; 85025; 85610; 99282; Q9967; A4216